=== PATIENT | male | born 1925 | race Caucasian/White ===

== ENCOUNTER 2016-07-15 13:25 | Emergency (ER) | payer MEDICARE, MEDICAID ==
[~2016-07-15 13:25] MED LIST: ASCO250C CHEW; ASPI1TAB69 PO; B-12100T PO; CIPR250T2 PO; D31000CA PO; FERR325T PO; GABA300C5 PO; GLIM4TAB PO; HYDR-3533 PO; LEVO-168 PO; LISI2.5T3 PO; OMEP20TA PO; PERM5CRE11 TOPICAL; SIMV10TA PO; TRAD5TAB PO; WHEEMIS3; ZOLP5TAB3 PO
[2016-07-15 13:34] VITALS: BP 104/63; PULSE 84; RESP 14; TEMP 98.2; O2SAT 100
[2016-07-15] MEDS ORDERED: [UNRECOGNIZED DRUG - CODE] TOPICAL (14:41)
[2016-07-15] MEDS ORDERED: RANITIDINE HCL 150 MG TAB PO ONE (14:45)
[2016-07-15] MEDS ORDERED: FAMOTIDINE 20 MG TAB PO ONE (14:45)
[2016-07-15] MEDS ORDERED: diphenhydrAMINE HCL 25 MG CAP PO ONE (14:45)
[2016-07-15] MEDS ORDERED: CLOT1CRE6 TOPICAL (14:47)
--- NOTE | 2016-07-15 14:57 | PD ---
HPI Chief Complaint: Skin Problem Time Seen by Provider: 14:30 Travel History International Travel<30 days: No Contact w/Intl Traveler<30days: No Traveled to known affect area: No History of Present Illness HPI 89-year-old male presents to the emergency room for evaluation of itchy rash to his bilateral upper extremities and back for the past 1.5 months. Patient complained of this about 2 months ago while in the emergency room and was given a prescription for permethrin cream. States that did not help. He has been applying creams without significant relief. States itching is severe and constant, affecting his activities of daily living. No worse at night. He has not been taking anything for his symptoms. PFSH Past Medical History Hx Anticoagulant Therapy: Yes (81 MG ASA) Blood Disorders: No Heart Rhythm Problems: No Cancer: Yes (CANCER R EAR) Cardiovascular Problems: Yes High Cholesterol: Yes Chemotherapy: No Chest Pain: No Congestive Heart Failure: No Cerebrovascular Accident: Yes (STROKE 2012) Diabetes: Yes Patient Takes Glucophage: No Diminished Hearing: Yes Endocrine: Yes Gastrointestinal Disorders: No GERD: Yes Genitourinary: Yes (Prostate) Headaches: No Hypertension: Yes Immune Disorder: No Inguinal Hernia: Yes (BILAT REPAIR) Implanted Vascular Access Dvce: Yes Kidney Stones: Yes Musculoskeletal: No Neurologic: Yes Psychiatric: No Reproductive: No Respiratory: No Immunizations Current: Yes (UNKNOWN) Migraines: Yes Radiation Therapy: No Seizures: No Thyroid Disease: Yes (Hypothyroid) Tetanus Vaccination: < 5 Years Influenza Vaccination: Yes Past Surgical History Abdominal Surgery: Yes (bilat. 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 Reported Meds & Prescriptions Reported Meds & Active Scripts Active Wheelchair Elevated Leg (Device) 1 Mis Mis 1 Ea .ROUTE DIRECTED Ciprofloxacin (Ciprofloxacin HCl) 250 Mg Tab 250 Mg PO BID Ferrous Sulfate 325 Mg Tab 325 Mg PO BID@,17 Ascorbic Acid 250 Mg Chew 250 Mg CHEW DAILY take with iron pills for better absorption of iron Reported Zolpidem (Zolpidem Tartrate) 5 Mg Tab 2.5 Mg PO HS PRN Tradjenta (Linagliptin) 5 Mg Tab 5 Mg PO DAILY Gabapentin 300 Mg Cap 300 Mg PO HS D3 (Cholecalciferol) 1,000 Unit Cap 1,000 Units PO DAILY Levothyroxine (Levothyroxine Sodium) 112 Mcg Tab 112 Mcg PO DAILY Omeprazole 20 Mg Tab 20 Mg PO DAILY Simvastatin 10 Mg Tab 10 Mg PO DAILY Glimepiride 4 Mg Tab 4 Mg PO BIDAC Aspirin 81 Mg Tabdr 81 Mg PO DAILY Lisinopril 2.5 Mg Tab 2.5 Mg PO DAILY Review of Systems Except as stated in HPI: all other systems reviewed are Neg Physical Exam Narrative GENERAL: Well-nourished, well-developed male in no acute distress. Afebrile. Ambulatory. SKIN: Warm and dry. Slightly raised erythematous maculopapular lesions in bilateral upper extremities and on upper back. Lesions are dry to the touch with central scaling. HEAD: Normocephalic. EYES: No scleral icterus. No injection or drainage. NECK: Supple, trachea midline. No JVD or lymphadenopathy. Data Data Last Documented VS Vital Signs Date Time Temp Pulse Resp B/P Pulse Ox O2 Delivery O2 Flow Rate FiO2 07/15/16 13:34 98.2 84 14 104/63 100 Orders Ranitidine (Zantac) (07/15/16 14:45) Diphenhydramine (Benadryl) (07/15/16 14:45) [facility] Medical Decision Making Medical Screen Exam Complete: Yes Emergency Medical Condition: Yes Medical Record Reviewed: Yes Differential Diagnosis Atopic dermatitis versus contact dermatitis versus tinea corporis Narrative Course 89-year-old male presents to the emergency room for evaluation of itchy rash has 1.5 months. Patient has been treated for scabies without improvement in symptoms. Physical exam reveals raised maculopapular rash in bilateral upper extremities and on back. Dermatitis is round with central clearing/scaling. Skin is rough and dry. Unclear if this is atopic dermatitis or tinea corporis. Patient will be treated for both. He was told to try clotrimazole for the first week and if there is no improvement symptoms to then start hydrocortisone cream. He was also told to take [id number] Benadryl and Zantac for symptoms. Told to follow up with a local delivery truck driver or return for worsening symptoms. He understands and agrees to plan. Diagnosis Primary Impression: Dermatitis Referrals: Certified Prosthetist Primary Care Physician Patient Instructions: Dermatitis (ED), General Instructions Additional Instructions: Rest and drink plenty of fluids. Take Benadryl and Zantac as directed, as needed for itchiness. Use clotrimazole cream for one week. If there is no improvement in symptoms, stop clotrimazole and start hydrocortisone. Keep the skin moist with unscented lotions or ointments. Follow-up with a primary care physician. Return to the emergency room for worsening symptoms. Med/Other Pt SpecificInfo: Prescription(s) given Scripts Hydrocortisone Acetate Topical (Micort-Hc Topical)2.5 % Cream1 Applic TOPICAL DAILY #1 TUBE Prov:Negar Pope MD 07/15/16 Disposition: 01 DISCHARGE HOME Condition: Stable Manda Perdomo Jul 15, 2016 14:57
== END 2016-07-15 15:18 | disposition home or self-care (01) ==
LOC: PHEFT 13:25
DX: L30.9 Dermatitis, unspecified (principal)
CPT/HCPCS: 99282

== ENCOUNTER 2016-11-03 11:20 | Emergency (ER) | payer MEDICARE, MEDICAID ==
[~2016-11-03] VITALS: Ht 182.9 cm; Wt 86.0 kg
[~2016-11-03 11:20] MED LIST changes: -ASCO250C CHEW; -B-12100T PO; -CIPR250T2 PO; +CLOT1CRE6 TOPICAL; -FERR325T PO; -HYDR-3533 PO; -PERM5CRE11 TOPICAL; -WHEEMIS3; +[UNRECOGNIZED DRUG - CODE] TOPICAL
[2016-11-03 11:29] VITALS: BP 96/53; PULSE 68; RESP 16; TEMP 98.4; O2SAT 99
--- NOTE | 2016-11-03 12:02 | PD ---
HPI Chief Complaint: Complaint Time Seen by Provider: 11:42 Travel History International Travel<30 days: No Contact w/Intl Traveler<30days: No Traveled to known affect area: No History of Present Illness HPI This patient has a chronic indwelling suprapubic catheter. He is residing at a senior living and gets it changed every month. Today he was trying to shave and accidentally yanked out his catheter. It's been out for 5 hours. He feels well. Symptom severity is mild PFSH Past Medical History Hx Anticoagulant Therapy: Yes (81 MG ASA) Blood Disorders: No Heart Rhythm Problems: No Cancer: Yes (CANCER R EAR) Cardiovascular Problems: Yes High Cholesterol: Yes Chemotherapy: No Chest Pain: No Congestive Heart Failure: No Cerebrovascular Accident: Yes (STROKE 2012) Diabetes: Yes Diminished Hearing: Yes Endocrine: Yes Gastrointestinal Disorders: No GERD: Yes Genitourinary: Yes (Prostate) Headaches: No Hypertension: Yes Immune Disorder: No Inguinal Hernia: Yes (BILAT REPAIR) Implanted Vascular Access Dvce: Yes Kidney Stones: Yes Musculoskeletal: No Neurologic: Yes Psychiatric: No Reproductive: No Respiratory: No Immunizations Current: Yes (UNKNOWN) Migraines: Yes Radiation Therapy: No Seizures: No Thyroid Disease: Yes (Hypothyroid) Past Surgical History Abdominal Surgery: Yes (bilat. 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 Reported Meds & Prescriptions Reported Meds & Active Scripts Active Clotrimazole Anti-Fungal Topical (Clotrimazole) 1% Cream 1 Applic TOPICAL BID Micort-Hc Topical (Hydrocortisone Acetate Topical) 2.5 % Cream 1 Applic TOPICAL DAILY Reported Zolpidem (Zolpidem Tartrate) 5 Mg Tab 2.5 Mg PO HS PRN Tradjenta (Linagliptin) 5 Mg Tab 5 Mg PO DAILY Gabapentin 300 Mg Cap 300 Mg PO HS D3 (Cholecalciferol) 1,000 Unit Cap 1,000 Units PO DAILY Levothyroxine (Levothyroxine Sodium) 112 Mcg Tab 112 Mcg PO DAILY Omeprazole 20 Mg Tab 20 Mg PO DAILY Simvastatin 10 Mg Tab 10 Mg PO DAILY Glimepiride 4 Mg Tab 4 Mg PO BIDAC Aspirin 81 Mg Tabdr 81 Mg PO DAILY Lisinopril 2.5 Mg Tab 2.5 Mg PO DAILY Review of Systems General / Constitutional: No: Fever HENT: No: Headaches Cardiovascular: No: Chest Pain or Discomfort Respiratory: No: Cough Physical Exam Narrative GASTROINTESTINAL: Abdomen soft, non-tender, nondistended. Positive bowel sounds. No hepato-splenomegaly, or palpable masses. No guarding. Has a fresh open hole where the suprapubic catheter was SKIN: Focused skin assessment reveals no rash or ulcers. Skin is warm and dry. Palpation shows no induration or nodules. Psych: Normal mood and affect. Normal insight and judgment given his age Data Data Last Documented VS Vital Signs Date Time Temp Pulse Resp B/P Pulse Ox O2 Delivery O2 Flow Rate FiO2 11/03/16 11:29 98.4 68 16 96/53 99 MDM Medical Decision Making Medical Screen Exam Complete: Yes Emergency Medical Condition: Yes Medical Record Reviewed: Yes Differential Diagnosis Catheter malfunction, needs a new catheter, obstruction catheter Narrative Course I have reviewed the patient's electronic medical record. This patient actually pulled his suprapubic catheter out and needs a replacement. The nurse replaced the suprapubic catheter under sterile conditions It is draining urine and functioning well. Diagnosis Primary Impression: Suprapubic catheter dysfunction Qualified Code: T83.010A - Suprapubic catheter dysfunction, initial encounter Additional Instructions: Follow-up with senior living [facility] Med/Other Pt SpecificInfo: Other Disposition: 03 DISCHARGE TO SNF Condition: Stable Mikey Roque MD November 03, 2016 12:02
== END 2016-11-03 12:25 ==
LOC: PHED 11:20
DX: T83.010A Breakdown (mechanical) of cystostomy catheter, initial encounter (principal); E78.00 Pure hypercholesterolemia, unspecified; E11.9 Type 2 diabetes mellitus without complications; K21.9 Gastro-esophageal reflux disease without esophagitis; I10 Essential (primary) hypertension; E03.9 Hypothyroidism, unspecified; Z79.899 Other long term (current) drug therapy; Z79.82 Long term (current) use of aspirin; Z86.73 Personal history of transient ischemic attack (TIA), and cerebral infarction without residual deficits
CPT/HCPCS: 51702

== ENCOUNTER 2017-01-23 08:31 | Emergency (ER) | payer MEDICARE, MEDICAID ==
[~2017-01-23 08:31] MED LIST changes: -CLOT1CRE6 TOPICAL; -[UNRECOGNIZED DRUG - CODE] TOPICAL
[2017-01-23 08:34] VITALS: BP 106/51; PULSE 77; RESP 18; TEMP 98.6; O2SAT 100
--- NOTE | 2017-01-23 08:57 | PD ---
HPI Chief Complaint: Skin Problem Time Seen by Provider: 08:40 Travel History International Travel<30 days: No Contact w/Intl Traveler<30days: No Traveled to known affect area: No History of Present Illness HPI This patient lives at an assisted living facility. He's had leg swelling and a rash for "months" according to him. Staff member noticed this today and sent him here for it. He denies fever. He's had a suprapubic catheter for years. He is wheelchair-bound. Rash itches. It is on both legs and both arms but worse in the left lower leg. He was moderately severe. No alleviating factors. He is not having shortness of breath or chest pain or abdominal pain PFSH Past Medical History Hx Anticoagulant Therapy: Yes (asa 81mg daily) Blood Disorders: No Heart Rhythm Problems: No Cancer: Yes (CANCER R EAR) Cardiovascular Problems: Yes High Cholesterol: Yes Chemotherapy: No Chest Pain: No Congestive Heart Failure: No Cerebrovascular Accident: Yes (STROKE 2012) Diabetes: Yes Diminished Hearing: Yes Endocrine: Yes Gastrointestinal Disorders: No GERD: Yes Genitourinary: Yes (Prostate) Headaches: No Hypertension: Yes Immune Disorder: No Inguinal Hernia: Yes (BILAT REPAIR) Implanted Vascular Access Dvce: Yes Kidney Stones: Yes Musculoskeletal: No Neurologic: Yes Psychiatric: No Reproductive: No Respiratory: No Immunizations Current: Yes (UNKNOWN) Migraines: Yes Radiation Therapy: No Seizures: No Thyroid Disease: Yes (Hypothyroid) Past Surgical History Abdominal Surgery: Yes (bilat. 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 Reported Meds & Prescriptions Reported Meds & Active Scripts Active Reported Aspirin Low Dose (Aspirin) 81 Mg Chew 81 Mg CHEW DAILY Zolpidem (Zolpidem Tartrate) 5 Mg Tab 2.5 Mg PO HS PRN Tradjenta (Linagliptin) 5 Mg Tab 5 Mg PO DAILY Gabapentin 300 Mg Cap 300 Mg PO HS D3 (Cholecalciferol) 1,000 Unit Cap 1,000 Units PO DAILY Levothyroxine (Levothyroxine Sodium) 112 Mcg Tab 112 Mcg PO DAILY Omeprazole 20 Mg Tab 20 Mg PO DAILY Simvastatin 10 Mg Tab 10 Mg PO DAILY Glimepiride 4 Mg Tab 4 Mg PO BIDAC Lisinopril 2.5 Mg Tab 2.5 Mg PO DAILY Review of Systems General / Constitutional: No: Fever Eyes: No: Visual changes HENT: No: Headaches Cardiovascular: Positive: Edema, No: Chest Pain or Discomfort Respiratory: No: Shortness of Breath Gastrointestinal: No: Abdominal Pain Genitourinary: No: Dysuria Musculoskeletal: Positive: Edema, No: Pain Skin: Positive Rash, Positive Itching Neurologic: No: Weakness Psychiatric: No: Depression Endocrine: No: Polydipsia Hematologic/Lymphatic: No: Easy Bruising Physical Exam Narrative GENERAL: Well-nourished, well-developed patient in no apparent distress. SKIN: Focused skin assessment reveals an erythematous excoriated rash on all 4 extremities but worse in the left lower leg. Skin is Warm and dry. HEAD: Atraumatic. Normocephalic. EYES: Pupils equal and round. No scleral icterus. No injection or drainage. ENT: No nasal bleeding or discharge. Mucous membranes pink and moist. NECK: Trachea midline. No JVD. CARDIOVASCULAR: Regular rate and rhythm. No murmur appreciated. RESPIRATORY: No accessory muscle use. Clear to auscultation. Breath sounds equal bilaterally. GASTROINTESTINAL: Abdomen soft, non-tender, nondistended. Hepatic and splenic margins not palpable. Has a suprapubic catheter in position with no sign of infection around the opening MUSCULOSKELETAL: No obvious deformities. No clubbing. No cyanosis. Symmetric edema of the feet and lower legs up to the knee NEUROLOGICAL: Awake and alert. No obvious cranial nerve deficits. Motor grossly within normal limits. Normal speech. PSYCHIATRIC: Appropriate mood and affect; insight and judgment reasonable for age. Data Data Last Documented VS Vital Signs Date Time Temp Pulse Resp B/P Pulse Ox O2 Delivery O2 Flow Rate FiO2 01/23/17 08:34 98.6 77 18 106/51 100 Orders Iv Access Insert/Monitor (01/23/17 08:50) Complete Blood Count With Diff (01/23/17 08:50) Comprehensive Metabolic Panel (01/23/17 08:50) Labs Laboratory Tests Test 01/23/17 09:10 White Blood Count 7.6 TH/MM3 Red Blood Count 3.91 MIL/MM3 Hemoglobin 11.2 GM/DL Hematocrit 33.4 % Mean Corpuscular Volume 85.5 FL Mean Corpuscular Hemoglobin 28.6 PG Mean Corpuscular Hemoglobin 33.4 % Concent Red Cell Distribution Width 13.6 % Platelet Count 169 TH/MM3 Mean Platelet Volume 7.8 FL Neutrophils (%) (Auto) 62.5 % Lymphocytes (%) (Auto) 19.3 % Monocytes (%) (Auto) 9.1 % Eosinophils (%) (Auto) 8.3 % Basophils (%) (Auto) 0.8 % Neutrophils # (Auto) 4.7 TH/MM3 Lymphocytes # (Auto) 1.5 TH/MM3 Monocytes # (Auto) 0.7 TH/MM3 Eosinophils # (Auto) 0.6 TH/MM3 Basophils # (Auto) 0.1 TH/MM3 CBC Comment DIFF FINAL Differential Comment Sodium Level 143 MEQ/L Potassium Level 4.3 MEQ/L Chloride Level 110 MEQ/L Carbon Dioxide Level 26.1 MEQ/L Anion Gap 7 MEQ/L Blood Urea Nitrogen 19 MG/DL Creatinine 1.10 MG/DL Estimat Glomerular Filtration 63 ML/MIN Rate Random Glucose 131 MG/DL Calcium Level 8.3 MG/DL Total Bilirubin 0.5 MG/DL Aspartate Amino Transf 12 U/L (AST/SGOT) Alanine Aminotransferase 13 U/L (ALT/SGPT) Alkaline Phosphatase 114 U/L Total Protein 6.1 GM/DL Albumin 3.1 GM/DL [facility] Medical Decision Making Medical Screen Exam Complete: Yes Emergency Medical Condition: Yes Medical Record Reviewed: Yes Differential Diagnosis Renal failure, liver failure, cellulitis, allergic reaction, dermatitis Narrative Course I have reviewed the patient's electronic medical record. IV placed CBC reasonably normal Metabolic profile is normal LFTs are normal Patient's vitals and lab studies are pretty normal. He said similar rash that' s been called scabies Going to treat him with Elimite I don't think this is cellulitis Regarding his leg swelling have advised him to elevate his legs and use low- sodium diet and wear knee-high compression stockings after his rash is improved Diagnosis Primary Impression: Rash and nonspecific skin eruption Additional Impression: Leg edema Additional Instructions: Use Elimite as prescribed Elevate legs Low-sodium diet The patient was advised to follow up with their physician and return if they worsen. when rash is improved consider knee-high compression stockings Med/Other Pt SpecificInfo: Prescription(s) given Scripts Permethrin Topical (Elimite Topical)5% Cream1 Applic TOPICAL ONCE #1 TUBE Ref 0 Prov:Mikey Roque MD 01/23/17 Disposition: DISCHARGE HOME Condition: Stable Mikey Roque MD Jan 23, 2017 08:57
[2017-01-23 09:18] LABS: AUTOMATED NEUTROPHIL # 4.7 TH/MM3 (1.8-7.7); BASOPHIL # 0.1 TH/MM3 (0-0.2); BASOPHIL % 0.8 % (0.0-2.0); EOSINOPHIL # 0.6 TH/MM3 (0-0.4); EOSINOPHIL % 8.3 % (0.0-4.0); HEMATOCRIT 33.4 % (39.0-51.0); HEMO FLAGS DIFF FINAL; LYMPH % 19.3 % (9.0-44.0); LYMPHOCYTE # 1.5 TH/MM3 (1.0-4.8); MEAN CELL VOLUME 85.5 FL (80.0-100.0); MEAN CORPUSCULAR HEMOGLOBIN 28.6 PG (27.0-34.0); MEAN CORPUSCULAR HGB CONC 33.4 % (32.0-36.0); MONO % 9.1 % (0.0-8.0); NEUT % 62.5 % (16.0-70.0); PLATELET COUNT 169 TH/MM3 (150-450); RED BLOOD COUNT 3.91 MIL/MM3 (4.50-5.90); RED CELL DISTRIBUTION WIDTH 13.6 % (11.6-17.2); WHITE BLOOD COUNT 7.6 TH/MM3 (4.0-11.0)
[2017-01-23] MEDS ORDERED: ASPI81CH37 CHEW (09:28)
[2017-01-23 10:01] LABS: CHLORIDE 110 MEQ/L (98-107); POTASSIUM 4.3 MEQ/L (3.5-5.1); SODIUM (NA) 143 MEQ/L (136-145)
[2017-01-23 10:03] LABS: ANION GAP 7 MEQ/L (5-15); BICARBONATE 26.1 MEQ/L (21.0-32.0); BLOOD UREA NITROGEN 19 MG/DL (7-18)
[2017-01-23 10:05] LABS: GLOMERULAR FILTRATION RATE 63 ML/MIN (>89)
[2017-01-23 10:08] LABS: ALT (GPT) 13 U/L (12-78); AST (GOT) 12 U/L (15-37)
[2017-01-23 10:10] LABS: TOTAL BILIRUBIN ADULT 0.5 MG/DL (0.2-1.0)
[2017-01-23 10:11] LABS: ALKALINE PHOSPHATASE 114 U/L (45-117)
[2017-01-23] MEDS ORDERED: PERM5CRE11 TOPICAL (10:32)
[2017-01-23 10:45] VITALS: BP 122/55
== END 2017-01-23 10:58 | disposition home or self-care (01) ==
LOC: PHED 08:31
DX: R21 Rash and other nonspecific skin eruption (principal); R60.0 Localized edema; E11.9 Type 2 diabetes mellitus without complications; I10 Essential (primary) hypertension; E03.9 Hypothyroidism, unspecified; E78.00 Pure hypercholesterolemia, unspecified; H91.90 Unspecified hearing loss, unspecified ear; Z79.82 Long term (current) use of aspirin; Z79.84 Long term (current) use of oral hypoglycemic drugs; Z86.79 Personal history of other diseases of the circulatory system; Z87.19 Personal history of other diseases of the digestive system; Z87.438 Personal history of other diseases of male genital organs; Z87.448 Personal history of other diseases of urinary system; Z86.69 Personal history of other diseases of the nervous system and sense organs
CPT/HCPCS: 80053; 85025; 99283

== ENCOUNTER 2017-02-03 15:58 | Inpatient (IN) | payer MEDICARE, MEDICAID ==
[~2017-02-03] VITALS: Ht 172.7 cm; Wt 96.5 kg
[~2017-02-03 15:58] MED LIST changes: -ASPI1TAB69 PO; +ASPI81CH37 CHEW; +PERM5CRE11 TOPICAL
[2017-02-03 16:36] VITALS: BP 142/63; PULSE 104; RESP 18; TEMP 99.5; O2SAT 97
--- NOTE | 2017-02-03 17:41 | PD ---
HPI Chief Complaint: General Weakness Time Seen by Provider: 17:40 Travel History International Travel<30 days: No Contact w/Intl Traveler<30days: No Traveled to known affect area: No History of Present Illness HPI 89-year-old male came to the emergency room with history of fever brought by EMS from the shelter. Patient is very hard of hearing. He has a suprapubic catheter and as per the shelter he has been having frequent falls for past 2 weeks. He has left leg swelling and redness and his temperature here was 100.1. Patient is tachycardic in ER. He is unable to give much descriptive history. FORMERLY [facility] Past Medical History Narrative Medical List of his past medical, surgical, social and family history was reviewed from the shelter. Hx Anticoagulant Therapy: Yes (asa 81mg daily) Blood Disorders: No Heart Rhythm Problems: No Cancer: Yes (CANCER R EAR) Cardiovascular Problems: Yes High Cholesterol: Yes Chemotherapy: No Chest Pain: No Congestive Heart Failure: No Cerebrovascular Accident: Yes (STROKE 2012) Diabetes: Yes Diminished Hearing: Yes Endocrine: Yes Gastrointestinal Disorders: No GERD: Yes Genitourinary: Yes (Prostate) Headaches: No Hypertension: Yes Immune Disorder: No Inguinal Hernia: Yes (BILAT REPAIR) Implanted Vascular Access Dvce: Yes Kidney Stones: Yes Musculoskeletal: No Neurologic: Yes Psychiatric: No Reproductive: No Respiratory: No Immunizations Current: Yes (UNKNOWN) Migraines: Yes Radiation Therapy: No Seizures: No Thyroid Disease: Yes (Hypothyroid) ?: Not Past Surgical History Abdominal Surgery: Yes (bilat. 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 Reported Meds & Prescriptions Reported Meds & Active Scripts Active Elimite Topical (Permethrin) 5% Cream 1 Applic TOPICAL ONCE Reported Aspirin Low Dose (Aspirin) 81 Mg Chew 81 Mg CHEW DAILY Zolpidem (Zolpidem Tartrate) 5 Mg Tab 2.5 Mg PO HS PRN Tradjenta (Linagliptin) 5 Mg Tab 5 Mg PO DAILY Gabapentin 300 Mg Cap 300 Mg PO HS D3 (Cholecalciferol) 1,000 Unit Cap 1,000 Units PO DAILY Levothyroxine (Levothyroxine Sodium) 112 Mcg Tab 112 Mcg PO DAILY Omeprazole 20 Mg Tab 20 Mg PO DAILY Simvastatin 10 Mg Tab 10 Mg PO DAILY Glimepiride 4 Mg Tab 4 Mg PO BIDAC Lisinopril 2.5 Mg Tab 2.5 Mg PO DAILY Narrative Medication List of his home medications reviewed from the nursing note. Review of Systems Except as stated in HPI: all other systems reviewed are Neg Physical Exam Narrative GENERAL: Awake, elderly, moderate distress, frail, hard of hearing SKIN: Focused skin assessment warm/dry. Erythematous left lower extremity, suprapubic catheter with surrounding erythema and purulent discharge from the stoma HEAD: Atraumatic. Normocephalic. EYES: Pupils equal and round. No scleral icterus. No injection or drainage. ENT: No nasal bleeding or discharge. Mucous membranes pink and moist. NECK: Trachea midline. No JVD. CARDIOVASCULAR: Regular rate and rhythm. No murmur appreciated. RESPIRATORY: No accessory muscle use. Clear to auscultation. Breath sounds equal bilaterally. GASTROINTESTINAL: Abdomen soft, non-tender, nondistended. Hepatic and splenic margins not palpable. MUSCULOSKELETAL: No obvious deformities. No clubbing. No cyanosis. No edema. NEUROLOGICAL: Awake and alert. No obvious cranial nerve deficits. Motor grossly within normal limits. Normal speech. PSYCHIATRIC: Appropriate mood and affect; insight and judgment normal. Data Data Last Documented VS Vital Signs Date Time Temp Pulse Resp B/P Pulse Ox O2 Delivery O2 Flow Rate FiO2 02/03/17 19:23 99.3 114 18 136/61 98 Room Air Orders Complete Blood Count With Diff (02/03/17 17:53) Comprehensive Metabolic Panel (02/03/17 17:53) Lactic Acid Sepsis Protocol (02/03/17 17:53) Urinalysis - C+S If Indicated (02/03/17 17:53) Blood Culture (02/03/17 17:53) Chest, Single Ap (02/03/17 17:53) Blood Glucose (02/03/17 17:53) Ecg Monitoring (02/03/17 17:53) Iv Access Insert/Monitor (02/03/17 17:53) Oximetry (02/03/17 17:53) Oxygen Administration (02/03/17 17:53) Vancomycin Inj (Vancomycin Inj) (02/03/17 17:53) Aztreonam Inj (Azactam Inj) (02/03/17 17:53) Sodium Chlor 0.9% 1000 Ml Inj (Ns 1000 M (02/03/17 17:53) Sodium Chlor 0.9% 1000 Ml Inj (Ns 1000 M (02/03/17 17:53) Sodium Chlor 0.9% 1000 Ml Inj (Ns 1000 M (02/03/17 17:53) Us Leg Venous Doppler (02/03/17 ) Urine Culture (02/03/17 18:30) Admit Order (Ed Use Only) (02/03/17 19:21) Labs Laboratory Tests Test 02/03/17 02/03/17 18:00 18:30 White Blood Count 17.2 TH/MM3 Red Blood Count 3.61 MIL/MM3 Hemoglobin 10.8 GM/DL Hematocrit 30.6 % Mean Corpuscular Volume 84.8 FL Mean Corpuscular Hemoglobin 29.8 PG Mean Corpuscular Hemoglobin 35.1 % Concent Red Cell Distribution Width 14.2 % Platelet Count 198 TH/MM3 Mean Platelet Volume 8.5 FL Neutrophils (%) (Auto) 86.7 % Lymphocytes (%) (Auto) 5.2 % Monocytes (%) (Auto) 5.1 % Eosinophils (%) (Auto) 2.7 % Basophils (%) (Auto) 0.3 % Neutrophils # (Auto) 14.9 TH/MM3 Lymphocytes # (Auto) 0.9 TH/MM3 Monocytes # (Auto) 0.9 TH/MM3 Eosinophils # (Auto) 0.5 TH/MM3 Basophils # (Auto) 0.0 TH/MM3 CBC Comment DIFF FINAL Differential Comment Sodium Level 133 MEQ/L Potassium Level 4.6 MEQ/L Chloride Level 100 MEQ/L Carbon Dioxide Level 23.3 MEQ/L Anion Gap 10 MEQ/L Blood Urea Nitrogen 47 MG/DL Creatinine 1.58 MG/DL Estimat Glomerular Filtration 42 ML/MIN Rate Random Glucose 227 MG/DL Lactic Acid Level 2.5 mmol/L Calcium Level 8.3 MG/DL Total Bilirubin 0.7 MG/DL Aspartate Amino Transf 38 U/L (AST/SGOT) Alanine Aminotransferase 29 U/L (ALT/SGPT) Alkaline Phosphatase 131 U/L Total Protein 6.7 GM/DL Albumin 2.9 GM/DL Urine Color YELLOW Urine Turbidity HAZY Urine pH 5.0 Urine Specific [place] 1.022 Urine Protein 30 mg/dL Urine Glucose (UA) NEG mg/dL Urine Ketones NEG mg/dL Urine Occult Blood SMALL Urine Nitrite NEG Urine Bilirubin NEG Urine Urobilinogen LESS THAN 2.0 MG/DL Urine Leukocyte Esterase LARGE Urine RBC 14 /hpf Urine WBC 39 /hpf Urine Squamous Epithelial <1 /hpf Cells Urine Amorphous Sediment RARE Urine Bacteria RARE /hpf Urine Mucus FEW /lpf Urine Yeast with Hyphae OCC Urine Yeast (Budding) RARE Microscopic Urinalysis Comment CATH-CULTURE IND MDM Medical Decision Making Medical Screen Exam Complete: Yes Emergency Medical Condition: Yes Medical Record Reviewed: Yes Differential Diagnosis Sepsis, UTI, pneumonia, electrolyte abnormality Narrative Course 6:55 PM blood test results are pending. CBC is back and patient has leukocytosis. In my opinion patient probably has urosepsis. However his left lower extremity is erythematous and swollen and could be cellulitis. Awaiting for the ultrasound to rule out DVT. Patient was given fluid and antibiotic as per sepsis protocol. 6:57 PM ultrasound results was reported. Negative for DVT 7:22 PM lactic acid is elevated. Patient has been admitted to the hospitalist. Critical Care Narrative Aggregate critical care time was 45 minutes. Time to perform other separately billable procedures was not included in the critical care time. My time did not include minutes spent treating any other patients simultaneously or on activities that did not directly contribute to the patient's treatment. The services I provided to this patient were to treat and/or prevent clinically significant deterioration that could result in: Sepsis, UTI, Sepsis protocol I provided critical care services requiring my management, as noted below: Chart data review, documentation time, medication orders and management, vital sign assessments/reviewing monitor data, ordering and reviewing lab tests, ordering and interpreting/reviewing x-rays and diagnostic studies, care of the patient and discussion of the patient with the admitting physicians. Procedures EKG Prior to Arrival: No Sepsis Criteria SIRS Criteria (2 or more): Heart rate over 90, WBC > 85891, < 4000 or > 10% bands Sepsis Criteria (SIRS+source): Infect source susp/known Severe Sepsis (+one): Lactate >2 Diagnosis Primary Impression: Sepsis Qualified Code: A41.9 - Sepsis, due to unspecified organism Additional Impressions: UTI (urinary tract infection) Qualified Code: N39.0 - Urinary tract infection without hematuria, site unspecified Cellulitis Qualified Code: L03.116 - Cellulitis of left lower extremity Weakness Frequent falls Admitting Information Admitting Physician Requests: Admit Rosalind Mascorro MD Feb 03, 2017 17:41 Rosalind Mascorro MD Feb 03, 2017 17:41
[2017-02-03] MEDS ORDERED: VANCOMYCIN INJ 1,000 MG in SODIUM CHLOR 0.9% 250 ML INJ 250 ML IV STA (17:53)
[2017-02-03] MEDS ORDERED: SODIUM CHLOR 0.9% 1000 ML INJ 1,000 ML IV ONE ×2 (17:53)
[2017-02-03] MEDS ORDERED: SODIUM CHLOR 0.9% 1000 ML INJ 400 ML IV ONE (17:53)
[2017-02-03] MEDS ORDERED: AZTREONAM INJ 2,000 MG in SODIUM CHLORIDE 0.9% INJ 100 ML IV STA (17:53)
--- NOTE | 2017-02-03 18:12 | RADRPT ---
EXAM DATE/TIME: 02/03/2017 18:08 [facility] COMPARISON: CHEST SINGLE AP, March 23, 2016, 20:51. INDICATIONS : Fever. MEDICAL HISTORY : Hypercholesterolemia. Hypertension. Hernia, inguinal.CVA. Diabetes. SURGICAL HISTORY : Inguinal hernia repair. ENCOUNTER: Initial ACUITY: 1 day PAIN SCORE: Non-responsive. LOCATION: Bilateral chest FINDINGS: There is mild bibasilar atelectasis. No pleural effusion. No pneumothorax. Heart size stable, upper limits of normal. CONCLUSION: Mild bibasilar atelectasis. Rahul Rocha MD on February 03, 2017 at 18:10 Board Certified Radiologist. This report was verified electronically.
[2017-02-03 18:47] LABS: AUTOMATED NEUTROPHIL # 14.9 TH/MM3 (1.8-7.7); BASOPHIL % 0.3 % (0.0-2.0); EOSINOPHIL # 0.5 TH/MM3 (0-0.4); EOSINOPHIL % 2.7 % (0.0-4.0); HEMATOCRIT 30.6 % (39.0-51.0); HEMO FLAGS DIFF FINAL; LYMPH % 5.2 % (9.0-44.0); LYMPHOCYTE # 0.9 TH/MM3 (1.0-4.8); MEAN CELL VOLUME 84.8 FL (80.0-100.0); MEAN CORPUSCULAR HEMOGLOBIN 29.8 PG (27.0-34.0); MEAN CORPUSCULAR HGB CONC 35.1 % (32.0-36.0); MONO % 5.1 % (0.0-8.0); NEUT % 86.7 % (16.0-70.0); PLATELET COUNT 198 TH/MM3 (150-450); RED BLOOD COUNT 3.61 MIL/MM3 (4.50-5.90); RED CELL DISTRIBUTION WIDTH 14.2 % (11.6-17.2); WHITE BLOOD COUNT 17.2 TH/MM3 (4.0-11.0)
--- NOTE | 2017-02-03 18:53 | RADRPT ---
EXAM DATE/TIME: 02/03/2017 18:24 [facility] COMPARISON: No previous studies available for comparison. INDICATIONS : Left leg swelling. MEDICAL HISTORY : Hypothyroidism. Hypercholesterolemia. Gastroesophageal reflux disease. Hearing loss. Cerebrovascul ar accident. Migraine. Anticoagulant therapy, Aspirin. Hypertension. Kidney stones. Diabetes. Right e ar cancer. Measles.SURGICAL HISTORY : Inguinal hernia repair. Tonsillectomy. Bilateral cataract removal. Lithotripsy. ENCOUNTER: Subsequent ACUITY: 1 day PAIN SCORE: 5/10 LOCATION: Left leg. TECHNIQUE: Venous ultrasound of the leg was performed from the inguinal ligament to the proximal calf. Real-marsha e, color Doppler and spectral tracing, compression and augmentation techniques were used. FINDINGS: There is normal compressibility of the deep venous system from the inguinal region to the proximal ca lf. No echogenic clot is seen in the lumen of the common femoral, femoral, popliteal, and posterior tibial veins. There is a normal response of the venous system to proximal and distal augmentation an d respiration. There is fairly generalized subcutaneous edema. No organize fluid seen. There are left inguinal lymph nodes measuring up to 13 mm in greatest short axis dimension. CONCLUSION: No DVT of the left lower extremity. Rahul Rocha MD on February 03, 2017 at 18:51 Board Certified Radiologist. This report was verified electronically.
[2017-02-03 18:54] LABS: BACTERIA, URINE RARE /hpf; BLOOD, URINE SMALL (NEG); GLUCOSE,URINE NEG (NEG); KETONE, URINE NEG (NEG); MUCUS URINE FEW /lpf (OCC); NITRITE,URINE NEG (NEG); SQUAMOUS EPITHELIAL CELL URINE <1 /hpf (0-5); URINE COLOR YELLOW (YELLW/STRAW)
[2017-02-03 18:55] LABS: COMMENT (UR) CATH-CULTURE IND; CULTURE IF INDICATED CATH CULTURE IND
[2017-02-03 19:07] LABS: ANION GAP 10 MEQ/L (5-15); AST (GOT) 38 U/L (15-37); BICARBONATE 23.3 MEQ/L (21.0-32.0); BLOOD UREA NITROGEN 47 MG/DL (7-18); CHLORIDE 100 MEQ/L (98-107); GLOMERULAR FILTRATION RATE 42 ML/MIN (>89); POTASSIUM 4.6 MEQ/L (3.5-5.1); SODIUM (NA) 133 MEQ/L (136-145)
[2017-02-03 19:08] LABS: ALT (GPT) 29 U/L (12-78)
[2017-02-03 19:10] LABS: ALKALINE PHOSPHATASE 131 U/L (45-117); TOTAL BILIRUBIN ADULT 0.7 MG/DL (0.2-1.0)
[2017-02-03 19:23] VITALS: BP 136/61; PULSE 110; PULSE 114; RESP 18; TEMP 99.3; O2SAT 98
[2017-02-03] MEDS ORDERED: SODIUM CHLORIDE 0.9% FLUSH 10 ML FLUSH IV FLUSH PRN (20:15)
[2017-02-03] MEDS ORDERED: Vancomycin Consult Pharmacy 1 EA OTHER SCH (20:15)
[2017-02-03] MEDS ORDERED: NALOXONE HCL 0.4 MG/ML AMP IV PRN (20:15)
[2017-02-03 20:37] LABS: LACTIC ACID GHOST NOT REPORTABLE
[2017-02-03] MEDS: SODIUM CHLORIDE 0.9% FLUSH 10 ML FLUSH IV FLUSH SCH (21:00)
[2017-02-03 21:59] VITALS: BP 126/68; PULSE 110; RESP 21; TEMP 99.8; O2SAT 98
--- NOTE | 2017-02-03 22:40 | HHI.HP ---
HPI Service [facility] Primary Care Physician Otis Centeno MD Admission Diagnosis sepsis Diagnoses: Chief Complaint: fever and multiple falls Travel History International Travel<30 Days: No Contact w/Intl Traveler <30 Da: No Traveled to Known Affected Are: No Sepsis Criteria SIRS Criteria (2 or more): Heart rate over 90, WBC > 77900, < 4000 or > 10% bands Sepsis Criteria (SIRS+source): Infect source susp/known Severe Sepsis (+one): Lactate >2 History of Present Illness Written by ORAL Costa acting as scribe for [Juan Daniel] on 02/03/17 at 22: 32. 89 y/o male who is [place] with a history of DM, CVA, suprapubic catheter, HLD, neuropathy, and HTN was brought in from the [facility] by [facility] for a fever and multiple falls. Patient is pleasantly confused so collecting information is difficult. Patient states he has not been able to walk lately, he can use a wheelchair. He denies having a fever. No complaints of chest pain, sob, nausea, or vomiting. Patient resides at [facility], will clarify code status from facility. Review of Systems Except as stated in HPI: all other systems reviewed are Neg Past Family Social History Past Medical History Per EMR: DM HTN Gerd HLD Neuropathy Past Surgical History Per EMR: Bilateral Inguinal Hernia Repair Suprapubic Catheter Tonsillectomy Lithotripsy Reported Medications Reported Meds & Active Scripts Active Elimite Topical (Permethrin) 5% Cream 1 Applic TOPICAL ONCE Reported Aspirin Low Dose (Aspirin) 81 Mg Chew 81 Mg CHEW DAILY Zolpidem (Zolpidem Tartrate) 5 Mg Tab 2.5 Mg PO HS PRN Tradjenta (Linagliptin) 5 Mg Tab 5 Mg PO DAILY Gabapentin 300 Mg Cap 300 Mg PO HS D3 (Cholecalciferol) 1,000 Unit Cap 1,000 Units PO DAILY Levothyroxine (Levothyroxine Sodium) 112 Mcg Tab 112 Mcg PO DAILY Omeprazole 20 Mg Tab 20 Mg PO DAILY Simvastatin 10 Mg Tab 10 Mg PO DAILY Glimepiride 4 Mg Tab 4 Mg PO BIDAC Lisinopril 2.5 Mg Tab 2.5 Mg PO DAILY Allergies: Coded Allergies: penicillin G (Unverified Allergy, Unknown, 02/03/17) *MDRO Multi-Drug Resistant Organism (Verified Adverse Reaction, Unknown, ) 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 Physical Exam Vital Signs Vital Signs Date Time Temp Pulse Resp B/P Pulse Ox O2 Delivery O2 Flow Rate FiO2 02/03/17 21:59 99.8 110 21 126/68 98 02/03/17 19:23 99.3 114 18 136/61 98 Room Air 02/03/17 17:34 97 Room Air 02/03/17 16:36 99.5 104 18 142/63 97 Room Air Physical Exam GENERAL: This is a well-nourished, well-developed patient, in no apparent distress. SKIN: No rashes, ecchymoses or lesions. Cool and dry. Bilateral upper extremities with cellulitis,and multiple scabs. Left lower extremity erythema L> R. Suprapubic site with erythema, no drainage. HEAD: Atraumatic. Normocephalic. EYES: Pupils equal round and reactive. ENT: Nose without bleeding, purulent drainage or septal hematoma. Airway patent. NECK: Trachea midline. No JVD or lymphadenopathy. Supple, nontender, no meningeal signs. CARDIOVASCULAR: Regular rate and rhythm without murmurs, gallops, or rubs. RESPIRATORY: Clear to auscultation. Breath sounds equal bilaterally. No wheezes , rales, or rhonchi. GASTROINTESTINAL: Abdomen soft, non-tender, nondistended. No hepato-splenomegaly , or palpable masses. No guarding. MUSCULOSKELETAL: No edema. No joint tenderness, effusion, or edema noted. No calf tenderness. NEUROLOGICAL: Awake and confused. [place]. Motor and sensory grossly within normal limits. Normal speech. Laboratory Laboratory Tests Test 02/03/17 02/03/17 18:00 18:30 White Blood Count 17.2 Red Blood Count 3.61 Hemoglobin 10.8 Hematocrit 30.6 Mean Corpuscular Volume 84.8 Mean Corpuscular Hemoglobin 29.8 Mean Corpuscular Hemoglobin 35.1 Concent Red Cell Distribution Width 14.2 Platelet Count 198 Mean Platelet Volume 8.5 Neutrophils (%) (Auto) 86.7 Lymphocytes (%) (Auto) 5.2 Monocytes (%) (Auto) 5.1 Eosinophils (%) (Auto) 2.7 Basophils (%) (Auto) 0.3 Neutrophils # (Auto) 14.9 Lymphocytes # (Auto) 0.9 Monocytes # (Auto) 0.9 Eosinophils # (Auto) 0.5 Basophils # (Auto) 0.0 CBC Comment DIFF FINAL Differential Comment Sodium Level 133 Potassium Level 4.6 Chloride Level 100 Carbon Dioxide Level 23.3 Anion Gap 10 Blood Urea Nitrogen 47 Creatinine 1.58 Estimat Glomerular Filtration 42 Rate Random Glucose 227 Lactic Acid Level 2.5 Calcium Level 8.3 Total Bilirubin 0.7 Aspartate Amino Transf 38 (AST/SGOT) Alanine Aminotransferase 29 (ALT/SGPT) Alkaline Phosphatase 131 Total Protein 6.7 Albumin 2.9 Urine Color YELLOW Urine Turbidity HAZY Urine pH 5.0 Urine Specific [place] 1.022 Urine Protein 30 Urine Glucose (UA) NEG Urine Ketones NEG Urine Occult Blood SMALL Urine Nitrite NEG Urine Bilirubin NEG Urine Urobilinogen LESS THAN 2.0 Urine Leukocyte Esterase LARGE Urine RBC 14 Urine WBC 39 Urine Squamous Epithelial <1 Cells Urine Amorphous Sediment RARE Urine Bacteria RARE Urine Mucus FEW Urine Yeast with Hyphae OCC Urine Yeast (Budding) RARE Microscopic Urinalysis Comment CATH-CULTURE IND Date/Time Procedure Status Source Growth 02/03/17 18:30 Urine Culture Received Urine Catheterized Urine Pending 02/03/17 18:05 Aerobic Blood Culture Received Blood Peripheral Pending 02/03/17 18:05 Anaerobic Blood Culture Received Blood Peripheral Pending Result Diagram: 02/03/17 1800 02/03/17 1800 Imaging Last Impressions Chest X-Ray 02/03/17 1753 Signed Impressions: Service Date/Time: Friday, February 03, 2017 18:08 - CONCLUSION: Mild bibasilar atelectasis. Rahul Rocha MD Lower Extremity Ultrasound 02/03/17 0000 Signed Impressions: Service Date/Time: Friday, February 03, 2017 18:24 - CONCLUSION: No DVT of the left lower extremity. Rahul Rocha MD Assessment and Plan Problem List: (1) Sepsis ICD Code: A41.9 Status: Acute (2) Cellulitis ICD Code: L03.90 Status: Acute (3) Physical deconditioning ICD Code: R53.81 Status: Acute (4) Frequent falls ICD Code: R29.6 Status: Acute (5) Acute kidney injury ICD Code: N17.9 Status: Acute (6) Diabetes ICD Code: E11.9 Status: Chronic Assessment and Plan 89 y/o male who is [place] with a history of DM, CVA, suprapubic catheter was brought in from the [facility] by [facility] for a fever and multiple falls. Sepsis, WBC 17.2, HR 104, Lactic 2.5, suspected due to cellulitis of upper and lower extremities with lower extremity edema L>R Lower extremity US reviewed and is negative for DVT -2L bolus given in ED, Cont IVF 100ml/hr -Repeat lactic acid -Consult ID for recommendations -IV antibiotics Vanco and Azactam Physical deconditioning with multiple falls -PT eval and treat Acute Kidney injury, creatine 1.5, baseline 1.1, due to dehydration and sepsis -IVF for hydration -Trend BMP in AM DM, chronic -Accu checks with SSI DVT prophylaxis: Heparin This note was transcribed by lachelle [Le Caballero]. I, Dr. Mars Frances personally performed the history, physical exam, and medical decision making; and confirmed the accuracy of the information in the transcribed note. Authenticated by Dr. Mars Frances on 02/03/17 at 22:32. Discussed Condition With Patient, RN and ED physician Physician Certification 2 Midnight Certification Type: Admission for Inpatient Services Order for Inpatient Services The services are ordered in accordance with Medicare regulations or non- Medicare payer requirements, as applicable. In the case of services not specified as inpatient-only, they are appropriately provided as inpatient services in accordance with the 2-midnight benchmark. Estimated LOS (days): 3 days is the estimated time the patient will need to remain in the hospital, assuming treatment plan goals are met and no additional complications. Post-Hospital Plan: SNF Problem Qualifiers (1) Sepsis: Qualified Code: A41.9 - Sepsis, due to unspecified organism (2) Cellulitis: Qualified Code: L03.116 - Cellulitis of left lower extremity (3) Diabetes: Le Caballero Feb 03, 2017 22:40 Mars Frances MD Feb 04, 2017 07:22
[2017-02-03] MEDS ORDERED: GLUCAGON 1 MG/ML VIAL OTHER PRN (23:00)
[2017-02-03] MEDS ORDERED: DEXTROSE 50% IN WATER 50 ML VIAL(D50) IV PRN (23:00)
[2017-02-03] MEDS ORDERED: ACETAMINOPHEN 325 MG TAB PO PRN (23:45)
[2017-02-03] MEDS: SODIUM CHLOR 0.9% 1000 ML INJ 1,000 ML IV SCH (23:52)
[2017-02-03 23:56] VITALS: BP 107/54; PULSE 108; RESP 17; TEMP 99.5; O2SAT 95
[2017-02-03] MEDS ORDERED: VANCOMYCIN 1,000 MG/NS 250 ML IV ONE ×2 (23:59)
[2017-02-04] MEDS: AZTREONAM INJ 2,000 MG in SODIUM CHLORIDE 0.9% INJ 100 ML IV SCH ×4 (02:03→20:37)
[2017-02-04 04:15] VITALS: BP 100/68; PULSE 115; RESP 18; TEMP 100.5; O2SAT 96
[2017-02-04] MEDS: INSULIN ASPART SUPPLEMENTAL SCALE SQ SCH ×4 (05:38→21:05)
[2017-02-04 06:01] VITALS: TEMP 100.3
[2017-02-04 07:10] LABS: BASOPHIL # 0.1 TH/MM3 (0-0.2); BASOPHIL % 0.4 % (0.0-2.0); EOSINOPHIL # 0.1 TH/MM3 (0-0.4); EOSINOPHIL % 0.6 % (0.0-4.0); HEMATOCRIT 26.9 % (39.0-51.0); HEMO FLAGS DIFF FINAL; LYMPH % 4.7 % (9.0-44.0); LYMPHOCYTE # 0.8 TH/MM3 (1.0-4.8); MEAN CELL VOLUME 85.5 FL (80.0-100.0); MEAN CORPUSCULAR HEMOGLOBIN 29.5 PG (27.0-34.0); MEAN CORPUSCULAR HGB CONC 34.5 % (32.0-36.0); MONO % 6.5 % (0.0-8.0); NEUT % 87.8 % (16.0-70.0); PLATELET COUNT 168 TH/MM3 (150-450); RED BLOOD COUNT 3.14 MIL/MM3 (4.50-5.90); RED CELL DISTRIBUTION WIDTH 14.6 % (11.6-17.2)
[2017-02-04 07:25] LABS: BICARBONATE 22.3 MEQ/L (21.0-32.0); POTASSIUM 3.9 MEQ/L (3.5-5.1)
[2017-02-04 08:00] VITALS: BP 104/52; PULSE 96; RESP 20; TEMP 100.1; O2SAT 97
--- NOTE | 2017-02-04 08:53 | HHI.PR ---
Subjective Remarks This is a pleasant 89 y/o Male has DM II, CVA, Suprapubic Catheter, Hyperlipidemia, Neuropathy, Hypertension, Peripheral Neuropathy, brought in from the [facility] by [facility] for a fever and multiple falls. he also has GERD, seen in his bedroom, stable will continue present care awaiting for Infectious Disease specialist evaluation asked by Admitting physician. continue suprapubic catheter as per patient he is not able to walk is improving condition. Objective Vital Signs Date Time Temp Pulse Resp B/P Pulse Ox O2 Delivery O2 Flow Rate FiO2 02/04/17 06:01 100.3 02/04/17 04:15 100.5 115 18 100/68 96 02/03/17 23:56 99.5 108 17 107/54 95 02/03/17 21:59 99.8 110 21 126/68 98 02/03/17 19:23 99.3 114 18 136/61 98 Room Air 02/03/17 17:34 97 Room Air 02/03/17 16:36 99.5 104 18 142/63 97 Room Air I/O 02/03/17 02/03/17 02/03/17 02/04/17 02/04/17 02/04/17 07:00 15:00 23:00 07:00 15:00 23:00 Intake Total 1367 ml Output Total 275 ml 800 ml Balance -275 ml 567 ml Intake IV Total 1367 ml Output Urine Total 275 ml 800 ml Result Diagram: 02/04/17 0623 02/04/17 0623 Imaging Last Impressions Chest X-Ray 02/03/17 1753 Signed Impressions: Service Date/Time: Friday, February 03, 2017 18:08 - CONCLUSION: Mild bibasilar atelectasis. Rahul Rocha MD Lower Extremity Ultrasound 02/03/17 0000 Signed Impressions: Service Date/Time: Friday, February 03, 2017 18:24 - CONCLUSION: No DVT of the left lower extremity. Rahul Rocha MD Procedures None Other Results Laboratory Tests Test 02/03/17 02/03/17 02/04/17 18:00 18:30 06:23 Total Bilirubin 0.7 MG/DL Aspartate Amino Transf 38 U/L (AST/SGOT) Alanine Aminotransferase 29 U/L (ALT/SGPT) Alkaline Phosphatase 131 U/L Total Protein 6.7 GM/DL Albumin 2.9 GM/DL Urine Color YELLOW Urine Turbidity HAZY Urine pH 5.0 Urine Specific [place] 1.022 Urine Protein 30 mg/dL Urine Glucose (UA) NEG mg/dL Urine Ketones NEG mg/dL Urine Occult Blood SMALL Urine Nitrite NEG Urine Bilirubin NEG Urine Urobilinogen LESS THAN 2.0 MG/DL Urine Leukocyte Esterase LARGE Urine RBC 14 /hpf Urine WBC 39 /hpf Urine Squamous Epithelial <1 /hpf Cells Urine Amorphous Sediment RARE Urine Bacteria RARE /hpf Urine Mucus FEW /lpf Urine Yeast with Hyphae OCC Urine Yeast (Budding) RARE Microscopic Urinalysis Comment CATH-CULTURE IND White Blood Count 16.0 TH/MM3 Red Blood Count 3.14 MIL/MM3 Hemoglobin 9.3 GM/DL Hematocrit 26.9 % Mean Corpuscular Volume 85.5 FL Mean Corpuscular Hemoglobin 29.5 PG Mean Corpuscular Hemoglobin 34.5 % Concent Red Cell Distribution Width 14.6 % Platelet Count 168 TH/MM3 Mean Platelet Volume 8.5 FL Neutrophils (%) (Auto) 87.8 % Lymphocytes (%) (Auto) 4.7 % Monocytes (%) (Auto) 6.5 % Eosinophils (%) (Auto) 0.6 % Basophils (%) (Auto) 0.4 % Neutrophils # (Auto) 14.0 TH/MM3 Lymphocytes # (Auto) 0.8 TH/MM3 Monocytes # (Auto) 1.0 TH/MM3 Eosinophils # (Auto) 0.1 TH/MM3 Basophils # (Auto) 0.1 TH/MM3 CBC Comment DIFF FINAL Differential Comment Sodium Level 139 MEQ/L Potassium Level 3.9 MEQ/L Chloride Level 109 MEQ/L Carbon Dioxide Level 22.3 MEQ/L Anion Gap 8 MEQ/L Blood Urea Nitrogen 33 MG/DL Creatinine 1.20 MG/DL Estimat Glomerular Filtration 57 ML/MIN Rate Random Glucose 164 MG/DL Lactic Acid Level 1.3 mmol/L Calcium Level 7.7 MG/DL Objective Remarks GENERAL: No distress. SKIN: No rashes, ecchymoses or lesions. Cool and dry. Bilateral upper extremities with cellulitis,and multiple scabs. Left lower extremity erythema L> R. Suprapubic site with erythema, no drainage. HEAD: Atraumatic. Normocephalic. EYES: Pupils equal round and reactive. ENT: Nose without bleeding, purulent drainage or septal hematoma. Airway patent. NECK: Trachea midline. No JVD or lymphadenopathy. Supple, nontender, no meningeal signs. CARDIOVASCULAR: Regular rate and rhythm without murmurs, gallops, or rubs. RESPIRATORY: Clear to auscultation. Breath sounds equal bilaterally. No wheezes , rales, or rhonchi. GASTROINTESTINAL: Abdomen soft, non-tender, nondistended. No hepato-splenomegaly , or palpable masses. No guarding. MUSCULOSKELETAL: No edema. No joint tenderness, effusion, or edema noted. No calf tenderness. NEUROLOGICAL: Awake, Alert and oriented. Medications and IVs Current Medications Medications (Trade) Dose Ordered Sig/Ajay Route Start Time Stop Time Status Last Admin (NS Flush) 2 ml UNSCH PRN IV FLUSH 02/03/17 20:15 (NS Flush) 2 ml BID IV FLUSH 02/03/17 21:00 02/03/17 21:00 Naloxone HCl 0.4 mg 0.4 mg UNSCH PRN IV 02/03/17 20:15 Pharmacy Profile Note 0 ml @ 0 mls/hr UNSCH OTHER 02/03/17 20:15 Aztreonam 2000 mg/ Sodium Chloride 100 ml @ 200 mls/hr Q6H IV 02/04/17 02:00 02/04/17 02:03 (NS 1000 ml Inj) 1,000 ml @ 100 mls/hr Q10H IV 02/03/17 23:00 02/03/17 23:52 (D50w (Vial) Inj) 50 ml UNSCH PRN IV 02/03/17 23:00 (Glucagon Inj) 1 mg UNSCH PRN OTHER 02/03/17 23:00 (Heparin Inj) 5,000 units Q12HR SQ 02/04/17 09:00 (Tylenol) 650 mg Q4H PRN PO 02/03/17 23:45 02/04/17 04:13 A/P Assessment and Plan 89 y/o male who is [place] with a history of DM, CVA, suprapubic catheter was brought in from the [facility] by [facility] for a fever and multiple falls. 1. Sepsis, WBC 17.2, HR 104, Lactic 2.5 on admission, suspected due to cellulitis of upper and lower extremities with lower extremity edema L>R Improving condition awaiting for ID specialist consult continue present antibiotics, today lactic Acid 1.3 and will continue present care. Admitting physician asked for ID specialist for evaluation. Blood culture negative. 2. Lower extremity US reviewed and is negative for DVT -2L bolus given in ED, continue IV fluids -Repeat lactic acid -Consult ID for recommendations -IV antibiotics Vanco and Azactam 3. Physical deconditioning with multiple falls -PT eval and treat 4. Acute Kidney injury, Improved will continue gentle hydration. 5. DM, chronic stable -Accu checks with SSI DVT prophylaxis: Heparin Discussed Condition With Patient in the room and all questions answered to the best of my abilities. Discharge Planning Once cleared by Specialist. Alexis Jacob MD Feb 04, 2017 08:53
[2017-02-04] MEDS: SODIUM CHLOR 0.9% 1000 ML INJ 1,000 ML IV SCH ×2 (09:00→20:49)
[2017-02-04] MEDS: SODIUM CHLORIDE 0.9% FLUSH 10 ML FLUSH IV FLUSH SCH ×2 (09:00→20:40)
[2017-02-04] MEDS: HEPARIN SODIUM - SQ 10,000 UNITS/ML VIAL SQ SCH ×2 (09:47→20:39)
[2017-02-04 12:00] VITALS: BP 106/56; PULSE 94; RESP 20; TEMP 99; O2SAT 96
--- NOTE | 2017-02-04 15:19 | MB ---
cc: YOVANI ADAME MD DATE OF CONSULTATION: 02/04/[address] Caballero. REASON FOR CONSULTATION Patient with sepsis, cellulitis of upper and lower extremities. HISTORY OF PRESENT ILLNESS This is a 89-year-old white male who resides at an assisted living facility. The patient was brought to the emergency department with generalized weakness. He was having frequent falls over the past 2 weeks. The patient was noted to have left leg swelling and redness and he also had temperature of 100.1 degrees. In the emergency department his heart rate was 104 and his white count was elevated at 17.2. An ultrasound was performed on the lower extremities and showed no DVT. Blood cultures were obtained. The patient also had urinalysis that revealed a large amount of leukocyte esterase and increased white cells. He has a suprapubic catheter. Urine culture was sent as well. Urine culture preliminary has immature growth. The patient is laying upright in bed currently. He is in no acute distress. When I entered the room he was coughing quite a bit and reports that he might have swallowed food wrong. He was just eating a few moments prior. He tells me that he aches all over. He had temperature of 100.5 degrees early this morning and his temperature has been low grade throughout the day so far. He denies fever, chills or nausea or vomiting. The chest x-ray from yesterday showed mild bibasilar atelectasis. Besides the diffuse achiness the patient just feels poorly in general. PAST MEDICAL HISTORY 1. Diabetes mellitus. 2. Hypertension. 3. Hyperlipidemia. 4. GERD. 5. Neuropathy. 6. Bilateral inguinal hernia repair. 7. Tonsillectomy. 8. Suprapubic catheter. 9. History of the CVA. ALLERGIES PENICILLIN. MEDICATIONS 1. Vancomycin. 2. Aztreonam. 3. Insulin. SOCIAL HISTORY No tobacco, no alcohol. No illicit drugs. The patient is retired from working with the [employer] service. FAMILY HISTORY Noncontributory. REVIEW OF SYSTEMS Significant for diffuse aches and pains. Otherwise negative on 10-point review. PHYSICAL EXAMINATION GENERAL: This is a well-developed male who is awake and alert. He is in no acute distress. VITAL SIGNS: Temperature 99.0, BP 106/56, respirations 20, heart rate 94. HEENT: The head is atraumatic. Extraocular movements grossly intact, pupils reactive to light. No icterus. Oropharynx moist mucosa without lesions. NECK: Supple. No adenopathy. No swelling. LUNGS: Decreased breath sounds bilateral without audible rhonchi. HEART: Regular, S1 and S2. No murmurs appreciated. No rubs or gallops. ABDOMEN: Bowel sounds present but diminished, soft, no tenderness. RECTAL: Not performed. EXTREMITIES: The left leg has edema throughout from the dorsum of the foot up to the knee. The edema is 2+ pitting. The left leg has less edema approximately 1+ pitting. The left leg has multiple excoriated areas and some tiny fissures in the skin and there is clear fluid oozing from the skin. Upper extremity has multiple raised scabbed lesions at the arms above and below the elbow. The right hand has erythema, swelling of the proximal to first digit and also the base of the second digit and this is also erythematous. SKIN: No diffuse rash. NEURO: The patient is alert and oriented. No gross focal findings. PSYCHE: The patient is calm and pleasant and cooperative. LABORATORY DATA WBC 16.0, 87% neutrophils, hemoglobin 9.3, creatinine 1.20, BUN 33, sodium 139. IMPRESSION 1. Sepsis in a patient who presented with fever, tachycardia, leukocytosis, abnormal urinalysis. 2. UTI is probably the cause of the sepsis. 3. Cellulitis of the left lower extremity. 4. The patient has erythema at the proximal second finger on the right hand and the base of the third finger on the right hand in the area where he notes that he fell and may have injured his hand in the process. 5. Chronic suprapubic catheter. RECOMMENDATIONS 1. Continue aztreonam. 2. Continue vancomycin. 3. Monitor urine culture. 4. Monitor blood culture. 5. Monitor temperature and white blood cell count. 6. Antibiotic adjustments depending on the culture results. The patient has cough after eating but the chest x-ray from yesterday shows mild bibasilar atelectasis. Monitor the cough. Thank you for this consultation. The patient's progress will be followed with you and further recommendations will be given upon followup. Yovani Adame MD FD/ADARSH /2:35 PM /2:53 PM MTDFabio
[2017-02-04 16:00] VITALS: BP 126/60; PULSE 94; RESP 20; TEMP 96.8; O2SAT 99
[2017-02-04 20:00] VITALS: BP 109/54; PULSE 91; PULSE 92; RESP 18; TEMP 99; O2SAT 98
[2017-02-04] MEDS: VANCOMYCIN INJ 1,500 MG in SODIUM CHLORID 0.9% 500 ML INJ 500 ML IV SCH (20:38)
[2017-02-05] VITALS (7 sets, daily range): BP systolic 107–138; BP diastolic 52–60; PULSE 84–100; RESP 18–20; TEMP 96–98.4; O2SAT 92–98
[2017-02-05] MEDS: AZTREONAM INJ 2,000 MG in SODIUM CHLORIDE 0.9% INJ 100 ML IV SCH ×4 (03:58→21:28)
[2017-02-05] MEDS: SODIUM CHLOR 0.9% 1000 ML INJ 1,000 ML IV SCH ×2 (05:00→15:52)
[2017-02-05] MEDS: INSULIN ASPART SUPPLEMENTAL SCALE SQ SCH ×4 (05:08→21:44)
[2017-02-05 06:19] LABS: AUTOMATED NEUTROPHIL # 11.7 TH/MM3 (1.8-7.7); BASOPHIL # 0.1 TH/MM3 (0-0.2); BASOPHIL % 0.6 % (0.0-2.0); EOSINOPHIL # 0.7 TH/MM3 (0-0.4); EOSINOPHIL % 4.6 % (0.0-4.0); HEMATOCRIT 26.8 % (39.0-51.0); HEMO FLAGS DIFF FINAL; LYMPH % 6.4 % (9.0-44.0); LYMPHOCYTE # 0.9 TH/MM3 (1.0-4.8); MEAN CELL VOLUME 87.5 FL (80.0-100.0); MEAN CORPUSCULAR HGB CONC 33.1 % (32.0-36.0); MONO % 6.1 % (0.0-8.0); NEUT % 82.3 % (16.0-70.0); PLATELET COUNT 192 TH/MM3 (150-450); RED BLOOD COUNT 3.06 MIL/MM3 (4.50-5.90); RED CELL DISTRIBUTION WIDTH 14.5 % (11.6-17.2); WHITE BLOOD COUNT 14.3 TH/MM3 (4.0-11.0)
[2017-02-05 06:55] LABS: BICARBONATE 21.9 MEQ/L (21.0-32.0); MAGNESIUM 1.8 MG/DL (1.5-2.5); POTASSIUM 3.6 MEQ/L (3.5-5.1)
[2017-02-05 07:18] LABS: CALCIUM-PROTEIN CORRECTED 8.6 MG/DL (8.5-10.1)
--- NOTE | 2017-02-05 08:09 | HHI.PR ---
Subjective Remarks This is a pleasant 89 y/o Male has DM II, CVA, Suprapubic Catheter, Hyperlipidemia, Neuropathy, Hypertension, Peripheral Neuropathy, brought in [place] the [place] [facility] by [facility] for a fever and multiple falls. he also has GERD. 02/05: Seen in his bedroom in the presence of nurse Miss Amezcua the patient has bilateral conjunctivitis purulent tissue, no nausea, vomit or diarrhea. Objective Vital Signs Date Time Temp Pulse Resp B/P Pulse Ox O2 Delivery O2 Flow Rate FiO2 02/05/17 04:00 98.1 100 18 109/55 93 02/05/17 00:00 98.4 94 20 108/54 98 02/04/17 20:00 91 02/04/17 20:00 99.0 92 18 109/54 98 02/04/17 16:00 96.8 94 20 126/60 99 02/04/17 12:00 99.0 94 20 106/56 96 I/O 02/04/17 02/04/17 02/04/17 02/05/17 02/05/17 02/05/17 07:00 15:00 23:00 07:00 15:00 23:00 Intake Total 1367 ml 659 ml 240 ml 1148 ml Output Total 800 ml 1150 ml 1000 ml Balance 567 ml 659 ml -910 ml 148 ml Intake Oral 240 ml 240 ml IV Total 1367 ml 659 ml 908 ml Output Urine Total 800 ml 1150 ml 1000 ml # Bowel Movements 1 Result Diagram: 02/05/17 0554 02/05/17 0554 Imaging Last Impressions Chest X-Ray 02/03/17 1753 Signed Impressions: Service Date/Time: Friday, February 03, 2017 18:08 - CONCLUSION: Mild bibasilar atelectasis. Rahul Rocha MD Lower Extremity Ultrasound 02/03/17 0000 Signed Impressions: Service Date/Time: Friday, February 03, 2017 18:24 - CONCLUSION: No DVT of the left lower extremity. Rahul Rocha MD Procedures None Other Results Laboratory Tests Test 02/03/17 02/03/17 02/04/17 02/05/17 18:00 18:30 06:23 05:54 Total Bilirubin 0.7 MG/DL Aspartate Amino Transf 38 U/L (AST/SGOT) Alanine Aminotransferase 29 U/L (ALT/SGPT) Alkaline Phosphatase 131 U/L Albumin 2.9 GM/DL Urine Color YELLOW Urine Turbidity HAZY Urine pH 5.0 Urine Specific [place] 1.022 Urine Protein 30 mg/dL Urine Glucose (UA) NEG mg/dL Urine Ketones NEG mg/dL Urine Occult Blood SMALL Urine Nitrite NEG Urine Bilirubin NEG Urine Urobilinogen LESS THAN 2.0 MG/DL Urine Leukocyte Esterase LARGE Urine RBC 14 /hpf Urine WBC 39 /hpf Urine Squamous Epithelial <1 /hpf Cells Urine Amorphous Sediment RARE Urine Bacteria RARE /hpf Urine Mucus FEW /lpf Urine Yeast with Hyphae OCC Urine Yeast (Budding) RARE Microscopic Urinalysis Comment CATH-CULTURE IND Lactic Acid Level 1.3 mmol/L White Blood Count 14.3 TH/MM3 Red Blood Count 3.06 MIL/MM3 Hemoglobin 8.9 GM/DL Hematocrit 26.8 % Mean Corpuscular Volume 87.5 FL Mean Corpuscular Hemoglobin 29.0 PG Mean Corpuscular Hemoglobin 33.1 % Concent Red Cell Distribution Width 14.5 % Platelet Count 192 TH/MM3 Mean Platelet Volume 7.8 FL Neutrophils (%) (Auto) 82.3 % Lymphocytes (%) (Auto) 6.4 % Monocytes (%) (Auto) 6.1 % Eosinophils (%) (Auto) 4.6 % Basophils (%) (Auto) 0.6 % Neutrophils # (Auto) 11.7 TH/MM3 Lymphocytes # (Auto) 0.9 TH/MM3 Monocytes # (Auto) 0.9 TH/MM3 Eosinophils # (Auto) 0.7 TH/MM3 Basophils # (Auto) 0.1 TH/MM3 CBC Comment DIFF FINAL Differential Comment Sodium Level 140 MEQ/L Potassium Level 3.6 MEQ/L Chloride Level 111 MEQ/L Carbon Dioxide Level 21.9 MEQ/L Anion Gap 7 MEQ/L Blood Urea Nitrogen 26 MG/DL Creatinine 0.93 MG/DL Estimat Glomerular Filtration 77 ML/MIN Rate Random Glucose 120 MG/DL Calcium Level 7.4 MG/DL Protein Corrected Calcium 8.6 MG/DL Magnesium Level 1.8 MG/DL Total Protein 4.9 GM/DL Objective Remarks GENERAL: No distress. SKIN: Bilateral upper extremities with cellulitis,and multiple scabs. Left lower extremity erythema L>R. Suprapubic site with erythema, no drainage. HEAD: Atraumatic. Normocephalic. EYES: Purulent secretion on bilateral eyes. ENT: Nose without bleeding, purulent drainage or septal hematoma. Airway patent. NECK: Trachea midline. No JVD or lymphadenopathy. Supple, nontender, no meningeal signs. CARDIOVASCULAR: Regular rate and rhythm without murmurs, gallops, or rubs. RESPIRATORY: Clear to auscultation. Breath sounds equal bilaterally. No wheezes , rales, or rhonchi. GASTROINTESTINAL: Abdomen soft, non-tender, nondistended. No hepato-splenomegaly , or palpable masses. No guarding. MUSCULOSKELETAL: Edema on bilateral legs with multiple skin lesions. NEUROLOGICAL: Awake, Alert and oriented. Medications and IVs Current Medications Medications (Trade) Dose Ordered Sig/Ajay Route Start Time Stop Time Status Last Admin (NS Flush) 2 ml UNSCH PRN IV FLUSH 02/03/17 20:15 (NS Flush) 2 ml BID IV FLUSH 02/03/17 21:00 02/04/17 20:40 Naloxone HCl 0.4 mg 0.4 mg UNSCH PRN IV 02/03/17 20:15 Pharmacy Profile Note 0 ml @ 0 mls/hr UNSCH OTHER 02/03/17 20:15 Aztreonam 2000 mg/ Sodium Chloride 100 ml @ 200 mls/hr Q6H IV 02/04/17 02:00 02/05/17 03:58 (NS 1000 ml Inj) 1,000 ml @ 70 mls/hr [id number] IV 02/03/17 23:00 02/04/17 09:00 (D50w (Vial) Inj) 50 ml UNSCH PRN IV 02/03/17 23:00 (Glucagon Inj) 1 mg UNSCH PRN OTHER 02/03/17 23:00 (Heparin Inj) 5,000 units Q12HR SQ 02/04/17 09:00 02/04/17 20:39 Acetaminophen 650 mg 650 mg Q4H PRN PO 02/03/17 23:45 02/04/17 04:13 (Vancomycin Inj/ NS 500 ml Inj) 515 ml @ 250 mls/hr Q24H IV 02/04/17 21:00 02/04/17 20:38 Miscellaneous Information SPECIFIC LAB TO BE DRAWN:VANCOMYCIN TROUGH DATE TO... ONCE ONCE .XX 02/06/17 20:45 02/06/17 20:46 A/P Assessment and Plan 89 y/o male who is TRIBAL with a history of DM, CVA, suprapubic catheter was brought in [place] the [place] [facility] by [facility] for a fever and multiple falls. 1. Sepsis, WBC 17.2, HR 104, Lactic 2.5 on admission, suspected due to cellulitis of upper and lower extremities with lower extremity edema L>R Improving condition Seen by ID specialist Doctor Rafi Appreciated Specialist assistance, states Sepsis probably secondary to UTI, Cellulitis of the lower extremities, recommended to continue Aztreonam, Continue Vancomycin, and continue to monitor cultures 2. Lower extremity US reviewed and is negative for DVT -IV antibiotics Vancomycin and Azactam 3. Physical deconditioning with multiple falls -PT eval and treat 4. Acute Kidney injury, Improved 5. DM, chronic stable -Accu checks with SSI 6. Conjunctivitis started on Natural tears and Cipro ophthalmic. DVT prophylaxis: Heparin Discussed Condition With Patient in the room and all questions answered to the best of my abilities. Nurse Goldie appreciated input Discharge Planning Once cleared by Specialist. Alexis Jacob MD Feb 05, 2017 08:09
[2017-02-05] MEDS ORDERED: POTASSIUM CHLORIDE 20 MEQ CONTROLLED RELEASE TAB PO ONE (08:15)
[2017-02-05] MEDS: HEPARIN SODIUM - SQ 10,000 UNITS/ML VIAL SQ SCH ×2 (08:22→21:28)
[2017-02-05] MEDS: SODIUM CHLORIDE 0.9% FLUSH 10 ML FLUSH IV FLUSH SCH ×2 (08:23→21:29)
[2017-02-05] MEDS: MAGNESIUM SULFATE 1 GM PREMIX 100 ML IV SCH ×2 (08:23→10:00)
[2017-02-05] MEDS: CIPROFLOXACIN 0.3% OPTH SOLN 2.5 ML BTL EACH EYE SCH ×4 (10:00→21:33)
[2017-02-05] MEDS: ARTIFICIAL TEARS OPTH SOLN 15 ML BTL EACH EYE SCH ×4 (10:00→21:33)
--- NOTE | 2017-02-05 15:44 | HHI.IDPN ---
Note Infectious Disease Note Patient says he feels "awful" Walked to bathroom. No specific complaints except saying that his leg hurts. No SOB. No cough Afebrile. The patient was brought to the emergency department with generalized weakness. He was having frequent falls over the prior 2 weeks. PAST MEDICAL HISTORY 1. Diabetes mellitus. 2. Hypertension. 3. Hyperlipidemia. 4. GERD. 5. Neuropathy. 6. Bilateral inguinal hernia repair. 7. Tonsillectomy. 8. Suprapubic catheter. 9. History of the CVA. ALLERGIES PENICILLIN. ANTIBIOTICS 1. Vancomycin. 2. Aztreonam. OBJECTIVE: Vital Signs Date Time Temp Pulse Resp B/P Pulse Ox O2 Delivery O2 Flow Rate FiO2 02/05/17 12:00 98.0 90 18 107/52 96 02/05/17 08:00 96.8 94 18 108/53 92 02/05/17 04:00 98.1 100 18 109/55 93 02/05/17 00:00 98.4 94 20 108/54 98 02/04/17 20:00 91 02/04/17 20:00 99.0 92 18 109/54 98 02/04/17 16:00 96.8 94 20 126/60 99 Laboratory Tests Test 02/03/17 02/04/17 02/05/17 18:00 06:23 05:54 White Blood Count 17.2 TH/MM3 16.0 TH/MM3 14.3 TH/MM3 Red Blood Count 3.61 MIL/MM3 3.14 MIL/MM3 3.06 MIL/MM3 Hemoglobin 10.8 GM/DL 9.3 GM/DL 8.9 GM/DL Hematocrit 30.6 % 26.9 % 26.8 % Mean Corpuscular Volume 84.8 FL 85.5 FL 87.5 FL Mean Corpuscular Hemoglobin 29.8 PG 29.5 PG 29.0 PG Mean Corpuscular Hemoglobin 35.1 % 34.5 % 33.1 % Concent Red Cell Distribution Width 14.2 % 14.6 % 14.5 % Platelet Count 198 TH/MM3 168 TH/MM3 192 TH/MM3 Mean Platelet Volume 8.5 FL 8.5 FL 7.8 FL Neutrophils (%) (Auto) 86.7 % 87.8 % 82.3 % Lymphocytes (%) (Auto) 5.2 % 4.7 % 6.4 % Monocytes (%) (Auto) 5.1 % 6.5 % 6.1 % Eosinophils (%) (Auto) 2.7 % 0.6 % 4.6 % Basophils (%) (Auto) 0.3 % 0.4 % 0.6 % Neutrophils # (Auto) 14.9 TH/MM3 14.0 TH/MM3 11.7 TH/MM3 Lymphocytes # (Auto) 0.9 TH/MM3 0.8 TH/MM3 0.9 TH/MM3 Monocytes # (Auto) 0.9 TH/MM3 1.0 TH/MM3 0.9 TH/MM3 Eosinophils # (Auto) 0.5 TH/MM3 0.1 TH/MM3 0.7 TH/MM3 Basophils # (Auto) 0.0 TH/MM3 0.1 TH/MM3 0.1 TH/MM3 CBC Comment DIFF FINAL DIFF FINAL DIFF FINAL Differential Comment Laboratory Tests Test 02/03/17 02/04/17 02/04/17 02/05/17 18:00 00:55 06:23 05:54 Sodium Level 133 MEQ/L 139 MEQ/L 140 MEQ/L Potassium Level 4.6 MEQ/L 3.9 MEQ/L 3.6 MEQ/L Chloride Level 100 MEQ/L 109 MEQ/L 111 MEQ/L Carbon Dioxide Level 23.3 MEQ/L 22.3 MEQ/L 21.9 MEQ/L Anion Gap 10 MEQ/L 8 MEQ/L 7 MEQ/L Blood Urea Nitrogen 47 MG/DL 33 MG/DL 26 MG/DL Creatinine 1.58 MG/DL 1.20 MG/DL 0.93 MG/DL Estimat Glomerular Filtration 42 ML/MIN 57 ML/MIN 77 ML/MIN Rate Random Glucose 227 MG/DL 164 MG/DL 120 MG/DL Lactic Acid Level 2.5 mmol/L 1.7 mmol/L 1.3 mmol/L Calcium Level 8.3 MG/DL 7.7 MG/DL 7.4 MG/DL Total Bilirubin 0.7 MG/DL Aspartate Amino Transf 38 U/L (AST/SGOT) Alanine Aminotransferase 29 U/L (ALT/SGPT) Alkaline Phosphatase 131 U/L Total Protein 6.7 GM/DL 4.9 GM/DL Albumin 2.9 GM/DL Protein Corrected Calcium 8.6 MG/DL Magnesium Level 1.8 MG/DL Microbiology Date/Time Procedure Status Source Growth 02/03/17 18:00 Aerobic Blood Culture - Preliminary Resulted Blood Peripheral NO GROWTH IN 2 DAYS 02/03/17 18:00 Anaerobic Blood Culture - Preliminary Resulted Blood Peripheral NO GROWTH IN 2 DAYS 02/03/17 18:05 Aerobic Blood Culture - Preliminary Resulted Blood Peripheral NO GROWTH IN 2 DAYS 02/03/17 18:05 Anaerobic Blood Culture - Preliminary Resulted Blood Peripheral NO GROWTH IN 2 DAYS 02/03/17 18:30 Urine Culture - Final Complete Urine Catheterized Urine 50-100,000 CFU/ML MIXED GRAM POSITIVE... PHYSICAL EXAMINATION GENERAL: Appears more awake and alert. He is in no acute distress. HEENT: The head is atraumatic. Extraocular movements grossly intact, pupils reactive to light. No icterus. Oropharynx moist mucosa without lesions. NECK: Supple. No adenopathy. No swelling. LUNGS: Decreased breath sounds. HEART: Regular, S1 and S2. No murmurs appreciated. No rubs or gallops. ABDOMEN: Bowel sounds present but diminished, soft, no tenderness. EXTREMITIES: The left leg has edema throughout from the dorsum of the foot up to the knee. The edema is 2+ pitting. The left leg edema has decreased. The left leg has multiple excoriated areas and some tiny fissures in the skin and there is clear fluid oozing from the skin. Upper extremity has multiple raised scabbed lesions at the arms above and below the elbow. The right hand erythema and swelling is unchanged. SKIN: No diffuse rash. NEURO: No gross focal findings. PSYCHE: The patient is calm and pleasant and cooperative. IMPRESSION 1. Sepsis in a patient who presented with fever, tachycardia, leukocytosis, abnormal urinalysis. Temp and WBC is improved. 2. UTI is probably the cause of the sepsis. Urine culture has mixed bacteria. 3. Cellulitis of the left lower extremity. 4. The patient has erythema at the proximal second finger on the right hand and the base of the third finger on the right hand in the area where he notes that he fell and may have injured his hand in the process. 5. Chronic suprapubic catheter. 6. Acute kidney disease. improved. Appears better. RECOMMENDATIONS 1. Continue aztreonam. 2. Continue vancomycin. 3. Repeat urine culture. 4. Monitor blood culture. 5. Monitor temperature and white blood cell count. 6. Plain Xray of the R. hand to check for fracture. Rubin Mckee MD Feb 05, 2017 15:44
--- NOTE | 2017-02-05 17:54 | RADRPT ---
EXAM DATE/TIME: 02/05/2017 16:39 [place] COMPARISON: CHEST SINGLE AP, February 03, 2017, 18:08. INDICATIONS : Right hand pain. Fracture. MEDICAL HISTORY : None. SURGICAL HISTORY : None. ENCOUNTER: Subsequent ACUITY: 1 day PAIN SCORE: 6/10 LOCATION: Right Hand second digit MCPJ swelling FINDINGS: The exam demonstrates osteopenia. There degenerative changes in the carpal/metacarpal joint at the ba se of the thumb. No acute fracture or destructive lesion is identified. No retained foreign body is e vident. CONCLUSION: 1. Degenerative changes. No acute fracture identified. Enrike Little MD on February 05, 2017 at 17:52 Board Certified Radiologist. This report was verified electronically.
[2017-02-05] MEDS: VANCOMYCIN INJ 1,500 MG in SODIUM CHLORID 0.9% 500 ML INJ 500 ML IV SCH (21:28)
[2017-02-06] VITALS (7 sets, daily range): BP systolic 108–135; BP diastolic 51–62; PULSE 76–89; RESP 17–20; TEMP 95.7–98.1; O2SAT 94–99
[2017-02-06] MEDS: AZTREONAM INJ 2,000 MG in SODIUM CHLORIDE 0.9% INJ 100 ML IV SCH ×4 (03:33→21:50)
[2017-02-06] MEDS: ARTIFICIAL TEARS OPTH SOLN 15 ML BTL EACH EYE SCH ×6 (03:34→21:53)
[2017-02-06] MEDS: CIPROFLOXACIN 0.3% OPTH SOLN 2.5 ML BTL EACH EYE SCH ×6 (03:35→21:53)
[2017-02-06] MEDS: INSULIN ASPART SUPPLEMENTAL SCALE SQ SCH ×4 (05:53→21:00)
--- NOTE | 2017-02-06 08:18 | HHI.PR ---
Subjective Remarks This is a pleasant 89 y/o Male has DM II, CVA, Suprapubic Catheter, Hyperlipidemia, Neuropathy, Hypertension, Peripheral Neuropathy, brought in from the retirement [facility] by [facility] for a fever and multiple falls. he also has GERD. 02/05: Seen in his bedroom in the presence of nurse Miss Amezcua the patient has bilateral conjunctivitis purulent tissue. 02/06: Seen in his bedroom, improving condition, has bilateral arms and legs with severe dyshidrosis added Ammonium lactate. blood cultures and urine cultures reviewed and negative. NO Nausea, vomit or diarrhea. Objective Vital Signs Date Time Temp Pulse Resp B/P Pulse Ox O2 Delivery O2 Flow Rate FiO2 02/06/17 04:00 97.0 78 20 108/51 95 02/06/17 00:00 98.1 89 20 119/58 94 02/05/17 20:21 96 02/05/17 20:00 98.0 89 20 138/60 95 02/05/17 16:00 96.0 84 19 113/55 98 02/05/17 12:00 98.0 90 18 107/52 96 I/O 02/05/17 02/05/17 02/05/17 02/06/17 02/06/17 02/06/17 07:00 15:00 23:00 07:00 15:00 23:00 Intake Total 1148 ml 120 ml 293 ml 820 ml Output Total 1000 ml 500 ml 450 ml 350 ml Balance 148 ml -380 ml -157 ml 470 ml Intake Oral 240 ml 120 ml 120 ml 120 ml IV Total 908 ml 173 ml 700 ml Output Urine Total 1000 ml 500 ml 450 ml 350 ml # Bowel Movements 1 1 1 Result Diagram: 02/05/17 0554 02/05/17 0554 Imaging Last Impressions Hand X-Ray 02/05/17 0000 Signed Impressions: Service Date/Time: January 16:39 - CONCLUSION: 1. Degenerative changes. No acute fracture identified. Enrike Little MD Chest X-Ray 02/03/17 4413 Signed Impressions: Service Date/Time: Friday, February 03, 2017 18:08 - CONCLUSION: Mild bibasilar atelectasis. Rahul Rocha MD Lower Extremity Ultrasound 02/03/17 0000 Signed Impressions: Service Date/Time: Friday, February 03, 2017 18:24 - CONCLUSION: No DVT of the left lower extremity. Rahul Rocha MD Procedures None Other Results Laboratory Tests Test 02/03/17 02/03/17 02/04/17 02/05/17 18:00 18:30 06:23 05:54 Total Bilirubin 0.7 MG/DL Aspartate Amino Transf 38 U/L (AST/SGOT) Alanine Aminotransferase 29 U/L (ALT/SGPT) Alkaline Phosphatase 131 U/L Albumin 2.9 GM/DL Urine Color YELLOW Urine Turbidity HAZY Urine pH 5.0 Urine Specific [place] 1.022 Urine Protein 30 mg/dL Urine Glucose (UA) NEG mg/dL Urine Ketones NEG mg/dL Urine Occult Blood SMALL Urine Nitrite NEG Urine Bilirubin NEG Urine Urobilinogen LESS THAN 2.0 MG/DL Urine Leukocyte Esterase LARGE Urine RBC 14 /hpf Urine WBC 39 /hpf Urine Squamous Epithelial <1 /hpf Cells Urine Amorphous Sediment RARE Urine Bacteria RARE /hpf Urine Mucus FEW /lpf Urine Yeast with Hyphae OCC Urine Yeast (Budding) RARE Microscopic Urinalysis Comment CATH-CULTURE IND Lactic Acid Level 1.3 mmol/L White Blood Count 14.3 TH/MM3 Red Blood Count 3.06 MIL/MM3 Hemoglobin 8.9 GM/DL Hematocrit 26.8 % Mean Corpuscular Volume 87.5 FL Mean Corpuscular Hemoglobin 29.0 PG Mean Corpuscular Hemoglobin 33.1 % Concent Red Cell Distribution Width 14.5 % Platelet Count 192 TH/MM3 Mean Platelet Volume 7.8 FL Neutrophils (%) (Auto) 82.3 % Lymphocytes (%) (Auto) 6.4 % Monocytes (%) (Auto) 6.1 % Eosinophils (%) (Auto) 4.6 % Basophils (%) (Auto) 0.6 % Neutrophils # (Auto) 11.7 TH/MM3 Lymphocytes # (Auto) 0.9 TH/MM3 Monocytes # (Auto) 0.9 TH/MM3 Eosinophils # (Auto) 0.7 TH/MM3 Basophils # (Auto) 0.1 TH/MM3 CBC Comment DIFF FINAL Differential Comment Sodium Level 140 MEQ/L Potassium Level 3.6 MEQ/L Chloride Level 111 MEQ/L Carbon Dioxide Level 21.9 MEQ/L Anion Gap 7 MEQ/L Blood Urea Nitrogen 26 MG/DL Creatinine 0.93 MG/DL Estimat Glomerular Filtration 77 ML/MIN Rate Random Glucose 120 MG/DL Calcium Level 7.4 MG/DL Protein Corrected Calcium 8.6 MG/DL Magnesium Level 1.8 MG/DL Total Protein 4.9 GM/DL Objective Remarks GENERAL: No distress. SKIN: Bilateral upper extremities with cellulitis,and multiple scabs. Left lower extremity erythema L>R. Suprapubic site with erythema, no drainage. HEAD: Atraumatic. Normocephalic. EYES: Purulent secretion on bilateral eyes. ENT: Nose without bleeding, purulent drainage or septal hematoma. Airway patent. NECK: Trachea midline. No JVD or lymphadenopathy. Supple, nontender, no meningeal signs. CARDIOVASCULAR: Regular rate and rhythm without murmurs, gallops, or rubs. RESPIRATORY: Clear to auscultation. Breath sounds equal bilaterally. No wheezes , rales, or rhonchi. GASTROINTESTINAL: Abdomen soft, non-tender, nondistended. No hepato-splenomegaly , or palpable masses. No guarding. MUSCULOSKELETAL: Edema on bilateral legs with multiple skin lesions. NEUROLOGICAL: Awake, Alert and oriented. Medications and IVs Current Medications Medications (Trade) Dose Ordered Sig/Ajay Route Start Time Stop Time Status Last Admin (NS Flush) 2 ml UNSCH PRN IV FLUSH 02/03/17 20:15 (NS Flush) 2 ml BID IV FLUSH 02/03/17 21:00 02/05/17 21:29 Naloxone HCl 0.4 mg 0.4 mg UNSCH PRN IV 02/03/17 20:15 Pharmacy Profile Note 0 ml @ 0 mls/hr UNSCH OTHER 02/03/17 20:15 Aztreonam 2000 mg/ Sodium Chloride 100 ml @ 200 mls/hr Q6H IV 02/04/17 02:00 02/06/17 03:33 (NS 1000 ml Inj) 1,000 ml @ 42 mls/hr [id number] IV 02/03/17 23:00 02/05/17 15:52 (D50w (Vial) Inj) 50 ml UNSCH PRN IV 02/03/17 23:00 (Glucagon Inj) 1 mg UNSCH PRN OTHER 02/03/17 23:00 (Heparin Inj) 5,000 units Q12HR SQ 02/04/17 09:00 02/05/17 21:28 Acetaminophen 650 mg 650 mg Q4H PRN PO 02/03/17 23:45 02/04/17 04:13 (Vancomycin Inj/ NS 500 ml Inj) 515 ml @ 250 mls/hr Q24H IV 02/04/17 21:00 02/05/17 21:28 Miscellaneous Information SPECIFIC LAB TO BE DRAWN:VANCOMYCIN TROUGH DATE TO... ONCE ONCE .XX 02/06/17 20:45 02/06/17 20:46 (Tears Naturale Opth Soln) 1 drop Q4H EACH EYE 02/05/17 10:00 02/06/17 05:51 (Ciloxan 0.3% Opth Soln) 1 drop Q4H EACH EYE 02/05/17 10:00 02/06/17 05:51 A/P Assessment and Plan 89 y/o male who is [place] with a history of DM, CVA, suprapubic catheter was brought in from the retirement [facility] by [facility] for a fever and multiple falls. 1. Sepsis, WBC 17.2, HR 104, Lactic 2.5 on admission, suspected due to cellulitis of upper and lower extremities with lower extremity edema L>R Improving condition Seen by ID specialist Doctor Rafi Appreciated Specialist assistance, states Sepsis probably secondary to UTI, Cellulitis of the lower extremities, recommended to continue Aztreonam, Continue Vancomycin, and continue to monitor cultures 2. Lower extremity US reviewed and is negative for DVT -IV antibiotics Vancomycin and Azactam 3. Physical deconditioning with multiple falls -PT eval and treat 4. Acute Kidney injury, Improved 5. DM, chronic stable -Accu checks with SSI 6. Conjunctivitis started on Natural tears and Cipro ophthalmic. Improving 7. Severe Dyshidrosis started on Ammonium Lactate DVT prophylaxis: Heparin Discussed Condition With Patient in the room and all questions answered to the best of my abilities. Nurse Katy appreciated input Discharge Planning Once cleared by Specialist. Alexis Jacob MD Feb 06, 2017 08:18
[2017-02-06] MEDS: SODIUM CHLORIDE 0.9% FLUSH 10 ML FLUSH IV FLUSH SCH ×2 (10:52→21:52)
[2017-02-06] MEDS: HEPARIN SODIUM - SQ 10,000 UNITS/ML VIAL SQ SCH ×2 (10:52→21:52)
[2017-02-06] MEDS: SODIUM CHLOR 0.9% 1000 ML INJ 1,000 ML IV SCH (18:19)
[2017-02-06] MEDS: LACTIC ACID (AMMONIUM LACTATE) 12% LOTION 225 GM BTL TOPICAL SCH ×2 (18:20→21:53)
--- NOTE | 2017-02-06 18:39 | HHI.IDPN ---
Note Infectious Disease Note Patient says he feels okay. Appears a little confused. Sleepy. No SOB. No cough. Denies chills. Afebrile. The patient was brought to the emergency department with generalized weakness. He was having frequent falls over the prior 2 weeks. PAST MEDICAL HISTORY 1. Diabetes mellitus. 2. Hypertension. 3. Hyperlipidemia. 4. GERD. 5. Neuropathy. 6. Bilateral inguinal hernia repair. 7. Tonsillectomy. 8. Suprapubic catheter. 9. History of the CVA. ALLERGIES PENICILLIN. ANTIBIOTICS 1. Vancomycin. 2. Aztreonam. OBJECTIVE: Vital Signs Date Time Temp Pulse Resp B/P Pulse Ox O2 Delivery O2 Flow Rate FiO2 02/06/17 16:00 97.1 76 17 116/54 99 02/06/17 12:00 96.9 83 19 135/62 95 02/06/17 08:00 95.7 77 18 114/56 96 02/06/17 04:00 97.0 78 20 108/51 95 02/06/17 00:00 98.1 89 20 119/58 94 02/05/17 20:21 96 02/05/17 20:00 98.0 89 20 138/60 95 Laboratory Tests Test 02/05/17 05:54 White Blood Count 14.3 TH/MM3 Red Blood Count 3.06 MIL/MM3 Hemoglobin 8.9 GM/DL Hematocrit 26.8 % Mean Corpuscular Volume 87.5 FL Mean Corpuscular Hemoglobin 29.0 PG Mean Corpuscular Hemoglobin 33.1 % Concent Red Cell Distribution Width 14.5 % Platelet Count 192 TH/MM3 Mean Platelet Volume 7.8 FL Neutrophils (%) (Auto) 82.3 % Lymphocytes (%) (Auto) 6.4 % Monocytes (%) (Auto) 6.1 % Eosinophils (%) (Auto) 4.6 % Basophils (%) (Auto) 0.6 % Neutrophils # (Auto) 11.7 TH/MM3 Lymphocytes # (Auto) 0.9 TH/MM3 Monocytes # (Auto) 0.9 TH/MM3 Eosinophils # (Auto) 0.7 TH/MM3 Basophils # (Auto) 0.1 TH/MM3 CBC Comment DIFF FINAL Differential Comment Laboratory Tests Test 02/05/17 05:54 Sodium Level 140 MEQ/L Potassium Level 3.6 MEQ/L Chloride Level 111 MEQ/L Carbon Dioxide Level 21.9 MEQ/L Anion Gap 7 MEQ/L Blood Urea Nitrogen 26 MG/DL Creatinine 0.93 MG/DL Estimat Glomerular Filtration 77 ML/MIN Rate Random Glucose 120 MG/DL Calcium Level 7.4 MG/DL Protein Corrected Calcium 8.6 MG/DL Magnesium Level 1.8 MG/DL Total Protein 4.9 GM/DL Microbiology Date/Time Procedure Status Source Growth 02/05/17 17:15 Urine Culture - Preliminary Resulted Urine Catheterized Urine NO GROWTH IN 24 HOURS. IMAGING: Hand X-Ray 02/05/17 0000 Signed Impressions: Service Date/Time: January 16:39 - CONCLUSION: 1. Degenerative changes. No acute fracture identified. Enrike Little MD PHYSICAL EXAMINATION GENERAL: No acute distress. HEENT: The head is atraumatic. No icterus. Oropharynx moist mucosa without lesions. NECK: Supple. No adenopathy. No swelling. LUNGS: Decreased breath sounds. HEART: Regular, S1 and S2. No murmurs appreciated. No rubs or gallops. ABDOMEN: Bowel sounds present, soft, no tenderness. EXTREMITIES: The left leg has edema remains throughout from the dorsum of the foot up to the knee. Weeping excoriated areas. Upper extremity has multiple raised scabbed lesions at the arms above and below the elbow. The right hand erythema same, swelling is decreased. SKIN: No diffuse rash. NEURO: No gross focal findings. PSYCHE: The patient is calm and pleasant and cooperative. IMPRESSION 1. Sepsis in a patient who presented with fever, tachycardia, leukocytosis, abnormal urinalysis. Temp and WBC is improved. 2. UTI is probably the cause of the sepsis. Urine culture has mixed bacteria. 3. Cellulitis of the left lower extremity. 4. The patient has erythema at the proximal second finger on the right hand and the base of the third finger on the right hand in the area where he notes that he fell and may have injured his hand in the process. 5. Chronic suprapubic catheter. 6. Acute kidney disease. improved. 7. Leukocytosis improving. RECOMMENDATIONS 1. Continue Aztreonam. 2. Continue vancomycin. 3. Repeat urine culture. 4. Monitor temperature and white blood cell count. 5. Wrap left leg with brigido wrap. Rubin Mckee MD Feb 06, 2017 18:39
[2017-02-06] MEDS ORDERED: PHARMACY ORDERED LAB ONE (20:45)
[2017-02-06] MEDS: VANCOMYCIN INJ 1,500 MG in SODIUM CHLORID 0.9% 500 ML INJ 500 ML IV SCH (22:05)
[2017-02-07] VITALS (8 sets, daily range): BP systolic 118–148; BP diastolic 56–65; PULSE 74–92; RESP 17–20; TEMP 96.3–98.1; O2SAT 94–99
[2017-02-07] MEDS: AZTREONAM INJ 2,000 MG in SODIUM CHLORIDE 0.9% INJ 100 ML IV SCH ×4 (02:47→20:55)
[2017-02-07] MEDS: ARTIFICIAL TEARS OPTH SOLN 15 ML BTL EACH EYE SCH ×6 (02:48→20:56)
[2017-02-07] MEDS: CIPROFLOXACIN 0.3% OPTH SOLN 2.5 ML BTL EACH EYE SCH ×6 (02:49→20:56)
[2017-02-07] MEDS: INSULIN ASPART SUPPLEMENTAL SCALE SQ SCH ×4 (04:35→20:54)
[2017-02-07] MEDS: SODIUM CHLORIDE 0.9% FLUSH 10 ML FLUSH IV FLUSH SCH ×2 (09:00→20:54)
[2017-02-07] MEDS: HEPARIN SODIUM - SQ 10,000 UNITS/ML VIAL SQ SCH ×2 (10:19→20:54)
[2017-02-07] MEDS: LACTIC ACID (AMMONIUM LACTATE) 12% LOTION 225 GM BTL TOPICAL SCH ×2 (10:20→20:58)
--- NOTE | 2017-02-07 10:21 | HHI.PR ---
Subjective Remarks This is a pleasant 89 y/o Male has DM II, CVA, Suprapubic Catheter, Hyperlipidemia, Neuropathy, Hypertension, Peripheral Neuropathy, brought in from the skilled nursing [facility] by [facility] for a fever and multiple falls. he also has GERD. 02/05: Seen in his bedroom in the presence of nurse Miss Amezcua the patient has bilateral conjunctivitis purulent tissue. 02/06: Seen in his bedroom, improving condition, has bilateral arms and legs with severe dyshidrosis added Ammonium lactate. blood cultures and urine cultures reviewed and negative. 02/07: Stable in his bedroom no nausea, vomit or diarrhea, afebrile, not yet cleared for discharge by ID specialist. Objective Vital Signs Date Time Temp Pulse Resp B/P Pulse Ox O2 Delivery O2 Flow Rate FiO2 02/07/17 08:00 96.6 83 18 132/61 96 02/07/17 04:00 98.1 92 20 148/65 94 02/07/17 00:49 78 02/07/17 00:00 97.6 85 20 121/60 96 02/06/17 20:00 97.9 82 20 112/56 96 02/06/17 19:37 78 02/06/17 16:00 97.1 76 17 116/54 99 02/06/17 12:00 96.9 83 19 135/62 95 I/O 02/06/17 02/06/17 02/06/17 02/07/17 02/07/17 02/07/17 07:00 15:00 23:00 07:00 15:00 23:00 Intake Total 820 ml 400 ml 1951 ml 841 ml Output Total 350 ml 450 ml 725 ml 150 ml Balance 470 ml -50 ml 1226 ml 691 ml Intake Oral 120 ml 400 ml 360 ml 75 ml IV Total 700 ml 1591 ml 766 ml Output Urine Total 350 ml 450 ml 725 ml 150 ml # Bowel Movements 1 1 1 Result Diagram: 02/05/17 0554 02/05/17 0554 Imaging Last Impressions Hand X-Ray 02/05/17 0000 Signed Impressions: Service Date/Time: January 16:39 - CONCLUSION: 1. Degenerative changes. No acute fracture identified. Enrike Little MD Chest X-Ray 02/03/17 6686 Signed Impressions: Service Date/Time: Friday, February 03, 2017 18:08 - CONCLUSION: Mild bibasilar atelectasis. Rahul Rocha MD Lower Extremity Ultrasound 02/03/17 0000 Signed Impressions: Service Date/Time: Friday, February 03, 2017 18:24 - CONCLUSION: No DVT of the left lower extremity. Rahul Rocha MD Procedures None Other Results Laboratory Tests Test 02/03/17 02/03/17 02/04/17 02/05/17 18:00 18:30 06:23 05:54 Total Bilirubin 0.7 MG/DL Aspartate Amino Transf 38 U/L (AST/SGOT) Alanine Aminotransferase 29 U/L (ALT/SGPT) Alkaline Phosphatase 131 U/L Albumin 2.9 GM/DL Urine Color YELLOW Urine Turbidity HAZY Urine pH 5.0 Urine Specific [place] 1.022 Urine Protein 30 mg/dL Urine Glucose (UA) NEG mg/dL Urine Ketones NEG mg/dL Urine Occult Blood SMALL Urine Nitrite NEG Urine Bilirubin NEG Urine Urobilinogen LESS THAN 2.0 MG/DL Urine Leukocyte Esterase LARGE Urine RBC 14 /hpf Urine WBC 39 /hpf Urine Squamous Epithelial <1 /hpf Cells Urine Amorphous Sediment RARE Urine Bacteria RARE /hpf Urine Mucus FEW /lpf Urine Yeast with Hyphae OCC Urine Yeast (Budding) RARE Microscopic Urinalysis Comment CATH-CULTURE IND Lactic Acid Level 1.3 mmol/L White Blood Count 14.3 TH/MM3 Red Blood Count 3.06 MIL/MM3 Hemoglobin 8.9 GM/DL Hematocrit 26.8 % Mean Corpuscular Volume 87.5 FL Mean Corpuscular Hemoglobin 29.0 PG Mean Corpuscular Hemoglobin 33.1 % Concent Red Cell Distribution Width 14.5 % Platelet Count 192 TH/MM3 Mean Platelet Volume 7.8 FL Neutrophils (%) (Auto) 82.3 % Lymphocytes (%) (Auto) 6.4 % Monocytes (%) (Auto) 6.1 % Eosinophils (%) (Auto) 4.6 % Basophils (%) (Auto) 0.6 % Neutrophils # (Auto) 11.7 TH/MM3 Lymphocytes # (Auto) 0.9 TH/MM3 Monocytes # (Auto) 0.9 TH/MM3 Eosinophils # (Auto) 0.7 TH/MM3 Basophils # (Auto) 0.1 TH/MM3 CBC Comment DIFF FINAL Differential Comment Sodium Level 140 MEQ/L Potassium Level 3.6 MEQ/L Chloride Level 111 MEQ/L Carbon Dioxide Level 21.9 MEQ/L Anion Gap 7 MEQ/L Blood Urea Nitrogen 26 MG/DL Creatinine 0.93 MG/DL Estimat Glomerular Filtration 77 ML/MIN Rate Random Glucose 120 MG/DL Calcium Level 7.4 MG/DL Protein Corrected Calcium 8.6 MG/DL Magnesium Level 1.8 MG/DL Total Protein 4.9 GM/DL Test 02/06/17 21:55 Vancomycin Level Trough 13.0 MCG/ML Objective Remarks GENERAL: No distress. SKIN: Bilateral upper extremities with multiple scabs improving Dyshidrosis. HEAD: Atraumatic. Normocephalic. EYES: Improving purulent secretion now only on left eye. ENT: Nose without bleeding, purulent drainage or septal hematoma. Airway patent. NECK: Trachea midline. No JVD or lymphadenopathy. Supple, nontender, no meningeal signs. CARDIOVASCULAR: Regular rate and rhythm without murmurs, gallops, or rubs. RESPIRATORY: Clear to auscultation. Breath sounds equal bilaterally. No wheezes , rales, or rhonchi. GASTROINTESTINAL: Abdomen soft, non-tender, nondistended. No hepato-splenomegaly , or palpable masses. No guarding. MUSCULOSKELETAL: Edema on bilateral legs with multiple skin lesions. NEUROLOGICAL: Awake, Alert and oriented. Medications and IVs Current Medications Medications (Trade) Dose Ordered Sig/Ajay Route Start Time Stop Time Status Last Admin (NS Flush) 2 ml UNSCH PRN IV FLUSH 02/03/17 20:15 (NS Flush) 2 ml BID IV FLUSH 02/03/17 21:00 02/06/17 21:52 Naloxone HCl 0.4 mg 0.4 mg UNSCH PRN IV 02/03/17 20:15 Pharmacy Profile Note 0 ml @ 0 mls/hr UNSCH OTHER 02/03/17 20:15 Aztreonam 2000 mg/ Sodium Chloride 100 ml @ 200 mls/hr Q6H IV 02/04/17 02:00 02/07/17 02:47 (NS 1000 ml Inj) 1,000 ml @ 42 mls/hr [id number] IV 02/03/17 23:00 02/06/17 18:19 (D50w (Vial) Inj) 50 ml UNSCH PRN IV 02/03/17 23:00 (Glucagon Inj) 1 mg UNSCH PRN OTHER 02/03/17 23:00 (Heparin Inj) 5,000 units Q12HR SQ 02/04/17 09:00 02/06/17 21:52 (Tylenol) 650 mg Q4H PRN PO 02/03/17 23:45 02/04/17 04:13 (Tears Naturale Opth Soln) 1 drop Q4H EACH EYE 02/05/17 10:00 02/07/17 02:48 (Ciloxan 0.3% Opth Soln) 1 drop Q4H EACH EYE 02/05/17 10:00 02/07/17 02:49 Lactic Acid 1 applic 1 applic BID TOPICAL 02/06/17 10:00 02/06/17 21:53 (Vancomycin Inj/ NS 500 ml Inj) 517.5 ml @ 258.75 mls/ hr Q24H IV 02/07/17 16:00 Miscellaneous Information SPECIFIC LAB TO BE SUSANNE... ONCE ONCE .XX 02/10/17 15:45 02/10/17 15:46 A/P Assessment and Plan 89 y/o male who is [place] with a history of DM, CVA, suprapubic catheter was brought in from the skilled nursing [facility] by [facility] for a fever and multiple falls. 1. Sepsis, WBC 17.2, HR 104, Lactic 2.5 on admission, suspected due to cellulitis of upper and lower extremities with lower extremity edema L>R Improving condition Seen by ID specialist Doctor Rafi Appreciated Specialist assistance, states Sepsis probably secondary to UTI, Cellulitis of the lower extremities, recommended to continue Aztreonam, Continue Vancomycin, and continue to monitor cultures 2. Lower extremity US reviewed and is negative for DVT -IV antibiotics Vancomycin and Azactam 3. Physical deconditioning with multiple falls -PT eval and treat 4. Acute Kidney injury, Improved 5. DM, chronic stable -Accu checks with SSI 6. Conjunctivitis started on Natural tears and Cipro ophthalmic. Improving 7. Severe Dyshidrosis started on Ammonium Lactate Improving. DVT prophylaxis: Heparin Discussed Condition With Patient in the room and all questions answered to the best of my abilities. Nurse Miss Burns appreciated input No changes on anterior assessment. Follow laboratory in am tomorrow. Discharge Planning Once cleared by Specialist. Alexis Jacob MD Feb 07, 2017 10:21
[2017-02-07] MEDS: VANCOMYCIN INJ 1,750 MG in SODIUM CHLORID 0.9% 500 ML INJ 500 ML IV SCH (17:02)
[2017-02-07] MEDS: SODIUM CHLOR 0.9% 1000 ML INJ 1,000 ML IV SCH (17:02)
[2017-02-08] VITALS (7 sets, daily range): BP systolic 106–136; BP diastolic 52–63; PULSE 62–89; RESP 16–18; TEMP 96.4–97.9; O2SAT 92–99
[2017-02-08] MEDS: CIPROFLOXACIN 0.3% OPTH SOLN 2.5 ML BTL EACH EYE SCH ×5 (02:27→21:34)
[2017-02-08] MEDS: ARTIFICIAL TEARS OPTH SOLN 15 ML BTL EACH EYE SCH ×5 (02:27→21:34)
[2017-02-08] MEDS: AZTREONAM INJ 2,000 MG in SODIUM CHLORIDE 0.9% INJ 100 ML IV SCH ×6 (02:31→21:35)
[2017-02-08 04:23] LABS: AUTOMATED NEUTROPHIL # 6.1 TH/MM3 (1.8-7.7); BASOPHIL # 0.1 TH/MM3 (0-0.2); BASOPHIL % 0.8 % (0.0-2.0); EOSINOPHIL # 1.2 TH/MM3 (0-0.4); HEMATOCRIT 28.1 % (39.0-51.0); LYMPH % 14.5 % (9.0-44.0); LYMPHOCYTE # 1.4 TH/MM3 (1.0-4.8); MEAN CELL VOLUME 88.1 FL (80.0-100.0); MEAN CORPUSCULAR HEMOGLOBIN 29.2 PG (27.0-34.0); MEAN CORPUSCULAR HGB CONC 33.2 % (32.0-36.0); MONO % 6.4 % (0.0-8.0); NEUT % 65.3 % (16.0-70.0); PLATELET COUNT 328 TH/MM3 (150-450); RED BLOOD COUNT 3.19 MIL/MM3 (4.50-5.90); RED CELL DISTRIBUTION WIDTH 14.9 % (11.6-17.2); WHITE BLOOD COUNT 9.4 TH/MM3 (4.0-11.0)
[2017-02-08 04:38] LABS: HEMO FLAGS AUTO DIFF
[2017-02-08 04:51] LABS: BICARBONATE 20.6 MEQ/L (21.0-32.0)
[2017-02-08] MEDS: INSULIN ASPART SUPPLEMENTAL SCALE SQ SCH ×4 (04:55→21:41)
[2017-02-08 05:48] LABS: BANDS 6 % (0-6); BASOPHILS 1 % (0-2); EOSINOPHILS 9 % (0-4); METAMYELOCYTES 2 % (0-1); MYELOCYTES 2 % (0-0); NEUTROPHIL # MANUAL DIFF 6.7 TH/MM3 (1.8-7.7); PLATELET ESTIMATE SMEAR NORMAL (NORMAL); PLATELET MORPHOLOGY NORMAL (NORMAL); POLYS (SEG NEUTROPHILS) 61 % (16-70); SCAN/DIFF FINAL DIFF MANUAL; WBC DIFF SAMPLE 100
--- NOTE | 2017-02-08 06:25 | HHI.PR ---
Subjective Remarks This is a pleasant 89 y/o Male has DM II, CVA, Suprapubic Catheter, Hyperlipidemia, Neuropathy, Hypertension, Peripheral Neuropathy, brought in from the residential [facility] by [facility] for a fever and multiple falls. he also has GERD. 02/05: Seen in his bedroom in the presence of nurse Miss Amezcua the patient has bilateral conjunctivitis purulent tissue. 02/06: Seen in his bedroom, improving condition, has bilateral arms and legs with severe dyshidrosis added Ammonium lactate. blood cultures and urine cultures reviewed and negative. 02/07: Stable in his bedroom no nausea, vomit or diarrhea, afebrile, not yet cleared for discharge by ID specialist. : Seen in his bedroom in the presence of SECURITY ORDERLY she showed me his Right second toe with some ecchymosis probable traumatic event versus thrombosis. improving general condition, continue with painful sensation on right bilateral legs in general. Objective Vital Signs Date Time Temp Pulse Resp B/P Pulse Ox O2 Delivery O2 Flow Rate FiO2 02/08/17 04:00 97.9 80 18 129/60 96 02/08/17 02:20 62 02/07/17 23:40 96.9 74 17 136/64 96 02/07/17 20:00 97.9 82 18 136/61 95 02/07/17 16:00 96.3 85 17 118/56 99 02/07/17 12:00 97.9 82 17 124/60 97 02/07/17 08:00 96.6 83 18 132/61 96 I/O 02/07/17 02/07/17 02/07/17 02/08/17 02/08/17 02/08/17 06:59 14:59 22:59 06:59 14:59 22:59 Intake Total 841 ml 360 ml 953 ml 380 ml Output Total 150 ml 1000 ml 1000 ml 1000 ml Balance 691 ml -640 ml -47 ml -620 ml Intake Oral 75 ml 360 ml 380 ml 380 ml IV Total 766 ml 573 ml Output Urine Total 150 ml 1000 ml 1000 ml 1000 ml # Bowel Movements 1 0 1 Result Diagram: 02/08/17 0312 02/08/17 0312 Imaging Last Impressions Hand X-Ray 02/05/17 0000 Signed Impressions: Service Date/Time: January 16:39 - CONCLUSION: 1. Degenerative changes. No acute fracture identified. Enrike Little MD Chest X-Ray 02/03/17 1753 Signed Impressions: Service Date/Time: Friday, February 03, 2017 18:08 - CONCLUSION: Mild bibasilar atelectasis. Rahul Rocha MD Lower Extremity Ultrasound 02/03/17 0000 Signed Impressions: Service Date/Time: Friday, February 03, 2017 18:24 - CONCLUSION: No DVT of the left lower extremity. Rahul Rocha MD Procedures None Other Results Laboratory Tests Test 02/04/17 02/05/17 02/06/17 02/08/17 06:23 05:54 21:55 03:12 Lactic Acid Level 1.3 mmol/L Protein Corrected Calcium 8.6 MG/DL Total Protein 4.9 GM/DL Vancomycin Level Trough 13.0 MCG/ML White Blood Count 9.4 TH/MM3 Red Blood Count 3.19 MIL/MM3 Hemoglobin 9.3 GM/DL Hematocrit 28.1 % Mean Corpuscular Volume 88.1 FL Mean Corpuscular Hemoglobin 29.2 PG Mean Corpuscular Hemoglobin 33.2 % Concent Red Cell Distribution Width 14.9 % Platelet Count 328 TH/MM3 Mean Platelet Volume 7.4 FL Neutrophils (%) (Auto) 65.3 % Lymphocytes (%) (Auto) 14.5 % Monocytes (%) (Auto) 6.4 % Eosinophils (%) (Auto) 13.0 % Basophils (%) (Auto) 0.8 % Neutrophils # (Auto) 6.1 TH/MM3 Lymphocytes # (Auto) 1.4 TH/MM3 Monocytes # (Auto) 0.6 TH/MM3 Eosinophils # (Auto) 1.2 TH/MM3 Basophils # (Auto) 0.1 TH/MM3 CBC Comment AUTO DIFF Differential Total Cells 100 Counted Neutrophils % (Manual) 61 % Band Neutrophils % 6 % Lymphocytes % 15 % Monocytes % 4 % Eosinophils % 9 % Basophils % 1 % Neutrophils # (Manual) 6.7 TH/MM3 Metamyelocytes 2 % Myelocytes 2 % Differential Comment FINAL DIFF MANUAL Platelet Estimate NORMAL Platelet Morphology Comment NORMAL Red Cell Morphology Comment NORMAL Sodium Level 143 MEQ/L Potassium Level 4.0 MEQ/L Chloride Level 113 MEQ/L Carbon Dioxide Level 20.6 MEQ/L Anion Gap 9 MEQ/L Blood Urea Nitrogen 16 MG/DL Creatinine 0.81 MG/DL Estimat Glomerular Filtration 90 ML/MIN Rate Random Glucose 130 MG/DL Calcium Level 7.9 MG/DL Magnesium Level 2.0 MG/DL Objective Remarks GENERAL: No distress. SKIN: Bilateral upper extremities with multiple scabs improving Dyshidrosis. HEAD: Atraumatic. Normocephalic. EYES: Improving purulent secretion now only on left eye. ENT: Nose without bleeding, purulent drainage or septal hematoma. Airway patent. NECK: Trachea midline. No JVD or lymphadenopathy. Supple, nontender, no meningeal signs. CARDIOVASCULAR: Regular rate and rhythm without murmurs, gallops, or rubs. RESPIRATORY: Clear to auscultation. Breath sounds equal bilaterally. No wheezes , rales, or rhonchi. GASTROINTESTINAL: Abdomen soft, non-tender, nondistended. No hepato-splenomegaly , or palpable masses. No guarding. MUSCULOSKELETAL: Edema on bilateral legs with multiple skin lesions. Right second toe with ecchymosis. NEUROLOGICAL: Awake, Alert and oriented. Medications and IVs Current Medications Medications (Trade) Dose Ordered Sig/Ajay Route Start Time Stop Time Status Last Admin (NS Flush) 2 ml UNSCH PRN IV FLUSH 02/03/17 20:15 (NS Flush) 2 ml BID IV FLUSH 02/03/17 21:00 02/07/17 20:54 Naloxone HCl 0.4 mg 0.4 mg UNSCH PRN IV 02/03/17 20:15 Pharmacy Profile Note 0 ml @ 0 mls/hr UNSCH OTHER 02/03/17 20:15 Aztreonam 2000 mg/ Sodium Chloride 100 ml @ 200 mls/hr Q6H IV 02/04/17 02:00 02/08/17 02:31 (NS 1000 ml Inj) 1,000 ml @ 42 mls/hr [id number] IV 02/03/17 23:00 02/07/17 17:02 (D50w (Vial) Inj) 50 ml UNSCH PRN IV 02/03/17 23:00 (Glucagon Inj) 1 mg UNSCH PRN OTHER 02/03/17 23:00 (Heparin Inj) 5,000 units Q12HR SQ 02/04/17 09:00 02/07/17 20:54 (Tylenol) 650 mg Q4H PRN PO 02/03/17 23:45 02/04/17 04:13 (Tears Naturale Opth Soln) 1 drop Q4H EACH EYE 02/05/17 10:00 02/08/17 04:56 (Ciloxan 0.3% Opth Soln) 1 drop Q4H EACH EYE 02/05/17 10:00 02/08/17 04:56 Lactic Acid 1 applic 1 applic BID TOPICAL 02/06/17 10:00 02/07/17 20:58 (Vancomycin Inj/ NS 500 ml Inj) 517.5 ml @ 258.75 mls/ hr Q24H IV 02/07/17 16:00 02/07/17 17:02 Miscellaneous Information SPECIFIC LAB TO BE ... ONCE ONCE .XX 02/10/17 15:45 02/10/17 15:46 A/P Assessment and Plan 89 y/o male who is [facility] with a history of DM, CVA, suprapubic catheter was brought in from the residential [facility] by [facility] for a fever and multiple falls. 1. Sepsis, WBC 17.2, HR 104, Lactic 2.5 on admission, suspected due to cellulitis of upper and lower extremities with lower extremity edema L>R Improving condition Seen by ID specialist Doctor Rafi Appreciated Specialist assistance, states Sepsis probably secondary to UTI, Cellulitis of the lower extremities, recommended to continue Aztreonam, Continue Vancomycin, blood cultures negative in five days, will continue present care until tomorrow and discharge home on by mouth medicines. Leukocytosis Improved. 2. Lower extremity US reviewed and is negative for DVT -IV antibiotics Vancomycin and Azactam, has ecchymosis on right second toe, rule out DVT and fracture painful on palpation on this area. 3. Physical deconditioning with multiple falls -PT eval and treat 4. Acute Kidney injury, Improved 5. DM, chronic stable controlled continue present care, home medicines at discharge. -Accu checks with SSI 6. Conjunctivitis started on Natural tears and Cipro ophthalmic. Improving 7. Severe Dyshidrosis started on Ammonium Lactate Improving. DVT prophylaxis: Heparin Discussed Condition With Patient in the room and all questions answered to the best of my abilities. venous Doppler of the Right leg X ray of the Right foot rule out fracture Discharge Planning Once cleared by Specialist. Alexis Jacob MD Feb 08, 2017 06:25
[2017-02-08] MEDS: HEPARIN SODIUM - SQ 10,000 UNITS/ML VIAL SQ SCH ×2 (09:00→21:33)
[2017-02-08] MEDS: SODIUM CHLORIDE 0.9% FLUSH 10 ML FLUSH IV FLUSH SCH ×2 (09:00→21:33)
[2017-02-08] MEDS: LACTIC ACID (AMMONIUM LACTATE) 12% LOTION 225 GM BTL TOPICAL SCH ×2 (14:12→21:35)
--- NOTE | 2017-02-08 14:15 | RADRPT ---
EXAM DATE/TIME: 02/08/2017 13:34 [facility] COMPARISON: No previous studies available for comparison. INDICATIONS : Right leg pain. MEDICAL HISTORY : Hypothyroidism. Gastroesophageal reflux disease. Hypercholesterolemia. Hearing loss. Cerebrovascul ar accident. Migraine. Anticoagulant therapy, Aspirin. Hypertension. Kidney stones. Diabetes. Right ear cancer. Measles. SURGICAL HISTORY : Inguinal hernia repair. Tonsillectomy. Bilateral cataract removal. Lithotripsy. ENCOUNTER: Initial ACUITY: 1 week PAIN SCORE: 7/10 LOCATION: Right leg. TECHNIQUE: Venous ultrasound of the leg was performed from the inguinal ligament to the proximal calf. Real-marsha e, color Doppler and spectral tracing, compression and augmentation techniques were used. FINDINGS: There is normal compressibility of the deep venous system from the inguinal region to the proximal ca lf. No echogenic clot is seen in the lumen of the common femoral, femoral, popliteal, and posterior tibial veins. There is a normal response of the venous system to proximal and distal augmentation an d respiration. CONCLUSION: 1. No deep venous thrombosis seen. 2. An enlarged lymph node right groin measuring 5.9 x 2.9 x 1.4 cm. Дмитрий Jolly MD on February 08, 2017 at 14:13 Board Certified Radiologist. This report was verified electronically.
--- NOTE | 2017-02-08 14:21 | RADRPT ---
EXAM DATE/TIME: 02/08/2017 13:40 [facility] COMPARISON: No previous studies available for comparison. INDICATIONS : Pain and swelling right foot, fell MEDICAL HISTORY : Hypothyroidism. Hypercholesterolemia. Gastroesophageal reflux disease.Kidney stones. Diabetes. Right ear cancer. Measles. SURGICAL HISTORY : Inguinal hernia repair. Tonsillectomy. Bilateral cataract removal.Lithotripsy. ENCOUNTER: Initial ACUITY: 4 - 6 days PAIN SCORE: 8/10 LOCATION: Right Foot FINDINGS: Two view examination of the right foot demonstrates soft tissue swelling without dislocation, or frac ture. The calcaneus is intact. Large plantar calcaneal spur. Vascular calcifications are seen. Oste openia CONCLUSION: Soft tissue swelling without fracture. Дмитрий Jolly MD on February 08, 2017 at 14:19 Board Certified Radiologist. This report was verified electronically.
[2017-02-08] MEDS: SODIUM CHLOR 0.9% 1000 ML INJ 1,000 ML IV SCH (17:57)
[2017-02-08] MEDS: VANCOMYCIN INJ 1,750 MG in SODIUM CHLORID 0.9% 500 ML INJ 500 ML IV SCH (17:58)
[2017-02-09] VITALS: BP 124/59; PULSE 88; RESP 18; TEMP 96.9; O2SAT 97
[2017-02-09] MEDS: AZTREONAM INJ 2,000 MG in SODIUM CHLORIDE 0.9% INJ 100 ML IV SCH ×3 (01:17→13:10)
[2017-02-09] MEDS: ARTIFICIAL TEARS OPTH SOLN 15 ML BTL EACH EYE SCH ×4 (01:21→13:10)
[2017-02-09] MEDS: CIPROFLOXACIN 0.3% OPTH SOLN 2.5 ML BTL EACH EYE SCH ×4 (01:21→13:10)
[2017-02-09 03:37] VITALS: PULSE 81
[2017-02-09 04:00] VITALS: BP 131/62; PULSE 72; RESP 20; TEMP 96.1; O2SAT 95
[2017-02-09] MEDS: INSULIN ASPART SUPPLEMENTAL SCALE SQ SCH ×2 (06:09→11:00)
[2017-02-09 08:00] VITALS: BP 123/60; PULSE 78; RESP 20; TEMP 96.7; O2SAT 96
--- NOTE | 2017-02-09 08:23 | HHI.PR ---
Subjective Remarks This is a pleasant 89 y/o Male has DM II, CVA, Suprapubic Catheter, Hyperlipidemia, Neuropathy, Hypertension, Peripheral Neuropathy, brought in from the senior care [facility] by [facility]AC for a fever and multiple falls. he also has GERD. 02/05: Seen in his bedroom in the presence of nurse Miss Amezcua the patient has bilateral conjunctivitis purulent tissue. 02/06: Seen in his bedroom, improving condition, has bilateral arms and legs with severe dyshidrosis added Ammonium lactate. blood cultures and urine cultures reviewed and negative. 02/07: Stable in his bedroom no nausea, vomit or diarrhea, afebrile, not yet cleared for discharge by ID specialist. : Seen in his bedroom in the presence of SETTER HELPER she showed me his Right second toe with some ecchymosis probable traumatic event versus thrombosis. improving general condition, continue with painful sensation on right bilateral legs in general. 02/09: Patient improving condition, No nausea, vomit or diarrhea, he has positive Urinary culture for Yue I decided not to treat this one await for ID specialist to evaluate and discharge to [facility] today. Objective Vital Signs Date Time Temp Pulse Resp B/P (MAP) Pulse Ox O2 Delivery O2 Flow Rate FiO2 02/09/17 03:37 81 02/09/17 00:00 96.9 88 18 124/59 (80) 97 02/08/17 20:00 96.4 82 18 115/56 (75) 98 02/08/17 16:00 96.5 74 16 136/63 (87) 99 02/08/17 12:00 97.3 89 18 133/61 (85) 93 I/O 02/08/17 02/08/17 02/08/17 02/09/17 02/09/17 02/09/17 07:00 15:00 23:00 07:00 15:00 23:00 Intake Total 380 ml 1410 ml 380 ml Output Total 1000 ml 1190 ml 400 ml Balance -620 ml 220 ml -20 ml Intake Oral 380 ml 1410 ml 380 ml Output Urine Total 1000 ml 1190 ml 400 ml # Bowel Movements 1 Result Diagram: 02/08/17 0312 02/08/17 0312 Imaging Last Impressions Hand X-Ray 02/05/17 0000 Signed Impressions: Service Date/Time: January 16:39 - CONCLUSION: 1. Degenerative changes. No acute fracture identified. Enrike Little MD Chest X-Ray 02/03/17 1753 Signed Impressions: Service Date/Time: Friday, February 03, 2017 18:08 - CONCLUSION: Mild bibasilar atelectasis. Rahul Rocha MD Lower Extremity Ultrasound 02/03/17 0000 Signed Impressions: Service Date/Time: Friday, February 03, 2017 18:24 - CONCLUSION: No DVT of the left lower extremity. Rahul Rocha MD Procedures None Other Results Laboratory Tests Test 02/03/17 18:00 02/03/17 18:30 02/04/17 06:23 02/05/17 05:54 Blood Urea Nitrogen 47 MG/DL 26 MG/DL Creatinine 1.58 MG/DL 0.93 MG/DL Random Glucose 227 MG/DL 120 MG/DL Total Protein 6.7 GM/DL 4.9 GM/DL Albumin 2.9 GM/DL Calcium Level 8.3 MG/DL 7.4 MG/DL Alkaline Phosphatase 131 U/L Aspartate Amino Transf (AST/SGOT) 38 U/L Alanine Aminotransferase (ALT/SGPT) 29 U/L Total Bilirubin 0.7 MG/DL Sodium Level 133 MEQ/L 140 MEQ/L Potassium Level 4.6 MEQ/L 3.6 MEQ/L Chloride Level 100 MEQ/L 111 MEQ/L Carbon Dioxide Level 23.3 MEQ/L 21.9 MEQ/L Urine Color YELLOW Urine Turbidity HAZY Urine pH 5.0 Urine Specific [place] 1.022 Urine Protein 30 mg/dL Urine Glucose (UA) NEG mg/dL Urine Ketones NEG mg/dL Urine Occult Blood SMALL Urine Nitrite NEG Urine Bilirubin NEG Urine Urobilinogen LESS THAN 2.0 MG/DL Urine Leukocyte Esterase LARGE Urine RBC 14 /hpf Urine WBC 39 /hpf Urine Squamous Epithelial Cells <1 /hpf Urine Amorphous Sediment RARE Urine Bacteria RARE /hpf Urine Mucus FEW /lpf Urine Yeast with Hyphae OCC Urine Yeast (Budding) RARE Microscopic Urinalysis Comment CATH-CULTURE IND Lactic Acid Level 1.3 mmol/L Protein Corrected Calcium 8.6 MG/DL Magnesium Level 1.8 MG/DL Test 02/06/17 21:55 02/08/17 03:12 Vancomycin Level Trough 13.0 MCG/ML White Blood Count 9.4 TH/MM3 Red Blood Count 3.19 MIL/MM3 Hemoglobin 9.3 GM/DL Hematocrit 28.1 % Mean Corpuscular Volume 88.1 FL Mean Corpuscular Hemoglobin 29.2 PG Mean Corpuscular Hemoglobin Concent 33.2 % Red Cell Distribution Width 14.9 % Platelet Count 328 TH/MM3 Mean Platelet Volume 7.4 FL Neutrophils (%) (Auto) 65.3 % Lymphocytes (%) (Auto) 14.5 % Monocytes (%) (Auto) 6.4 % Eosinophils (%) (Auto) 13.0 % Basophils (%) (Auto) 0.8 % Neutrophils # (Auto) 6.1 TH/MM3 Lymphocytes # (Auto) 1.4 TH/MM3 Monocytes # (Auto) 0.6 TH/MM3 Eosinophils # (Auto) 1.2 TH/MM3 Basophils # (Auto) 0.1 TH/MM3 CBC Comment AUTO DIFF Differential Total Cells Counted 100 Neutrophils % (Manual) 61 % Band Neutrophils % 6 % Lymphocytes % 15 % Monocytes % 4 % Eosinophils % 9 % Basophils % 1 % Neutrophils # (Manual) 6.7 TH/MM3 Metamyelocytes 2 % Myelocytes 2 % Differential Comment FINAL DIFF MANUAL Platelet Estimate NORMAL Platelet Morphology Comment NORMAL Red Cell Morphology Comment NORMAL Blood Urea Nitrogen 16 MG/DL Creatinine 0.81 MG/DL Random Glucose 130 MG/DL Calcium Level 7.9 MG/DL Magnesium Level 2.0 MG/DL Sodium Level 143 MEQ/L Potassium Level 4.0 MEQ/L Chloride Level 113 MEQ/L Carbon Dioxide Level 20.6 MEQ/L Anion Gap 9 MEQ/L Estimat Glomerular Filtration Rate 90 ML/MIN Objective Remarks GENERAL: No distress. SKIN: Bilateral upper extremities with multiple scabs improving Dyshidrosis. Improving. HEAD: Atraumatic. Normocephalic. EYES: Improving conjunctivitis. ENT: Nose without bleeding, purulent drainage or septal hematoma. Airway patent. NECK: Trachea midline. No JVD or lymphadenopathy. Supple, nontender, no meningeal signs. CARDIOVASCULAR: Regular rate and rhythm without murmurs, gallops, or rubs. RESPIRATORY: Clear to auscultation. Breath sounds equal bilaterally. No wheezes , rales, or rhonchi. GASTROINTESTINAL: Abdomen soft, non-tender, nondistended. No hepato-splenomegaly , or palpable masses. No guarding. MUSCULOSKELETAL: Edema on bilateral legs with multiple skin lesions. Right second toe with ecchymosis. NEUROLOGICAL: Awake, Alert and oriented. Medications and IVs Current Medications Medications (Trade) Dose Ordered Sig/Ajay Route Start Time Stop Time Status Last Admin (NS Flush) 2 ml UNSCH PRN IV FLUSH 02/03/17 20:15 (NS Flush) 2 ml BID IV FLUSH 02/03/17 21:00 02/08/17 21:33 (Narcan Inj) 0.4 mg UNSCH PRN IV 02/03/17 20:15 Pharmacy Profile Note 0 ml @ 0 mls/hr UNSCH OTHER 02/03/17 20:15 Aztreonam 2000 mg/ Sodium Chloride 100 ml @ 200 mls/hr Q6H IV 02/04/17 02:00 02/09/17 01:17 Sodium Chloride 1,000 ml @ 42 mls/hr [id number] IV 02/03/17 23:00 02/08/17 17:57 (D50w (Vial) Inj) 50 ml UNSCH PRN IV 02/03/17 23:00 (Glucagon Inj) 1 mg UNSCH PRN OTHER 02/03/17 23:00 (NovoLOG SUPPLEMENTAL SCALE) 1 ACHS SLIDING SCALE SQ 02/04/17 07:00 02/08/17 21:41 (Heparin Inj) 5,000 units Q12HR SQ 02/04/17 09:00 02/08/17 21:33 (Tylenol) 650 mg Q4H PRN PO 02/03/17 23:45 02/04/17 04:13 (Tears Naturale Opth Soln) 1 drop Q4H EACH EYE 02/05/17 10:00 02/09/17 06:01 (Ciloxan 0.3% Opth Soln) 1 drop Q4H EACH EYE 02/05/17 10:00 02/09/17 06:02 (Lac-Hydrin 12% Lotion) 1 applic BID TOPICAL 02/06/17 10:00 02/08/17 21:35 Vancomycin HCl 1750 mg/Sodium Chloride 517.5 ml @ 258.75 mls/ hr Q24H IV 02/07/17 16:00 02/08/17 17:58 Miscellaneous Information SPECIFIC LAB TO BE SUSANNE... ONCE ONCE .XX 02/10/17 15:45 8/22/17 15:46 A/P Assessment and Plan 89 y/o male who is [place] with a history of DM, CVA, suprapubic catheter was brought in from the senior care [facility] by EVAC for a fever and multiple falls. 1. Sepsis, WBC 17.2, HR 104, Lactic 2.5 on admission, suspected due to cellulitis of upper and lower extremities with lower extremity edema L>R Improving condition Seen by ID specialist Doctor Rafi Appreciated Specialist assistance, states Sepsis probably secondary to UTI, Cellulitis of the lower extremities, recommended to continue Aztreonam, Continue Vancomycin, blood cultures negative in five days, will continue present care until tomorrow and discharge home on by mouth medicines. Leukocytosis Improved. awaiting final by ID specialist for discharge Removed Vancomycin. 2. Lower extremity US reviewed and is negative for DVT -IV antibiotics Vancomycin and Azactam, has ecchymosis on right second toe, ruled out DVT and fracture. 3. Physical deconditioning with multiple falls -PT eval and treat 4. Acute Kidney injury, Improved 5. DM, chronic stable controlled continue present care, home medicines at discharge. -Accu checks with SSI 6. Conjunctivitis started on Natural tears and Cipro ophthalmic. Improving 7. Severe Dyshidrosis started on Ammonium Lactate Improving. DVT prophylaxis: Heparin Discussed Condition With Patient in the room and all questions answered to the best of my abilities. Discussed with nurse Miss Heather meza to discharge today if okay with ID specialist Discharge Planning Once cleared by ID specialist. Alexis Jacob MD Feb 09, 2017 08:22
[2017-02-09] MEDS: HEPARIN SODIUM - SQ 10,000 UNITS/ML VIAL SQ SCH (08:34)
[2017-02-09] MEDS: SODIUM CHLORIDE 0.9% FLUSH 10 ML FLUSH IV FLUSH SCH (08:34)
[2017-02-09] MEDS: LACTIC ACID (AMMONIUM LACTATE) 12% LOTION 225 GM BTL TOPICAL SCH (08:35)
[2017-02-09 12:00] VITALS: BP 122/59; PULSE 81; RESP 20; TEMP 97.1; O2SAT 98
--- NOTE | 2017-02-09 15:40 | HHI.IDPN ---
Note Infectious Disease Note Patient says he feels okay. More alert and awake. Says he has difficulty sleeping. Denies chills. Afebrile. The patient was brought to the emergency department with generalized weakness. He was having frequent falls over the prior 2 weeks. PAST MEDICAL HISTORY 1. Diabetes mellitus. 2. Hypertension. 3. Hyperlipidemia. 4. GERD. 5. Neuropathy. 6. Bilateral inguinal hernia repair. 7. Tonsillectomy. 8. Suprapubic catheter. 9. History of the CVA. ALLERGIES PENICILLIN. ANTIBIOTICS 1. Vancomycin. 2. Aztreonam. OBJECTIVE: Vital Signs Date Time Temp Pulse Resp B/P (MAP) Pulse Ox O2 Delivery O2 Flow Rate FiO2 02/09/17 12:00 97.1 81 20 122/59 (80) 98 02/09/17 08:00 96.7 78 20 123/60 (81) 96 02/09/17 03:37 81 02/09/17 00:00 96.9 88 18 124/59 (80) 97 02/08/17 20:00 96.4 82 18 115/56 (75) 98 02/08/17 16:00 96.5 74 16 136/63 (87) 99 Laboratory Tests Test 02/08/17 03:12 White Blood Count 9.4 TH/MM3 Red Blood Count 3.19 MIL/MM3 Hemoglobin 9.3 GM/DL Hematocrit 28.1 % Mean Corpuscular Volume 88.1 FL Mean Corpuscular Hemoglobin 29.2 PG Mean Corpuscular Hemoglobin Concent 33.2 % Red Cell Distribution Width 14.9 % Platelet Count 328 TH/MM3 Mean Platelet Volume 7.4 FL Neutrophils (%) (Auto) 65.3 % Lymphocytes (%) (Auto) 14.5 % Monocytes (%) (Auto) 6.4 % Eosinophils (%) (Auto) 13.0 % Basophils (%) (Auto) 0.8 % Neutrophils # (Auto) 6.1 TH/MM3 Lymphocytes # (Auto) 1.4 TH/MM3 Monocytes # (Auto) 0.6 TH/MM3 Eosinophils # (Auto) 1.2 TH/MM3 Basophils # (Auto) 0.1 TH/MM3 CBC Comment AUTO DIFF Differential Total Cells Counted 100 Neutrophils % (Manual) 61 % Band Neutrophils % 6 % Lymphocytes % 15 % Monocytes % 4 % Eosinophils % 9 % Basophils % 1 % Neutrophils # (Manual) 6.7 TH/MM3 Metamyelocytes 2 % Myelocytes 2 % Differential Comment FINAL DIFF MANUAL Platelet Estimate NORMAL Platelet Morphology Comment NORMAL Red Cell Morphology Comment NORMAL Laboratory Tests Test 02/08/17 03:12 Blood Urea Nitrogen 16 MG/DL Creatinine 0.81 MG/DL Random Glucose 130 MG/DL Calcium Level 7.9 MG/DL Magnesium Level 2.0 MG/DL Sodium Level 143 MEQ/L Potassium Level 4.0 MEQ/L Chloride Level 113 MEQ/L Carbon Dioxide Level 20.6 MEQ/L Anion Gap 9 MEQ/L Estimat Glomerular Filtration Rate 90 ML/MIN IMAGING: Hand X-Ray 02/05/17 0000 Signed Impressions: Service Date/Time: January 16:39 - CONCLUSION: 1. Degenerative changes. No acute fracture identified. Enrike Little MD PHYSICAL EXAMINATION GENERAL: No acute distress. HEENT: No icterus. Oropharynx moist mucosa without lesions. NECK: Supple. No adenopathy. No swelling. LUNGS: Decreased breath sounds. HEART: Regular, S1 and S2. No murmurs appreciated. No rubs or gallops. ABDOMEN: Bowel sounds present, soft, no tenderness. EXTREMITIES: The left leg edema and erythema has improved markedly. Edema remains at the dorsum of the foot. Weeping excoriated areas are no longer weeping. Upper extremity has multiple raised scabbed lesions at the arms above and below the elbow. The right hand erythema is still present but swelling is less. SKIN: No diffuse rash. NEURO: No gross focal findings. PSYCHE: The patient is calm and pleasant and cooperative. IMPRESSION 1. Sepsis in a patient who presented with fever, tachycardia, leukocytosis, abnormal urinalysis. Temp and WBC is improved. 2. UTI is probably the cause of the sepsis. Urine culture has mixed bacteria. 3. Cellulitis of the left lower extremity. Improved. 4. The patient has erythema at the proximal second finger on the right hand and the base of the third finger on the right hand in the area where he notes that he fell and may have injured his hand in the process. 5. Chronic suprapubic catheter. 6. Acute kidney disease. improved. 7. Leukocytosis improving. RECOMMENDATIONS 1. Stop Aztreonam. 2. Stop vancomycin. 3. Okay to discharge on Doxycycline PO 100mg BID x 7 days. 4. Continue Fabio wrap of the left leg and foot. D/C with Dr. Fitzgerald. Rubin Mckee MD Feb 09, 2017 15:39
[2017-02-09] MEDS ORDERED: DOXYCYCLINE HYCLATE 100 MG CAP PO SCH (15:45)
[2017-02-09] MEDS ORDERED: POLY99.0 EACH EYE (15:54)
[2017-02-09] MEDS ORDERED: CIPR0.3S2 EACH EYE (15:54)
[2017-02-09] MEDS ORDERED: DOXY100C PO (15:54)
[2017-02-09] MEDS ORDERED: LACT12LO4 TOPICAL (15:54)
--- NOTE | 2017-02-09 15:57 | HHI.DS ---
Discharge Summary Admission Date Feb 03, 2017 at 19:23 Discharge Date: Feb 09, 2017 Admitting Diagnosis sepsis (1) Sepsis ICD Code: A41.9 - Sepsis, unspecified organism Diagnosis: Principal Status: Acute (2) Cellulitis ICD Code: L03.90 - Cellulitis, unspecified Diagnosis: Principal Status: Acute (3) Physical deconditioning ICD Code: R53.81 - Other malaise Diagnosis: Principal Status: Acute (4) Frequent falls ICD Code: R29.6 - Repeated falls Diagnosis: Principal Status: Acute (5) Acute kidney injury ICD Code: N17.9 - Acute kidney failure, unspecified Diagnosis: Principal Status: Acute (6) Diabetes ICD Code: E11.9 - Type 2 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 89 y/o male who is DEERING with a history of DM, CVA, suprapubic catheter, HLD, neuropathy, and HTN was brought in from the [facility] by [facility] for a fever and multiple falls. Patient is pleasantly confused so collecting information is difficult. Patient states he has not been able to walk lately, he can use a wheelchair. He denies having a fever. No complaints of chest pain, sob, nausea, or vomiting. Patient resides at [facility], will clarify code status from facility. CBC/BMP: 02/08/17 0312 02/08/17 0312 Significant Findings Laboratory Tests Test 02/06/17 21:55 02/08/17 03:12 Vancomycin Level Trough 13.0 MCG/ML (5.0-10.0) Red Blood Count 3.19 MIL/MM3 (4.50-5.90) Hemoglobin 9.3 GM/DL (13.0-17.0) Hematocrit 28.1 % (39.0-51.0) Eosinophils (%) (Auto) 13.0 % (0.0-4.0) Eosinophils # (Auto) 1.2 TH/MM3 (0-0.4) Eosinophils % 9 % (0-4) Metamyelocytes 2 % (0-1) Myelocytes 2 % (0-0) Random Glucose 130 MG/DL (74-106) Calcium Level 7.9 MG/DL (8.5-10.1) Chloride Level 113 MEQ/L (98-107) Carbon Dioxide Level 20.6 MEQ/L (21.0-32.0) Imaging Last Impressions Hand X-Ray 02/05/17 0000 Signed Impressions: Service Date/Time: January 16:39 - CONCLUSION: 1. Degenerative changes. No acute fracture identified. Enrike Little MD Chest X-Ray 02/03/17 1753 Signed Impressions: Service Date/Time: Friday, February 03, 2017 18:08 - CONCLUSION: Mild bibasilar atelectasis. Rahul Rocha MD Lower Extremity Ultrasound 02/03/17 0000 Signed Impressions: Service Date/Time: Friday, February 03, 2017 18:24 - CONCLUSION: No DVT of the left lower extremity. Rahul Rocha MD PE at Discharge GENERAL: No distress. SKIN: Bilateral upper extremities with multiple scabs improving Dyshidrosis. Improving. HEAD: Atraumatic. Normocephalic. EYES: Improving conjunctivitis. ENT: Nose without bleeding, purulent drainage or septal hematoma. Airway patent. NECK: Trachea midline. No JVD or lymphadenopathy. Supple, nontender, no meningeal signs. CARDIOVASCULAR: Regular rate and rhythm without murmurs, gallops, or rubs. RESPIRATORY: Clear to auscultation. Breath sounds equal bilaterally. No wheezes , rales, or rhonchi. GASTROINTESTINAL: Abdomen soft, non-tender, nondistended. No hepato-splenomegaly , or palpable masses. No guarding. MUSCULOSKELETAL: Edema on bilateral legs with multiple skin lesions. Right second toe with ecchymosis. NEUROLOGICAL: Awake, Alert and oriented. Hospital Course This is a pleasant 89 y/o Male has DM II, CVA, Suprapubic Catheter, Hyperlipidemia, Neuropathy, Hypertension, Peripheral Neuropathy, brought in from the [facility] by [facility] for a fever and multiple falls. he also has GERD. 02/05: Seen in his bedroom in the presence of nurse Miss Amezcua the patient has bilateral conjunctivitis purulent tissue. 02/06: Seen in his bedroom, improving condition, has bilateral arms and legs with severe dyshidrosis added Ammonium lactate. blood cultures and urine cultures reviewed and negative. 02/07: Stable in his bedroom no nausea, vomit or diarrhea, afebrile, not yet cleared for discharge by ID specialist. : Seen in his bedroom in the presence of PHYSICIAN [facility] she showed me his Right second toe with some ecchymosis probable traumatic event versus thrombosis. improving general condition, continue with painful sensation on right bilateral legs in general. 02/09: Patient improving condition, No nausea, vomit or diarrhea, he has positive Urinary culture for Yue I decided not to treat this one await for ID specialist to evaluate and discharge to [facility] today. Assessment and Plan 89 y/o male who is DEERING with a history of DM, CVA, suprapubic catheter was brought in from the [facility] by [facility] for a fever and multiple falls. 1. Sepsis, WBC 17.2, HR 104, Lactic 2.5 on admission, suspected due to cellulitis of upper and lower extremities with lower extremity edema L>R Improving condition Seen by ID specialist Doctor Rafi Appreciated Specialist assistance, states Sepsis probably secondary to UTI, Cellulitis of the lower extremities, recommended to continue Aztreonam, Continue Vancomycin, blood cultures negative in five days, will continue present care until tomorrow and discharge home on by mouth medicines. Leukocytosis Improved. awaiting final by ID specialist for discharge Removed Vancomycin. patient discussed with doctor Rafi meza to remove Vancomycin and Aztreonam okay to discharge on Doxycycline PO 100 mg BID for seven days, continue RAULITO wrap of the left leg and foot. 2. Lower extremity US reviewed and is negative for DVT -IV antibiotics Vancomycin and Azactam, has ecchymosis on right second toe, ruled out DVT and fracture. 3. Physical deconditioning with multiple falls -PT eval and treat 4. Acute Kidney injury, Improved 5. DM, chronic stable controlled continue present care, home medicines at discharge. -Accu checks with SSI 6. Conjunctivitis started on Natural tears and Cipro ophthalmic. Improving 7. Severe Dyshidrosis started on Ammonium Lactate Improving. DVT prophylaxis: Heparin Discussed Condition With Patient in the room and all questions answered to the best of my abilities. Discussed with nurse Miss Heather meza to discharge today if okay with ID specialist Discharge Planning Discharge to SNF today. Pt Condition on Discharge: Good Discharge Disposition: Discharge to SNF Discharge Time: > 30 minutes Discharge Instructions DIET: Follow Instructions for: Heart Healthy Diet Activities you can perform: See Additionl Instruction Other Activity Instructions: Follow Physical Therapy recommendations in SNF Alexis Jacob MD Feb 09, 2017 15:57
[2017-02-09 16:00] VITALS: BP 131/62; PULSE 72; RESP 20; TEMP 96.1; O2SAT 95
[2017-02-10] MEDS ORDERED: PHARMACY ORDERED LAB ONE (15:45)
== END 2017-02-09 17:43 | DRG 872 ==
LOC: NEPE 15:58 → NEDA 19:23 → N07A 21:30
PROVIDERS: ADMIT Internal Medicine; ATTEND Internal Medicine
DX: A41.9 Sepsis, unspecified organism (principal); N17.9 Acute kidney failure, unspecified; E11.42 Type 2 diabetes mellitus with diabetic polyneuropathy; N39.0 Urinary tract infection, site not specified; E86.0 Dehydration; L03.115 Cellulitis of right lower limb; L03.116 Cellulitis of left lower limb; H91.90 Unspecified hearing loss, unspecified ear; I10 Essential (primary) hypertension; E78.5 Hyperlipidemia, unspecified; R29.6 Repeated falls; H10.9 Unspecified conjunctivitis; K21.9 Gastro-esophageal reflux disease without esophagitis; Z79.82 Long term (current) use of aspirin; Z79.84 Long term (current) use of oral hypoglycemic drugs; L30.1 Dyshidrosis [pompholyx]
CPT/HCPCS: 71010; 73120; 73620; 76937; 80048; 80053; 80202; 81001; 82948; 83605; 83735; 84155; 85007; 85025; 85027; 87040; 87086; 87106; 93971; 96365; J1644; J1815; J3370; J3475; J7030; J7040; J7050

== ENCOUNTER 2017-03-22 19:05 | Emergency (ER) | payer MEDICARE, MEDICAID ==
[~2017-03-22] VITALS: Ht 182.9 cm; Wt 100.0 kg
[~2017-03-22 19:05] MED LIST changes: +CIPR0.3S2 EACH EYE; +DOXY100C PO; +LACT12LO4 TOPICAL; -PERM5CRE11 TOPICAL; +POLY99.0 EACH EYE
[2017-03-22 19:15] VITALS: BP 143/66; PULSE 83; RESP 20; TEMP 97.8; O2SAT 100
[2017-03-22] MEDS ORDERED: SODIUM CHLORIDE 0.9% FLUSH 10 ML FLUSH IV FLUSH PRN (19:30)
--- NOTE | 2017-03-22 19:32 | PD ---
HPI Chief Complaint: low urinary output Time Seen by Provider: 19:24 Travel History International Travel<30 days: No Contact w/Intl Traveler<30days: No History of Present Illness HPI Patient comes in from assisted living facility for evaluation of reported minimal output from his suprapubic catheter that was reported by the previous shift per documentation sent with the patient. Stat ultrasound was attempted to be obtained however was not able to obtain this instead patient was straight cathed to check for urinary retention with 0 cc output by the assisted-living facility prior to sending him to the emergency department. Patient denies any complaints or concerns. Denies any chest pain, shortness breath, fevers, abdominal pain, or back pain. Patient is currently on by mouth vancomycin for C. difficile infection. Patient reportedly has a history of renal insufficiency in the past and that was part of the concern for sending him to the emergency department. PFSH Past Medical History Hx Anticoagulant Therapy: Yes (asa 81mg daily) Blood Disorders: No Heart Rhythm Problems: No Cancer: Yes (CANCER R EAR) Cardiovascular Problems: Yes High Cholesterol: Yes Chemotherapy: No Chest Pain: No Congestive Heart Failure: No Cerebrovascular Accident: Yes (STROKE 2012) Diabetes: Yes Diminished Hearing: Yes Endocrine: Yes Gastrointestinal Disorders: No GERD: Yes Genitourinary: Yes (Prostate) Headaches: No Hypertension: Yes Immune Disorder: No Inguinal Hernia: Yes (BILAT REPAIR) Implanted Vascular Access Dvce: Yes Kidney Stones: Yes Musculoskeletal: No Neurologic: Yes Psychiatric: No Reproductive: No Respiratory: No Immunizations Current: Yes (UNKNOWN) Migraines: Yes Radiation Therapy: No Seizures: No Thyroid Disease: Yes (Hypothyroid) Past Surgical History Abdominal Surgery: Yes (bilat. 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 Doxycycline Hyclate 100 Mg Cap 100 Mg PO BID 7 Days Reported Aspirin Low Dose (Aspirin) 81 Mg Chew 81 Mg CHEW DAILY Zolpidem (Zolpidem Tartrate) 5 Mg Tab 2.5 Mg PO HS PRN Tradjenta (Linagliptin) 5 Mg Tab 5 Mg PO DAILY Gabapentin 300 Mg Cap 300 Mg PO HS D3 (Cholecalciferol) 1,000 Unit Cap 1,000 Units PO DAILY Levothyroxine (Levothyroxine Sodium) 112 Mcg Tab 112 Mcg PO DAILY Omeprazole 20 Mg Tab 20 Mg PO DAILY Simvastatin 10 Mg Tab 10 Mg PO DAILY Glimepiride 4 Mg Tab 4 Mg PO BIDAC Lisinopril 2.5 Mg Tab 2.5 Mg PO DAILY Review of Systems Except as stated in HPI: all other systems reviewed are Neg Physical Exam Narrative GENERAL: Well-developed, overly nourished, in no acute distress, and non-ill appearing. SKIN: Focused skin assessment warm and dry. HEAD: Atraumatic. Normocephalic. EYES: Pupils equal and round. EOMI. No scleral icterus. No injection or drainage. ENT: No nasal bleeding or discharge. Mucous membranes pink and moist. NECK: Trachea midline. Supple. No nuclear rigidity. CARDIOVASCULAR: Regular rate and rhythm. No murmur appreciated. RESPIRATORY: No accessory muscle use. No respiratory distress. Clear to auscultation. Breath sounds equal bilaterally. GASTROINTESTINAL: Abdomen soft, non-tender, nondistended, and no guarding. Hepatic and splenic margins not palpable. Normal bowel sounds 4. No pulsatile mass. MUSCULOSKELETAL: No obvious deformities. No clubbing. No cyanosis. NEUROLOGICAL: Awake and alert. No obvious cranial nerve deficits. Motor grossly within normal limits. Normal speech. PSYCHIATRIC: Appropriate mood and affect; insight and judgment normal. Data Data Last Documented VS Vital Signs Date Time Temp Pulse Resp B/P (MAP) Pulse Ox O2 Delivery O2 Flow Rate FiO2 03/23/17 10:02 75 135/70 (91) 96 03/23/17 10:02 15 Room Air 03/22/17 19:15 97.8 Orders Orders Complete Blood Count With Diff (03/22/17 19:24) Comprehensive Metabolic Panel (03/22/17 19:24) Prothrombin Time / Inr (Pt) (03/22/17 19:24) Act Partial Throm Time (Ptt) (03/22/17 19:24) Urinalysis - C+S If Indicated (03/22/17 19:24) Iv Access Insert/Monitor (03/22/17 19:24) Ecg Monitoring (03/22/17:24) Oximetry (03/22/17 19:24) Sodium Chloride 0.9% Flush (Ns Flush) (03/22/17 19:30) Bladder Scan PRN (03/22/17 19:24) Acetaminophen (Tylenol) (03/22/17 20:30) Continue Crooks/Suprapubic Cath (03/22/17 20:38) Urine Culture (03/22/17 20:25) Nitrofurantoin Monohyd Macrocr (Macrobid (03/22/17 22:15) Labs Laboratory Tests Test 03/22/17 20:25 03/22/17 21:30 Urine Color YELLOW Urine Turbidity HAZY Urine pH 5.0 Urine Specific Hagerman 1.011 Urine Protein TRACE mg/dL Urine Glucose (UA) NEG mg/dL Urine Ketones NEG mg/dL Urine Occult Blood MOD Urine Nitrite NEG Urine Bilirubin NEG Urine Urobilinogen LESS THAN 2.0 MG/DL Urine Leukocyte Esterase LARGE Urine RBC 23 /hpf Urine WBC 54 /hpf Urine WBC Clumps RARE Urine Squamous Epithelial Cells <1 /hpf Urine Amorphous Sediment RARE Urine Bacteria OCC /hpf Urine Mucus FEW /lpf Urine Yeast (Budding) MANY Microscopic Urinalysis Comment CULTURE INDICATED White Blood Count 10.4 TH/MM3 Red Blood Count 3.99 MIL/MM3 Hemoglobin 11.4 GM/DL Hematocrit 34.5 % Mean Corpuscular Volume 86.6 FL Mean Corpuscular Hemoglobin 28.7 PG Mean Corpuscular Hemoglobin Concent 33.1 % Red Cell Distribution Width 15.8 % Platelet Count 276 TH/MM3 Mean Platelet Volume 7.3 FL Neutrophils (%) (Auto) 65.3 % Lymphocytes (%) (Auto) 23.2 % Monocytes (%) (Auto) 6.2 % Eosinophils (%) (Auto) 3.8 % Basophils (%) (Auto) 1.5 % Neutrophils # (Auto) 6.8 TH/MM3 Lymphocytes # (Auto) 2.4 TH/MM3 Monocytes # (Auto) 0.6 TH/MM3 Eosinophils # (Auto) 0.4 TH/MM3 Basophils # (Auto) 0.2 TH/MM3 CBC Comment DIFF FINAL Differential Comment Prothrombin Time 11.0 SEC Prothromb Time International Ratio 1.0 RATIO Activated Partial Thromboplast Time 28.0 SEC Blood Urea Nitrogen 15 MG/DL Creatinine 1.09 MG/DL Random Glucose 136 MG/DL Total Protein 6.2 GM/DL Albumin 2.8 GM/DL Calcium Level 8.3 MG/DL Alkaline Phosphatase 137 U/L Aspartate Amino Transf (AST/SGOT) 21 U/L Alanine Aminotransferase (ALT/SGPT) 23 U/L Total Bilirubin 0.3 MG/DL Sodium Level 142 MEQ/L Potassium Level 4.5 MEQ/L Chloride Level 110 MEQ/L Carbon Dioxide Level 24.2 MEQ/L Anion Gap 8 MEQ/L Estimat Glomerular Filtration Rate 64 ML/MIN MDM Medical Decision Making Medical Screen Exam Complete: Yes Emergency Medical Condition: Yes Differential Diagnosis Renal insufficiency, dehydration, electrolyte abnormality, UTI, anemia, other Narrative Course Bladder scan found 626 cc of urine. Regular urinary catheter was placed with almost 700 cc drained. Patient in no obvious distress upon re-evaluation. All pertinent laboratory result(s) discussed with patient. Discussed patient with Dr. Najera prior to discharge, who is in agreement with plan of care and disposition. Patient was asked if they wanted to speak to my attending, which the patient did not wish to do at this time. Any questions/concerns in reference to patient diagnosis/ condition discussed and clarified prior to patient's discharge. Reinforced sheer importance of close follow up with patient's primary physician or primary care clinic. Instructed patient to return to ED immediately, if symptoms return/ worsen. Patient showed understanding of above instructions. Further instructions and recommendations were detailed in discharge paperwork. Patient left without difficulty out of ED at discharge. Diagnosis Primary Impression: Urinary retention Additional Impression: UTI (urinary tract infection) Qualified Codes: N30.01 - Acute cystitis with hematuria Patient Instructions: Crooks Catheter Placement and Care (ED), General Instructions, Urinary Retention in Men (DC), Urinary Tract Infection in Men (ED) Additional Instructions: Follow-up with your primary care physician and urologist this week. Take all medication as prescribed. Return to the emergency department if symptoms get worse. Med/Other Pt SpecificInfo: Prescription(s) given Scripts Nitrofurantoin Monohydrate Macrocrystals (Macrobid) 100 Mg Cap 100 MG PO BID for Infection for 10 Days, #20 CAP 0 Refills Prov: Gosia Najera MD 03/22/17 Disposition: 01 DISCHARGE HOME Condition: Stable Gennaro Davis Mar 22, 2017 19:32
[2017-03-22] MEDS ORDERED: ACETAMINOPHEN 500 MG CPLT PO ONE (20:30)
[2017-03-22 21:08] LABS: BACTERIA, URINE OCC /hpf; BLOOD, URINE MOD (NEG); COMMENT (UR) CULTURE INDICATED; CULTURE IF INDICATED CULTURE INDICATED; GLUCOSE,URINE NEG (NEG); KETONE, URINE NEG (NEG); MUCUS URINE FEW /lpf (OCC); NITRITE,URINE NEG (NEG); SQUAMOUS EPITHELIAL CELL URINE <1 /hpf (0-5); URINE COLOR YELLOW (YELLW/STRAW)
[2017-03-22 21:47] LABS: AUTOMATED NEUTROPHIL # 6.8 TH/MM3 (1.8-7.7); BASOPHIL # 0.2 TH/MM3 (0-0.2); BASOPHIL % 1.5 % (0.0-2.0); EOSINOPHIL # 0.4 TH/MM3 (0-0.4); EOSINOPHIL % 3.8 % (0.0-4.0); HEMATOCRIT 34.5 % (39.0-51.0); HEMO FLAGS DIFF FINAL; LYMPH % 23.2 % (9.0-44.0); LYMPHOCYTE # 2.4 TH/MM3 (1.0-4.8); MEAN CELL VOLUME 86.6 FL (80.0-100.0); MEAN CORPUSCULAR HEMOGLOBIN 28.7 PG (27.0-34.0); MEAN CORPUSCULAR HGB CONC 33.1 % (32.0-36.0); MONO % 6.2 % (0.0-8.0); NEUT % 65.3 % (16.0-70.0); PLATELET COUNT 276 TH/MM3 (150-450); RED BLOOD COUNT 3.99 MIL/MM3 (4.50-5.90); RED CELL DISTRIBUTION WIDTH 15.8 % (11.6-17.2); WHITE BLOOD COUNT 10.4 TH/MM3 (4.0-11.0)
[2017-03-22 22:04] LABS: ALT (GPT) 23 U/L (12-78); ANION GAP 8 MEQ/L (5-15); AST (GOT) 21 U/L (15-37); BICARBONATE 24.2 MEQ/L (21.0-32.0); BLOOD UREA NITROGEN 15 MG/DL (7-18); CHLORIDE 110 MEQ/L (98-107); GLOMERULAR FILTRATION RATE 64 ML/MIN (>89); POTASSIUM 4.5 MEQ/L (3.5-5.1); SODIUM (NA) 142 MEQ/L (136-145)
[2017-03-22 22:06] LABS: ALKALINE PHOSPHATASE 137 U/L (45-117); TOTAL BILIRUBIN ADULT 0.3 MG/DL (0.2-1.0)
[2017-03-22] MEDS ORDERED: MACR100C2 PO (22:09)
[2017-03-22] MEDS ORDERED: NITROFURANTOIN MONOHYD MACROCR 100 MG CAP PO ONE (22:15)
[2017-03-23 01:00] VITALS: BP 131/65; PULSE 72; RESP 18; O2SAT 95
[2017-03-23 10:02] VITALS: BP 135/70; PULSE 75; RESP 15; O2SAT 96
== END 2017-03-23 10:10 | disposition home or self-care (01) ==
LOC: NEPE 19:05 → NEPD 03-23 10:10
DX: N30.01 Acute cystitis with hematuria (principal); B96.5 Pseudomonas (aeruginosa) (mallei) (pseudomallei) as the cause of diseases classified elsewhere; E03.9 Hypothyroidism, unspecified; E11.9 Type 2 diabetes mellitus without complications; I10 Essential (primary) hypertension; Z79.82 Long term (current) use of aspirin; Z79.84 Long term (current) use of oral hypoglycemic drugs; Z79.899 Other long term (current) drug therapy
CPT/HCPCS: 51798; 80053; 81001; 85025; 85610; 85730; 87086

== ENCOUNTER 2017-03-26 17:38 | Inpatient (IN) | payer MEDICARE, MEDICAID ==
[~2017-03-26] VITALS: Ht 177.8 cm; Wt 88.4 kg
[2017-03-26] VITALS (7 sets, daily range): BP systolic 141–172; BP diastolic 66–106; PULSE 100–116; RESP 18–24; TEMP 100.9–101.3; O2SAT 94–100
[~2017-03-26 17:38] MED LIST changes: +MACR100C2 PO
[2017-03-26] MEDS ORDERED: VANCOMYCIN INJ 1,000 MG in SODIUM CHLOR 0.9% 250 ML INJ 250 ML IV STA (18:13)
[2017-03-26] MEDS ORDERED: AZTREONAM INJ 2,000 MG in SODIUM CHLORIDE 0.9% INJ 100 ML IV STA (18:13)
[2017-03-26] MEDS ORDERED: metroNIDAZOLE 500 MG INJ 100 ML IV STA (18:13)
[2017-03-26] MEDS ORDERED: SODIUM CHLORID 0.9% 500 ML INJ 500 ML IV ONE ×2 (18:15→20:00)
--- NOTE | 2017-03-26 18:23 | PD ---
HPI Chief Complaint: Altered Mental Status Time Seen by Provider: 18:12 Travel History International Travel<30 days: No Contact w/Intl Traveler<30days: No Traveled to known affect area: No History of Present Illness HPI Patient comes back to the emergency department from assisted living facility after being found altered today. Patient was seen here 4 days ago and was found to have urinary retention. Regular Crooks catheter was placed instructions were given to follow-up with urologist out patient and was started on Macrobid for UTI. Patient is being treated for C. difficile with by mouth vancomycin. Patient is coughing on exam. Patient will react to his name but is not answering questions. Thus limiting history of present illness. PFSH Past Medical History Hx Anticoagulant Therapy: Yes (asa 81mg daily) Blood Disorders: No Heart Rhythm Problems: No Cancer: Yes (CANCER R EAR) Cardiovascular Problems: Yes High Cholesterol: Yes Chemotherapy: No Chest Pain: No Congestive Heart Failure: No Cerebrovascular Accident: Yes (STROKE 2012) Diabetes: Yes Diminished Hearing: Yes Endocrine: Yes Gastrointestinal Disorders: No GERD: Yes Genitourinary: Yes (Prostate) Headaches: No Hypertension: Yes Immune Disorder: No Inguinal Hernia: Yes (BILAT REPAIR) Implanted Vascular Access Dvce: Yes Kidney Stones: Yes Musculoskeletal: No Neurologic: Yes Psychiatric: No Reproductive: No Respiratory: No Integumentary: Yes (chronic dry skin ) Immunizations Current: Yes (UNKNOWN) Migraines: Yes Radiation Therapy: No Seizures: No Thyroid Disease: Yes (Hypothyroid) Past Surgical History Abdominal Surgery: Yes (bilat. 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 Doxycycline Hyclate 100 Mg Cap 100 Mg PO BID 7 Days Reported Aspirin Low Dose (Aspirin) 81 Mg Chew 81 Mg CHEW DAILY Zolpidem (Zolpidem Tartrate) 5 Mg Tab 2.5 Mg PO HS PRN Tradjenta (Linagliptin) 5 Mg Tab 5 Mg PO DAILY Gabapentin 300 Mg Cap 300 Mg PO HS D3 (Cholecalciferol) 1,000 Unit Cap 1,000 Units PO DAILY Levothyroxine (Levothyroxine Sodium) 112 Mcg Tab 112 Mcg PO DAILY Omeprazole 20 Mg Tab 20 Mg PO DAILY Simvastatin 10 Mg Tab 10 Mg PO DAILY Glimepiride 4 Mg Tab 4 Mg PO BIDAC Lisinopril 2.5 Mg Tab 2.5 Mg PO DAILY Review of Systems ROS Limitations: Altered Mental Status Except as stated in HPI: all other systems reviewed are Neg Physical Exam Exam Limitations: Altered Mental Status Narrative GENERAL: Well-developed, well nourished, in no acute distress, and non-ill appearing. SKIN: Focused skin assessment warm and dry. HEAD: Atraumatic. Normocephalic. EYES: Pupils equal and round. EOMI. No scleral icterus. No injection or drainage. ENT: No nasal bleeding or discharge. Mucous membranes pink and moist. NECK: Trachea midline. Supple. No nuclear rigidity. CARDIOVASCULAR: Tachycardia rate and rhythm. Murmur appreciated. RESPIRATORY: No accessory muscle use. No respiratory distress. Decreased breath sounds throughout. Hacking cough noted on exam. GASTROINTESTINAL: Abdomen soft, non-tender, nondistended, and no guarding. Hepatic and splenic margins not palpable. Normal bowel sounds 4. No pulsatile mass. MUSCULOSKELETAL: No obvious deformities. No clubbing. No cyanosis. No edema. NEUROLOGICAL: Awake and alert. No obvious cranial nerve deficits. Data Data Last Documented VS Vital Signs Date Time Temp Pulse Resp B/P (MAP) Pulse Ox O2 Delivery O2 Flow Rate FiO2 03/26/17 18:37 100.9 116 19 172/83 (112) 94 Room Air Orders Orders Vascular Access Team Consult/P PRN (03/26/17 18:13) Vascular Poc Ultrasound (03/26/17 ) Electrocardiogram (03/26/17 18:13) Complete Blood Count With Diff (03/26/17 18:13) Comprehensive Metabolic Panel (03/26/17 18:13) Prothrombin Time / Inr (Pt) (03/26/17 18:13) Act Partial Throm Time (Ptt) (03/26/17 18:13) Lactic Acid Sepsis Protocol (03/26/17 18:13) Magnesium (Mg) (03/26/17 18:13) Ckmb (Isoenzyme) Profile (03/26/17 18:13) Troponin I (03/26/17 18:13) Urinalysis - C+S If Indicated (03/26/17 18:13) Blood Culture (03/26/17 18:13) Chest, Single Ap (03/26/17 18:13) Blood Glucose (03/26/17 18:13) Ecg Monitoring (03/26/17 18:13) Iv Access Insert/Monitor (03/26/17 18:13) Oximetry (03/26/17 18:13) Oxygen Administration (03/26/17 18:13) Vancomycin Inj (Vancomycin Inj) (03/26/17 18:13) Aztreonam Inj (Azactam Inj) (03/26/17 18:13) Metronidazole 500 Mg Inj (Flagyl 500 Mg (03/26/17 18:13) Sodium Chlorid 0.9% 500 Ml Inj (Ns 500 M (03/26/17 18:15) Acetaminophen Supp (Tylenol Supp) (03/26/17 18:30) Morphine Inj (Morphine Inj) (03/26/17 18:45) Urine Culture (03/26/17 18:35) Sodium Chlorid 0.9% 500 Ml Inj (Ns 500 M (03/26/17 20:00) Type And Screen (03/26/17 19:56) Sodium Chloride 0.9% Flush (Ns Flush) (03/26/17 20:00) Sodium Chloride 0.9... W/Pantoprazole In (03/26/17 19:56) Sodium Chloride 0.9... W/Pantoprazole In (03/26/17 19:56) Admit Order (Ed Use Only) (03/26/17 20:14) Labs Laboratory Tests Test 03/26/17 18:35 03/26/17 18:50 03/26/17 18:55 Urine Color YELLOW Urine Turbidity CLOUDY Urine pH 5.5 Urine Specific [place] 1.020 Urine Protein 30 mg/dL Urine Glucose (UA) NEG mg/dL Urine Ketones TRACE mg/dL Urine Occult Blood MOD Urine Nitrite POS Urine Bilirubin NEG Urine Urobilinogen LESS THAN 2.0 MG/DL Urine Leukocyte Esterase LARGE Urine RBC 128 /hpf Urine WBC /hpf Urine Transitional Epithelial Cells 2 /hpf Urine Amorphous Sediment RARE Urine Bacteria MANY /hpf Urine Mucus FEW /lpf Microscopic Urinalysis Comment CATH-CULTURE IND Lactic Acid Level 3.0 mmol/L White Blood Count 10.5 TH/MM3 Red Blood Count 2.77 MIL/MM3 Hemoglobin 8.1 GM/DL Hematocrit 24.4 % Mean Corpuscular Volume 88.2 FL Mean Corpuscular Hemoglobin 29.1 PG Mean Corpuscular Hemoglobin Concent 33.0 % Red Cell Distribution Width 15.9 % Platelet Count 168 TH/MM3 Mean Platelet Volume 7.7 FL Neutrophils (%) (Auto) 84.6 % Lymphocytes (%) (Auto) 9.6 % Monocytes (%) (Auto) 4.9 % Eosinophils (%) (Auto) 0.4 % Basophils (%) (Auto) 0.5 % Neutrophils # (Auto) 8.9 TH/MM3 Lymphocytes # (Auto) 1.0 TH/MM3 Monocytes # (Auto) 0.5 TH/MM3 Eosinophils # (Auto) 0.0 TH/MM3 Basophils # (Auto) 0.0 TH/MM3 CBC Comment DIFF FINAL Differential Comment Prothrombin Time 12.7 SEC Prothromb Time International Ratio 1.1 RATIO Activated Partial Thromboplast Time 29.2 SEC Blood Urea Nitrogen 14 MG/DL Creatinine 0.93 MG/DL Random Glucose 194 MG/DL Total Protein 5.7 GM/DL Albumin 2.6 GM/DL Calcium Level 7.5 MG/DL Magnesium Level 1.4 MG/DL Alkaline Phosphatase 129 U/L Aspartate Amino Transf (AST/SGOT) 13 U/L Alanine Aminotransferase (ALT/SGPT) 11 U/L Total Bilirubin 0.6 MG/DL Sodium Level 141 MEQ/L Potassium Level 3.9 MEQ/L Chloride Level 110 MEQ/L Carbon Dioxide Level 18.9 MEQ/L Anion Gap 12 MEQ/L Estimat Glomerular Filtration Rate 77 ML/MIN Total Creatine Kinase 35 U/L Troponin I LESS THAN 0.02 NG/ML MDM Medical Decision Making Medical Screen Exam Complete: Yes Emergency Medical Condition: Yes Interpretation(s) EKG reviewed by Dr. Bhakta shows sinus tachycardia with ventricular rate of 111. No STEMI. Differential Diagnosis Sepsis, UTI, electrolyte abnormality, pneumonia, C. difficile, GI bleed, other Narrative Course Patient was seen and examined. Initial laboratory radiological studies were ordered. Patient was started on IV antibiotics and IV fluids. Hemoccult was found to be positive patient is more anemic today than 4 days ago. Patient was typed and screened. Discussed patient with Dr. Bhakta, who is in agreement with plan of care and disposition. Discussed patient with hospitalist who is agreeable to admit the patient. Patient maintained stable throughout ED course. HemaPrompt Point of Care Internal Pos. & Neg. Controls: Passed Fecal Specimen Occult Blood: Positive Comment Verbal consent was obtained. Patient had a stool sample obtained from fecal incontinence noted be melena. Stool specimen applied and test interpreted between 1 and 3 minutes of application and the result was positive. Internal Controls: Both positive and negative controls were validated. estimation manager Miguel Angel was present during this exam. Sepsis Criteria SIRS Criteria (2 or more): Temp > 100.9 or < 96.8, Heart rate over 90 Sepsis Criteria (SIRS+source): Infect source susp/known Severe Sepsis (+one): Lactate >2 Criteria Outcome: Meets severe sepsis criteria Physician Communication Physician Communication [address] Frances, who is agreeable to admit the patient. 2030 after patient was seen by Dr. Frances. She feels the patient needed intensive his care and not the hospitalist care. I spoke with Dr. Aragon, who is agreeable to admit the patient. Diagnosis Primary Impression: Sepsis Qualified Codes: A41.9 - Sepsis, unspecified organism Additional Impressions: UTI (urinary tract infection) Qualified Codes: N39.0 - Urinary tract infection, site not specified; R31.9 - Hematuria, unspecified Anemia Qualified Codes: D64.9 - Anemia, unspecified GI bleed Qualified Codes: K92.2 - Gastrointestinal hemorrhage, unspecified Admitting Information Admitting Physician Requests: Admit Condition: Stable Gennaro Davis Mar 26, 2017 18:23
[2017-03-26] MEDS ORDERED: ACETAMINOPHEN 650 MG SUPP RECTAL ONE (18:30)
[2017-03-26] MEDS ORDERED: MORPHINE SULFATE 2 MG/ML INJ IV PUSH ONE (18:45)
[2017-03-26 19:12] LABS: AUTOMATED NEUTROPHIL # 8.9 TH/MM3 (1.8-7.7); BASOPHIL % 0.5 % (0.0-2.0); EOSINOPHIL % 0.4 % (0.0-4.0); HEMATOCRIT 24.4 % (39.0-51.0); HEMO FLAGS DIFF FINAL; LYMPH % 9.6 % (9.0-44.0); MEAN CELL VOLUME 88.2 FL (80.0-100.0); MEAN CORPUSCULAR HEMOGLOBIN 29.1 PG (27.0-34.0); MONO % 4.9 % (0.0-8.0); NEUT % 84.6 % (16.0-70.0); PLATELET COUNT 168 TH/MM3 (150-450); RED BLOOD COUNT 2.77 MIL/MM3 (4.50-5.90); RED CELL DISTRIBUTION WIDTH 15.9 % (11.6-17.2); WHITE BLOOD COUNT 10.5 TH/MM3 (4.0-11.0)
[2017-03-26 19:15] LABS: BACTERIA, URINE MANY /hpf; BLOOD, URINE MOD (NEG); GLUCOSE,URINE NEG (NEG); KETONE, URINE TRACE mg/dL (NEG); MUCUS URINE FEW /lpf (OCC); NITRITE,URINE POS (NEG); PH, URINE 5.5 (5.0-8.5); TRANSITIONAL EPI CELLS, URINE 2 /hpf; URINE COLOR YELLOW (YELLW/STRAW)
[2017-03-26 19:16] LABS: COMMENT (UR) CATH-CULTURE IND; CULTURE IF INDICATED CATH CULTURE IND
[2017-03-26 19:28] LABS: APTT (PATIENT) 29.2 SEC (24.3-30.1); INTERNATIONAL NORMALIZED RATIO 1.1 RATIO; PROTHROMBIN TIME - PATIENT 12.7 SEC (9.8-11.6)
[2017-03-26 19:29] LABS: ANION GAP 12 MEQ/L (5-15); AST (GOT) 13 U/L (15-37); BICARBONATE 18.9 MEQ/L (21.0-32.0); BLOOD UREA NITROGEN 14 MG/DL (7-18); CHLORIDE 110 MEQ/L (98-107); GLOMERULAR FILTRATION RATE 77 ML/MIN (>89); MAGNESIUM 1.4 MG/DL (1.5-2.5); POTASSIUM 3.9 MEQ/L (3.5-5.1); SODIUM (NA) 141 MEQ/L (136-145)
[2017-03-26 19:30] LABS: ALT (GPT) 11 U/L (12-78)
[2017-03-26 19:32] LABS: ALKALINE PHOSPHATASE 129 U/L (45-117); TOTAL BILIRUBIN ADULT 0.6 MG/DL (0.2-1.0)
[2017-03-26 19:33] LABS: CREATINE KINASE 35 U/L (39-308)
--- NOTE | 2017-03-26 19:48 | RADRPT ---
EXAM DATE/TIME: 03/26/2017 18:53 [facility] COMPARISON: CHEST SINGLE AP, February 03, 2017, 18:08. INDICATIONS : Cough- Altered mental status. MEDICAL HISTORY : Hypercholesterolemia. Hypertension SURGICAL HISTORY : None. ENCOUNTER: Initial ACUITY: 1 day PAIN SCORE: Non-responsive. LOCATION: Bilateral chest FINDINGS: A single view of the chest demonstrates the lungs to be symmetrically aerated without evidence of mas s, infiltrate or effusion. The cardiomediastinal contours are unremarkable. Osseous structures are intact. CONCLUSION: No acute disease. Rahul Rivera MD on March 26, 2017 at 19:46 Board Certified Radiologist. This report was verified electronically.
[2017-03-26] MEDS ORDERED: PANTOPRAZOLE INJ 80 MG in SODIUM CHLORIDE 0.9% INJ 35 ML IV ONE (19:56)
[2017-03-26] MEDS ORDERED: SODIUM CHLORIDE 0.9% FLUSH 10 ML FLUSH IVF PRN (20:00)
[2017-03-26] MEDS ORDERED: SODIUM CHLORIDE 0.9% FLUSH 10 ML FLUSH IV FLUSH PRN ×2 (20:15→23:00)
[2017-03-26] MEDS ORDERED: NALOXONE HCL 0.4 MG/ML AMP IV PUSH PRN (20:15)
[2017-03-26] MEDS ORDERED: MAGNESIUM SULFATE 1 GM PREMIX 100 ML IV SCH (20:30)
[2017-03-26] MEDS: PANTOPRAZOLE INJ 80 MG in SODIUM CHLORIDE 0.9% INJ 100 ML IV SCH (20:36)
--- NOTE | 2017-03-26 20:37 | HHI.HP ---
HPI Service Critical Care Medicine Primary Care Physician Otis Centeno MD Admission Diagnosis sepsis, UTI, recent C. difficile infection, anemia Diagnosis: Travel History International Travel<30 Days: No Contact w/Intl Traveler <30 Da: No Traveled to Known Affected Are: No History of Present Illness Patient comes back to the emergency department from assisted living facility after being found altered today. Patient was seen here 4 days ago and was found to have urinary retention. Regular Crooks catheter was placed instructions were given to follow-up with urologist as an out patient and was started on Macrobid for UTI. Patient is being treated for C. difficile with by mouth vancomycin. Patient is lethargic and not ready cough productive and history is limited. 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/18/11 Past Medical History DM HTN Gerd HLD Neuropathy Past Surgical History Bilateral Inguinal Hernia Repair Suprapubic Catheter Tonsillectomy Lithotripsy Reported Medications Reported Meds & Active Scripts Active Macrobid (Nitrofurantoin Monoh/Nitrofur Macro) 100 Mg Cap 100 Mg PO BID 10 Days Amlactin (Lactic Acid (Ammonium Lactate)) 12 % Lot 1 Applic TOPICAL BID 60 Days APPLY ON BOTH ARMS AND LEGS TWICE A DAY MINIMUM OF SIXTY DAYS TO IMPROVE LESIONS AND SKIN Artificial Tears Opth Drops (Polyvinyl Alcohol) 1.4% Soln 1 Drop EACH EYE Q4H 7 Days Ciprofloxacin Opth Drops (Ciprofloxacin HCl) 0.3% Soln 1 Drop EACH EYE Q4H while awake x 5 days. Doxycycline Hyclate 100 Mg Cap 100 Mg PO BID 7 Days Reported Aspirin Low Dose (Aspirin) 81 Mg Chew 81 Mg CHEW DAILY Zolpidem (Zolpidem Tartrate) 5 Mg Tab 2.5 Mg PO HS PRN Tradjenta (Linagliptin) 5 Mg Tab 5 Mg PO DAILY Gabapentin 300 Mg Cap 300 Mg PO HS D3 (Cholecalciferol) 1,000 Unit Cap 1,000 Units PO DAILY Levothyroxine (Levothyroxine Sodium) 112 Mcg Tab 112 Mcg PO DAILY Omeprazole 20 Mg Tab 20 Mg PO DAILY Simvastatin 10 Mg Tab 10 Mg PO DAILY Glimepiride 4 Mg Tab 4 Mg PO BIDAC Lisinopril 2.5 Mg Tab 2.5 Mg PO DAILY Active Ordered Medications Current Medications Medications (Trade) Dose Ordered Sig/Ajay Route PRN Reason Start Time Stop Time Status Last Admin Dose Admin Pantoprazole Sodium 80 mg/ Sodium Chloride 100 ml @ 10 mls/hr Q10H IV 03/26/17 19:56 03/26/17 20:36 Sodium Chloride (NS Flush) 2 ml UNSCH PRN IV FLUSH FLUSH AFTER USING IV ACCESS 03/26/17 20:15 Sodium Chloride (NS Flush) 2 ml BID IV FLUSH 03/26/17 21:00 03/26/17 21:26 Naloxone HCl (Narcan Inj) 0.4 mg UNSCH PRN IV PUSH SEE LABEL COMMENTS 03/26/17 20:15 Aspirin (Aspirin Chew) 81 mg DAILY CHEW 03/27/17 09:00 Ciprofloxacin HCl (Ciloxan 0.3% Opth Soln) 1 drop Q4HR EACH EYE 03/26/17 20:45 03/26/17 21:53 Gabapentin (Neurontin) 300 mg HS PO 03/26/17 21:00 Lactic Acid (Lac-Hydrin 12% Lotion) 1 applic BID TOPICAL 03/26/17 21:00 03/26/17 21:51 Levothyroxine Sodium (Synthroid) 112 mcg DAILY@0600 PO 03/27/17 06:00 Artificial Tears (Tears Naturale Opth Soln) 1 drop Q4HR EACH EYE 03/26/17 20:45 03/26/17 21:51 Zolpidem Tartrate (Ambien) 2.5 mg HS PRN PO INSOMNIA 03/26/17 21:00 Cholecalciferol (Vitamin D3) 1,000 units DAILY PO 03/27/17 09:00 Pantoprazole Sodium (Protonix) 20 mg DAILY PO 03/27/17 09:00 Pravastatin Sodium (Pravachol) 20 mg DAILY PO 03/27/17 09:00 Miscellaneous (Pill Splitter) 1 ea UNSCH PRN OTHER SEE LABEL COMMENTS 03/26/17 21:00 Sodium Chloride 1,000 ml @ 125 mls/hr Q8H IV 03/26/17 23:00 Sodium Chloride (NS Flush) 2 ml UNSCH PRN IV FLUSH FLUSH AFTER USING IV ACCESS 03/26/17 23:00 Sodium Chloride (NS Flush) 2 ml BID IV FLUSH 03/27/17 09:00 Famotidine (Pepcid Inj) 10 mg Q12HR IV PUSH 03/27/17 09:00 Albuterol/ Ipratropium (Duoneb Neb) 1 ampule Q2HR NEB PRN NEB WHEEZING 03/26/17 23:15 Heparin Sodium (Porcine) (Heparin Inj) 5,000 units Q12H SQ 03/26/17 23:00 Miscellaneous Information 1 Q361D XX 03/26/17 23:00 Chlorhexidine Gluconate (Chlorhexidine 2% Cloth) 3 pack Taper DAILY@04 TOP 03/27/17 04:00 03/23/18 03:59 Chlorhexidine Gluconate (Chlorhexidine 2% Cloth) 3 pack UNSCH PRN TOP HYGIENIC CARE 03/26/17 23:00 Family History No family history significant for early coronary artery disease or malignancy Social History No tobacco or alcohol abuse Physical Exam Vital Signs Vital Signs Date Time Temp Pulse Resp B/P (MAP) Pulse Ox O2 Delivery O2 Flow Rate FiO2 03/26/17 18:37 100.9 116 19 172/83 (112) 94 Room Air 03/26/17 17:58 104 20 152/106 (121) 100 03/26/17 17:48 100 Room Air 03/26/17 17:48 100 Room Air Physical Exam GENERAL: Elderly-appearing man confused. SKIN: Warm and dry. HEAD: Normocephalic. EYES: No scleral icterus. No injection or drainage. NECK: Supple, trachea midline. No JVD or lymphadenopathy. CARDIOVASCULAR: Regular rate and rhythm without murmurs, gallops, or rubs. RESPIRATORY: Breath sounds equal bilaterally. No accessory muscle use. GASTROINTESTINAL: Abdomen soft, non-tender, nondistended. MUSCULOSKELETAL: No cyanosis, or edema. BACK: Nontender without obvious deformity. NEURO EXAM: Mental Status: The patient is arousable but confused Cranial Nerves: Pupils are round, reactive to light. Reflexes: Biceps, patellar, and Achilles are 2/4 bilaterally. No clonus. Laboratory Laboratory Tests Test 03/26/17 18:35 03/26/17 18:50 03/26/17 18:55 Urine Color YELLOW Urine Turbidity CLOUDY Urine pH 5.5 Urine Specific [place] 1.020 Urine Protein 30 Urine Glucose (UA) NEG Urine Ketones TRACE Urine Occult Blood MOD Urine Nitrite POS Urine Bilirubin NEG Urine Urobilinogen LESS THAN 2.0 Urine Leukocyte Esterase LARGE Urine RBC 128 Urine WBC Urine Transitional Epithelial Cells 2 Urine Amorphous Sediment RARE Urine Bacteria MANY Urine Mucus FEW Microscopic Urinalysis Comment CATH-CULTURE IND Lactic Acid Level 3.0 White Blood Count 10.5 Red Blood Count 2.77 Hemoglobin 8.1 Hematocrit 24.4 Mean Corpuscular Volume 88.2 Mean Corpuscular Hemoglobin 29.1 Mean Corpuscular Hemoglobin Concent 33.0 Red Cell Distribution Width 15.9 Platelet Count 168 Mean Platelet Volume 7.7 Neutrophils (%) (Auto) 84.6 Lymphocytes (%) (Auto) 9.6 Monocytes (%) (Auto) 4.9 Eosinophils (%) (Auto) 0.4 Basophils (%) (Auto) 0.5 Neutrophils # (Auto) 8.9 Lymphocytes # (Auto) 1.0 Monocytes # (Auto) 0.5 Eosinophils # (Auto) 0.0 Basophils # (Auto) 0.0 CBC Comment DIFF FINAL Differential Comment Prothrombin Time 12.7 Prothromb Time International Ratio 1.1 Activated Partial Thromboplast Time 29.2 Blood Urea Nitrogen 14 Creatinine 0.93 Random Glucose 194 Total Protein 5.7 Albumin 2.6 Calcium Level 7.5 Magnesium Level 1.4 Alkaline Phosphatase 129 Aspartate Amino Transf (AST/SGOT) 13 Alanine Aminotransferase (ALT/SGPT) 11 Total Bilirubin 0.6 Sodium Level 141 Potassium Level 3.9 Chloride Level 110 Carbon Dioxide Level 18.9 Anion Gap 12 Estimat Glomerular Filtration Rate 77 Total Creatine Kinase 35 Troponin I LESS THAN 0.02 Date/Time Source Procedure Growth Status 03/26/17 18:55 Blood Peripheral Aerobic Blood Culture Pending Received 03/26/17 18:55 Blood Peripheral Anaerobic Blood Culture Pending Received 03/26/17 18:35 Urine Catheterized Urine Urine Culture Pending Worksheet Result Diagram: 03/26/[id number] Imaging Last 24 hours Impressions Chest X-Ray 03/26/171812 Signed Impressions: Service Date/Time: March 18:53 - CONCLUSION: No acute disease. MD Pawan Caicedoi VTE Risk Assessment Caprini VTE Risk Assessment: Mod/High Risk (score >= 2) Caprini Risk Assessment Model Point Value = 1 Point Value = 2 Point Value = 3 Point Value = 5 Age 41-60 Minor surgery BMI > 25 kg/m2 Swollen legs Varicose veins or History of unexplained or recurrent spontaneous Oral contraceptives or hormone replacement Sepsis (< 1 month) Serious lung disease, including pneumonia (< 1 month) Abnormal pulmonary function Acute myocardial infarction Congestive heart failure (< 1 month) History of inflammatory bowel disease Medical patient at bed rest Age 61-74 Arthroscopic surgery Major open surgery (> 45 min) Laparoscopic surgery (> 45 min) Malignancy Confined to bed (> 72 hours) Immobilizing plaster cast Central venous access Age >= 75 History of VTE Family history of VTE Factor V Leiden Prothrombin [id number] Lupus anticoagulant Anticardiolipin antibodies Elevated serum homocysteine Heparin-induced thrombocytopenia Other congenital or acquired thrombophilia Stroke (< 1 month) Elective arthroplasty Hip, pelvis, or leg fracture Acute spinal cord injury (< 1 month) Prophylaxis Regimen Total Risk Factor Score Risk Level Prophylaxis Regimen 0-1 Low Early ambulation 2 Moderate Order ONE of the following: *Sequential Compression Device (SCD) *Heparin 5000 units SQ BID 3-4 Higher Order ONE of the following medications: *Heparin 5000 units SQ TID *Enoxaparin/Lovenox 40 mg SQ daily (WT < 150 kg, CrCl > 30 mL/min) *Enoxaparin/Lovenox 30 mg SQ daily (WT < 150 kg, CrCl > 10-29 mL/min) *Enoxaparin/Lovenox 30 mg SQ BID (WT < 150 kg, CrCl > 30 mL/min) AND/OR *Sequential Compression Device (SCD) 5 or more Highest Order ONE of the following medications: *Heparin 5000 units SQ TID (Preferred with Epidurals) *Enoxaparin/Lovenox 40 mg SQ daily (WT < 150 kg, CrCl > 30 mL/min) *Enoxaparin/Lovenox 30 mg SQ daily (WT < 150 kg, CrCl > 10-29 mL/min) *Enoxaparin/Lovenox 30 mg SQ BID (WT < 150 kg, CrCl > 30 mL/min) AND *Sequential Compression Device (SCD) Assessment and Plan Assessment and Plan Altered mental status - Metabolic toxic - SIRS - Broad-spectrum antibiotics started in the ED - Follow-up cultures and strep negative History of C. difficile - Repeat PCR - By mouth vancomycin - DC if PCR negative Diabetes mellitus - Insulin sliding scale Hypertension - Hold antihypertensive meds due to SIRS and possible GI bleeding GERD - Protonix IV twice a day Hyperlipidemia -Pravachol Neuropathy - Gabapentin Anemia - Positive Hemoccult - Nothing by mouth - Protonix IV twice a day - GI consult evaluation DVT GI prophylaxis - Teds SCDs - Hold pharmacological DVT prophylaxis due to positive Hemoccult - Protonix IV twice a day Critical Care: The total critical care time was 35 minutes. Time to perform other separately billable procedures was not included in the critical care time. Chuy Aragon MD Mar 26, 2017 20:37
[2017-03-26] MEDS: CIPROFLOXACIN 0.3% OPTH SOLN 2.5 ML BTL EACH EYE SCH ×2 (20:45→21:53)
[2017-03-26] MEDS ORDERED: PILL SPLITTER OTHER PRN (21:00)
[2017-03-26] MEDS ORDERED: ZOLPIDEM TARTRATE 5 MG TAB PO PRN (21:00)
[2017-03-26] MEDS: GABAPENTIN 300 MG CAP PO SCH (21:00)
[2017-03-26] MEDS ORDERED: SODIUM CHLORIDE 0.9% FLUSH 10 ML FLUSH IV FLUSH SCH (21:00)
[2017-03-26 21:01] LABS: LACTIC ACID GHOST NOT REPORTABLE
[2017-03-26] MEDS: ARTIFICIAL TEARS OPTH SOLN 15 ML BTL EACH EYE SCH (21:51)
[2017-03-26] MEDS: LACTIC ACID (AMMONIUM LACTATE) 12% LOTION 225 GM BTL TOPICAL SCH (21:51)
[2017-03-26] MEDS ORDERED: SODIUM CHLOR 0.9% 1000 ML INJ 1,000 ML IV ONE ×2 (22:59→23:00)
[2017-03-26] MEDS: SODIUM CHLOR 0.9% 1000 ML INJ 1,000 ML IV SCH (23:00)
[2017-03-26] MEDS ORDERED: HEPARIN SODIUM - SQ 10,000 UNITS/ML VIAL SQ SCH (23:00)
[2017-03-26] MEDS ORDERED: MISCELLANEOUS NURSING INFORMATION XX SCH (23:00)
[2017-03-26] MEDS ORDERED: CHLORHEXIDINE GLUCONATE 2 % 1 PACK (2 CLOTHS) TOP PRN (23:00)
[2017-03-26] MEDS ORDERED: SODIUM CHLOR 0.9% 1000 ML INJ 100 ML IV ONE (23:00)
[2017-03-26] MEDS ORDERED: RESP: ALBUTEROL 2.5 MG/IPRATROPIUM 0.5 MG NEB (PRN) NEB (23:15)
[2017-03-27] VITALS (20 sets, daily range): BP systolic 100–173; BP diastolic 56–84; PULSE 87–113; RESP 19–33; TEMP 97.7–101.3; O2SAT 94–100
[2017-03-27] MEDS: CHLORHEXIDINE GLUCONATE 2 % 1 PACK (2 CLOTHS) TOP SCH (00:26)
[2017-03-27] MEDS ORDERED: VANCOMYCIN INJ 1,000 MG in SODIUM CHLOR 0.9% 250 ML INJ 250 ML IV SCH (00:30)
[2017-03-27] MEDS ORDERED: Vancomycin Consult Pharmacy 1 EA OTHER SCH (00:30)
[2017-03-27] MEDS ORDERED: VANCOMYCIN 1,000 MG/NS 250 ML IV STA ×2 (00:30)
[2017-03-27] MEDS: metroNIDAZOLE 500 MG INJ 100 ML IV SCH ×3 (00:39→17:51)
[2017-03-27] MEDS: CIPROFLOXACIN 0.3% OPTH SOLN 2.5 ML BTL EACH EYE SCH ×6 (01:50→23:51)
[2017-03-27] MEDS: ARTIFICIAL TEARS OPTH SOLN 15 ML BTL EACH EYE SCH ×6 (01:50→23:51)
[2017-03-27] MEDS: SODIUM CHLOR 0.9% 1000 ML INJ 1,000 ML IV SCH ×3 (02:00→23:00)
[2017-03-27] MEDS: PANTOPRAZOLE INJ 80 MG in SODIUM CHLORIDE 0.9% INJ 100 ML IV SCH (02:50)
[2017-03-27] MEDS: AZTREONAM INJ 2,000 MG in SODIUM CHLORIDE 0.9% INJ 100 ML IV SCH ×2 (02:51→13:45)
[2017-03-27] MEDS: LEVOTHYROXINE SODIUM 112 MCG TAB PO SCH (03:07)
[2017-03-27] MEDS: PANTOPRAZOLE SODIUM 40 MG VIAL IV PUSH SCH ×2 (03:58→17:50)
[2017-03-27 04:33] LABS: AUTOMATED NEUTROPHIL # 17.3 TH/MM3 (1.8-7.7); BASOPHIL # 0.1 TH/MM3 (0-0.2); BASOPHIL % 0.6 % (0.0-2.0); HEMO FLAGS DIFF FINAL; LYMPHOCYTE # 1.2 TH/MM3 (1.0-4.8); MEAN CORPUSCULAR HGB CONC 32.9 % (32.0-36.0); NEUT % 88.4 % (16.0-70.0); PLATELET COUNT 235 TH/MM3 (150-450); RED BLOOD COUNT 3.98 MIL/MM3 (4.50-5.90); RED CELL DISTRIBUTION WIDTH 15.7 % (11.6-17.2); WHITE BLOOD COUNT 19.5 TH/MM3 (4.0-11.0)
[2017-03-27 04:57] LABS: POTASSIUM 4.4 MEQ/L (3.5-5.1)
--- NOTE | 2017-03-27 07:39 | PD.CONS ---
HPI History of Present Illness This is a 89 year old male with a history of C Difficile colitis, duodenal bulb ulcer, and dilated common bile duct/pancreatic duct, who was sent from his assisted living facility for evaluation of altered mental status. He is currently extremely somnolent and unable to provide any history and therefore the history has been obtained from the EMR and nursing staff. According to the ER note, he is being treated for C Difficile colitis with oral vancomycin and an UTI with macrobid. He was recently seen in the ER for urinary retention despite a suprapubic catheter and a regular montoya catheter was placed and he was referred to urology as outpatient. His H/H was noted to be 11.4/24.4 on 03/22/17. Yesterday this was 8.1/24.4. He was given 2 units of PRBC and today this is 11.5/35.0. GI has been consulted for anemia and hemoccult positive stool. His abdomen is nondistended, but he does have moderate lower abdominal tenderness on exam. The nurse reports that he has not had a bowel movement on her shift, but was told that he had a small amount of stool overnight. He was admitted to the intensive care unit for altered mental status, SIRS, DM, HTN, GERD, hyperlipidemia, anemia. He was evaluated by our service back in 2010 for abdominal pain with nausea and vomiting and underwent EGD (08/26/10)---> Large duodenal bulb ulcer, duodenitis, very edematous mucosa, bx, gastritis in the antrum, bx, esophagitis, schatzki's ring. Pathology with small bowel mucosa with no significant histopathologic abnormalities, antral mucosa with very focal mild active chronic gastritis, esophageal bx with squamous mucosa with mild reflux esophagitis. He was also evaluated with MRCP at that time which revealed dilatation of the common bile duct and pancreatic duct with area of beak-like narrowing at the pancreatic head. Of note, he has had gallstones and underwent ERCP with sphincterotomy. (Aline Whiteside) PFSH Past Medical History BPH Cholelithiasis Cataract Chronic anemia CKD DM GERD Hyperlipidemia Hypothyroidism Hx pulmonary nodule Hepatomegaly Malignant neoplasm of ear Meningioma Vitamin D insufficiency Duodenal ulcer Esophagitis Cholelithiasis CDifficile Urinary retention Recurrent UTI Past Surgical History EGD ERCP with sphincterotomy Bilateral inguinal hernia repair Tonsillectomy Suprapubic catheter placements (Aline Whiteside) Coded Allergies: penicillin G (Unverified Allergy, Unknown, 03/26/17) *MDRO Multi-Drug Resistant Organism (Verified Adverse Reaction, Unknown, 03/26/17) MRSA (abdomen wound) - 03/18/11 Medications Allergies Coded Allergies Type Severity Reaction Last Updated Verified penicillin G Allergy Unknown 03/26/17 No *MDRO Multi-Drug Resistant Organism Adverse Reaction Unknown 03/26/17 Yes Active Scripts Medications Dose Route/Sig Max Daily Dose Days Date Category Dose Instructions Macrobid (Nitrofurantoin Monoh/Nitrofur Macro) 100 Mg Cap 100 Mg PO BID 10 03/22/17 Rx Amlactin (Lactic Acid (Ammonium Lactate)) 12 % Lot 1 Applic TOPICAL BID 60 02/09/17 Rx APPLY ON BOTH ARMS AND LEGS TWICE A DAY MINIMUM OF SIXTY DAYS TO IMPROVE LESIONS AND SKIN Artificial Tears Opth Drops (Polyvinyl Alcohol) 1.4% Soln 1 Drop EACH EYE Q4H 7 02/09/17 Rx Ciprofloxacin Opth Drops (Ciprofloxacin HCl) 0.3% Soln 1 Drop EACH EYE Q4H 02/09/17 Rx while awake x 5 days. Doxycycline Hyclate 100 Mg Cap 100 Mg PO BID 7 02/09/17 Rx Aspirin Low Dose (Aspirin) 81 Mg Chew 81 Mg CHEW DAILY 01/23/17 Reported Zolpidem (Zolpidem Tartrate) 5 Mg Tab 2.5 Mg PO HS PRN 05/20/16 Reported Tradjenta (Linagliptin) 5 Mg Tab 5 Mg PO DAILY 05/20/16 Reported Gabapentin 300 Mg Cap 300 Mg PO HS 05/20/16 Reported D3 (Cholecalciferol) 1,000 Unit Cap 1,000 Units PO DAILY 05/20/16 Reported Levothyroxine (Levothyroxine Sodium) 112 Mcg Tab 112 Mcg PO DAILY 05/20/16 Reported Omeprazole 20 Mg Tab 20 Mg PO DAILY 05/20/16 Reported Simvastatin 10 Mg Tab 10 Mg PO DAILY 05/20/16 Reported Glimepiride 4 Mg Tab 4 Mg PO BIDAC 05/20/16 Reported Lisinopril 2.5 Mg Tab 2.5 Mg PO DAILY 05/20/16 Reported Family History Unable to obtain Social History Unable to obtain (Aline Whiteside) Review of Systems ROS Unable to obtain (Aline Whiteside) GI Exam Vitals I&O Vital Signs Date Time Temp Pulse Resp B/P (MAP) Pulse Ox O2 Delivery O2 Flow Rate FiO2 03/27/17 06:00 113 03/27/17 04:00 113 03/27/17 04:00 99.9 109 24 141/78 (99) 95 03/27/17 02:00 113 03/27/17 00:00 111 03/27/17 00:00 101.3 100 24 145/68 (93) 95 03/26/17 23:55 101.3 107 22 149/66 97 03/26/17 23:39 101.3 100 24 149/66 (93) 95 03/26/17 22:57 101 18 141/66 (91) 96 03/26/17 21:00 101.3 100 18 152/66 (94) 96 03/26/17 18:37 100.9 116 19 172/83 (112) 94 Room Air 03/26/17 17:58 104 20 152/106 (121) 100 03/26/17 17:48 100 Room Air 03/26/17 17:48 100 Room Air I/O 03/26/17 03/26/17 03/26/17 03/27/17 03/27/17 03/27/17 07:00 15:00 23:00 07:00 15:00 23:00 Intake Total 635 ml 875 ml Output Total 175 ml 275 ml Balance 460 ml 600 ml Intake IV Total 635 ml 875 ml Output Urine Total 175 ml 275 ml # Bowel Movements 1 1 Imaging Last Impressions Chest X-Ray 03/26/171812 Signed Impressions: Service Date/Time: March 18:53 - CONCLUSION: No acute disease. Rahul Rivera MD Laboratory Test 03/26/17 18:35 03/26/17 18:50 03/26/17 18:55 03/26/17 21:47 Urine Color YELLOW Urine Turbidity CLOUDY Urine pH 5.5 Urine Specific [place] 1.020 Urine Protein 30 mg/dL Urine Glucose (UA) NEG mg/dL Urine Ketones TRACE mg/dL Urine Occult Blood MOD Urine Nitrite POS Urine Bilirubin NEG Urine Urobilinogen LESS THAN 2.0 MG/DL Urine Leukocyte Esterase LARGE Urine RBC 128 /hpf Urine WBC /hpf Urine Transitional Epithelial Cells 2 /hpf Urine Amorphous Sediment RARE Urine Bacteria MANY /hpf Urine Mucus FEW /lpf Microscopic Urinalysis Comment CATH-CULTURE IND Lactic Acid Level 3.0 mmol/L 1.9 mmol/L White Blood Count 10.5 TH/MM3 Red Blood Count 2.77 MIL/MM3 Hemoglobin 8.1 GM/DL Hematocrit 24.4 % Mean Corpuscular Volume 88.2 FL Mean Corpuscular Hemoglobin 29.1 PG Mean Corpuscular Hemoglobin Concent 33.0 % Red Cell Distribution Width 15.9 % Platelet Count 168 TH/MM3 Mean Platelet Volume 7.7 FL Neutrophils (%) (Auto) 84.6 % Lymphocytes (%) (Auto) 9.6 % Monocytes (%) (Auto) 4.9 % Eosinophils (%) (Auto) 0.4 % Basophils (%) (Auto) 0.5 % Neutrophils # (Auto) 8.9 TH/MM3 Lymphocytes # (Auto) 1.0 TH/MM3 Monocytes # (Auto) 0.5 TH/MM3 Eosinophils # (Auto) 0.0 TH/MM3 Basophils # (Auto) 0.0 TH/MM3 CBC Comment DIFF FINAL Differential Comment Prothrombin Time 12.7 SEC Prothromb Time International Ratio 1.1 RATIO Activated Partial Thromboplast Time 29.2 SEC Blood Urea Nitrogen 14 MG/DL Creatinine 0.93 MG/DL Random Glucose 194 MG/DL Total Protein 5.7 GM/DL Albumin 2.6 GM/DL Calcium Level 7.5 MG/DL Magnesium Level 1.4 MG/DL Alkaline Phosphatase 129 U/L Aspartate Amino Transf (AST/SGOT) 13 U/L Alanine Aminotransferase (ALT/SGPT) 11 U/L Total Bilirubin 0.6 MG/DL Sodium Level 141 MEQ/L Potassium Level 3.9 MEQ/L Chloride Level 110 MEQ/L Carbon Dioxide Level 18.9 MEQ/L Anion Gap 12 MEQ/L Estimat Glomerular Filtration Rate 77 ML/MIN Total Creatine Kinase 35 U/L Troponin I LESS THAN 0.02 NG/ML Test 03/26/17 23:30 03/27/17 03:36 Nasal Screen MRSA (PCR) MRSA NOT DETECTED White Blood Count 19.5 TH/MM3 Red Blood Count 3.98 MIL/MM3 Hemoglobin 11.5 GM/DL Hematocrit 35.0 % Mean Corpuscular Volume 88.0 FL Mean Corpuscular Hemoglobin 29.0 PG Mean Corpuscular Hemoglobin Concent 32.9 % Red Cell Distribution Width 15.7 % Platelet Count 235 TH/MM3 Mean Platelet Volume 8.2 FL Neutrophils (%) (Auto) 88.4 % Lymphocytes (%) (Auto) 6.0 % Monocytes (%) (Auto) 5.0 % Eosinophils (%) (Auto) 0.0 % Basophils (%) (Auto) 0.6 % Neutrophils # (Auto) 17.3 TH/MM3 Lymphocytes # (Auto) 1.2 TH/MM3 Monocytes # (Auto) 1.0 TH/MM3 Eosinophils # (Auto) 0.0 TH/MM3 Basophils # (Auto) 0.1 TH/MM3 CBC Comment DIFF FINAL Differential Comment Blood Urea Nitrogen 16 MG/DL Creatinine 1.00 MG/DL Random Glucose 197 MG/DL Calcium Level 8.3 MG/DL Sodium Level 140 MEQ/L Potassium Level 4.4 MEQ/L Chloride Level 107 MEQ/L Carbon Dioxide Level 21.0 MEQ/L Anion Gap 12 MEQ/L Estimat Glomerular Filtration Rate 70 ML/MIN Date/Time Source Procedure Growth Status 03/26/17 18:55 Blood Peripheral Aerobic Blood Culture Pending Received 03/26/17 18:55 Blood Peripheral Anaerobic Blood Culture Pending Received 03/26/17 18:35 Urine Catheterized Urine Urine Culture Pending Worksheet Physical Examination HEENT: Normocephalic; atraumatic; no jaundice. CHEST: Resp even/unlabored, course breath sounds throughout CARDIAC: RRR ABDOMEN: Soft, nondistended, lower abdominal tenderness; no hepatosplenomegaly ; bowel sounds are present in all four quadrants. Suprapubic catheter, Montoya catheter in place EXTREMITIES: No clubbing, cyanosis, or edema. SKIN: Generalized edema EMERGENCY RESPONSE OFFICER: Somnolent (Aline Whiteside) Assessment and Plan Plan ASSESSMENT: - Anemia, Hemoccult (+) Stool. His H/H was noted to be 11.4/24.4 on 03/22/17. On admission, this was 8.1/24.4. Hemoccult (+). S/P 2 units of PRBC and today this is 11.5/35.0. EGD (08/26/10)---> Large duodenal bulb ulcer, duodenitis, very edematous mucosa, bx, gastritis in the antrum, bx, esophagitis, schatzki's ring. Pathology with small bowel mucosa with no significant histopathologic abnormalities, antral mucosa with very focal mild active chronic gastritis, esophageal bx with squamous mucosa with mild reflux esophagitis. - Abdominal pain. Tender on exam. No imaging of abdomen - C Difficile Diarrhea. Pt is being treated for C Difficile as outpatient with Oral vancomycin. He is tender on exam. Will get CT Scan to evaluate. Check stool for c diff. - Leukocytosis. WBC 19.5. Pt being treated for C Difficile and UTI as outpatient- oral vanco, macrobid. Brought with AMS. Will get CT scan. UTI with GNR, recently with PSAE. Need to send for CDiff. Will get CT scan. - AMS, likely secondary to infection. Per CCM - DM, HTN, Hyperlipidemia per [facility] - Hx dilated common bile, pancreatic duct on MRCP in 2010. Has hx of cholelithiasis and has required ERCP with sphincterotomy in past. LFTs okay. PLAN: - NPO - PPI - IVF - Oral Vanco - Abx per CCM - Send stool for CDiff - CT scan abdomen and pelvis - CBC, BMP in am - Supportive care - Consider egd +/- colonoscopy/sigmoidoscopy based on results of above - Pt seen and examined by Dr. Harper and myself and this note is written on her behalf (Aline Whiteside) Physician Comments seen, examined agree with above possible urine retention await ct abdomen/pelvis if not possible us abdomen (Mirlande Harper MD) Aline Whiteside Mar 27, 2017 07:39 Mirlande Harper MD Mar 27, 2017 19:47
[2017-03-27] MEDS: VANCOMYCIN 500 MG VIAL (FOR ORAL USE ONLY) PO SCH ×4 (09:00→23:54)
[2017-03-27] MEDS ORDERED: ASPIRIN 81 MG CHEW TAB CHEW SCH (09:00)
[2017-03-27] MEDS: CHOLECALCIFEROL (VIT D3) 1000 UNIT TAB PO SCH (09:00)
[2017-03-27] MEDS ORDERED: FAMOTIDINE 20 MG/2 ML VIAL IV PUSH SCH (09:00)
[2017-03-27] MEDS: PRAVASTATIN SOD 20 MG TAB PO SCH (09:00)
[2017-03-27] MEDS: SODIUM CHLORIDE 0.9% FLUSH 10 ML FLUSH IV FLUSH SCH ×2 (09:00→23:39)
[2017-03-27] MEDS ORDERED: PANTOPRAZOLE SOD 20 MG DELAYED RELEASE TAB PO SCH (09:00)
[2017-03-27] MEDS: LACTIC ACID (AMMONIUM LACTATE) 12% LOTION 225 GM BTL TOPICAL SCH ×2 (09:36→23:51)
--- NOTE | 2017-03-27 13:11 | EKG ---
Date Performed: 03/26/2017 Time Performed: 18:30:16 PTAGE: 89 years EKG: SINUS TACHYCARDIA WITH SHORT [place] INTERVAL NONSPECIFIC ST & T-WAVE ABNORMALITY ABNORMAL RHYTH M ECG PREVIOUS TRACING : 05/20/2016 17.00 Compared to prior tracing no significant change DOCTOR: Clemente Johnson Interpretating Date/Time 03/27/2017 13:09:41
[2017-03-27] MEDS ORDERED: DIATRIZOATE MEGLUM/DIATRIZOATE SOD 9 ML CUP PO ONE (16:15)
--- NOTE | 2017-03-27 19:30 | HHI.CCPN ---
Subjective Remarks/Hospital Course 03/26: This is a 89 year old male with a history of C Difficile colitis, duodenal bulb ulcer, and dilated common bile duct/pancreatic duct, who was sent from his assisted living facility for evaluation of altered mental status. He is currently extremely somnolent and unable to provide any history and therefore the history has been obtained from the EMR and nursing staff. According to the ER note, he is being treated for C Difficile colitis with oral vancomycin and an UTI with macrobid. He was recently seen in the ER for urinary retention despite a suprapubic catheter and a regular montoya catheter was placed and he was referred to urology as outpatient. His H/H was noted to be 11.4/24.4 on 03/22/17. Yesterday this was 8.1/24.4. He was given 2 units of PRBC and today this is 11.5/35.0. GI has been consulted for anemia and hemoccult positive stool. His abdomen is nondistended, but he does have moderate lower abdominal tenderness on exam. The nurse reports that he has not had a bowel movement on her shift, but was told that he had a small amount of stool overnight. He was admitted to the intensive care unit for altered mental status, SIRS, DM, HTN, GERD, hyperlipidemia, anemia. He was evaluated by our service back in 2010 for abdominal pain with nausea and vomiting and underwent EGD (08/26/10)---> Large duodenal bulb ulcer, duodenitis, very edematous mucosa, bx, gastritis in the antrum, bx, esophagitis, schatzki's ring. Pathology with small bowel mucosa with no significant histopathologic abnormalities, antral mucosa with very focal mild active chronic gastritis, esophageal bx with squamous mucosa with mild reflux esophagitis. He was also evaluated with MRCP at that time which revealed dilatation of the common bile duct and pancreatic duct with area of beak-like narrowing at the pancreatic head. Of note, he has had gallstones and underwent ERCP with sphincterotomy. 03/27: Remains encephalopathic, laying in bed in no acute distress. Objective Vital Signs Date Time Temp Pulse Resp B/P (MAP) Pulse Ox O2 Delivery O2 Flow Rate FiO2 03/27/17 19:00 89 29 122/59 (80) 96 03/27/17 16:00 99.2 03/26/17 18:37 Room Air Intake and Output 03/27/17 03/27/17 03/28/17 08:00 16:00 00:00 Intake Total 875 ml 1102 ml 1372 ml Output Total 275 ml 80 ml Balance 600 ml 1102 ml 1292 ml Result Diagram: 03/27/17 0336 03/27/17 0336 Imaging Last 24 hours Impressions Chest X-Ray 03/26/17 1813 Signed Impressions: Service Date/Time: March 18:53 - CONCLUSION: No acute disease. Rahul Rivera MD Objective Remarks GENERAL: Elderly-appearing man confused. SKIN: Warm and dry. HEAD: Normocephalic. EYES: No scleral icterus. No injection or drainage. NECK: Supple, trachea midline. No JVD or lymphadenopathy. CARDIOVASCULAR: Regular rate and rhythm without murmurs, gallops, or rubs. RESPIRATORY: Breath sounds equal bilaterally. No accessory muscle use. GASTROINTESTINAL: Abdomen soft, non-tender, nondistended. MUSCULOSKELETAL: No cyanosis, or edema. BACK: Nontender without obvious deformity. NEURO EXAM: Mental Status: The patient is arousable but confused Cranial Nerves: Pupils are round, reactive to light. Reflexes: Biceps, patellar, and Achilles are 2/4 bilaterally. No clonus. A/P Assessment and Plan Altered mental status - Metabolic toxic - SIRS - Broad-spectrum antibiotics started in the ED - Follow-up cultures and strep negative History of C. difficile History of duodenal ulcer - Repeat PCR - By mouth vancomycin - DC if PCR negative -GI consult noted Diabetes mellitus - Insulin sliding scale Hypertension - Hold antihypertensive meds due to SIRS and possible GI bleeding GERD - Protonix IV twice a day Hyperlipidemia -Pravachol Neuropathy - Gabapentin Anemia - Positive Hemoccult - Nothing by mouth daily till improvement of neurologic status - Protonix IV twice a day - GI consult noted DVT GI prophylaxis - Teds SCDs - Hold pharmacological DVT prophylaxis due to positive Hemoccult - Protonix IV twice a day Gibson Hall MD Mar 27, 2017 19:30
[2017-03-27] MEDS ORDERED: IOHEXOL 350 MG/ML 10 ML VIAL (for RAD DIAG) IVCONTRAST ONE (22:41)
--- NOTE | 2017-03-27 23:06 | RADRPT ---
EXAM DATE/TIME: 03/27/2017 22:38 [place] COMPARISON: CT ABDOMEN & PELVIS W CONTRAST, June 01, 2015, 17:59. INDICATIONS : Abdominal pain with leukocytosis. IV CONTRAST: 100 cc Omnipaque 350 (iohexol) IV ORAL CONTRAST: Prescribed oral contrast ingested. RADIATION DOSE: 20.15 CTDIvol (mGy) MEDICAL HISTORY : Hypertension. Renal calculi. Diabetes mellitus type 2. SURGICAL HISTORY : Inguinal hernia repair. ENCOUNTER: Initial ACUITY: 1 day PAIN SCALE: Non-responsive LOCATION: abdomen TECHNIQUE: Volumetric scanning of the abdomen and pelvis was performed. Using automated exposure control and ad justment of the mA and/or kV according to patient size, radiation dose was kept as low as reasonably achievable to obtain optimal diagnostic quality images. DICOM format image data is available electro nically for review and comparison. FINDINGS: Study is breathing motion degraded. LOWER LUNGS: Chronic interstitial changes within the bases as well as areas of atelectasis. LIVER: Homogeneous density without lesion. Small volume pneumobilia. There is no dilation of the biliary tr ee. The gallbladder is either decompressed or surgically absent. SPLEEN: Normal size without lesion. PANCREAS: Within normal limits. KIDNEYS: Normal in size and shape. Bilateral hydronephrosis and hydroureter. The ureters are dilated all the w ay down to the urinary bladder. No stones or obstructing lesions. There is no mass or stone. ADRENAL GLANDS: Within normal limits. VASCULAR: There is no aortic aneurysm. BOWEL/MESENTERY: The stomach, small bowel, and colon demonstrate no acute abnormality. There is no free intraperitone al air or fluid. Multiple colonic diverticuli without acute inflammation. ABDOMINAL WALL: Within normal limits. RETROPERITONEUM: There is no lymphadenopathy. BLADDER: There is a suprapubic catheter as well as a Crooks catheter. The urinary bladder is distended with a s mall volume of intraluminal air. No discrete mass or stone. REPRODUCTIVE: Multiple calcifications are seen within the peripheral aspects of the prostate gland. INGUINAL: Bilateral inguinal hernias containing fat. MUSCULOSKELETAL: Degenerative changes of the lumbar spine, hips, and SI joints. CONCLUSION: 1. There is a distended urinary bladder despite a Crooks catheter and suprapubic catheter. There is re sulting hydronephrosis and hydroureter. 2. Colonic diverticulosis. 3. Pneumobilia without biliary dilatation. This would suggest sphincterotomy. Melquiades Najera Jr., MD on March 27, 2017 at 22:59 Board Certified Radiologist. This report was verified electronically.
[2017-03-27] MEDS: VANCOMYCIN INJ 1,250 MG in SODIUM CHLOR 0.9% 250 ML INJ 250 ML IV SCH (23:39)
[2017-03-27] MEDS: GABAPENTIN 300 MG CAP PO SCH (23:54)
[2017-03-28] VITALS (46 sets, daily range): BP systolic 93–125; BP diastolic 50–61; PULSE 50–97; RESP 14–29; TEMP 95.9–98.2; O2SAT 74–100
[2017-03-28] MEDS: AZTREONAM INJ 2,000 MG in SODIUM CHLORIDE 0.9% INJ 100 ML IV SCH ×4 (01:13→21:35)
[2017-03-28] MEDS: ARTIFICIAL TEARS OPTH SOLN 15 ML BTL EACH EYE SCH ×7 (01:14→23:23)
[2017-03-28] MEDS: CIPROFLOXACIN 0.3% OPTH SOLN 2.5 ML BTL EACH EYE SCH ×7 (01:14→23:23)
[2017-03-28] MEDS: metroNIDAZOLE 500 MG INJ 100 ML IV SCH ×3 (02:05→18:39)
[2017-03-28] MEDS: CHLORHEXIDINE GLUCONATE 2 % 1 PACK (2 CLOTHS) TOP SCH (04:00)
[2017-03-28] MEDS: LEVOTHYROXINE SODIUM 112 MCG TAB PO SCH (05:10)
[2017-03-28] MEDS: PANTOPRAZOLE SODIUM 40 MG VIAL IV PUSH SCH ×2 (05:10→18:39)
[2017-03-28] MEDS: SODIUM CHLOR 0.9% 1000 ML INJ 1,000 ML IV SCH ×3 (05:12→23:23)
[2017-03-28 05:14] LABS: AUTOMATED NEUTROPHIL # 10.5 TH/MM3 (1.8-7.7); BASOPHIL # 0.1 TH/MM3 (0-0.2); BASOPHIL % 0.6 % (0.0-2.0); EOSINOPHIL # 0.1 TH/MM3 (0-0.4); EOSINOPHIL % 0.4 % (0.0-4.0); HEMATOCRIT 31.7 % (39.0-51.0); HEMO FLAGS DIFF FINAL; LYMPHOCYTE # 1.6 TH/MM3 (1.0-4.8); MEAN CELL VOLUME 88.1 FL (80.0-100.0); MEAN CORPUSCULAR HEMOGLOBIN 29.4 PG (27.0-34.0); MEAN CORPUSCULAR HGB CONC 33.4 % (32.0-36.0); MONO % 7.5 % (0.0-8.0); NEUT % 79.5 % (16.0-70.0); PLATELET COUNT 169 TH/MM3 (150-450); RED BLOOD COUNT 3.59 MIL/MM3 (4.50-5.90); RED CELL DISTRIBUTION WIDTH 16.2 % (11.6-17.2); WHITE BLOOD COUNT 13.2 TH/MM3 (4.0-11.0)
[2017-03-28 05:31] LABS: ANION GAP 9 MEQ/L (5-15); AST (GOT) 27 U/L (15-37); BICARBONATE 20.5 MEQ/L (21.0-32.0); BLOOD UREA NITROGEN 22 MG/DL (7-18); CHLORIDE 113 MEQ/L (98-107); GLOMERULAR FILTRATION RATE 53 ML/MIN (>89); POTASSIUM 3.5 MEQ/L (3.5-5.1); SODIUM (NA) 142 MEQ/L (136-145)
[2017-03-28 05:36] LABS: ALKALINE PHOSPHATASE 112 U/L (45-117); ALT (GPT) 12 U/L (12-78); TOTAL BILIRUBIN ADULT 0.8 MG/DL (0.2-1.0)
[2017-03-28] MEDS: SODIUM CHLORIDE 0.9% FLUSH 10 ML FLUSH IV FLUSH SCH ×2 (09:00→21:36)
[2017-03-28] MEDS: PRAVASTATIN SOD 20 MG TAB PO SCH (09:00)
[2017-03-28] MEDS: CHOLECALCIFEROL (VIT D3) 1000 UNIT TAB PO SCH (09:43)
[2017-03-28] MEDS: VANCOMYCIN 500 MG VIAL (FOR ORAL USE ONLY) PO SCH ×4 (09:44→21:34)
[2017-03-28] MEDS: LACTIC ACID (AMMONIUM LACTATE) 12% LOTION 225 GM BTL TOPICAL SCH ×2 (09:44→23:23)
--- NOTE | 2017-03-28 10:04 | HHI.CCPN ---
Subjective Remarks/Hospital Course 03/26: This is a 89 year old male with a history of C Difficile colitis, duodenal bulb ulcer, and dilated common bile duct/pancreatic duct, who was sent from his assisted living facility for evaluation of altered mental status. He is currently extremely somnolent and unable to provide any history and therefore the history has been obtained from the EMR and nursing staff. According to the ER note, he is being treated for C Difficile colitis with oral vancomycin and an UTI with macrobid. He was recently seen in the ER for urinary retention despite a suprapubic catheter and a regular montoya catheter was placed and he was referred to urology as outpatient. His H/H was noted to be 11.4/24.4 on 03/22/17. Yesterday this was 8.1/24.4. He was given 2 units of PRBC and today this is 11.5/35.0. GI has been consulted for anemia and hemoccult positive stool. His abdomen is nondistended, but he does have moderate lower abdominal tenderness on exam. The nurse reports that he has not had a bowel movement on her shift, but was told that he had a small amount of stool overnight. He was admitted to the intensive care unit for altered mental status, SIRS, DM, HTN, GERD, hyperlipidemia, anemia. He was evaluated by our service back in 2010 for abdominal pain with nausea and vomiting and underwent EGD (08/26/10)---> Large duodenal bulb ulcer, duodenitis, very edematous mucosa, bx, gastritis in the antrum, bx, esophagitis, schatzki's ring. Pathology with small bowel mucosa with no significant histopathologic abnormalities, antral mucosa with very focal mild active chronic gastritis, esophageal bx with squamous mucosa with mild reflux esophagitis. He was also evaluated with MRCP at that time which revealed dilatation of the common bile duct and pancreatic duct with area of beak-like narrowing at the pancreatic head. Of note, he has had gallstones and underwent ERCP with sphincterotomy. 03/27: Remains encephalopathic, laying in bed in no acute distress. 03/28: worsening encephalopathy. unable to protect airway. CT abd/pelvis with evidence of distended bladder with hydronephrosis despite both suprapubic and montoya through penis. attempted to reach family: patient has [id number] sister- in-law, brother , reportedly have not spoken in years. patient has a friend who takes him to breakfast occasionally. She said she would be willing to make healthcare decisions for him, but has never signed paperwork saying that she was the decision maker. when asked about his end-of-life wishes, she does not think he would want to be on a ventilator long-term, but she does not know specifically what his wishes were. He was reportedly a FULL CODE based on SNF documentation. Objective Vital Signs Date Time Temp Pulse Resp B/P (MAP) Pulse Ox O2 Delivery O2 Flow Rate FiO2 03/28/17 06:00 80 03/28/17 04:00 97.8 21 124/58 (80) 97 03/26/17 18:37 Room Air Intake and Output 03/28/17 03/28/17 03/29/17 08:00 16:00 00:00 Intake Total 750 ml Output Total 1201 ml Balance -451 ml Result Diagram: 03/28/17 0435 03/28/17 0435 Imaging Last 24 hours Impressions Chest X-Ray 03/26/17 181 Signed Impressions: Service Date/Time: March 18:53 - CONCLUSION: No acute disease. Rahul Rivera MD Objective Remarks GENERAL: Elderly-appearing man confused, in distress, obtunded. SKIN: Warm and dry. HEAD: Normocephalic. EYES: No scleral icterus. No injection or drainage. NECK: trachea midline. No JVD CARDIOVASCULAR: Regular rate and rhythm. sinus by tele. RESPIRATORY: Breath sounds equal bilaterally. No accessory muscle use. GASTROINTESTINAL: Abdomen soft, mildly tender over suprapubic region. suprapubic catheter exists with some dark urine with purulence. montoya catehter in penis without drainage. MUSCULOSKELETAL: No cyanosis, or edema. NEURO: RASS -3. weak gag, poor cough. does not follow commands. withdraws x 4. A/P Assessment and Plan Assessment: 89yM with Severe sepsis from urinary tract infection and C. Diff colitis, worsening now with worsening metabolic encephalopathy, bladder outlet obstruction with hydronephrosis. Clinically decompensating. will need to proceed with intubation. will get palliative care involved to help find decision makers and clarify goals of care, but given his multiple medical problems and recent hospitalizations, unlikely to have a recoverable outcome long-term. Remains very critically ill today. I have spoken with urology, and at their request, we will swap out the suprapubic catheter and irrigate it. Metabolic Encephalopathy- worsening. - Metabolic toxic - SIRS - Broad-spectrum antibiotics started in the ED - Follow-up cultures and strep negative - will need to proceed with intubation C. difficile Colitis History of duodenal ulcer - By mouth vancomycin - DC if PCR negative -GI consult noted Bladder Outlet obstruction with hydronephrosis BPH Chronic indwelling montoya - consult urology - irrigate suprapubic and exchange Urinary tract infection - repeat culture growing GNRs - continue broad spectrum abx - will need to remedy outlet obstruction - h/o prior PSAE Diabetes mellitus - Insulin sliding scale Hypertension - Hold antihypertensive meds due to SIRS and possible GI bleeding GERD - Protonix IV twice a day Hyperlipidemia -Pravachol Neuropathy - Gabapentin Anemia - Positive Hemoccult - Nothing by mouth daily till improvement of neurologic status - Protonix IV twice a day - GI consult noted DVT GI prophylaxis - Teds SCDs - Hold pharmacological DVT prophylaxis due to positive Hemoccult - Protonix IV twice a day Dispo: remain in ICU. will consult palliative care. very poor prognosis. Critical Care time: 79 minutes, exclusive of separately billable procedures. Esau Velez MD Mar 28, 2017 10:04
[2017-03-28] MEDS ORDERED: ROCURONIUM INJ 50 MG/5 ML VIAL ONE (13:17)
[2017-03-28] MEDS ORDERED: MIDAZOLAM HCL 5 MG/ML VIAL (1 ML) ONE ×2 (13:18)
[2017-03-28] MEDS ORDERED: PROPOFOL 1000 MG/100 ML INJ 0 ML ONE (13:41)
[2017-03-28] MEDS: VANCOMYCIN INJ 1,250 MG in SODIUM CHLOR 0.9% 250 ML INJ 250 ML IV SCH (14:00)
--- NOTE | 2017-03-28 14:21 | PD.PROCEDR ---
Procedure Note Procedure Endotracheal Intubation Diagnosis: Severe sepsis Indications: Persistent encephalopathy with new aspiration and acute hypoxemia Consent: Emergent Anesthesia: Versed 10 mg IV, Rocuronium 100 mg IV Description of the Procedure: The patient was positioned in the sniffing position. Pre-oxygenation was performed using a [id number]. Anesthesia was induced via rapid sequence. A Hagen #2 was used for laryngoscopy and a Grade II a view was obtained. A 8.0 cuffed endotracheal tube was inserted atraumatically through the vocal cords. Confirmation of correct endotracheal tube placement was made by equal and bilateral breath sounds and colorimetric CO2 detection. The endotracheal tube was secured at 23 cm at the teeth. The patient was noted to have very poor dentition before laryngoscopy. After laryngoscopy, the patient did not have any additional damage to his teeth that was not already present prior to intubation. There were no immediate complications noted. The patient remained hemodynamically stable throughout the procedure. A chest x-ray has been ordered. I personally performed the procedure. Esau Velez MD Mar 28, 2017 14:21
[2017-03-28] MEDS ORDERED: TERBUTALINE INJ 1 MG/ML AMP SQ PRN (14:30)
[2017-03-28] MEDS ORDERED: ALBUMIN HUMAN 5% 25 GM/500 ML BOTTLE IV ONE (14:30)
[2017-03-28] MEDS ORDERED: PHENYLEPHRINE INJ 40 MG in DEXTROSE 5% IN WATE 500 ML INJ 496 ML IV PRN ×2 (14:30)
--- NOTE | 2017-03-28 15:00 | RADRPT ---
EXAM DATE/TIME: 03/28/2017 14:41 [facility] COMPARISON: CHEST SINGLE AP, March 26, 2017, 18:53. INDICATIONS : Evaluate for atelectasis. MEDICAL HISTORY : Hypercholesterolemia. Hypertension SURGICAL HISTORY : None. ENCOUNTER: Subsequent ACUITY: 2 days PAIN SCORE: Non-responsive. LOCATION: chest FINDINGS: Endotracheal tube tip is a couple centimeters above the diane. Nasogastric tube descends to the dist al esophagus. There is hazy bibasilar pleural-parenchymal opacity which has increased since prior exa m. Central vascular congestion and interstitial prominence is noted. CONCLUSION: ET tube in satisfactory position. NG tube coils in the pharynx and does not quite reach the stomach. Worsening aeration. Rahul Beaver MD on March 28, 2017 at 14:57 Board Certified Radiologist. This report was verified electronically.
[2017-03-28 15:24] LABS: BLOOD GAS CARBOXYHEMOGLOBIN 1.5 % (0-4); BLOOD GAS HCO3 18 mmol/L (22-26); BLOOD GAS O2 HGB SATURATION 96 % (90-100); BLOOD GAS OXYGEN CONTENT 15.4 Vol % (12.0-20.0); BLOOD GAS PCO2 27 mmHg (38-42); BLOOD GAS PO2 101 mmHg (61-120); BLOOD GAS TOTAL HGB 11.3 G/DL (12.0-16.0); CRITICAL VALUE NO; OXYGEN DEVICE VENTILATOR; TEMP CORR TO 98.6
[2017-03-28 15:25] LABS: DRAW SITE RT RADIAL; FIO2 40 %; NUMBER OF ARTERIAL PUNCTURES 1; STAT NO; ULNAR PULSE PRESENT; VENT SETTINGS PRVC/AC
[2017-03-28] MEDS ORDERED: PROPOFOL 1000 MG/100 ML INJ 100 ML ONE (18:42)
--- NOTE | 2017-03-28 19:56 | PD.CONS ---
HPI Service Urology Consult Requested By Reason for Consult Retention, nondraining catheter Primary Care Physician Otis Centeno MD Diagnosis: History of Present Illness 89yo male with history of urinary retention admitted for altered mental status now seen in consultation for nondraining catheter. Patient has a SPT as well as a Crooks catheter. However both catheters did not appear to be draining well with evidence of distended bladder and bilateral hydronephrosis on CT scan. Also noted was a large prostate. Since admit the patient went in to respiratory failure, requiring intubation. The SPT was exchanged to a 20Fr catheter with adequate urinary drainage, however continued no drainage from urethral catheter. On exam patient is intubated and sedated during exam with history obtained from nurse. Personal review of Ct scan shows the old SPT to be calcified at the tip, causing obstruction of the catheter. The urethral catheter appears to be inflated within the prostate. Review of Systems ROS Limitations: Clinical Condition, Intubated Constitutional: DENIES: Fever Cardiovascular: DENIES: Chest pain Genitourinary: DENIES: Hematuria Except as stated in HPI: all other systems reviewed are Neg Past Family Social History Past Medical History BPH Cholelithiasis Cataract Chronic anemia CKD DM GERD Hyperlipidemia Hypothyroidism Hx pulmonary nodule Hepatomegaly Malignant neoplasm of ear Meningioma Vitamin D insufficiency Duodenal ulcer Esophagitis Cholelithiasis CDifficile Urinary retention Recurrent UTI Past Surgical History EGD ERCP with sphincterotomy Bilateral inguinal hernia repair Tonsillectomy Suprapubic catheter placements Reported Medications Reported Meds & Active Scripts Active Macrobid (Nitrofurantoin Monoh/Nitrofur Macro) 100 Mg Cap 100 Mg PO BID 10 Days Amlactin (Lactic Acid (Ammonium Lactate)) 12 % Lot 1 Applic TOPICAL BID 60 Days APPLY ON BOTH ARMS AND LEGS TWICE A DAY MINIMUM OF SIXTY DAYS TO IMPROVE LESIONS AND SKIN Artificial Tears Opth Drops (Polyvinyl Alcohol) 1.4% Soln 1 Drop EACH EYE Q4H 7 Days Ciprofloxacin Opth Drops (Ciprofloxacin HCl) 0.3% Soln 1 Drop EACH EYE Q4H while awake x 5 days. Doxycycline Hyclate 100 Mg Cap 100 Mg PO BID 7 Days Reported Aspirin Low Dose (Aspirin) 81 Mg Chew 81 Mg CHEW DAILY Zolpidem (Zolpidem Tartrate) 5 Mg Tab 2.5 Mg PO HS PRN Tradjenta (Linagliptin) 5 Mg Tab 5 Mg PO DAILY Gabapentin 300 Mg Cap 300 Mg PO HS D3 (Cholecalciferol) 1,000 Unit Cap 1,000 Units PO DAILY Levothyroxine (Levothyroxine Sodium) 112 Mcg Tab 112 Mcg PO DAILY Omeprazole 20 Mg Tab 20 Mg PO DAILY Simvastatin 10 Mg Tab 10 Mg PO DAILY Glimepiride 4 Mg Tab 4 Mg PO BIDAC Lisinopril 2.5 Mg Tab 2.5 Mg PO DAILY Allergies: Coded Allergies: penicillin G (Unverified Allergy, Unknown, 03/26/17) *MDRO Multi-Drug Resistant Organism (Verified Adverse Reaction, Unknown, 03/26/17) 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 Ordered Medications Current Medications Medications (Trade) Dose Ordered Sig/Ajay Route Start Time Stop Time Status Last Admin (Narcan Inj) 0.4 mg UNSCH PRN IV PUSH 03/26/17 20:15 (Ciloxan 0.3% Opth Soln) 1 drop Q4HR EACH EYE 03/26/17 20:45 03/28/17 18:39 (Neurontin) 300 mg HS PO 03/26/17 21:00 03/27/17 23:54 (Lac-Hydrin 12% Lotion) 1 applic BID TOPICAL 03/26/17 21:00 03/28/17 09:44 (Synthroid) 112 mcg DAILY@0600 PO 03/27/17 06:00 03/28/17 05:10 (Tears Naturale Opth Soln) 1 drop Q4HR EACH EYE 03/26/17 20:45 03/28/17 18:39 (Vitamin D3) 1,000 units DAILY PO 03/27/17 09:00 03/28/17 09:43 (Pravachol) 20 mg DAILY PO 03/27/17 09:00 03/28/17 09:00 (Pill Splitter) 1 ea UNSCH PRN OTHER 03/26/17 21:00 Sodium Chloride 1,000 ml @ 125 mls/hr Q8H IV 03/26/17 23:00 03/28/17 15:00 (NS Flush) 2 ml UNSCH PRN IV FLUSH 03/26/17 23:00 (NS Flush) 2 ml BID IV FLUSH 03/27/17 09:00 03/28/17 09:00 (Duoneb Neb) 1 ampule Q2HR NEB PRN NEB 03/26/17 23:15 Miscellaneous Information 1 Q361D XX 03/26/17 23:00 (Chlorhexidine 2% Cloth) 3 pack Taper DAILY@04 TOP 03/27/17 04:00 03/23/18 03:59 03/28/17 04:00 (Chlorhexidine 2% Cloth) 3 pack UNSCH PRN TOP 03/26/17 23:00 Pharmacy Profile Note 0 ml @ 0 mls/hr UNSCH OTHER 03/27/17 00:30 Aztreonam 2000 mg/ Sodium Chloride 100 ml @ 200 mls/hr Q8H IV 03/27/17 06:00 03/28/17 18:40 Metronidazole 100 ml @ 100 mls/hr Q8H IV 03/27/17 02:00 03/28/17 18:39 (VANCOMYCIN for oral use only) 250 mg QID PO 03/27/17 09:00 03/28/17 18:29 (Protonix Inj) 40 mg Q12H IV PUSH 03/27/17 04:00 03/28/17 18:39 Vancomycin HCl 1250 mg/Sodium Chloride 262.5 ml @ 250 mls/hr Q18H IV 03/27/17 20:00 03/28/17 14:00 Miscellaneous Information SPECIFIC LAB TO BE SUSANNE... ONCE ONCE .XX 03/29/17 07:45 03/29/17 07:46 Phenylephrine HCl 40 mg/Dextrose 500 ml @ 30 mls/hr TITRATE PRN IV 03/28/17 14:30 03/28/17 15:26 (Brethine Inj) 1 mg UNSCH PRN SQ 03/28/17 14:30 Propofol 100 ml @ 2.505 mls/ hr TITRATE PRN IV 03/28/17 18:45 Family History Family history reviewed from chart and nursing, noncontributory to present illness. No immediate family available per nursing staff Social History Patient intubated, no history of tobacco or ETOh in chart Physical Exam Vital Signs Date Time Temp Pulse Resp B/P (MAP) Pulse Ox O2 Delivery O2 Flow Rate FiO2 03/28/17 19:30 69 18 105/54 (71) 100 03/28/17 19:15 61 14 105/51 (69) 100 03/28/17 19:00 62 14 118/56 (76) 99 03/28/17 18:45 74 17 123/61 (81) 84 10/7/17 18:30 82 29 120/56 (77) 74 03/28/17 18:15 53 14 115/57 (76) 99 03/28/17 18:01 100 40 03/28/17 18:00 53 15 117/56 (76) 100 03/28/17 17:45 50 03/28/17 17:45 50 14 101/59 (73) 100 03/28/17 17:30 54 03/28/17 17:30 54 14 100/50 (67) 100 03/28/17 17:29 54 03/28/17 17:29 54 15 112/53 (72) 100 03/28/17 17:00 53 03/28/17 17:00 53 14 100 03/28/17 16:30 62 14 105/57 (73) 100 03/28/17 16:30 62 03/28/17 16:00 53 14 102/50 (67) 100 03/28/17 16:00 98.1 03/28/17 16:00 53 03/28/17 15:40 51 03/28/17 15:30 58 03/28/17 15:26 58 81/47 03/28/17 15:00 65 03/28/17 14:50 66 03/28/17 14:17 78 03/28/17 14:16 80 03/28/17 14:13 82 03/28/17 14:11 81 03/28/17 14:10 80 03/28/17 14:07 87 03/28/17 14:06 90 03/28/17 14:03 97 03/28/17 14:01 96 03/28/17 14:00 97 03/28/17 14:00 100 40 03/28/17 12:00 59 03/28/17 12:00 97.9 59 25 117/59 (78) 100 03/28/17 11:30 57 03/28/17 11:30 57 20 101/50 (67) 100 03/28/17 11:00 56 03/28/17 11:00 56 21 93/52 (66) 95 03/28/17 10:31 59 25 95/53 (67) 99 03/28/17 10:31 59 03/28/17 10:00 71 03/28/17 10:00 71 15 117/58 (77) 100 03/28/17 09:30 80 17 112/53 (72) 99 03/28/17 09:00 79 20 124/58 (80) 100 03/28/17 08:30 77 16 125/56 (79) 100 03/28/17 08:00 76 16 109/53 (71) 100 03/28/17 08:00 97.9 03/28/17 08:00 81 03/28/17 07:05 94 21 03/28/17 06:00 80 03/28/17 04:00 73 03/28/17 04:00 97.8 73 21 124/58 (80) 97 03/28/17 02:00 79 03/28/17 00:00 90 03/28/17 00:00 98.2 90 20 104/56 (72) 98 03/27/17 22:00 87 03/27/17 20:00 97.7 96 28 127/61 (83) 96 03/27/17 20:00 96 Physical Exam GENERAL: This is a well-nourished, well-developed patient SKIN: No rashes, HEAD: Atraumatic. EYES: No scleral icterus. No injection or drainage. ENT: Nose without bleeding, purulent drainage. Airway patent. NECK: Intubated, trachea midline CARDIOVASCULAR: normal pulses RESPIRATORY: Intubated and sedated GASTROINTESTINAL: Abdomen soft, non-tender, nondistended. GENITOURINARY: New 20Fr SPT in place, draining clear urine. Crooks catheter in place, not draining MUSCULOSKELETAL: Extremities without clubbing, cyanosis, or edema. NEUROLOGICAL: Intubated and sedated Lab results reviewed: Yes Laboratory Tests Test 03/28/17 04:35 03/28/17 15:05 White Blood Count 13.2 Red Blood Count 3.59 Hemoglobin 10.6 Hematocrit 31.7 Mean Corpuscular Volume 88.1 Mean Corpuscular Hemoglobin 29.4 Mean Corpuscular Hemoglobin Concent 33.4 Red Cell Distribution Width 16.2 Platelet Count 169 Mean Platelet Volume 8.0 Neutrophils (%) (Auto) 79.5 Lymphocytes (%) (Auto) 12.0 Monocytes (%) (Auto) 7.5 Eosinophils (%) (Auto) 0.4 Basophils (%) (Auto) 0.6 Neutrophils # (Auto) 10.5 Lymphocytes # (Auto) 1.6 Monocytes # (Auto) 1.0 Eosinophils # (Auto) 0.1 Basophils # (Auto) 0.1 CBC Comment DIFF FINAL Differential Comment Blood Urea Nitrogen 22 Creatinine 1.27 Random Glucose 134 Total Protein 5.4 Albumin 2.3 Calcium Level 7.9 Alkaline Phosphatase 112 Aspartate Amino Transf (AST/SGOT) 27 Alanine Aminotransferase (ALT/SGPT) 12 Total Bilirubin 0.8 Sodium Level 142 Potassium Level 3.5 Chloride Level 113 Carbon Dioxide Level 20.5 Anion Gap 9 Estimat Glomerular Filtration Rate 53 Blood Gas Puncture Site RT RADIAL Blood Gas Patient Temperature 98.6 Blood Gas HCO3 18 Blood Gas Base Excess -6.0 Blood Gas Oxygen Saturation 96 Arterial Blood pH 7.43 Arterial Blood Partial Pressure CO2 27 Arterial Blood Partial Pressure O2 101 Arterial Blood Oxygen Content 15.4 Arterial Blood Carboxyhemoglobin 1.5 Arterial Blood Methemoglobin 1.0 Blood Gas Hemoglobin 11.3 Oxygen Delivery Device VENTILATOR Blood Gas Ventilator Setting PRVC/AC Blood Gas Inspired Oxygen 40 Date/Time Source Procedure Growth Status 03/26/17 18:55 Blood Peripheral Aerobic Blood Culture - Preliminary NO GROWTH IN 2 DAYS Resulted 03/26/17 18:55 Blood Peripheral Anaerobic Blood Culture - Preliminary NO GROWTH IN 2 DAYS Resulted 03/26/17 18:35 Urine Catheterized Urine Urine Culture - Final Escherichia Coli Klebsiella Pneumoniae Complete Result Diagram: 03/28/175 03/28/17 0435 Personally reviewed images: Yes Imaging Last Impressions Chest X-Ray 03/28/17 0000 Signed Impressions: Service Date/Time: Tuesday, March 28, 2017 14:41 - CONCLUSION: ET tube in satisfactory position. NG tube coils in the pharynx and does not quite reach the stomach. Worsening aeration. Rahul Beaver MD Abdomen/Pelvis CT 03/27/17 0000 Signed Impressions: Service Date/Time: Monday, March 27, 2017 22:38 - CONCLUSION: 1. There is a distended urinary bladder despite a Crooks catheter and suprapubic catheter. There is resulting hydronephrosis and hydroureter. 2. Colonic diverticulosis. 3. Pneumobilia without biliary dilatation. This would suggest sphincterotomy. Melquiades Najera Jr., MD Assessment and Plan Problem List: (1) Suprapubic catheter dysfunction ICD Code: T83.010A - Breakdown (mechanical) of cystostomy catheter, initial encounter Status: Acute Assessment and Plan -CT images reviewed. SPT in place appears calcified and not draining properly. This catheter has been exchanged -Crooks urethral catheter appears to be inflated in prostate and not draining -Remove urethral catheter -New SPT 20Fr in place, draining clear urine -Expect good UOP with new SPT. May obtain renal ultrasound to evaluate hydronephrosis and bladder distention if any further concerns -No further urological intervention indicated -Maintain SPT in place until discharge with Urology follow-up Pavel Sterling MD Mar 28, 2017 19:56
[2017-03-28] MEDS: GABAPENTIN 300 MG CAP PO SCH (21:34)
[2017-03-28] MEDS: PROPOFOL 1000 MG/100 ML INJ 100 ML IV PRN (23:41)
[2017-03-29] VITALS (20 sets, daily range): BP systolic 86–117; BP diastolic 48–56; PULSE 54–75; RESP 14–16; TEMP 96.3–98.6; O2SAT 98–100
[2017-03-29] MEDS: CIPROFLOXACIN 0.3% OPTH SOLN 2.5 ML BTL EACH EYE SCH ×5 (03:40→20:57)
[2017-03-29] MEDS: ARTIFICIAL TEARS OPTH SOLN 15 ML BTL EACH EYE SCH ×5 (03:40→20:57)
[2017-03-29] MEDS: CHLORHEXIDINE GLUCONATE 2 % 1 PACK (2 CLOTHS) TOP SCH (03:40)
[2017-03-29] MEDS: metroNIDAZOLE 500 MG INJ 100 ML IV SCH ×3 (03:40→17:01)
[2017-03-29] MEDS: PANTOPRAZOLE SODIUM 40 MG VIAL IV PUSH SCH ×2 (04:28→17:01)
[2017-03-29] MEDS: PROPOFOL 1000 MG/100 ML INJ 100 ML IV PRN (04:28)
[2017-03-29] MEDS ORDERED: SODIUM CHLOR 0.9% 1000 ML INJ 1,000 ML IV ONE (06:00)
[2017-03-29] MEDS: SODIUM CHLOR 0.9% 1000 ML INJ 1,000 ML IV SCH ×3 (06:11→21:19)
[2017-03-29] MEDS: AZTREONAM INJ 2,000 MG in SODIUM CHLORIDE 0.9% INJ 100 ML IV SCH (06:12)
[2017-03-29] MEDS: LEVOTHYROXINE SODIUM 112 MCG TAB PO SCH (06:12)
[2017-03-29] MEDS ORDERED: PHARMACY ORDERED LAB ONE (07:45)
[2017-03-29] MEDS: cefTRIAXone INJ 1,000 MG in SODIUM CHLORIDE 0.9% INJ 100 ML IV SCH (08:00)
--- NOTE | 2017-03-29 08:17 | HHI.CCPN ---
Subjective Remarks/Hospital Course 03/26: This is a 89 year old male with a history of C Difficile colitis, duodenal bulb ulcer, and dilated common bile duct/pancreatic duct, who was sent from his assisted living facility for evaluation of altered mental status. He is currently extremely somnolent and unable to provide any history and therefore the history has been obtained from the EMR and nursing staff. According to the ER note, he is being treated for C Difficile colitis with oral vancomycin and an UTI with macrobid. He was recently seen in the ER for urinary retention despite a suprapubic catheter and a regular montoya catheter was placed and he was referred to urology as outpatient. His H/H was noted to be 11.4/24.4 on 03/22/17. Yesterday this was 8.1/24.4. He was given 2 units of PRBC and today this is 11.5/35.0. GI has been consulted for anemia and hemoccult positive stool. His abdomen is nondistended, but he does have moderate lower abdominal tenderness on exam. The nurse reports that he has not had a bowel movement on her shift, but was told that he had a small amount of stool overnight. He was admitted to the intensive care unit for altered mental status, SIRS, DM, HTN, GERD, hyperlipidemia, anemia. He was evaluated by our service back in 2010 for abdominal pain with nausea and vomiting and underwent EGD (08/26/10)---> Large duodenal bulb ulcer, duodenitis, very edematous mucosa, bx, gastritis in the antrum, bx, esophagitis, schatzki's ring. Pathology with small bowel mucosa with no significant histopathologic abnormalities, antral mucosa with very focal mild active chronic gastritis, esophageal bx with squamous mucosa with mild reflux esophagitis. He was also evaluated with MRCP at that time which revealed dilatation of the common bile duct and pancreatic duct with area of beak-like narrowing at the pancreatic head. Of note, he has had gallstones and underwent ERCP with sphincterotomy. 03/27: Remains encephalopathic, laying in bed in no acute distress. 03/28: worsening encephalopathy. unable to protect airway. CT abd/pelvis with evidence of distended bladder with hydronephrosis despite both suprapubic and montoya through penis. attempted to reach family: patient has [id number] sister- in-law, brother , reportedly have not spoken in years. patient has a friend who takes him to breakfast occasionally. She said she would be willing to make healthcare decisions for him, but has never signed paperwork saying that she was the decision maker. when asked about his end-of-life wishes, she does not think he would want to be on a ventilator long-term, but she does not know specifically what his wishes were. He was reportedly a FULL CODE based on SNF documentation. 03/29: intubated yesterday. urine growing e. coli and klebsiella. c. diff PCR still not resulted. borderline hypotensive on propofol. Objective Vital Signs Date Time Temp Pulse Resp B/P (MAP) Pulse Ox O2 Delivery O2 Flow Rate FiO2 03/29/17 04:22 98 40 03/28/17 19:45 56 03/28/17 19:30 18 105/54 (71) 03/28/17 16:00 98.1 03/26/17 18:37 Room Air Intake and Output 03/29/17 03/29/17 03/30/17 08:00 16:00 00:00 Intake Total 100 ml Balance 100 ml Result Diagram: 03/28/17 0435 03/28/17 0435 Other Results Microbiology Date/Time Source Procedure Growth Status 03/26/17 18:35 Urine Catheterized Urine Urine Culture - Final Escherichia Coli Klebsiella Pneumoniae Complete Laboratory Tests Test 03/28/17 15:05 Blood Gas Puncture Site RT RADIAL Blood Gas Patient Temperature 98.6 Blood Gas HCO3 18 mmol/L (22-26) Blood Gas Base Excess -6.0 mmol/L (-2-2) Blood Gas Oxygen Saturation 96 % (90-100) Arterial Blood pH 7.43 (7.380-7.420) Arterial Blood Partial Pressure CO2 27 mmHg (38-42) Arterial Blood Partial Pressure O2 101 mmHg (61-120) Arterial Blood Oxygen Content 15.4 Vol % (12.0-20.0) Arterial Blood Carboxyhemoglobin 1.5 % (0-4) Arterial Blood Methemoglobin 1.0 % (0-2) Blood Gas Hemoglobin 11.3 G/DL (12.0-16.0) Oxygen Delivery Device VENTILATOR Blood Gas Ventilator Setting PRVC/AC Blood Gas Inspired Oxygen 40 % Imaging Last 24 hours Impressions Chest X-Ray 03/26/17 843 Signed Impressions: Service Date/Time: March 18:53 - CONCLUSION: No acute disease. Rahul Rivera MD Objective Remarks GENERAL: frail elderly male, lying in bed, intubated, sedated, critically ill. SKIN: Warm and dry. HEAD: Normocephalic. EYES: No scleral icterus. No injection or drainage. NECK: trachea midline. No JVD CARDIOVASCULAR: Regular rate and rhythm. sinus by tele. RESPIRATORY: Breath sounds equal bilaterally. No accessory muscle use. PRVC 40% fio2. GASTROINTESTINAL: Abdomen soft, mildly tender over suprapubic region. suprapubic catheter exists with some dark urine with purulence. MUSCULOSKELETAL: No cyanosis, or edema. NEURO: RASS -3. weak gag, poor cough. does not follow commands. withdraws x 4. A/P Assessment and Plan Assessment: 89yM with Severe sepsis from urinary tract infection and possible C. Diff colitis, and acute hypoxic and hypercarbic respiratory failure s/p intubation 03/28. Remains critically ill and off pathway. will f/u c. diff PCR, as he has a history of c. diff in the past, but no positive test here. will narrow spectrum of abx to Rocephin for a total 7 day course for his UTI. Will attempt SAT/SBT today, but given patient's persistent encephalopathy, likely will fail for poor metnal status. off pathway. Palliative care consulted to help find decision makers and clarify goals of care, but given his multiple medical problems and recent hospitalizations, unlikely to have a recoverable outcome long-term. Metabolic Encephalopathy- worsening. - Metabolic toxic - SIRS - Broad-spectrum antibiotics started in the ED - Follow-up cultures and strep negative - daily sedation vacations - will transition from propofol to fentanyl for goal RASS -2 while intubated. - avoid long-acting sedating meds. C. difficile Colitis History of duodenal ulcer - By mouth vancomycin - DC if PCR negative, will f/u PCR today. -GI consult noted Bladder Outlet obstruction with hydronephrosis BPH Chronic indwelling montoya - consult urology - irrigate suprapubic and exchange Urinary tract infection - repeat culture growing Klebsiella and E. Coli - d/c Aztreonam - start Rocephin 1gm iv q24h x 6 days (full 7 day course of abx). - h/o prior PSAE Diabetes mellitus - Insulin sliding scale Hypertension - Hold antihypertensive meds due to SIRS and possible GI bleeding GERD - Protonix IV twice a day Hyperlipidemia -Pravachol Neuropathy - Gabapentin Anemia - Positive Hemoccult - Protonix IV twice a day - GI consult noted Acute protein calorie malnutrition- severe - start jevity 1.5 TF per OG tube - nutrition consult for recs DVT GI prophylaxis - Teds SCDs - Hold pharmacological DVT prophylaxis due to positive Hemoccult - Protonix IV twice a day Dispo: remain in ICU. will consult palliative care. very poor prognosis. Critical Care time: 33 minutes, exclusive of separately billable procedures. Esau Velez MD Mar 29, 2017 07:57
[2017-03-29] MEDS: VANCOMYCIN 500 MG VIAL (FOR ORAL USE ONLY) PO SCH ×4 (10:37→20:56)
[2017-03-29] MEDS: CHOLECALCIFEROL (VIT D3) 1000 UNIT TAB PO SCH (10:37)
[2017-03-29] MEDS: PRAVASTATIN SOD 20 MG TAB PO SCH (10:37)
[2017-03-29] MEDS: LACTIC ACID (AMMONIUM LACTATE) 12% LOTION 225 GM BTL TOPICAL SCH ×2 (10:37→20:57)
[2017-03-29] MEDS: fentaNYL DRIP 250 ML IV PRN (10:38)
[2017-03-29] MEDS: SODIUM CHLORIDE 0.9% FLUSH 10 ML FLUSH IV FLUSH SCH ×2 (10:41→20:57)
[2017-03-29] MEDS: INSULIN NovoLIN REGULAR SUPPLEMENTAL SCALE SQ SCH ×2 (10:54→18:00)
[2017-03-29] MEDS: DEXTROSE 50% IN WATER 50 ML VIAL(D50) IV PUSH PRN (11:01)
[2017-03-29 11:13] LABS: HEMATOCRIT 30.7 % (39.0-51.0); MEAN CELL VOLUME 89.7 FL (80.0-100.0); MEAN CORPUSCULAR HEMOGLOBIN 28.5 PG (27.0-34.0); MEAN CORPUSCULAR HGB CONC 31.8 % (32.0-36.0); PLATELET COUNT 165 TH/MM3 (150-450); RED BLOOD COUNT 3.42 MIL/MM3 (4.50-5.90); RED CELL DISTRIBUTION WIDTH 16.6 % (11.6-17.2); REVIEW FLAG FINAL; WHITE BLOOD COUNT 8.6 TH/MM3 (4.0-11.0)
[2017-03-29 11:34] LABS: BICARBONATE 17.5 MEQ/L (21.0-32.0); POTASSIUM 3.3 MEQ/L (3.5-5.1)
--- NOTE | 2017-03-29 16:02 | HHI.GIFU ---
Subjective Remarks Patient is sedated on a vent, tolerating TF okay. (Andi Cowart) Objective Vitals I&O Vital Signs Date Time Temp Pulse Resp B/P (MAP) Pulse Ox O2 Delivery O2 Flow Rate FiO2 03/29/17 14:00 54 03/29/17 12:44 100 40 03/29/17 12:00 97.9 54 14 94/53 (67) 100 03/29/17 12:00 54 03/29/17 10:00 61 03/29/17 09:55 100 40 03/29/17 08:22 100 40 03/29/17 08:00 97.6 75 16 109/56 (73) 100 03/29/17 08:00 75 03/29/17 06:00 67 03/29/17 04:22 98 40 03/29/17 04:00 68 03/29/17 04:00 98.6 68 14 86/48 (61) 98 03/29/17 02:00 56 03/29/17 01:15 100 40 03/29/17 00:00 96.3 58 16 117/56 (76) 100 03/29/17 00:00 58 03/28/17 22:07 100 40 03/28/17 22:00 60 03/28/17 20:00 62 03/28/17 20:00 95.9 62 18 115/57 (76) 100 03/28/17 19:45 56 03/28/17 19:30 69 03/28/17 19:30 69 18 105/54 (71) 100 03/28/17 19:15 61 14 105/51 (69) 100 03/28/17 19:15 61 03/28/17 19:00 62 14 118/56 (76) 99 03/28/17 19:00 62 03/28/17 18:45 74 17 123/61 (81) 84 03/28/17 18:45 74 03/28/17 18:30 82 29 120/56 (77) 74 03/28/17 18:30 82 03/28/17 18:15 53 03/28/17 18:15 53 14 115/57 (76) 99 03/28/17 18:01 100 40 03/28/17 18:00 53 15 117/56 (76) 100 03/28/17 18:00 53 03/28/17 17:45 50 03/28/17 17:45 50 14 101/59 (73) 100 03/28/17 17:30 54 03/28/17 17:30 54 14 100/50 (67) 100 03/28/17 17:29 54 03/28/17 17:29 54 15 112/53 (72) 100 03/28/17 17:00 53 03/28/17 17:00 53 14 100 03/28/17 16:30 62 14 105/57 (73) 100 03/28/17 16:30 62 03/28/17 16:00 53 14 102/50 (67) 100 03/28/17 16:00 98.1 03/28/17 16:00 53 I/O 03/28/17 03/28/17 03/28/17 03/29/17 03/29/17 03/29/17 07:00 15:00 23:00 07:00 15:00 23:00 Intake Total 750 ml 930 ml 1260 ml 1000 ml Output Total 1201 ml 700 ml 315 ml Balance -451 ml 230 ml 945 ml 1000 ml Intake IV Total 750 ml 1260 ml 1000 ml Other 750 ml 180 ml Output Urine Total 1200 ml 700 ml 315 ml Stool Total 1 ml # Bowel Movements 1 1 Laboratory Laboratory Tests Test 03/29/17 10:57 White Blood Count 8.6 Red Blood Count 3.42 Hemoglobin 9.8 Hematocrit 30.7 Mean Corpuscular Volume 89.7 Mean Corpuscular Hemoglobin 28.5 Mean Corpuscular Hemoglobin Concent 31.8 Red Cell Distribution Width 16.6 Platelet Count 165 Mean Platelet Volume 8.0 Blood Urea Nitrogen 19 Creatinine 0.84 Random Glucose 65 Calcium Level 7.6 Sodium Level 148 Potassium Level 3.3 Chloride Level 120 Carbon Dioxide Level 17.5 Anion Gap 11 Estimat Glomerular Filtration Rate 86 Vancomycin Level Trough 18.9 Date/Time Source Procedure Growth Status 03/26/17 18:55 Blood Peripheral Aerobic Blood Culture - Preliminary NO GROWTH IN 3 DAYS Resulted 03/26/17 18:55 Blood Peripheral Anaerobic Blood Culture - Preliminary NO GROWTH IN 3 DAYS Resulted 03/26/17 18:35 Urine Catheterized Urine Urine Culture - Final Escherichia Coli Klebsiella Pneumoniae Complete Imaging Last Impressions Chest X-Ray 03/28/17 0000 Signed Impressions: Service Date/Time: Tuesday, March 28, 2017 14:41 - CONCLUSION: ET tube in satisfactory position. NG tube coils in the pharynx and does not quite reach the stomach. Worsening aeration. Rahul Beaver MD Abdomen/Pelvis CT 03/27/17 0000 Signed Impressions: Service Date/Time: Monday, March 27, 2017 22:38 - CONCLUSION: 1. There is a distended urinary bladder despite a Crooks catheter and suprapubic catheter. There is resulting hydronephrosis and hydroureter. 2. Colonic diverticulosis. 3. Pneumobilia without biliary dilatation. This would suggest sphincterotomy. Melquiades Najera Jr., MD Physical Exam HEENT: Pupils round and reactive to light; normocephalic; atraumatic; no jaundice. Throat is clear. NECK: Neck is supple, no JVD, no lymphadenopathy. CHEST: Chest is clear to auscultation and percussion. CARDIAC: Regular rate and rhythm with no murmur gallop or rubs. ABDOMEN: Soft, nondistended, nontender; no hepatosplenomegaly; bowel sounds are present in all four quadrants. EXTREMITIES: No clubbing, cyanosis, or edema. SKIN: Normal; no rash; no jaundice. CUSTOMER SERVICE REP: No focal deficits; alert and oriented times three. (Andi Cowart [employer]) Assessment and Plan Plan ASSESSMENT: - Anemia, Hemoccult (+) Stool. His H/H was noted to be 11.4/24.4 on 03/22/17. On admission, this was 8.1/24.4. Hemoccult (+). S/P 2 units of PRBC and today this is 11.5/35.0. Today 9.8, no bleeding reported. EGD (08/26/10)---> Large duodenal bulb ulcer, duodenitis, very edematous mucosa, bx, gastritis in the antrum, bx, esophagitis, schatzki's ring. Pathology with small bowel mucosa with no significant histopathologic abnormalities, antral mucosa with very focal mild active chronic gastritis, esophageal bx with squamous mucosa with mild reflux esophagitis. - Abdominal pain. CT of abd/pelvis on (03/27/17) showed distended urinary bladder despite a Crooks catheter and suprapubic catheter, there hydronephrosis and hydroureter, colonic diverticulosis, pneumobilia with out biliary dilatation, would suggest sphincterotomy - C Difficile Diarrhea.On Flagyl and vanco. CT as above Check stool for c diff. - Leukocytosis. Improving UTI with GNR, recently with PSAE. Need to send for CDiff. - AMS, likely secondary to infection. Per CCM - DM, HTN, Hyperlipidemia per [facility] - Hx dilated common bile, pancreatic duct on MRCP in 2010. Has hx of cholelithiasis and has required ERCP with sphincterotomy in past. LFTs okay. PLAN: - TF as tolerated - PPI - IVF - Oral Vanco - Cont Flagyl - Abx per CCM - Send stool for CDiff - Monitor hh - Transfuse as needed - CBC, in am - Supportive care - Consider egd +/- colonoscopy/sigmoidoscopy based on results of above - Pt seen and examined by Dr. Harper and myself and this note is written on her behalf (Andi Cowart) Andi Cowart Mar 29, 2017 16:02 Mirlande Harper MD Mar 29, 2017 19:20
[2017-03-30] VITALS (18 sets, daily range): BP systolic 101–125; BP diastolic 51–60; PULSE 60–104; RESP 10–26; TEMP 97.2–98.4; O2SAT 97–100
[2017-03-30] MEDS ORDERED: DEXTROSE 50% IN WATER 50 ML SYRINGE ONE (01:08)
[2017-03-30] MEDS: DEXTROSE 50% IN WATER 50 ML VIAL(D50) IV PUSH PRN (01:11)
[2017-03-30] MEDS: CIPROFLOXACIN 0.3% OPTH SOLN 2.5 ML BTL EACH EYE SCH ×7 (01:19→23:38)
[2017-03-30] MEDS: ARTIFICIAL TEARS OPTH SOLN 15 ML BTL EACH EYE SCH ×7 (01:19→23:38)
[2017-03-30] MEDS: metroNIDAZOLE 500 MG INJ 100 ML IV SCH ×3 (01:21→16:53)
[2017-03-30] MEDS: fentaNYL DRIP 250 ML IV PRN ×3 (01:37→23:37)
[2017-03-30] MEDS: CHLORHEXIDINE GLUCONATE 2 % 1 PACK (2 CLOTHS) TOP SCH (04:00)
[2017-03-30] MEDS: PANTOPRAZOLE SODIUM 40 MG VIAL IV PUSH SCH ×2 (04:49→16:53)
[2017-03-30] MEDS ORDERED: SODIUM BICARBONATE 7.5% INJ 44.6 MEQ/50 ML SYR IV PUSH ONE (05:00)
[2017-03-30] MEDS: INSULIN NovoLIN REGULAR SUPPLEMENTAL SCALE SQ SCH ×5 (05:29→23:39)
[2017-03-30] MEDS: LEVOTHYROXINE SODIUM 112 MCG TAB PO SCH (05:29)
[2017-03-30 06:57] LABS: AUTOMATED NEUTROPHIL # 5.7 TH/MM3 (1.8-7.7); BASOPHIL # 0.1 TH/MM3 (0-0.2); BASOPHIL % 0.9 % (0.0-2.0); EOSINOPHIL # 0.3 TH/MM3 (0-0.4); EOSINOPHIL % 3.6 % (0.0-4.0); HEMO FLAGS DIFF FINAL; LYMPH % 19.5 % (9.0-44.0); LYMPHOCYTE # 1.6 TH/MM3 (1.0-4.8); MEAN CELL VOLUME 90.5 FL (80.0-100.0); MEAN CORPUSCULAR HEMOGLOBIN 28.9 PG (27.0-34.0); MEAN CORPUSCULAR HGB CONC 31.9 % (32.0-36.0); MONO % 6.8 % (0.0-8.0); NEUT % 69.2 % (16.0-70.0); PLATELET COUNT 185 TH/MM3 (150-450); RED BLOOD COUNT 3.64 MIL/MM3 (4.50-5.90); RED CELL DISTRIBUTION WIDTH 17.4 % (11.6-17.2); WHITE BLOOD COUNT 8.3 TH/MM3 (4.0-11.0)
[2017-03-30 07:16] LABS: BICARBONATE 15.9 MEQ/L (21.0-32.0); POTASSIUM 3.3 MEQ/L (3.5-5.1)
[2017-03-30] MEDS: SODIUM CHLOR 0.9% 1000 ML INJ 1,000 ML IV SCH ×2 (07:20→21:27)
[2017-03-30] MEDS ORDERED: POTASSIUM CHLOR 20 MEQ PREMIX 100 ML ONE (09:56)
[2017-03-30] MEDS: cefTRIAXone INJ 1,000 MG in SODIUM CHLORIDE 0.9% INJ 100 ML IV SCH (10:02)
[2017-03-30] MEDS: CHOLECALCIFEROL (VIT D3) 1000 UNIT TAB PO SCH (10:03)
[2017-03-30] MEDS: PRAVASTATIN SOD 20 MG TAB PO SCH (10:03)
[2017-03-30] MEDS: VANCOMYCIN 500 MG VIAL (FOR ORAL USE ONLY) PO SCH ×4 (10:03→21:26)
[2017-03-30] MEDS: LACTIC ACID (AMMONIUM LACTATE) 12% LOTION 225 GM BTL TOPICAL SCH ×2 (10:03→21:28)
[2017-03-30] MEDS: SODIUM CHLORIDE 0.9% FLUSH 10 ML FLUSH IV FLUSH SCH ×2 (10:04→21:27)
[2017-03-30] MEDS ORDERED: POTASSIUM CHLOR 20 MEQ PREMIX 100 ML IV SCH (10:30)
--- NOTE | 2017-03-30 11:16 | PD.CONS ---
Consult Service Palliative Care Consult Requested By Dr. Velez Primary Care Physician Otis Centeno MD Reason for Consultation a. To assist with evaluation and management of symptoms including: Dyspnea b. To assist medical decision maker(s) with: better understanding of current medical conditions; weighing benefits/burdens of medical treatment options; making medical treatment decisions. HPI History of Present Illness This 89-year-old patient presented to the ED on 03/26/17 from [facility] after being found with altered mental status. At presentation patient noted to react his name but not answering questions. Unable to provide additional history to ER provider. Patient apparently seen in the ED 4 days prior with findings of urinary retention a Montoya catheter was placed and was referred for outpatient urology follow-up as well as started on Macrobid for UTI. Patient also with ongoing treatment for C. difficile by oral Vanco. * ED findings: EKG= sinus tach. Hemoccult-positive anemic hemoglobin 8.1/ hematocrit 24.4, noted to be lower than prior levels a few days prior.[11.4/24.4 ] Typed and screen for possible transfusion. Initiated on IV fluids, antibiotics Azactam, Flagyl, Vanco. Lactic acid level elevated 3.0. WBC 10.5. CXR with no acute process identified. Patient was admitted to ICU for further evaluation and management. * GI was consulted: Patient was transfused 1 unit RBC 03/26. Stool for C. difficile pending, abdominal CT pending consider EGD/colonoscopy/sigmoidoscopy pending CT findings. CT abd/pelvis with evidence of distended bladder with hydronephrosis despite both suprapubic and montoya through penis * 03/28 patient with worsening encephalopathy and unable to protect airway. Belt Cutter documents attempts to reach family patient reported to have sister- in-law [id number], brother . A friend who takes amounts of breakfast who indicated would be willing to make healthcare decisions but has never formally completed paperwork as such. She did not think he would want to be on a ventilator long-term but she does not know specifically what his wishes were, apparently a full code based on SNF documentation. Patient was intubated. Palliative care was consulted to assist with clarification of goals of treatment. Intensivists notes that given patient multiple medical issues and recent hospitalizations unlikely to make a favorable long-term recovery. * 03/28 Urology was consulted: Patient w/ supra pubic catheter as well as Montoya catheter however they did not appear to be draining. Patient also noted with large prostate. Suprapubic catheter was exchanged with At[place]and drainage however continued to not have drainage from urethral catheter. Reads CT with calcification of tip of suprapubic catheter this catheter was exchanged. Montoya catheter appears to be inflated in the prostate. Montoya catheter was removed. Renal ultrasound ordered. Orders to maintain suprapubic catheter in place with urology follow-up. * Urine positive for Escherichia coli, Klebsiella. Aztreonam discontinued, On Rocephin per critical care. Oral vancomycin continued. On propofol, fentanyl added by critical care. Started on tube feedings. Dietitian services consulted. Patient seen in room no visitors present. He is on fentanyl for sedation, on mechanical vent, however at time of my exam it is held and he is awake looking around room. He does not follow commands for me. Grasps spontaneously hands however does not release. Does not move feet or lower extremities to command. Does move 4 extremities spontaneously. Not consistently track examiner. Function/Cognitive Trajectory Patient went to [facility] following most recent admission 02/05/17. Prior to that he lived in an [facility] facility in [facility]. Limited mobility- wheelchair bound, [place] noted he utilized a walker with wheelchair for longer distances semi-independent prior to that admission. Prev. in [place] able to use public transportation for social outings. Review of Systems ROS Limitations: Clinical Condition, Intubated (intubated, sedated and unable to provide current ROS) Psychiatric: COMPLAINS OF: Confusion (AMS per ED admission report) Past Family Social History Coded Allergies: penicillin G (Unverified Allergy, Unknown, 03/26/17) Past Medical History BPH Cholelithiasis Cataract Chronic anemia CKD DM GERD Hyperlipidemia Hypothyroidism pulmonary nodule Hepatomegaly Malignant neoplasm of ear Meningioma Vitamin D insufficiency Duodenal ulcer Esophagitis Cholelithiasis C. difficile Urinary retention Recurrent UTI Past Surgical History EGD ERCP with sphincterotomy Bilateral inguinal hernia repair Tonsillectomy Suprapubic catheter placements . Reported Medications Macrobid (Nitrofurantoin Monoh/Nitrofur Macro) 100 Mg Cap 100 Mg PO BID 10 Days Amlactin (Lactic Acid (Ammonium Lactate)) 12 % Lot 1 Applic TOPICAL BID 60 Days APPLY ON BOTH ARMS AND LEGS TWICE A DAY MINIMUM OF SIXTY DAYS TO IMPROVE LESIONS AND SKIN Artificial Tears Opth Drops (Polyvinyl Alcohol) 1.4% Soln 1 Drop EACH EYE Q4H 7 Days Ciprofloxacin Opth Drops (Ciprofloxacin HCl) 0.3% Soln 1 Drop EACH EYE Q4H while awake x 5 days. Doxycycline Hyclate 100 Mg Cap 100 Mg PO BID 7 Days Aspirin Low Dose (Aspirin) 81 Mg Chew 81 Mg CHEW DAILY Zolpidem (Zolpidem Tartrate) 5 Mg Tab 2.5 Mg PO HS PRN Tradjenta (Linagliptin) 5 Mg Tab 5 Mg PO DAILY Gabapentin 300 Mg Cap 300 Mg PO HS D3 (Cholecalciferol) 1,000 Unit Cap 1,000 Units PO DAILY Levothyroxine (Levothyroxine Sodium) 112 Mcg Tab 112 Mcg PO DAILY Omeprazole 20 Mg Tab 20 Mg PO DAILY Simvastatin 10 Mg Tab 10 Mg PO DAILY Glimepiride 4 Mg Tab 4 Mg PO BIDAC Lisinopril 2.5 Mg Tab 2.5 Mg PO DAILY . Current Medications Medications (Trade) Dose Ordered Sig/Ajay Route Start Time Stop Time Status Last Admin (Narcan Inj) 0.4 mg UNSCH PRN IV PUSH 03/26/17 20:15 (Ciloxan 0.3% Opth Soln) 1 drop Q4HR EACH EYE 03/26/17 20:45 03/30/17 10:04 (Lac-Hydrin 12% Lotion) 1 applic BID TOPICAL 03/26/17 21:00 03/30/17 10:03 (Synthroid) 112 mcg DAILY@0600 PO 03/27/17 06:00 03/30/17 05:29 (Tears Naturale Opth Soln) 1 drop Q4HR EACH EYE 03/26/17 20:45 03/30/17 10:04 (Vitamin D3) 1,000 units DAILY PO 03/27/17 09:00 03/30/17 10:03 (Pravachol) 20 mg DAILY PO 03/27/17 09:00 03/30/17 10:03 (Pill Splitter) 1 ea UNSCH PRN OTHER 03/26/17 21:00 Sodium Chloride 1,000 ml @ 75 mls/hr [id number] IV 03/26/17 23:00 03/30/17 07:20 (NS Flush) 2 ml UNSCH PRN IV FLUSH 03/26/17 23:00 (NS Flush) 2 ml BID IV FLUSH 03/27/17 09:00 03/30/17 10:04 (Duoneb Neb) 1 ampule Q2HR NEB PRN NEB 03/26/17 23:15 Miscellaneous Information 1 Q361D XX 03/26/17 23:00 (Chlorhexidine 2% Cloth) 3 pack Taper DAILY@04 TOP 03/27/17 04:00 03/23/18 03:59 03/30/17 04:00 (Chlorhexidine 2% Cloth) 3 pack UNSCH PRN TOP 03/26/17 23:00 Metronidazole 100 ml @ 100 mls/hr Q8H IV 03/27/17 02:00 03/30/17 10:02 (VANCOMYCIN for oral use only) 250 mg QID PO 03/27/17 09:00 03/30/17 10:03 (Protonix Inj) 40 mg Q12H IV PUSH 03/27/17 04:00 03/30/17 04:49 Phenylephrine HCl 40 mg/Dextrose 500 ml @ 30 mls/hr TITRATE PRN IV 03/28/17 14:30 03/28/17 15:26 (Brethine Inj) 1 mg UNSCH PRN SQ 03/28/17 14:30 Propofol 100 ml @ 2.505 mls/ hr TITRATE PRN IV 03/28/17 18:45 03/29/17 04:28 Ceftriaxone Sodium 1000 mg/ Sodium Chloride 100 ml @ 200 mls/hr Q24H IV 03/29/17 08:00 04/04/17 07:59 03/30/17 10:02 Fentanyl Citrate 250 ml @ 5 mls/hr TITRATE PRN IV 03/29/17 08:00 03/30/17 01:37 (D50w (Vial) Inj) 25 ml UNSCH PRN IV PUSH 03/29/17 08:00 03/30/17 01:11 (NovoLIN R SUPPLEMENTAL SCALE) 1 Q6HR SQ 03/29/17 12:00 Potassium Chloride 100 ml @ 50 mls/hr Q2H IV 03/30/17 10:30 03/30/17 14:29 Family History Per EMR no family history of early CAD or malignancy. Brother . Substance Use Tobacco: Alcohol: Prescription med abuse: Illicits: Psychosocial History most recently lives at [facility] for rehab following acute hospitalization. Prior to that lived in an [facility] setting for about 7 years. Has known local friend and contact Inessa for about 10 years, they met when they were neighbors before he lived in [place]. Patient originally from [place] has lived in [place] for many years. many years ago. 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 Has a brother who is , and [id number] whom he has not been in close communication with recently. He does have 2 adult daughters whom he has been estranged from since they were young children; friend Inessa is trying to find out their names and possible location from sister in law. Spiritual/Cultural Factors [place] per EMR Living Will: Never completed Health Care Surrogate: Never completed Ethical and Legal Issues Patient is currently unable to participate in decision-making due to medical condition. Does not appear to have advanced directive or HCS designation. Apparently his brother is , sister in law lives out of state. . Has 2 adult daughters whose name are not known at this time however they would be appropriate proxy decision maker per [place] statutes if they can be located. Local friend Inessa is working to find out their names and possible location. If these 2 daughters cannot be located or do not wish to serve as decision makers then decision-making proxy would move onto other close friends and/or relatives. * Inessa call me back with names of the adult daughters Neema (Everton?) would be around 60, Maricruz (Everton?) would be around 65, they may possibly be in [place]. Not known if they are or if their last names changed . Physical Exam Vital Signs Date Time Temp Pulse Resp B/P (MAP) Pulse Ox O2 Delivery O2 Flow Rate FiO2 03/30/17 08:23 100 35 03/30/17 06:00 63 03/30/17 04:41 99 35 03/30/17 04:00 98.0 63 14 104/51 (68) 100 03/30/17 04:00 63 03/30/17 02:00 60 03/30/17 01:15 100 40 03/30/17 00:00 62 03/30/17 00:00 97.9 62 12 101/57 (72) 100 03/29/17 22:09 100 40 03/29/17 22:00 60 03/29/17 21:12 100 40 03/29/17 20:00 97.6 55 14 100/53 (69) 100 03/29/17 20:00 55 03/29/17 18:00 59 03/29/17 17:29 100 40 03/29/17 16:00 57 03/29/17 16:00 97.6 57 14 101/53 (69) 100 03/29/17 14:00 54 03/29/17 12:44 100 40 03/29/17 12:00 97.9 54 14 94/53 (67) 100 03/29/17 12:00 54 03/30/17 03/31/17 19:00 07:00 Intake Total 1000 ml Balance 1000 ml Intake IV Total 1000 ml Exam CONSTITUTIONAL/GENERAL: This is a chronically ill-appearing patient, mildly restless on mechanical vent TUBES/LINES/DRAINS: Peripheral IV upper extremities, suprapubic catheter, rectal bag, ET tube, OG tube SKIN: No jaundice, rashes, or lesions. Several areas of ecchymosis upper extremities, hands. Skin warm. HEAD: Atraumatic. Normocephalic. EYES: Pupils equal and round and reactive. Extraocular motions intact. No scleral icterus, sclera with some erythema. No injection or drainage. Fundi not examined. ENT: Hearing grossly normal. Nose without bleeding or purulent drainage. Throat without visible erythema, exudates, masses, or lesions. NECK: Trachea midline. Supple, nontender. No palpable thyroid enlargement or nodularity. CARDIOVASCULAR: Regular rate and rhythm without murmurs. No JVD. Peripheral pulses symmetric. 1+ edema bilateral hands, no pedal edema. RESPIRATORY/CHEST: Symmetric, unlabored respirations on mechanical vent. Clear to auscultation. Breath sounds equal bilaterally. GASTROINTESTINAL: Abdomen soft, no apparent tenderness to difficult to assess, nondistended. No palpable masses. Bowel sounds present. G-tube clamped. GENITOURINARY: Without palpable bladder distension. Suprapubic catheter in place some erythema/irritation around insertion site. Draining dark yellow urine MUSCULOSKELETAL: Extremities without clubbing, cyanosis, or edema. No joint effusion noted. . No mottling or clubbing. NEUROLOGICAL: Awake -eyes open spontaneously. Gazes around room, does not track examiner. Grasps spontaneously with hands though does not follow commands. PSYCHIATRIC: Appears mildly restless on mechanical vent, limited assessment due to clinical condition. . Diagnostic Tests Laboratory Laboratory Tests Test 03/28/17 04:35 03/28/17 15:05 03/29/17 10:57 03/30/17 05:48 White Blood Count 13.2 TH/MM3 (4.0-11.0) 8.6 TH/MM3 (4.0-11.0) 8.3 TH/MM3 (4.0-11.0) Red Blood Count 3.59 MIL/MM3 (4.50-5.90) 3.42 MIL/MM3 (4.50-5.90) 3.64 MIL/MM3 (4.50-5.90) Hemoglobin 10.6 GM/DL (13.0-17.0) 9.8 GM/DL (13.0-17.0) 10.5 GM/DL (13.0-17.0) Hematocrit 31.7 % (39.0-51.0) 30.7 % (39.0-51.0) 33.0 % (39.0-51.0) Mean Corpuscular Volume 88.1 FL (80.0-100.0) 89.7 FL (80.0-100.0) 90.5 FL (80.0-100.0) Mean Corpuscular Hemoglobin 29.4 PG (27.0-34.0) 28.5 PG (27.0-34.0) 28.9 PG (27.0-34.0) Mean Corpuscular Hemoglobin Concent 33.4 % (32.0-36.0) 31.8 % (32.0-36.0) 31.9 % (32.0-36.0) Red Cell Distribution Width 16.2 % (11.6-17.2) 16.6 % (11.6-17.2) 17.4 % (11.6-17.2) Platelet Count 169 TH/MM3 (150-450) 165 TH/MM3 (150-450) 185 TH/MM3 (150-450) Mean Platelet Volume 8.0 FL (7.0-11.0) 8.0 FL (7.0-11.0) 8.2 FL (7.0-11.0) Neutrophils (%) (Auto) 79.5 % (16.0-70.0) 69.2 % (16.0-70.0) Lymphocytes (%) (Auto) 12.0 % (9.0-44.0) 19.5 % (9.0-44.0) Monocytes (%) (Auto) 7.5 % (0.0-8.0) 6.8 % (0.0-8.0) Eosinophils (%) (Auto) 0.4 % (0.0-4.0) 3.6 % (0.0-4.0) Basophils (%) (Auto) 0.6 % (0.0-2.0) 0.9 % (0.0-2.0) Neutrophils # (Auto) 10.5 TH/MM3 (1.8-7.7) 5.7 TH/MM3 (1.8-7.7) Lymphocytes # (Auto) 1.6 TH/MM3 (1.0-4.8) 1.6 TH/MM3 (1.0-4.8) Monocytes # (Auto) 1.0 TH/MM3 (0-0.9) 0.6 TH/MM3 (0-0.9) Eosinophils # (Auto) 0.1 TH/MM3 (0-0.4) 0.3 TH/MM3 (0-0.4) Basophils # (Auto) 0.1 TH/MM3 (0-0.2) 0.1 TH/MM3 (0-0.2) CBC Comment DIFF FINAL DIFF FINAL Differential Comment Blood Urea Nitrogen 22 MG/DL (7-18) 19 MG/DL (7-18) 15 MG/DL (7-18) Creatinine 1.27 MG/DL (0.60-1.30) 0.84 MG/DL (0.60-1.30) 0.75 MG/DL (0.60-1.30) Random Glucose 134 MG/DL (74-106) 65 MG/DL (74-106) 103 MG/DL (74-106) Total Protein 5.4 GM/DL (6.4-8.2) Albumin 2.3 GM/DL (3.4-5.0) Calcium Level 7.9 MG/DL (8.5-10.1) 7.6 MG/DL (8.5-10.1) 7.7 MG/DL (8.5-10.1) Alkaline Phosphatase 112 U/L (45-117) Aspartate Amino Transf (AST/SGOT) 27 U/L (15-37) Alanine Aminotransferase (ALT/SGPT) 12 U/L (12-78) Total Bilirubin 0.8 MG/DL (0.2-1.0) Sodium Level 142 MEQ/L (136-145) 148 MEQ/L (136-145) 149 MEQ/L (136-145) Potassium Level 3.5 MEQ/L (3.5-5.1) 3.3 MEQ/L (3.5-5.1) 3.3 MEQ/L (3.5-5.1) Chloride Level 113 MEQ/L (98-107) 120 MEQ/L (98-107) 121 MEQ/L (98-107) Carbon Dioxide Level 20.5 MEQ/L (21.0-32.0) 17.5 MEQ/L (21.0-32.0) 15.9 MEQ/L (21.0-32.0) Anion Gap 9 MEQ/L (5-15) 11 MEQ/L (5-15) 12 MEQ/L (5-15) Estimat Glomerular Filtration Rate 53 ML/MIN (>89) 86 ML/MIN (>89) 98 ML/MIN (>89) Blood Gas Puncture Site RT RADIAL Blood Gas Patient Temperature 98.6 Blood Gas HCO3 18 mmol/L (22-26) Blood Gas Base Excess -6.0 mmol/L (-2-2) Blood Gas Oxygen Saturation 96 % (90-100) Arterial Blood pH 7.43 (7.380-7.420) Arterial Blood Partial Pressure CO2 27 mmHg (38-42) Arterial Blood Partial Pressure O2 101 mmHg (61-120) Arterial Blood Oxygen Content 15.4 Vol % (12.0-20.0) Arterial Blood Carboxyhemoglobin 1.5 % (0-4) Arterial Blood Methemoglobin 1.0 % (0-2) Blood Gas Hemoglobin 11.3 G/DL (12.0-16.0) Oxygen Delivery Device VENTILATOR Blood Gas Ventilator Setting PRVC/AC Blood Gas Inspired Oxygen 40 % Vancomycin Level Trough 18.9 MCG/ML (5.0-10.0) Result Diagram: 03/30/17 0548 03/30/17 0548 Microbiology Microbiology Date/Time Source Procedure Growth Status 03/26/17 18:55 Blood Peripheral Aerobic Blood Culture - Preliminary NO GROWTH IN 4 DAYS Resulted 03/26/17 18:55 Blood Peripheral Anaerobic Blood Culture - Preliminary NO GROWTH IN 4 DAYS Resulted 03/26/17 18:35 Urine Catheterized Urine Urine Culture - Final Escherichia Coli Klebsiella Pneumoniae Complete Imaging Last Impressions Chest X-Ray 03/28/17 0000 Signed Impressions: Service Date/Time: Tuesday, March 28, 2017 14:41 - CONCLUSION: ET tube in satisfactory position. NG tube coils in the pharynx and does not quite reach the stomach. Worsening aeration. Rahul Beaver MD Abdomen/Pelvis CT 03/27/17 0000 Signed Impressions: Service Date/Time: Monday, March 27, 2017 22:38 - CONCLUSION: 1. There is a distended urinary bladder despite a Montoya catheter and suprapubic catheter. There is resulting hydronephrosis and hydroureter. 2. Colonic diverticulosis. 3. Pneumobilia without biliary dilatation. This would suggest sphincterotomy. Melquiades Najera Jr., MD Procedures 03/28 intubated . Patient/Family Conference Family Conference Location: Telephone Issues Discussed: Spoke with friend Inessa on the phone * review of general current medical condition possible decisions going forward. * Review of [place] statutes and legal decision makers would need to attempt to locate his 2 adult children;she is going to try to obtain their names and locations if possible from his [id number] * Palliative care role, purpose, approach * Review of medical, psychosocial history-Inessa feels he has been depressed for the past few weeks or months at general decline and loss of independence as he previously was very socially active and enjoyed attending to his own needs, taking the bus around town to socialize etc.--In the past weeks to months has had health decline such that he was no longer able to do this * Patients general health, functional status, and cognitive changes in the months leading up to the current hospitalization * Palliative care contact information provided Assessment and Plan Disease Oriented Problem List: (1) GERD (gastroesophageal reflux disease) (2) Hyperlipidemia (3) Hypertension (4) C. difficile colitis (5) Bladder outlet obstruction (6) BPH (benign prostatic hyperplasia) (7) Chronic indwelling Montoya catheter (8) Metabolic encephalopathy (9) Anemia (10) UTI (urinary tract infection) (11) Diabetes (12) Suprapubic catheter dysfunction Symptom Scale: (1) Depression (2) Dyspnea (3) Malnutrition Pertinent Non-Medical Issues Psychosocial: Spiritual: [place] Legal:Patient is currently unable to participate in decision-making due to medical condition. Does not appear to have advanced directive or HCS designation. Apparently his brother is , sister in law lives out of state. . Has 2 adult daughters whose name are not known at this time however they would be appropriate proxy decision maker per [place] statutes if they can be located. Local friend Inessa is working to find out their names and possible location. If these 2 daughters cannot be located or do not wish to serve as decision makers then decision-making proxy would move onto other close friends and/or relatives. Ethical issues impacting care: Important Contacts Friend Inessa Santy [phone] Friend Haley [phone] Found in old admission record 2010 brother Brenton Toscano [phone] ; cesilia lives in [place] Prognosis This patient has had a few recent hospital visits, with UTI 03/22, and admission for sepsis 02/03 through 02/09. He has multiple medical comorbidities. He is quite deconditioned. He is now critically ill in the ICU on a mechanical vent. Possible he can survive current acute hospitalization however he remains at risk for ongoing complications and setbacks and recurrent hospitalizations. . Code Status: Full Code Plan * Legal decision maker:Patient is currently unable to participate in decision- making due to medical condition. Does not appear to have advanced directive or HCS designation. Apparently his brother is , sister in law lives out of state. . Has 2 adult daughters whose name are not known at this time however they would be appropriate proxy decision maker per [place] statutes if they can be located. Local friend Inessa is working to find out their names and possible location. If these 2 daughters cannot be located or do not wish to serve as decision makers then decision-making proxy would move onto other close friends and/or relatives. Inessa call me back with names of the adult daughters Neema (Everton?) would be around 60, Maricruz (Everton?) would be around 65, they may possibly be in [place]. Not known if they are or if their last names changed. 10/9/17 order for case management assistance w [employer] to try to locate adult daughters * Goals:-Pending identification and discussion with appropriate legal proxy * CODE STATUS: Full code by default * SYMPTOMS: --Dyspnea-urgently intubated for airway protection. Currently breathing comfortable on mechanical vent on some fentanyl for sedation. --Anxiety/depression-friend indicates he has been somewhat depressed recently secondary to his loss of independence in general health decline. Potentially could benefit long-term from SSRI, postextubation/when medical condition stabilized --Malnutrition-early intubated and unable to take oral nutrition; albumin 2.3. Has OG tube will need tube feeding supplementation until able to extubate or potentially would require PEG tube for longer term artificial nutrition provision * Palliative care will continue to follow during hospital course as condition evolves, to assist patient/decision-maker with understanding of medical conditions, weighing benefits/burdens of treatment options, for clarification of goals of treatment. Additionally will assist with any symptoms of palliative concern . Time Spent Total Floor Time (mins): 60 >50% Counseling/Coord of Care: Yes (discussed with primary nurse, critical care ) Thank you for the opportunity to participate in the care of Mr. Toscano. Attestation To help prompt me to consider important information that might be impacting today's encounter and assessment, information from prior notes written by myself or my colleagues may have been "brought forward" into today's note. My signature on this note, however, is an attestation that I personally performed the exam, history, and/or decision-making noted today, and, unless otherwise indicated, the interactions with patient, family, and staff as well as the review of records all occurred today. I also attest that the listed assessment and stated plan reflect my best clinical judgment today based on the combination of historical information, prior notes, and today's exam/ interactions. When time spent is documented, it refers only to time spent today by the signer, or if indicated, combined time spent today by collaborating physician/nurse practitioner. Lidia Morocho Mar 30, 2017 11:16
--- NOTE | 2017-03-30 15:45 | HHI.GIFU ---
Subjective Remarks Sedated on vent, but has diffuse tenderness on exam. More distended. Nurse reports that he is not tolerating TF (high residuals) and has not had a bowel movement today. (Aline Whiteside) Objective Vitals I&O Vital Signs Date Time Temp Pulse Resp B/P (MAP) Pulse Ox O2 Delivery O2 Flow Rate FiO2 03/30/17 14:00 79 03/30/17 12:00 97.8 80 14 113/56 (75) 100 03/30/17 12:00 80 03/30/17 10:00 91 03/30/17 08:23 100 35 03/30/17 08:00 98.4 78 15 117/57 (77) 100 03/30/17 08:00 78 03/30/17 06:00 63 03/30/17 04:41 99 35 03/30/17 04:00 98.0 63 14 104/51 (68) 100 03/30/17 04:00 63 03/30/17 02:00 60 03/30/17 01:15 100 40 03/30/17 00:00 62 03/30/17 00:00 97.9 62 12 101/57 (72) 100 03/29/17 22:09 100 40 03/29/17 22:00 60 03/29/17 21:12 100 40 03/29/17 20:00 97.6 55 14 100/53 (69) 100 03/29/17 20:00 55 03/29/17 18:00 59 03/29/17 17:29 100 40 03/29/17 16:00 57 03/29/17 16:00 97.6 57 14 101/53 (69) 100 I/O 03/29/17 03/29/17 03/29/17 03/30/17 03/30/17 03/30/17 07:00 15:00 23:00 07:00 15:00 23:00 Intake Total 1260 ml 1250 ml 1216 ml 619 ml 1000 ml Output Total 315 ml 380.0 ml 300 ml 300.0 ml Balance 945 ml 1250 ml 836.0 ml 319 ml 700.0 ml Intake IV Total 1260 ml 1250 ml 1100 ml 350 ml 1000 ml Tube Feeding 116 ml 209 ml Tube Irrigant 60 ml Output Urine Total 315 ml 325 ml 300 ml Tube Feeding Residual Discard 55.0 ml 300.0 ml # Bowel Movements 1 0 0 Laboratory Laboratory Tests Test 03/30/17 05:48 White Blood Count 8.3 Red Blood Count 3.64 Hemoglobin 10.5 Hematocrit 33.0 Mean Corpuscular Volume 90.5 Mean Corpuscular Hemoglobin 28.9 Mean Corpuscular Hemoglobin Concent 31.9 Red Cell Distribution Width 17.4 Platelet Count 185 Mean Platelet Volume 8.2 Neutrophils (%) (Auto) 69.2 Lymphocytes (%) (Auto) 19.5 Monocytes (%) (Auto) 6.8 Eosinophils (%) (Auto) 3.6 Basophils (%) (Auto) 0.9 Neutrophils # (Auto) 5.7 Lymphocytes # (Auto) 1.6 Monocytes # (Auto) 0.6 Eosinophils # (Auto) 0.3 Basophils # (Auto) 0.1 CBC Comment DIFF FINAL Differential Comment Blood Urea Nitrogen 15 Creatinine 0.75 Random Glucose 103 Calcium Level 7.7 Sodium Level 149 Potassium Level 3.3 Chloride Level 121 Carbon Dioxide Level 15.9 Anion Gap 12 Estimat Glomerular Filtration Rate 98 Date/Time Source Procedure Growth Status 03/26/17 18:55 Blood Peripheral Aerobic Blood Culture - Preliminary NO GROWTH IN 4 DAYS Resulted 03/26/17 18:55 Blood Peripheral Anaerobic Blood Culture - Preliminary NO GROWTH IN 4 DAYS Resulted 03/26/17 18:35 Urine Catheterized Urine Urine Culture - Final Escherichia Coli Klebsiella Pneumoniae Complete Imaging Last Impressions Chest X-Ray 03/28/17 0000 Signed Impressions: Service Date/Time: Tuesday, March 28, 2017 14:41 - CONCLUSION: ET tube in satisfactory position. NG tube coils in the pharynx and does not quite reach the stomach. Worsening aeration. Rahul Beaver MD Abdomen/Pelvis CT 03/27/17 0000 Signed Impressions: Service Date/Time: Monday, March 27, 2017 22:38 - CONCLUSION: 1. There is a distended urinary bladder despite a Crooks catheter and suprapubic catheter. There is resulting hydronephrosis and hydroureter. 2. Colonic diverticulosis. 3. Pneumobilia without biliary dilatation. This would suggest sphincterotomy. Melquiades Najera Jr., MD Physical Exam HEENT: Normocephalic; atraumatic CHEST: OETT to vent. Course breath sounds throughout CARDIAC: RRR ABDOMEN: Semifirm, mild to moderate distention, clamped OGT, no hepatosplenomegaly; hypoactive bowel sounds. Rectal bag- no stool EXTREMITIES: Generalized edema. 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 (Aline Whiteside) Assessment and Plan Plan ASSESSMENT: - Anemia, Hemoccult (+) Stool. His H/H was noted to be 11.4/24.4 on 03/22/17. On admission, this was 8.1/24.4. Hemoccult (+). EGD (08/26/10)---> Large duodenal bulb ulcer, duodenitis, very edematous mucosa , bx, gastritis in the antrum, bx, esophagitis, schatzki's ring. Pathology with small bowel mucosa with no significant histopathologic abnormalities, antral mucosa with very focal mild active chronic gastritis, esophageal bx with squamous mucosa with mild reflux esophagitis. S/P 1 units of PRBC HH 10.5/33.0. - Abdominal distention, high residual. Nurse reports tf off for high residuals. Pt more distended and has diffuse tenderness on exam. Will get KUB and start reglan. On tx for CDiff, although stool has not been sent during this admission. - Abdominal pain. CT of abd/pelvis on (03/27/17) showed distended urinary bladder despite a Crooks catheter and suprapubic catheter, there hydronephrosis and hydroureter, colonic diverticulosis, pneumobilia with out biliary dilatation, would suggest sphincterotomy - C Difficile Diarrhea. He was on tx at assisted. CT as above Check stool for c diff. Oral vanco/flagyl. - Leukocytosis. WBC 8.3. Blood cultures no growth in 4 days. UTI with GNR, recently with PSAE. Need to send for CDiff. - AMS, likely secondary to infection. Per CCM - DM, HTN, Hyperlipidemia per CCM - Hx dilated common bile, pancreatic duct on MRCP in 2010. Has hx of cholelithiasis and has required ERCP with sphincterotomy in past. LFTs okay. PLAN: - NPO for now - KUB to check for ileus - Trial of Reglan - Cont. PPI - Oral Vanco/Flagyl - Abx per CCM - Send stool for CDiff, d/w nurse - Monitor HH - Transfuse as needed - CBC, in am - Supportive care - Further recommendations to follow based on results of above - Pt seen and examined by Dr. Gómez and myself and this note is written on his behalf (Aline Whiteside) Physician Comments Seen and examined with ORAL, abdomen reported as being more distended today. Hold TF, check kub. Previous ct -ve for obstruction. Stool for c. diff. (Latonya Gómez MD) Aline Whiteside Mar 30, 2017 15:45 Laotnya Gómez MD Mar 30, 2017 16:05
--- NOTE | 2017-03-30 17:47 | HHI.CCPN ---
Subjective Remarks/Hospital Course 03/26: This is a 89 year old male with a history of C Difficile colitis, duodenal bulb ulcer, and dilated common bile duct/pancreatic duct, who was sent from his assisted living facility for evaluation of altered mental status. He is currently extremely somnolent and unable to provide any history and therefore the history has been obtained from the EMR and nursing staff. According to the ER note, he is being treated for C Difficile colitis with oral vancomycin and an UTI with macrobid. He was recently seen in the ER for urinary retention despite a suprapubic catheter and a regular montoya catheter was placed and he was referred to urology as outpatient. His H/H was noted to be 11.4/24.4 on 03/22/17. Yesterday this was 8.1/24.4. He was given 2 units of PRBC and today this is 11.5/35.0. GI has been consulted for anemia and hemoccult positive stool. His abdomen is nondistended, but he does have moderate lower abdominal tenderness on exam. The nurse reports that he has not had a bowel movement on her shift, but was told that he had a small amount of stool overnight. He was admitted to the intensive care unit for altered mental status, SIRS, DM, HTN, GERD, hyperlipidemia, anemia. He was evaluated by our service back in 2010 for abdominal pain with nausea and vomiting and underwent EGD (08/26/10)---> Large duodenal bulb ulcer, duodenitis, very edematous mucosa, bx, gastritis in the antrum, bx, esophagitis, schatzki's ring. Pathology with small bowel mucosa with no significant histopathologic abnormalities, antral mucosa with very focal mild active chronic gastritis, esophageal bx with squamous mucosa with mild reflux esophagitis. He was also evaluated with MRCP at that time which revealed dilatation of the common bile duct and pancreatic duct with area of beak-like narrowing at the pancreatic head. Of note, he has had gallstones and underwent ERCP with sphincterotomy. 03/27: Remains encephalopathic, laying in bed in no acute distress. 03/28: worsening encephalopathy. unable to protect airway. CT abd/pelvis with evidence of distended bladder with hydronephrosis despite both suprapubic and montoya through penis. attempted to reach family: patient has [id number] sister- in-law, brother , reportedly have not spoken in years. patient has a friend who takes him to breakfast occasionally. She said she would be willing to make healthcare decisions for him, but has never signed paperwork saying that she was the decision maker. when asked about his end-of-life wishes, she does not think he would want to be on a ventilator long-term, but she does not know specifically what his wishes were. He was reportedly a FULL CODE based on SNF documentation. 03/29: intubated yesterday. urine growing e. coli and klebsiella. c. diff PCR still not resulted. borderline hypotensive on propofol. 03/30: Remains encephalopathic orally intubated on mechanical ventilation. Objective Vital Signs Date Time Temp Pulse Resp B/P (MAP) Pulse Ox O2 Delivery O2 Flow Rate FiO2 03/30/17 16:08 100 35 03/30/17 16:00 97.2 81 10 111/56 (74) 03/26/17 18:37 Room Air Intake and Output 03/30/17 03/30/17 03/31/17 08:00 16:00 00:00 Intake Total 1619 ml Output Total 600.0 ml Balance 1019.0 ml Result Diagram: 03/30/17 0548 03/30/17 0548 Imaging Last 24 hours Impressions Chest X-Ray 03/26/17 181 Signed Impressions: Service Date/Time: March 18:53 - CONCLUSION: No acute disease. Rahul Rivera MD Objective Remarks GENERAL: frail elderly male, lying in bed, intubated, sedated, critically ill. SKIN: Warm and dry. HEAD: Normocephalic. EYES: No scleral icterus. No injection or drainage. NECK: trachea midline. No JVD CARDIOVASCULAR: Regular rate and rhythm. sinus by tele. RESPIRATORY: Orally intubated on mechanical ventilation Breath sounds equal bilaterally. . PRVC 40% fio2. GASTROINTESTINAL: Abdomen soft, mildly tender over suprapubic region. suprapubic catheter exists with some dark urine with purulence. MUSCULOSKELETAL: No cyanosis, or edema. NEURO: RASS -3. weak gag, poor cough. does not follow commands. withdraws x 4. A/P Assessment and Plan Assessment: 89yM with Severe sepsis from urinary tract infection and possible C. Diff colitis, and acute hypoxic and hypercarbic respiratory failure s/p intubation 03/28. Remains critically ill and off pathway. will f/u c. diff PCR, as he has a history of c. diff in the past, but no positive test here. will narrow spectrum of abx to Rocephin for a total 7 day course for his UTI. Will attempt SAT/SBT today, but given patient's persistent encephalopathy, likely will fail for poor metnal status. off pathway. Palliative care consulted to help find decision makers and clarify goals of care, but given his multiple medical problems and recent hospitalizations, unlikely to have a recoverable outcome long-term. Metabolic Encephalopathy- worsening. - Metabolic toxic - SIRS - Broad-spectrum antibiotics started in the ED - Follow-up cultures and strep negative - daily sedation vacations - will transition from propofol to fentanyl for goal RASS -2 while intubated. - avoid long-acting sedating meds. C. difficile Colitis History of duodenal ulcer - By mouth vancomycin - DC if PCR negative, will f/u PCR today. -GI consult noted Bladder Outlet obstruction with hydronephrosis BPH Chronic indwelling montoya - consult urology - irrigate suprapubic and exchange Urinary tract infection - repeat culture growing Klebsiella and E. Coli - d/c Aztreonam - start Rocephin 1gm iv q24h x 6 days (full 7 day course of abx). - h/o prior PSAE Diabetes mellitus - Insulin sliding scale Hypertension - Hold antihypertensive meds due to SIRS and possible GI bleeding GERD - Protonix IV twice a day Hyperlipidemia -Pravachol Neuropathy - Gabapentin Anemia - Positive Hemoccult - Protonix IV twice a day - GI consult noted Acute protein calorie malnutrition- severe - jevity 1.5 TF per OG tube when OK with GI - nutrition consult for recs DVT GI prophylaxis - Teds SCDs - Hold pharmacological DVT prophylaxis due to positive Hemoccult - Protonix IV twice a day Dispo: remain in ICU. will consult palliative care. very poor prognosis. Critical Care time: 30 minutes, exclusive of separately billable procedures. Gibson Hall MD Mar 30, 2017 17:47
--- NOTE | 2017-03-30 19:47 | RADRPT ---
EXAM DATE/TIME: 03/30/2017 19:05 [facility] COMPARISON: No previous studies available for comparison. INDICATIONS : Ileus MEDICAL HISTORY : Hypertension. Renal calculi. Diabetes mellitus type 2. SURGICAL HISTORY : Inguinal hernia repair. ENCOUNTER: Initial ACUITY: 4 - 6 days PAIN SCORE: Non-responsive. LOCATION: Abdomen FINDINGS: Supine view of the abdomen was performed. The abdominal bowel gas pattern is normal. No abnormal ma sses, calcifications, or organomegaly is seen. The osseous structures are unremarkable. Contrast is present from recent CT scan CONCLUSION: 1. No evidence of obstruction. Reymundo Kinney MD on March 30, 2017 at 19:45 Board Certified Radiologist. This report was verified electronically.
[2017-03-30] MEDS ORDERED: POTASSIUM PHOSPHATE INJ 30 MMOL in SODIUM CHLOR 0.9% 250 ML INJ 250 ML IV PRN (20:15)
[2017-03-30] MEDS ORDERED: POTASSIUM PHOSPHATE MONOBASIC 500 MG TAB PO/TUBE PRN (20:15)
[2017-03-30] MEDS ORDERED: MAGNESIUM SULFATE INJ 4 GM in SODIUM CHLORIDE 0.9% INJ 92 ML IV PRN (20:15)
[2017-03-30] MEDS ORDERED: POTASSIUM CHLOR 40 MEQ PREMIX 100 ML IV PRN ×2 (20:15)
[2017-03-30] MEDS ORDERED: SODIUM PHOSPHATE INJ 30 MMOL in SODIUM CHLOR 0.9% 250 ML INJ 240 ML IV PRN (20:15)
[2017-03-30] MEDS ORDERED: MAGNESIUM SULFATE INJ 2 GM in SODIUM CHLORIDE 0.9% INJ 96 ML IV PRN (20:15)
[2017-03-30] MEDS ORDERED: MAGNESIUM OXIDE 400 MG TAB PO PRN (20:15)
[2017-03-30] MEDS ORDERED: POTASSIUM PHOSPHATE MONOBASIC 500 MG TAB PO PRN (20:15)
[2017-03-30] MEDS: METOCLOPRAMIDE HCL 10 MG/2 ML VIAL IV PUSH SCH (21:28)
[2017-03-30] MEDS: DEXMEDETOMIDINE INJ 200 MCG in SODIUM CHLORIDE 0.9% INJ 50 ML IV PRN (23:37)
[2017-03-31] VITALS (17 sets, daily range): BP systolic 91–137; BP diastolic 50–74; PULSE 64–110; RESP 7–16; TEMP 97.4–98; O2SAT 96–100
[2017-03-31] MEDS: metroNIDAZOLE 500 MG INJ 100 ML IV SCH ×3 (01:16→17:04)
[2017-03-31] MEDS: CHLORHEXIDINE GLUCONATE 2 % 1 PACK (2 CLOTHS) TOP SCH (04:00)
[2017-03-31 04:06] LABS: HEMATOCRIT 31.4 % (39.0-51.0); MEAN CELL VOLUME 90.1 FL (80.0-100.0); MEAN CORPUSCULAR HEMOGLOBIN 29.2 PG (27.0-34.0); MEAN CORPUSCULAR HGB CONC 32.4 % (32.0-36.0); PLATELET COUNT 211 TH/MM3 (150-450); RED BLOOD COUNT 3.48 MIL/MM3 (4.50-5.90); RED CELL DISTRIBUTION WIDTH 17.4 % (11.6-17.2); REVIEW FLAG FINAL; WHITE BLOOD COUNT 10.3 TH/MM3 (4.0-11.0)
[2017-03-31] MEDS: CIPROFLOXACIN 0.3% OPTH SOLN 2.5 ML BTL EACH EYE SCH ×5 (04:15→21:06)
[2017-03-31] MEDS: ARTIFICIAL TEARS OPTH SOLN 15 ML BTL EACH EYE SCH ×5 (04:15→20:00)
[2017-03-31] MEDS: LEVOTHYROXINE SODIUM 112 MCG TAB PO SCH (04:37)
[2017-03-31] MEDS: METOCLOPRAMIDE HCL 10 MG/2 ML VIAL IV PUSH SCH ×3 (04:37→21:03)
[2017-03-31] MEDS: PANTOPRAZOLE SODIUM 40 MG VIAL IV PUSH SCH ×2 (04:37→17:03)
[2017-03-31 04:45] LABS: BICARBONATE 18.5 MEQ/L (21.0-32.0); POTASSIUM 3.6 MEQ/L (3.5-5.1)
[2017-03-31] MEDS: INSULIN NovoLIN REGULAR SUPPLEMENTAL SCALE SQ SCH ×3 (05:52→18:00)
[2017-03-31] MEDS: DEXTROSE 50% IN WATER 50 ML VIAL(D50) IV PUSH PRN ×2 (05:53→06:01)
[2017-03-31] MEDS: VANCOMYCIN 500 MG VIAL (FOR ORAL USE ONLY) PO SCH ×4 (07:49→21:01)
[2017-03-31] MEDS: cefTRIAXone INJ 1,000 MG in SODIUM CHLORIDE 0.9% INJ 100 ML IV SCH (07:49)
[2017-03-31] MEDS: DEXMEDETOMIDINE INJ 200 MCG in SODIUM CHLORIDE 0.9% INJ 50 ML IV PRN ×2 (07:50→18:13)
[2017-03-31] MEDS: CHOLECALCIFEROL (VIT D3) 1000 UNIT TAB PO SCH (07:50)
[2017-03-31] MEDS: SODIUM CHLORIDE 0.9% FLUSH 10 ML FLUSH IV FLUSH SCH ×2 (07:50→21:03)
[2017-03-31] MEDS: PRAVASTATIN SOD 20 MG TAB PO SCH (07:50)
[2017-03-31] MEDS: LACTIC ACID (AMMONIUM LACTATE) 12% LOTION 225 GM BTL TOPICAL SCH ×2 (07:51→21:05)
--- NOTE | 2017-03-31 11:07 | HHI.HCPN ---
Reason for visit a. To assist with evaluation and management of symptoms including: Dyspnea b. To assist medical decision maker(s) with: better understanding of current medical conditions; weighing benefits/burdens of medical treatment options; making medical treatment decisions. Subjective/Interval History Pt seen to follow up on comfort, goals w possible decision maker. Not tolerating TF yesterday afternoon/high residual, TF held, KUB obtained per GI. KUB neg for obstruction. Started on reglan. Stool for c.diff pending. CBC unremarkable, H&H stable. VSS - afebrile. +on CPAP this am, some episodes of biting ETT/ then some episodes apnea. Nsg reports with episodes biting tube/ restless, requiring Precedex drip 0.02-0.03 mcgs, fentanyl at 250mcgs hr. Accurints pending per /financial services to locate daughters and possible legal decision maker for pt. Will update local friend/possible proxy once I have any additional information from accurint search. If pt able to medically extubate in the coming days will attempt to obtain [facility] designation if he is able to participate. Pt seen in room, RN present. Awake, follows simple commands, does not follow more complex commands. Does not nod to questions. No apparent pain/distress during exam. TF remains on hold for high residual overnight. 1630 Pt seen again-- at this time he is now extubated- has been extubated for a few hrs. Nilsa NC 4-5L. Confused-- not following simple commands consistently. Minimally verbal. Answers my question RE time/place/name etc with "give me a cigarette". Is not able to make decisions or designate a HCS at this time. . Family/friend interactions 1630 UPDATE - accurint returned no results on 2 possible daughters. would proceed w proxy as close friend or other more distant relative per [place] statutes Pt seen again-- at this time he is now extubated- has been extubated for a few hrs. Nilsa NC 4-5L. Confused-- not following simple commands consistently. Minimally verbal. Answers my question RE time/place/name etc with "give me a cigarette". Is not able to make decisions or designate a HCS at this time. Call to friend Chantel -- updated on current assessment, overall condition, likely trajectory. HC proxy status. She feels she knows the pt well; and feels comfortable making decisions as HC proxy, will serve in that role. Review of poss decisions going forward including reintubation/CPR, she does NOT believe pt would want ventilation again, and feels overall he has significant decline in the past mos and has been very frustrated by his loss of independence. She would like to see him and meet w palliative provider before making decision RE code status, she plans to come visit some time tomorrow after 2, will call palliative when she arrives. . Advance Directives Living Will: Never completed Health Care Surrogate: Never completed Objective Vital Signs Date Time Temp Pulse Resp B/P (MAP) Pulse Ox O2 Delivery O2 Flow Rate FiO2 03/31/17 08:01 40 03/31/17 08:01 100 35 03/31/17 06:00 97 03/31/17 04:24 99 35 03/31/17 04:00 97.6 72 14 92/52 (65) 99 03/31/17 04:00 35 03/31/17 04:00 72 03/31/17 02:00 72 03/31/17 00:00 35 03/31/17 00:00 103 03/31/17 00:00 97.6 103 15 129/59 (82) 100 03/30/17 22:43 100 35 03/30/17 22:00 104 03/30/17 20:00 35 03/30/17 20:00 97.9 99 26 125/60 (81) 97 03/30/17 20:00 99 03/30/17 19:54 100 35 03/30/17 18:00 81 03/30/17 16:08 100 35 03/30/17 16:00 97.2 81 10 111/56 (74) 100 03/30/17 16:00 81 03/30/17 14:00 79 03/30/17 12:00 97.8 80 14 113/56 (75) 100 03/30/17 12:00 80 Intake & Output 03/31/17 03/31/17 07:00 19:00 Intake Total 2078 ml Output Total 1325.0 ml Balance 753.0 ml Intake IV Total 2078 ml Output Urine Total 325 ml Gastric Drainage Total 575 ml Tube Feeding Residual Discard 425.0 ml Physical Exam CONSTITUTIONAL/GENERAL: This is a chronically ill-appearing patient,appears comfortable on mechanical vent TUBES/LINES/DRAINS: Peripheral IV upper extremities, suprapubic catheter, rectal bag, ET tube, OG tube SKIN: No jaundice, rashes, or lesions. Several areas of ecchymosis upper extremities, hands. Skin warm. CARDIOVASCULAR: Regular rate and rhythm without murmurs. No JVD. Peripheral pulses symmetric. 1+ edema bilateral hands, no pedal edema. RESPIRATORY/CHEST: Symmetric, unlabored respirations on mechanical vent, CPAP. Clear to auscultation. Breath sounds equal bilaterally. GASTROINTESTINAL: Abdomen soft, no apparent tenderness, nondistended. No palpable masses. Bowel sounds present. OG-tube clamped. GENITOURINARY: Without palpable bladder distension. Suprapubic catheter in place some erythema/irritation around insertion site. Draining dark yellow urine MUSCULOSKELETAL: Extremities without clubbing, cyanosis, or edema. No joint effusion noted. . No mottling or clubbing. NEUROLOGICAL: Awake -eyes open spontaneously. Gazes around room, does not track examiner. follows simple commands to move hands, feet, does not follow more complex commands to show specific finger or stick out tongue PSYCHIATRIC: appears comfortable, limited assessment . Diagnostic Tests Laboratory Laboratory Tests Test 03/28/17 15:05 03/29/17 10:57 03/30/17 05:48 03/31/17 03:26 Blood Gas Puncture Site RT RADIAL Blood Gas Patient Temperature 98.6 Blood Gas HCO3 18 mmol/L (22-26) Blood Gas Base Excess -6.0 mmol/L (-2-2) Blood Gas Oxygen Saturation 96 % (90-100) Arterial Blood pH 7.43 (7.380-7.420) Arterial Blood Partial Pressure CO2 27 mmHg (38-42) Arterial Blood Partial Pressure O2 101 mmHg (61-120) Arterial Blood Oxygen Content 15.4 Vol % (12.0-20.0) Arterial Blood Carboxyhemoglobin 1.5 % (0-4) Arterial Blood Methemoglobin 1.0 % (0-2) Blood Gas Hemoglobin 11.3 G/DL (12.0-16.0) Oxygen Delivery Device VENTILATOR Blood Gas Ventilator Setting PRVC/AC Blood Gas Inspired Oxygen 40 % White Blood Count 8.6 TH/MM3 (4.0-11.0) 8.3 TH/MM3 (4.0-11.0) 10.3 TH/MM3 (4.0-11.0) Red Blood Count 3.42 MIL/MM3 (4.50-5.90) 3.64 MIL/MM3 (4.50-5.90) 3.48 MIL/MM3 (4.50-5.90) Hemoglobin 9.8 GM/DL (13.0-17.0) 10.5 GM/DL (13.0-17.0) 10.2 GM/DL (13.0-17.0) Hematocrit 30.7 % (39.0-51.0) 33.0 % (39.0-51.0) 31.4 % (39.0-51.0) Mean Corpuscular Volume 89.7 FL (80.0-100.0) 90.5 FL (80.0-100.0) 90.1 FL (80.0-100.0) Mean Corpuscular Hemoglobin 28.5 PG (27.0-34.0) 28.9 PG (27.0-34.0) 29.2 PG (27.0-34.0) Mean Corpuscular Hemoglobin Concent 31.8 % (32.0-36.0) 31.9 % (32.0-36.0) 32.4 % (32.0-36.0) Red Cell Distribution Width 16.6 % (11.6-17.2) 17.4 % (11.6-17.2) 17.4 % (11.6-17.2) Platelet Count 165 TH/MM3 (150-450) 185 TH/MM3 (150-450) 211 TH/MM3 (150-450) Mean Platelet Volume 8.0 FL (7.0-11.0) 8.2 FL (7.0-11.0) 7.8 FL (7.0-11.0) Blood Urea Nitrogen 19 MG/DL (7-18) 15 MG/DL (7-18) 12 MG/DL (7-18) Creatinine 0.84 MG/DL (0.60-1.30) 0.75 MG/DL (0.60-1.30) 0.84 MG/DL (0.60-1.30) Random Glucose 65 MG/DL (74-106) 103 MG/DL (74-106) 71 MG/DL (74-106) Calcium Level 7.6 MG/DL (8.5-10.1) 7.7 MG/DL (8.5-10.1) 8.0 MG/DL (8.5-10.1) Sodium Level 148 MEQ/L (136-145) 149 MEQ/L (136-145) 153 MEQ/L (136-145) Potassium Level 3.3 MEQ/L (3.5-5.1) 3.3 MEQ/L (3.5-5.1) 3.6 MEQ/L (3.5-5.1) Chloride Level 120 MEQ/L (98-107) 121 MEQ/L (98-107) 122 MEQ/L (98-107) Carbon Dioxide Level 17.5 MEQ/L (21.0-32.0) 15.9 MEQ/L (21.0-32.0) 18.5 MEQ/L (21.0-32.0) Anion Gap 11 MEQ/L (5-15) 12 MEQ/L (5-15) 13 MEQ/L (5-15) Estimat Glomerular Filtration Rate 86 ML/MIN (>89) 98 ML/MIN (>89) 86 ML/MIN (>89) Vancomycin Level Trough 18.9 MCG/ML (5.0-10.0) Neutrophils (%) (Auto) 69.2 % (16.0-70.0) Lymphocytes (%) (Auto) 19.5 % (9.0-44.0) Monocytes (%) (Auto) 6.8 % (0.0-8.0) Eosinophils (%) (Auto) 3.6 % (0.0-4.0) Basophils (%) (Auto) 0.9 % (0.0-2.0) Neutrophils # (Auto) 5.7 TH/MM3 (1.8-7.7) Lymphocytes # (Auto) 1.6 TH/MM3 (1.0-4.8) Monocytes # (Auto) 0.6 TH/MM3 (0-0.9) Eosinophils # (Auto) 0.3 TH/MM3 (0-0.4) Basophils # (Auto) 0.1 TH/MM3 (0-0.2) CBC Comment DIFF FINAL Differential Comment Result Diagram: 03/31/17 0326 03/31/17 0326 Microbiology Last Impressions Abdomen X-Ray 03/30/17 0000 Signed Impressions: Service Date/Time: Thursday, March 30, 2017 19:05 - CONCLUSION: 1. No evidence of obstruction. Reymundo Kinney MD Chest X-Ray 03/28/17 Signed Impressions: Service Date/Time: Tuesday, March 28, 2017 14:41 - CONCLUSION: ET tube in satisfactory position. NG tube coils in the pharynx and does not quite reach the stomach. Worsening aeration. Rahul Beaver MD Abdomen/Pelvis CT 03/27/17 Signed Impressions: Service Date/Time: Monday, March 27, 2017 22:38 - CONCLUSION: 1. There is a distended urinary bladder despite a Crooks catheter and suprapubic catheter. There is resulting hydronephrosis and hydroureter. 2. Colonic diverticulosis. 3. Pneumobilia without biliary dilatation. This would suggest sphincterotomy. Melquiades Najera Jr., MD Imaging Last Impressions Abdomen X-Ray 03/30/17 Signed Impressions: Service Date/Time: Thursday, March 30, 2017 19:05 - CONCLUSION: 1. No evidence of obstruction. Reymundo Kinney MD Chest X-Ray 03/28/17 Signed Impressions: Service Date/Time: Tuesday, March 28, 2017 14:41 - CONCLUSION: ET tube in satisfactory position. NG tube coils in the pharynx and does not quite reach the stomach. Worsening aeration. Rahul Beaver MD Abdomen/Pelvis CT 03/27/17 Signed Impressions: Service Date/Time: Monday, March 27, 2017 22:38 - CONCLUSION: 1. There is a distended urinary bladder despite a Crooks catheter and suprapubic catheter. There is resulting hydronephrosis and hydroureter. 2. Colonic diverticulosis. 3. Pneumobilia without biliary dilatation. This would suggest sphincterotomy. Melquiades Najera Jr., MD Procedures 03/28 intubated . Assessment and Plan Disease Oriented Problem List: (1) GERD (gastroesophageal reflux disease) (2) Hyperlipidemia (3) Hypertension (4) C. 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 Prior to that lived in an [facility] setting for about 7 years. Has known local friend and contact Inessa for about 10 years, they met when they were neighbors before he lived in [facility]. Patient originally from [place] has lived in [place] for many years. many years ago. 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 Has a brother who is , and [id number] whom he has not been in close communication with recently. He does have 2 adult daughters whom he has been estranged from since they were young children; friend Inessa is trying to find out their names and possible location from sister in law.[unable to locate per accurint 03/31/17] Spiritual: Baptism Legal:Patient is currently unable to participate in decision-making due to medical condition. Does not appear to have advanced directive or HCS designation. Apparently his brother is , sister in law lives out of state. . Has 2 adult daughters whose name are not known at this time however they would be appropriate proxy decision maker per [place] statutes if they can be located. Local friend Inessa is working to find out their names and possible location. If these 2 daughters cannot be located or do not wish to serve as decision makers then decision-making proxy would move onto other close friends and/or relatives. Ethical issues impacting care: Important Contacts Friend Inessa Cobalt [phone] Friend Haley [phone] Found in old admission record 2010 brother Brenotn Toscano [phone] ; cesilia lives in [place] Prognosis This patient has had a few recent hospital visits, with UTI 03/22, and admission for sepsis 02/03 through 02/09. He has multiple medical comorbidities. He is quite deconditioned. He is now critically ill in the ICU on a mechanical vent. Possible he can survive current acute hospitalization however he remains at risk for ongoing complications and setbacks and recurrent hospitalizations. . Code Status: Full Code Plan * Legal decision maker:Patient is currently unable to participate in decision- making due to medical condition. Does not appear to have advanced directive or HCS designation. Apparently his brother is , sister in law lives out of state. . Has 2 adult daughters whose name are not known at this time however they would be appropriate proxy decision maker per [place] statutes if they can be located. Local friend Inessa is working to find out their names and possible location. If these 2 daughters cannot be located or do not wish to serve as decision makers then decision-making proxy would move onto other close friends and/or relatives. Inessa call me back with names of the adult daughters Neema (Everton?) would be around 60, Maricruz (Everton?) would be around 65, they may possibly be in [place]. Not known if they are or if their last names changed. 03/30/17 order for case management assistance w [employer] to try to locate adult daughters * Goals:-Pending identification and discussion with appropriate legal proxy; accurints for daughters pending 03/31/17 1630 UPDATE - accurint returned no results on 2 possible daughters. would proceed w proxy as close friend or other more distant relative per [place] statutes Pt seen again-- at this time he is now extubated- has been extubated for a few hrs. Nilsa NC 4-5L. Confused-- not following simple commands consistently. Minimally verbal. Answers my question RE time/place/name etc with "give me a cigarette". Is not able to make decisions or designate a HCS at this time. Call to friend Chantel -- updated on current assessment, overall condition, likely trajectory. HC proxy status. She feels she knows the pt well; and feels comfortable making decisions as HC proxy, will serve in that role. Review of poss decisions going forward including reintubation/CPR, she does NOT believe pt would want ventilation again, and feels overall he has significant decline in the past mos and has been very frustrated by his loss of independence. She would like to see him and meet w palliative provider before making decision RE code status, she plans to come visit some time tomorrow after 2, will call palliative when she arrives, will meet at that time. * CODE STATUS: Full code by default * SYMPTOMS: --Dyspnea-urgently intubated for airway protection. Currently breathing comfortable on mechanical vent on some fentanyl for sedation. --Anxiety/depression-friend indicates he has been somewhat depressed recently secondary to his loss of independence in general health decline. Potentially could benefit long-term from SSRI, postextubation/when medical condition stabilized --Malnutrition-early intubated and unable to take oral nutrition; albumin 2.3. Has OG tube will need tube feeding supplementation until able to extubate or potentially would require PEG tube for longer term artificial nutrition provision. TF held yesterday pm due to high residuals, distention. KUB neg for obstruction; may resume today pending resp /poss extubation status * Palliative care will continue to follow during hospital course as condition evolves, to assist patient/decision-maker with understanding of medical conditions, weighing benefits/burdens of treatment options, for clarification of goals of treatment. Additionally will assist with any symptoms of palliative concern . Time Spent Total Floor Time (mins): 40 Attestation To help prompt me to consider important information that might be impacting today's encounter and assessment, information from prior notes written by myself or my colleagues may have been "brought forward" into today's note. My signature on this note, however, is an attestation that I personally performed the exam, history, and/or decision-making noted today, and, unless otherwise indicated, the interactions with patient, family, and staff as well as the review of records all occurred today. I also attest that the listed assessment and stated plan reflect my best clinical judgment today based on the combination of historical information, prior notes, and today's exam/ interactions. When time spent is documented, it refers only to time spent today by the signer, or if indicated, combined time spent today by collaborating physician/nurse practitioner. Lidia Morocho Mar 31, 2017 11:07
--- NOTE | 2017-03-31 12:35 | HHI.CCPN ---
Subjective Remarks/Hospital Course 03/26: This is a 89 year old male with a history of C Difficile colitis, duodenal bulb ulcer, and dilated common bile duct/pancreatic duct, who was sent from his assisted living facility for evaluation of altered mental status. He is currently extremely somnolent and unable to provide any history and therefore the history has been obtained from the EMR and nursing staff. According to the ER note, he is being treated for C Difficile colitis with oral vancomycin and an UTI with macrobid. He was recently seen in the ER for urinary retention despite a suprapubic catheter and a regular montoya catheter was placed and he was referred to urology as outpatient. His H/H was noted to be 11.4/24.4 on 03/22/17. Yesterday this was 8.1/24.4. He was given 2 units of PRBC and today this is 11.5/35.0. GI has been consulted for anemia and hemoccult positive stool. His abdomen is nondistended, but he does have moderate lower abdominal tenderness on exam. The nurse reports that he has not had a bowel movement on her shift, but was told that he had a small amount of stool overnight. He was admitted to the intensive care unit for altered mental status, SIRS, DM, HTN, GERD, hyperlipidemia, anemia. He was evaluated by our service back in 2010 for abdominal pain with nausea and vomiting and underwent EGD (08/26/10)---> Large duodenal bulb ulcer, duodenitis, very edematous mucosa, bx, gastritis in the antrum, bx, esophagitis, schatzki's ring. Pathology with small bowel mucosa with no significant histopathologic abnormalities, antral mucosa with very focal mild active chronic gastritis, esophageal bx with squamous mucosa with mild reflux esophagitis. He was also evaluated with MRCP at that time which revealed dilatation of the common bile duct and pancreatic duct with area of beak-like narrowing at the pancreatic head. Of note, he has had gallstones and underwent ERCP with sphincterotomy. 03/27: Remains encephalopathic, laying in bed in no acute distress. 03/28: worsening encephalopathy. unable to protect airway. CT abd/pelvis with evidence of distended bladder with hydronephrosis despite both suprapubic and montoya through penis. attempted to reach family: patient has [id number] sister- in-law, brother , reportedly have not spoken in years. patient has a friend who takes him to breakfast occasionally. She said she would be willing to make healthcare decisions for him, but has never signed paperwork saying that she was the decision maker. when asked about his end-of-life wishes, she does not think he would want to be on a ventilator long-term, but she does not know specifically what his wishes were. He was reportedly a FULL CODE based on SNF documentation. 03/29: intubated yesterday. urine growing e. coli and klebsiella. c. diff PCR still not resulted. borderline hypotensive on propofol. 03/30: Remains encephalopathic orally intubated on mechanical ventilation. 03/31: Awake, encephalopathic, not following commands. Orally intubated on mechanical ventilation. Objective Vital Signs Date Time Temp Pulse Resp B/P (MAP) Pulse Ox O2 Delivery O2 Flow Rate FiO2 03/31/17 11:49 99 35 03/31/17 06:00 97 03/31/17 04:00 97.6 14 92/52 (65) Intake and Output 03/31/17 03/31/17 04/01/17 08:00 16:00 00:00 Intake Total 162 ml Output Total 900 ml Balance -738 ml Result Diagram: 03/31/17 0326 03/31/17 0326 Other Results Microbiology Date/Time Source Procedure Growth Status 03/26/17 18:55 Blood Peripheral Aerobic Blood Culture - Final NO GROWTH IN 5 DAYS Complete 03/26/17 18:55 Blood Peripheral Anaerobic Blood Culture - Final NO GROWTH IN 5 DAYS Complete 03/26/17 18:35 Urine Catheterized Urine Urine Culture - Final Escherichia Coli Klebsiella Pneumoniae Complete Imaging Last 24 hours Impressions Chest X-Ray 03/26/17 1813 Signed Impressions: Service Date/Time: March 18:53 - CONCLUSION: No acute disease. Rahul Rivera MD Objective Remarks GENERAL: frail elderly male, lying in bed, intubated, sedated, critically ill. SKIN: Warm and dry. HEAD: Normocephalic. EYES: No scleral icterus. No injection or drainage. NECK: trachea midline. No JVD CARDIOVASCULAR: Regular rate and rhythm. sinus by tele. RESPIRATORY: Orally intubated on mechanical ventilation Breath sounds equal bilaterally. . PRVC 40% fio2. GASTROINTESTINAL: Abdomen soft, mildly tender over suprapubic region. suprapubic catheter exists with some dark urine with purulence. MUSCULOSKELETAL: No cyanosis, or edema. NEURO: Drowsy, arousable, not following commands. weak gag, poor cough. withdraws x 4. A/P Assessment and Plan Assessment: 89yM with Severe sepsis from urinary tract infection and possible C. Diff colitis, and acute hypoxic and hypercarbic respiratory failure s/p intubation 03/28. Remains critically ill and off pathway. will f/u c. diff PCR, as he has a history of c. diff in the past, but no positive test here. will narrow spectrum of abx to Rocephin for a total 7 day course for his UTI. Will attempt SAT/SBT today, but given patient's persistent encephalopathy, likely will fail for poor mental status. off pathway. Palliative care consulted to help find decision makers and clarify goals of care, but given his multiple medical problems and recent hospitalizations, unlikely to have a recoverable outcome long-term. Metabolic Encephalopathy - Metabolic toxic - Sepsis - Broad-spectrum antibiotics started in the ED - Follow-up cultures. Urine growing Klebsiella, Escherichia coli - daily sedation vacation -Transitioned from propofol to fentanyl for goal RASS -2 while intubated. - avoid long-acting sedating meds. C. difficile Colitis History of duodenal ulcer - By mouth vancomycin - DC if PCR negative, will f/u PCR. -GI consult noted Bladder Outlet obstruction with hydronephrosis BPH Chronic suprapubic catheter -Urology evaluation noted -Suprapubic catheter replaced by urology. Montoya catheter discontinued Urinary tract infection - repeat culture growing Klebsiella and E. Coli - off Aztreonam - start Rocephin 1gm iv q24h x 6 days (full 7 day course of abx). - h/o prior PSAE Diabetes mellitus - Insulin sliding scale Hypertension - Hold antihypertensive meds due to SIRS and possible GI bleeding GERD - Protonix IV twice a day Hyperlipidemia -Pravachol Neuropathy - Gabapentin Anemia - Positive Hemoccult - Protonix IV twice a day - GI consult noted Acute protein calorie malnutrition- severe - jevity 1.5 TF per OG tube when OK with GI - nutrition consult for recs DVT GI prophylaxis - Teds SCDs - Hold pharmacological DVT prophylaxis due to positive Hemoccult - Protonix IV twice a day Dispo: remain in ICU. will consult palliative care. very poor prognosis. Critical Care time: 30 minutes, exclusive of separately billable procedures. Gibson Hall MD Mar 31, 2017 12:35
[2017-03-31] MEDS: SODIUM CHLOR 0.9% 1000 ML INJ 1,000 ML IV SCH ×2 (13:48→20:48)
--- NOTE | 2017-03-31 14:17 | HHI.GIFU ---
Subjective Remarks Resting in bed. On CPAP. Follows commands. No BM x 2 days. Mildly distended , still with mild diffuse tenderness. Nurse reports high residuals (Aline Whiteside) Objective Vitals I&O Vital Signs Date Time Temp Pulse Resp B/P (MAP) Pulse Ox O2 Delivery O2 Flow Rate FiO2 03/31/17 12:00 35 03/31/17 11:49 99 35 03/31/17 08:01 40 03/31/17 08:01 100 35 03/31/17 08:00 35 03/31/17 06:00 97 03/31/17 04:24 99 35 03/31/17 04:00 97.6 72 14 92/52 (65) 99 03/31/17 04:00 35 03/31/17 04:00 72 03/31/17 02:00 72 03/31/17 00:00 35 03/31/17 00:00 103 03/31/17 00:00 97.6 103 15 129/59 (82) 100 03/30/17 22:43 100 35 03/30/17 22:00 104 03/30/17 20:00 35 03/30/17 20:00 97.9 99 26 125/60 (81) 97 03/30/17 20:00 99 03/30/17 19:54 100 35 03/30/17 18:00 81 03/30/17 16:08 100 35 03/30/17 16:00 97.2 81 10 111/56 (74) 100 03/30/17 16:00 81 I/O 03/30/17 03/30/17 03/30/17 03/31/17 03/31/17 03/31/17 06:59 14:59 22:59 06:59 14:59 22:59 Intake Total 619 ml 1300 ml 1100 ml 1078 ml Output Total 300 ml 300.0 ml 675.0 ml 900 ml Balance 319 ml 1000.0 ml 425.0 ml 178 ml Intake IV Total 350 ml 1300 ml 1100 ml 1078 ml Tube Feeding 209 ml Tube Irrigant 60 ml Output Urine Total 300 ml 250 ml 325 ml Gastric Drainage Total 575 ml Tube Feeding Residual Discard 300.0 ml 425.0 ml # Bowel Movements 0 0 Laboratory Laboratory Tests Test 03/31/17 03:26 White Blood Count 10.3 Red Blood Count 3.48 Hemoglobin 10.2 Hematocrit 31.4 Mean Corpuscular Volume 90.1 Mean Corpuscular Hemoglobin 29.2 Mean Corpuscular Hemoglobin Concent 32.4 Red Cell Distribution Width 17.4 Platelet Count 211 Mean Platelet Volume 7.8 Blood Urea Nitrogen 12 Creatinine 0.84 Random Glucose 71 Calcium Level 8.0 Sodium Level 153 Potassium Level 3.6 Chloride Level 122 Carbon Dioxide Level 18.5 Anion Gap 13 Estimat Glomerular Filtration Rate 86 Date/Time Source Procedure Growth Status 03/26/17 18:55 Blood Peripheral Aerobic Blood Culture - Final NO GROWTH IN 5 DAYS Complete 03/26/17 18:55 Blood Peripheral Anaerobic Blood Culture - Final NO GROWTH IN 5 DAYS Complete 03/26/17 18:35 Urine Catheterized Urine Urine Culture - Final Escherichia Coli Klebsiella Pneumoniae Complete Imaging Last Impressions Abdomen X-Ray 03/30/17 0000 Signed Impressions: Service Date/Time: Thursday, March 30, 2017 19:05 - CONCLUSION: 1. No evidence of obstruction. Reymundo Kinney MD Chest X-Ray 03/28/17 0000 Signed Impressions: Service Date/Time: Tuesday, March 28, 2017 14:41 - CONCLUSION: ET tube in satisfactory position. NG tube coils in the pharynx and does not quite reach the stomach. Worsening aeration. Rahul Beaver MD Abdomen/Pelvis CT 03/27/17 0000 Signed Impressions: Service Date/Time: Monday, March 27, 2017 22:38 - CONCLUSION: 1. There is a distended urinary bladder despite a Crooks catheter and suprapubic catheter. There is resulting hydronephrosis and hydroureter. 2. Colonic diverticulosis. 3. Pneumobilia without biliary dilatation. This would suggest sphincterotomy. Melquiades Najera Jr., MD Physical Exam HEENT: Normocephalic; atraumatic CHEST: OETT to vent. Course breath sounds throughout CARDIAC: RRR ABDOMEN: Soft, milddistention, no hepatosplenomegaly; hypoactive bowel sounds. Rectal bag- no stool EXTREMITIES: Generalized edema. SKIN: Generalized pallor RIVETER PNEUMATIC: Lethargic, follows commands. (Aline Whiteside) Assessment and Plan Plan ASSESSMENT: - Anemia, Hemoccult (+) Stool. His H/H was noted to be 11.4/24.4 on 03/22/17. On admission, this was 8.1/24.4. Hemoccult (+). EGD (08/26/10)---> Large duodenal bulb ulcer, duodenitis, very edematous mucosa , bx, gastritis in the antrum, bx, esophagitis, schatzki's ring. Pathology with small bowel mucosa with no significant histopathologic abnormalities, antral mucosa with very focal mild active chronic gastritis, esophageal bx with squamous mucosa with mild reflux esophagitis. S/P 1 units of PRBC HH 10.2/31.4 yesterday. No signs of active bleeding. - Abdominal distention, high residual. Nurse reports tf off for high residuals. On tx for CDiff, although stool has not been sent during this admission. KUB (03/30/17)---> No evidence of obstruction, contrast present from CT scan. No BM x 2 days Will give SSE x 2. Add Miralax, but will hold if diarrhea. - Abdominal pain. CT of abd/pelvis on (03/27/17) showed distended urinary bladder despite a Crooks catheter and suprapubic catheter, there hydronephrosis and hydroureter, colonic diverticulosis, pneumobilia with out biliary dilatation, would suggest sphincterotomy - C Difficile Diarrhea. He was on tx at [facility]. [facility] as above Check stool for c diff. This was not sent down on admission and has not had BM x 2 days. Oral vanco/flagyl. - Leukocytosis. WBC 10.3. Blood cultures no growth in 5 days. UTI with E. Coli , Klebsiella pneumoniae, recently with PSAE. Need to send for CDiff if stool.. - AMS, likely secondary to infection. Per CCM - DM, HTN, Hyperlipidemia per CCM - Hx dilated common bile, pancreatic duct on MRCP in 2010. Has hx of cholelithiasis and has required ERCP with sphincterotomy in past. LFTs okay. PLAN: - Start TF with trickle feeds (Jevity 1.5) - SSE x 2 - Miralax 17 gram per tube daily- hold for diarrhea - Cont. Reglan - Cont. PPI - Cont. Oral Vanco/Flagyl - Abx per CCM - Send stool for CDiff, d/w nurse - Monitor HH - Transfuse as needed - Monitor labs - Supportive care - Further recommendations to follow based on results of above - Pt seen and examined by Dr. Gómez and myself and this note is written on his behalf (Aline Whiteside) Physician Comments Seen and examined withARNP, try trickle feedings. Monitor residuals. On treatment for c.diff. (Latonya Gómez MD) Aline Whiteside Mar 31, 2017 14:17 Latonya Gómez MD Mar 31, 2017 16:49
[2017-03-31] MEDS: POLYETHYLENE GLYCOL 17 GM PKG NG SCH (17:50)
[2017-04-01] VITALS (15 sets, daily range): BP systolic 104–150; BP diastolic 56–85; PULSE 53–121; RESP 13–28; TEMP 94–97.4; O2SAT 97–100
[2017-04-01] MEDS: ARTIFICIAL TEARS OPTH SOLN 15 ML BTL EACH EYE SCH ×6 (00:42→21:28)
[2017-04-01] MEDS: CIPROFLOXACIN 0.3% OPTH SOLN 2.5 ML BTL EACH EYE SCH ×6 (00:42→21:28)
[2017-04-01] MEDS: metroNIDAZOLE 500 MG INJ 100 ML IV SCH ×3 (00:47→18:16)
--- NOTE | 2017-04-01 02:20 | PQ ---
Physician Query Response Document PATIENT: TUNG KEVIN : 1925 ADMIT DATE: 03/26/2017 8:16 PM DISCH DATE: RESPONDING PROVIDER #: agreene QUERY TEXT: Cause and Effect Relationship Please clarify in documentation the relationship, if any, between : INDWELLING URINARY CATHETER and UTI Such as: -- Conditions are due to or associated -- Unrelated to each other -- Other, please specify The patient's Clinical Indicators include: PATIENT WAS ADMITTED WITH UTI SURAPUBIC CATHETER AND ROJAS CATHETER POA PER PROGRESS NOTE 03/29/17: Urinary tract infection - repeat culture growing Klebsiella and E. Coli PER UROLOGY CONSULTATION(1) Suprapubic catheter dysfunction -CT images reviewed. SPT in place appears calcified and not draining properly. This catheter has been exchanged -Rojas urethral catheter appears to be inflated in prostate and not draining Query created by: Autumn Joshi on 03/30/2017 3:28 PM RESPONSE TEXT: The patient's urinary tract infection is associated with his long-term indwelling urinary catheter wh ich was present on admission. Electronically signed by: Esau Velez MD 04/01/2017 2:16 AM
[2017-04-01] MEDS: CHLORHEXIDINE GLUCONATE 2 % 1 PACK (2 CLOTHS) TOP SCH (04:00)
[2017-04-01 04:07] LABS: HEMATOCRIT 26.9 % (39.0-51.0); MEAN CELL VOLUME 88.9 FL (80.0-100.0); MEAN CORPUSCULAR HGB CONC 32.6 % (32.0-36.0); PLATELET COUNT 175 TH/MM3 (150-450); RED BLOOD COUNT 3.02 MIL/MM3 (4.50-5.90); RED CELL DISTRIBUTION WIDTH 17.3 % (11.6-17.2); REVIEW FLAG FINAL; WHITE BLOOD COUNT 7.9 TH/MM3 (4.0-11.0)
[2017-04-01 04:30] LABS: BICARBONATE 18.5 MEQ/L (21.0-32.0); POTASSIUM 3.1 MEQ/L (3.5-5.1)
[2017-04-01] MEDS: LEVOTHYROXINE SODIUM 112 MCG TAB PO SCH (06:00)
[2017-04-01] MEDS: INSULIN NovoLIN REGULAR SUPPLEMENTAL SCALE SQ SCH ×4 (06:00→18:00)
[2017-04-01] MEDS: METOCLOPRAMIDE HCL 10 MG/2 ML VIAL IV PUSH SCH ×3 (06:01→21:29)
[2017-04-01] MEDS: PANTOPRAZOLE SODIUM 40 MG VIAL IV PUSH SCH ×2 (06:02→18:18)
[2017-04-01] MEDS: SODIUM CHLOR 0.9% 1000 ML INJ 1,000 ML IV SCH (06:03)
[2017-04-01] MEDS: DEXMEDETOMIDINE INJ 200 MCG in SODIUM CHLORIDE 0.9% INJ 50 ML IV PRN (06:04)
[2017-04-01] MEDS: POTASSIUM CHLOR 20 MEQ PREMIX 100 ML IV PRN ×4 (06:05→18:14)
--- NOTE | 2017-04-01 09:22 | HHI.HCSW ---
[facility] Visit Advance Directive Palliative care informed patient may have 2 adult daughters, Neema Toscano possibly around 60 and Maricruz Toscano possibly around 65. Last names may be changed if ? Patient is originally from [place]. Accurints requested and no information obtained. Google search and social media search was unable to produce possible match. Mr. Toscano is supported by friend, Chantel. No family readily available, per [place] Statutes medical proxy decision making would fall to a close friend or relative. Unless patient becomes able to make his own medical decisions or designate HCS himself. Palliative care to meet with Chantel today after 2pm. Sandra Najera, DISINTEGRATOR OPERATOR Apr 01, 2017 09:22
[2017-04-01] MEDS: CHOLECALCIFEROL (VIT D3) 1000 UNIT TAB PO SCH (09:47)
[2017-04-01] MEDS: POLYETHYLENE GLYCOL 17 GM PKG NG SCH (09:47)
[2017-04-01] MEDS: PRAVASTATIN SOD 20 MG TAB PO SCH (09:47)
[2017-04-01] MEDS: cefTRIAXone INJ 1,000 MG in SODIUM CHLORIDE 0.9% INJ 100 ML IV SCH (09:49)
[2017-04-01] MEDS: SODIUM CHLORIDE 0.9% FLUSH 10 ML FLUSH IV FLUSH SCH ×2 (09:50→21:28)
[2017-04-01] MEDS: VANCOMYCIN 500 MG VIAL (FOR ORAL USE ONLY) PO SCH ×4 (09:50→21:28)
[2017-04-01] MEDS: LACTIC ACID (AMMONIUM LACTATE) 12% LOTION 225 GM BTL TOPICAL SCH ×2 (09:52→21:29)
--- NOTE | 2017-04-01 11:04 | HHI.CCPN ---
Subjective Remarks/Hospital Course 03/26: This is a 89 year old male with a history of C Difficile colitis, duodenal bulb ulcer, and dilated common bile duct/pancreatic duct, who was sent from his assisted living facility for evaluation of altered mental status. He is currently extremely somnolent and unable to provide any history and therefore the history has been obtained from the EMR and nursing staff. According to the ER note, he is being treated for C Difficile colitis with oral vancomycin and an UTI with macrobid. He was recently seen in the ER for urinary retention despite a suprapubic catheter and a regular montoya catheter was placed and he was referred to urology as outpatient. His H/H was noted to be 11.4/24.4 on 03/22/17. Yesterday this was 8.1/24.4. He was given 2 units of PRBC and today this is 11.5/35.0. GI has been consulted for anemia and hemoccult positive stool. His abdomen is nondistended, but he does have moderate lower abdominal tenderness on exam. The nurse reports that he has not had a bowel movement on her shift, but was told that he had a small amount of stool overnight. He was admitted to the intensive care unit for altered mental status, SIRS, DM, HTN, GERD, hyperlipidemia, anemia. He was evaluated by our service back in 2010 for abdominal pain with nausea and vomiting and underwent EGD (08/26/10)---> Large duodenal bulb ulcer, duodenitis, very edematous mucosa, bx, gastritis in the antrum, bx, esophagitis, schatzki's ring. Pathology with small bowel mucosa with no significant histopathologic abnormalities, antral mucosa with very focal mild active chronic gastritis, esophageal bx with squamous mucosa with mild reflux esophagitis. He was also evaluated with MRCP at that time which revealed dilatation of the common bile duct and pancreatic duct with area of beak-like narrowing at the pancreatic head. Of note, he has had gallstones and underwent ERCP with sphincterotomy. 03/27: Remains encephalopathic, laying in bed in no acute distress. 03/28: worsening encephalopathy. unable to protect airway. CT abd/pelvis with evidence of distended bladder with hydronephrosis despite both suprapubic and montoya through penis. attempted to reach family: patient has [id number] sister- in-law, brother , reportedly have not spoken in years. patient has a friend who takes him to breakfast occasionally. She said she would be willing to make healthcare decisions for him, but has never signed paperwork saying that she was the decision maker. when asked about his end-of-life wishes, she does not think he would want to be on a ventilator long-term, but she does not know specifically what his wishes were. He was reportedly a FULL CODE based on SNF documentation. 03/29: intubated yesterday. urine growing e. coli and klebsiella. c. diff PCR still not resulted. borderline hypotensive on propofol. 03/30: Remains encephalopathic orally intubated on mechanical ventilation. 03/31: Awake, encephalopathic, not following commands. Orally intubated on mechanical ventilation. 04/01: Awake, alert, disoriented/encephalopathic, not following commands. Extubated on 03/31, on nasal cannula. Precedex being titrated off. Objective Vital Signs Date Time Temp Pulse Resp B/P (MAP) Pulse Ox O2 Delivery O2 Flow Rate FiO2 04/01/17 07:34 97 Nasal Cannula 3.00 04/01/17 06:00 79 04/01/17 04:00 97.4 14 104/56 (72) 03/31/17 14:00 35 Intake and Output 04/01/17 04/01/17 04/02/17 08:00 16:00 00:00 Intake Total 1692.6 ml Output Total 445 ml Balance 1247.6 ml Result Diagram: 04/01/17 0337 04/01/17 0337 Imaging Last 24 hours Impressions Chest X-Ray 03/26/17 1813 Signed Impressions: Service Date/Time: March 18:53 - CONCLUSION: No acute disease. Rahul Rivera MD Objective Remarks GENERAL: frail elderly male, lying in bed SKIN: Warm and dry. HEAD: Normocephalic. EYES: No scleral icterus. No injection or drainage. NECK: trachea midline. No JVD CARDIOVASCULAR: Regular rate and rhythm. sinus by tele. RESPIRATORY:Breath sounds equal bilaterally. On nasal cannula. Scattered rhonchi bilaterally GASTROINTESTINAL: Abdomen soft, mildly tender over suprapubic region. suprapubic catheter exists with some dark urine MUSCULOSKELETAL: No cyanosis, or edema. NEURO: Awake and alert, disoriented,, not following commands, poor cough. withdraws x 4. A/P Assessment and Plan Assessment: 89yM with Severe sepsis from urinary tract infection and possible C. Diff colitis, and acute hypoxic and hypercarbic respiratory failure s/p intubation 03/28. Will f/u c. diff PCR, as he has a history of c. diff in the past, but no positive test here. narrowed spectrum of abx to Rocephin for UTI. Palliative care consulted to help find decision makers and clarify goals of care. Metabolic Encephalopathy - Metabolic toxic - Sepsis - Broad-spectrum antibiotics started in the ED - Follow-up cultures. Urine growing Klebsiella, Escherichia coli - Titrate off precedex 04/01 - avoid long-acting sedating meds. C. difficile Colitis History of duodenal ulcer - By mouth vancomycin - DC if PCR negative, will f/u PCR. No diarrhea -GI consult noted Bladder Outlet obstruction with hydronephrosis BPH Chronic suprapubic catheter -Urology evaluation noted -Suprapubic catheter replaced by urology. Montoya catheter discontinued Urinary tract infection - repeat culture growing Klebsiella and E. Coli - off Aztreonam - start Rocephin 1gm iv q24h x 6 days (full 7 day course of abx). - h/o prior PSAE - Consulted ID to follow for UTI/ C diff. Diabetes mellitus - Insulin sliding scale Hypertension - Hold antihypertensive meds due to SIRS and possible GI bleeding GERD - Protonix IV twice a day Hyperlipidemia -Pravachol Neuropathy - Gabapentin Anemia - Positive Hemoccult - Protonix IV twice a day - GI consult noted Acute protein calorie malnutrition- severe - jevity 1.5 TF per OG tube when OK with GI - nutrition consult for recs DVT GI prophylaxis - Teds SCDs - Hold pharmacological DVT prophylaxis due to positive Hemoccult - Protonix IV twice a day Dispo: We'll transfer out of ICU to [facility] close to nursing station if neuro status okay off Precedex. palliative care following. We'll consult and transfer to hospitalist service for further medical management. Gibson Hall MD Apr 01, 2017 11:04
--- NOTE | 2017-04-01 12:01 | HHI.HCPN ---
Reason for visit a. To assist with evaluation and management of symptoms including: Dyspnea b. To assist medical decision maker(s) with: better understanding of current medical conditions; weighing benefits/burdens of medical treatment options; making medical treatment decisions. Subjective/Interval History Pt is 89 year that came in with altered mental status. 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 Pt found to have UTI, C. diff, hypercarbic respiratory failure intubated 03/28 and medically extubated. Pt medically extubated yesterday, was confused, could not designated HCS. On my visit pt remains confused, when I ask him a questions, he answered something else completely different. Could follow some commands, Precedex is stopped. He is hypothermic, and on a bear hugger. No residual with tube feedings today. . Family/friend interactions Met with pt's proxy Inessa Madera, and her Heriberto Madera. Answered questions, updated them on pt's current situation. Readdress medical concern of his fraility and deconditioning, and the challenges he faces. They saw him and agree that pt is still very confused and has no capacity to make medical decisions. Goals of care are as follows: ==DNR/DNI, as they stated pt likely would not want that again. "He is a free bird." ==Palliative Care will continue to follow and see if capacity improves to the point where he can make medical decisions himself. If capacity comes back, goc/ code status will be pose to patient. == Ms. Madera will give him a few days; if mentation does not improve, conversation regarding hospice could be reinitiated. Ms. Madera is a volunteer with hospice before. == In the mean time goals of care is aggressive short of resuscitation/ intubation. Advance Directives Living Will: Never completed Health Care Surrogate: Never completed Objective Vital Signs Date Time Temp Pulse Resp B/P (MAP) Pulse Ox O2 Delivery O2 Flow Rate FiO2 04/01/17 07:34 97 Nasal Cannula 3.00 04/01/17 06:00 79 04/01/17 04:00 97.4 72 14 104/56 (72) 99 04/01/17 04:00 72 04/01/17 02:00 79 04/01/17 00:00 75 04/01/17 00:00 97.4 75 13 106/58 (74) 100 03/31/17 22:00 71 03/31/17 20:00 97.6 70 12 93/50 (64) 96 03/31/17 20:00 70 03/31/17 19:34 98 Nasal Cannula 5.00 03/31/17 18:00 106 03/31/17 16:00 84 03/31/17 16:00 98.0 84 15 113/57 (75) 100 03/31/17 14:27 100 Nasal Cannula 3 03/31/17 14:27 100 Nasal Cannula 3.00 03/31/17 14:00 81 03/31/17 14:00 35 03/31/17 12:00 97.4 64 7 91/54 (66) 97 03/31/17 12:00 35 03/31/17 12:00 64 03/31/17 11:49 99 35 Intake & Output 04/01/17 04/01/17 07:00 19:00 Intake Total 1892.6 ml Output Total 445 ml Balance 1447.6 ml Intake IV Total 1362.6 ml Tube Feeding 470 ml Tube Irrigant 60 ml Output Urine Total 370 ml Stool Total 75 ml Physical Exam CONSTITUTIONAL/GENERAL: This is a chronically ill-appearing patient,appears comfortable extubated, on restraints. TUBES/LINES/DRAINS: Peripheral IV upper extremities, suprapubic catheter, rectal bag, ET tube, OG tube SKIN: No jaundice, rashes, or lesions. Several areas of ecchymosis upper extremities, hands. Skin warm. CARDIOVASCULAR: Regular rate and rhythm without murmurs. No JVD. Peripheral pulses symmetric. 1+ edema bilateral hands, no pedal edema. RESPIRATORY/CHEST: Symmetric, unlabored respirations on mechanical vent, CPAP. Clear to auscultation. Breath sounds equal bilaterally. GASTROINTESTINAL: Abdomen soft, no apparent tenderness, nondistended. No palpable masses. Bowel sounds present. OG-tube clamped. GENITOURINARY: Without palpable bladder distension. Suprapubic catheter in place some erythema/irritation around insertion site. Draining dark yellow urine MUSCULOSKELETAL: Extremities without clubbing, cyanosis, or edema. No joint effusion noted. . No mottling or clubbing. NEUROLOGICAL: Awake -eyes open spontaneously. Gazes around room, does not track examiner. follows simple commands to move hands, does not answer questions appropriately. PSYCHIATRIC: appears comfortable, limited assessment . Diagnostic Tests Laboratory Laboratory Tests Test 03/30/17 05:48 03/31/17 03:26 04/01/17 03:37 White Blood Count 8.3 TH/MM3 (4.0-11.0) 10.3 TH/MM3 (4.0-11.0) 7.9 TH/MM3 (4.0-11.0) Red Blood Count 3.64 MIL/MM3 (4.50-5.90) 3.48 MIL/MM3 (4.50-5.90) 3.02 MIL/MM3 (4.50-5.90) Hemoglobin 10.5 GM/DL (13.0-17.0) 10.2 GM/DL (13.0-17.0) 8.8 GM/DL (13.0-17.0) Hematocrit 33.0 % (39.0-51.0) 31.4 % (39.0-51.0) 26.9 % (39.0-51.0) Mean Corpuscular Volume 90.5 FL (80.0-100.0) 90.1 FL (80.0-100.0) 88.9 FL (80.0-100.0) Mean Corpuscular Hemoglobin 28.9 PG (27.0-34.0) 29.2 PG (27.0-34.0) 29.0 PG (27.0-34.0) Mean Corpuscular Hemoglobin Concent 31.9 % (32.0-36.0) 32.4 % (32.0-36.0) 32.6 % (32.0-36.0) Red Cell Distribution Width 17.4 % (11.6-17.2) 17.4 % (11.6-17.2) 17.3 % (11.6-17.2) Platelet Count 185 TH/MM3 (150-450) 211 TH/MM3 (150-450) 175 TH/MM3 (150-450) Mean Platelet Volume 8.2 FL (7.0-11.0) 7.8 FL (7.0-11.0) 7.2 FL (7.0-11.0) Neutrophils (%) (Auto) 69.2 % (16.0-70.0) Lymphocytes (%) (Auto) 19.5 % (9.0-44.0) Monocytes (%) (Auto) 6.8 % (0.0-8.0) Eosinophils (%) (Auto) 3.6 % (0.0-4.0) Basophils (%) (Auto) 0.9 % (0.0-2.0) Neutrophils # (Auto) 5.7 TH/MM3 (1.8-7.7) Lymphocytes # (Auto) 1.6 TH/MM3 (1.0-4.8) Monocytes # (Auto) 0.6 TH/MM3 (0-0.9) Eosinophils # (Auto) 0.3 TH/MM3 (0-0.4) Basophils # (Auto) 0.1 TH/MM3 (0-0.2) CBC Comment DIFF FINAL Differential Comment Blood Urea Nitrogen 15 MG/DL (7-18) 12 MG/DL (7-18) 11 MG/DL (7-18) Creatinine 0.75 MG/DL (0.60-1.30) 0.84 MG/DL (0.60-1.30) 0.75 MG/DL (0.60-1.30) Random Glucose 103 MG/DL (74-106) 71 MG/DL (74-106) 102 MG/DL (74-106) Calcium Level 7.7 MG/DL (8.5-10.1) 8.0 MG/DL (8.5-10.1) 7.7 MG/DL (8.5-10.1) Sodium Level 149 MEQ/L (136-145) 153 MEQ/L (136-145) 151 MEQ/L (136-145) Potassium Level 3.3 MEQ/L (3.5-5.1) 3.6 MEQ/L (3.5-5.1) 3.1 MEQ/L (3.5-5.1) Chloride Level 121 MEQ/L (98-107) 122 MEQ/L (98-107) 122 MEQ/L (98-107) Carbon Dioxide Level 15.9 MEQ/L (21.0-32.0) 18.5 MEQ/L (21.0-32.0) 18.5 MEQ/L (21.0-32.0) Anion Gap 12 MEQ/L (5-15) 13 MEQ/L (5-15) 11 MEQ/L (5-15) Estimat Glomerular Filtration Rate 98 ML/MIN (>89) 86 ML/MIN (>89) 98 ML/MIN (>89) Result Diagram: 04/01/1733604/01/17336 Imaging Last Impressions Abdomen X-Ray 03/30/17 0000 Signed Impressions: Service Date/Time: Thursday, March 30, 2017 19:05 - CONCLUSION: 1. No evidence of obstruction. Reymundo Kinney MD Chest X-Ray 03/28/17 0000 Signed Impressions: Service Date/Time: Tuesday, March 28, 2017 14:41 - CONCLUSION: ET tube in satisfactory position. NG tube coils in the pharynx and does not quite reach the stomach. Worsening aeration. Rahul Beaver MD Abdomen/Pelvis CT 03/27/17 0000 Signed Impressions: Service Date/Time: Monday, March 27, 2017 22:38 - CONCLUSION: 1. There is a distended urinary bladder despite a Crooks catheter and suprapubic catheter. There is resulting hydronephrosis and hydroureter. 2. Colonic diverticulosis. 3. Pneumobilia without biliary dilatation. This would suggest sphincterotomy. Melquiades Najera Jr., MD Procedures 03/28 intubated . Assessment and Plan Disease Oriented Problem List: (1) GERD (gastroesophageal reflux disease) (2) Hyperlipidemia (3) Hypertension (4) C. 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 Prior to that lived in an [place] setting for about 7 years. Has known local friend and contact Inessa for about 10 years, they met when they were neighbors before he lived in [facility]. Patient originally from [place] has lived in [place] for many years. many years ago. 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 Has a brother who is , and [id number] whom he has not been in close communication with recently. He does have 2 adult daughters whom he has been estranged from since they were young children; friend Inessa is trying to find out their names and possible location from sister in law.[unable to locate per accurint 03/31/17] Spiritual: [employer] Legal:Patient is currently unable to participate in decision-making due to medical condition. Does not appear to have advanced directive or HCS designation. Apparently his brother is , sister in law lives out of state. . Has 2 adult daughters whose name are not known at this time however they would be appropriate proxy decision maker per [place] statutes if they can be located. Local friend Inessa is working to find out their names and possible location. If these 2 daughters cannot be located or do not wish to serve as decision makers then decision-making proxy would move onto other close friends and/or relatives. Ethical issues impacting care: Important Contacts Friend Inessa Madera [phone] Friend Haley [phone] Found in old admission record 2010 brother Brenton Toscano [phone] ; cesilia lives in [place] Prognosis This patient has had a few recent hospital visits, with UTI 03/22, and admission for sepsis 02/03 through 02/09. He has multiple medical comorbidities. He is quite deconditioned. Possible he can survive current acute hospitalization however he remains at risk for ongoing complications and setbacks and recurrent hospitalizations. . Code Status: Full Code Plan * Capacity: follow some commands, still confused and frail. Could not weigh the risk and benefits of medical decisions. * Legal decision maker:Palliative care informed patient may have 2 adult daughters, Neema Toscano possibly around 60 and Maricruz Toscano possibly around 65. Last names may be changed if ? Patient is originally from [place]. Accurints requested and no information obtained. Google search and social media search was unable to produce possible match. Mr. Toscano is supported by friend , Chantel. No family readily available, per [place] Statutes medical proxy decision making would fall to a close friend or relative. Unless patient becomes able to make his own medical decisions or designate HCS himself. Health Care Proxy is Inessa Madera. * Goals of care 1)DNR/DNI, as they stated pt likely would not want that again. "He is a free bird." 2)Palliative Care will continue to follow and see if capacity improves to the point where he can make medical decisions himself. If capacity comes back, goc/ code status will be pose to patient. 3) Ms. Madera will give him a few days; if mentation does not improve , conversation regarding hospice could be reinitiated. Ms. Madera is a volunteer with hospice before. 4) In the mean time goals of care is aggressive short of resuscitation/intubation. * CODE STATUS: DNR/DNI * SYMPTOMS: --Anxiety/depression-friend indicates he has been somewhat depressed recently secondary to his loss of independence in general health decline. Potentially could benefit long-term from SSRI, postextubation/when medical condition stabilized --Malnutrition-early intubated and unable to take oral nutrition; albumin 2.3. Pending swallow/speech eval. Friend state appetite has been poor. * Palliative care will continue to follow during hospital course as condition evolves, to assist patient/decision-maker with understanding of medical conditions, weighing benefits/burdens of treatment options, for clarification of goals of treatment. Additionally will assist with any symptoms of palliative concern . Time Spent Total Floor Time (mins): 45 Face to Face Time (mins): 25 Attestation To help prompt me to consider important information that might be impacting today's encounter and assessment, information from prior notes written by myself or my colleagues may have been "brought forward" into today's note. My signature on this note, however, is an attestation that I personally performed the exam, history, and/or decision-making noted today, and, unless otherwise indicated, the interactions with patient, family, and staff as well as the review of records all occurred today. I also attest that the listed assessment and stated plan reflect my best clinical judgment today based on the combination of historical information, prior notes, and today's exam/ interactions. When time spent is documented, it refers only to time spent today by the signer, or if indicated, combined time spent today by collaborating physician/nurse practitioner. Chester Kamara MD Apr 01, 2017 12:01
--- NOTE | 2017-04-01 12:43 | HHI.GIFU ---
Subjective Remarks Resting in bed. Was extubated yesterday. NGT with TF. Had enemas yesterday and large amount of liquid stool. Has rectal bag now with liquid green stool. CDIff not sent yet. (Aline Whiteside) Objective Vitals I&O Vital Signs Date Time Temp Pulse Resp B/P (MAP) Pulse Ox O2 Delivery O2 Flow Rate FiO2 04/01/17 07:34 97 Nasal Cannula 3.00 04/01/17 06:00 79 04/01/17 04:00 97.4 72 14 104/56 (72) 99 04/01/17 04:00 72 04/01/17 02:00 79 04/01/17 00:00 75 04/01/17 00:00 97.4 75 13 106/58 (74) 100 03/31/17 22:00 71 03/31/17 20:00 97.6 70 12 93/50 (64) 96 03/31/17 20:00 70 03/31/17 19:34 98 Nasal Cannula 5.00 03/31/17 18:00 106 03/31/17 16:00 84 03/31/17 16:00 98.0 84 15 113/57 (75) 100 03/31/17 14:27 100 Nasal Cannula 3 03/31/17 14:27 100 Nasal Cannula 3.00 03/31/17 14:00 81 03/31/17 14:00 35 I/O 03/31/17 03/31/17 03/31/17 04/01/17 04/01/17 04/01/17 07:00 15:00 23:00 07:00 15:00 23:00 Intake Total 1078 ml 200 ml 1692.6 ml Output Total 900 ml 375 ml 445 ml Balance 178 ml -175 ml 1247.6 ml Intake IV Total 1078 ml 200 ml 1162.6 ml Tube Feeding 470 ml Tube Irrigant 60 ml Output Urine Total 325 ml 375 ml 370 ml Stool Total 75 ml Gastric Drainage Total 575 ml Laboratory Laboratory Tests Test 04/01/17 03:37 White Blood Count 7.9 Red Blood Count 3.02 Hemoglobin 8.8 Hematocrit 26.9 Mean Corpuscular Volume 88.9 Mean Corpuscular Hemoglobin 29.0 Mean Corpuscular Hemoglobin Concent 32.6 Red Cell Distribution Width 17.3 Platelet Count 175 Mean Platelet Volume 7.2 Blood Urea Nitrogen 11 Creatinine 0.75 Random Glucose 102 Calcium Level 7.7 Sodium Level 151 Potassium Level 3.1 Chloride Level 122 Carbon Dioxide Level 18.5 Anion Gap 11 Estimat Glomerular Filtration Rate 98 Date/Time Source Procedure Growth Status 03/26/17 18:55 Blood Peripheral Aerobic Blood Culture - Final NO GROWTH IN 5 DAYS Complete 03/26/17 18:55 Blood Peripheral Anaerobic Blood Culture - Final NO GROWTH IN 5 DAYS Complete 03/26/17 18:35 Urine Catheterized Urine Urine Culture - Final Escherichia Coli Klebsiella Pneumoniae Complete Imaging Last Impressions Abdomen X-Ray 03/30/17 0000 Signed Impressions: Service Date/Time: Thursday, March 30, 2017 19:05 - CONCLUSION: 1. No evidence of obstruction. Reymundo Kinney MD Chest X-Ray 03/28/17 0000 Signed Impressions: Service Date/Time: Tuesday, March 28, 2017 14:41 - CONCLUSION: ET tube in satisfactory position. NG tube coils in the pharynx and does not quite reach the stomach. Worsening aeration. Rahul Beaver MD Abdomen/Pelvis CT 03/27/17 0000 Signed Impressions: Service Date/Time: Monday, March 27, 2017 22:38 - CONCLUSION: 1. There is a distended urinary bladder despite a Crooks catheter and suprapubic catheter. There is resulting hydronephrosis and hydroureter. 2. Colonic diverticulosis. 3. Pneumobilia without biliary dilatation. This would suggest sphincterotomy. Melquiades Najera Jr., MD Physical Exam HEENT: Normocephalic; atraumatic. CHEST: OETT to vent. Course breath sounds throughout CARDIAC: RRR ABDOMEN: Soft, nondistended, no hepatosplenomegaly; hypoactive bowel sounds. Rectal bag with liquid stool EXTREMITIES: Generalized edema. SKIN: Generalized pallor FINISH CARPENTER: Lethargic, follows commands. (Aline Whiteside) Assessment and Plan Plan ASSESSMENT: - Anemia, Hemoccult (+) Stool. His H/H was noted to be 11.4/24.4 on 03/22/17. On admission, this was 8.1/24.4. Hemoccult (+). EGD (08/26/10)---> Large duodenal bulb ulcer, duodenitis, very edematous mucosa , bx, gastritis in the antrum, bx, esophagitis, schatzki's ring. Pathology with small bowel mucosa with no significant histopathologic abnormalities, antral mucosa with very focal mild active chronic gastritis, esophageal bx with squamous mucosa with mild reflux esophagitis. S/P 1 units of PRBC HH dropped from 10.2/31.4---> 8.8/26.9 today. No signs of active bleeding. Will get repeat HH this afternoon. Protonix with BID dosing. - Duodenal bulb ulcer. Protonix with BID dosing. - Abdominal distention, high residual. On tx for CDiff, although stool has not been sent during this admission. KUB (03/30/17)---> No evidence of obstruction, contrast present from CT scan. S/P SSE x 2, had BM. Now with liquid stool in rectal bag. Less distended. TF at 20cc/hr. No abdominal pain. Will get swallow evaluation. Miralax, but will hold if diarrhea. - Abdominal pain. CT of abd/pelvis on (03/27/17) showed distended urinary bladder despite a Crooks catheter and suprapubic catheter, there hydronephrosis and hydroureter, colonic diverticulosis, pneumobilia with out biliary dilatation, would suggest sphincterotomy - C Difficile Diarrhea. He was on tx at snf. CT as above Send stool for CDiff as ordered. Oral vanco/flagyl. - Leukocytosis. WBC 7.9. Blood cultures no growth in 5 days. UTI with E. Coli , Klebsiella pneumoniae, recently with PSAE. Stool needs to be sent for cdiff as ordered. D/W nurse- liquid stool in bag. - AMS, likely secondary to infection. Per CCM - Resp. Failure. S/P extubation. - DM, HTN, Hyperlipidemia per CCM - Hx dilated common bile, pancreatic duct on MRCP in 2010. Has hx of cholelithiasis and has required ERCP with sphincterotomy in past. LFTs okay. PLAN: - Increase Jevity 1.5 to 60cc/hr as tolerated - ST for swallow evaluation - Miralax 17 gram per tube daily- hold for diarrhea - Cont. Reglan - Cont. PPI - Cont. Oral Vanco/Flagyl - Abx per CCM - Awaiting CDiff, d/w nurse - Check H/H at 1600 - Transfuse as needed - CBC in am - Supportive care - Further recommendations to follow based on results of above - Pt seen and examined by Dr. Gómez and myself and this note is written on his behalf (Aline Whiteside) Physician Comments Seen and examined with ORAL, good response to enemas. Stool studies-p. TF as tolerated. (Latonya Gómez MD) Aline Whiteside Apr 01, 2017 12:43 Latonya Gómez MD Apr 01, 2017 16:10
--- NOTE | 2017-04-01 17:10 | PD.ID.CON ---
History of Present Illness Service ID Consult Requested By Dr Jayna Hall Reason for Consult UTI, C.diff Primary Care Physician Otis Centeno MD Diagnoses: History of Present Illness 89 yo male with multiple med problems presented on 03/26 from his assisted living facility for evaluation of altered mental status. He reportedly was on oral vancomycin for C.diff Ct showed distended urinary bladder despite a Crooks catheter and suprapubic catheter. There is resulting hydronephrosis and hydroureter. Urologist changed SP cath and now has nl urine flow UA with marked pyuria, urine cultures + Kleb and E.coli Pt was intubated for airway protection on 2nd day of admission and was extubated today He is afebrile His BP is borderline, but not on pressors Very confused RN reports hypothermia with temps in 94 range, requires bear cesar Review of Systems ROS Limitations: Clinical Condition, Altered Mental Status Past Family Social History Allergies: Coded Allergies: penicillin G (Unverified Allergy, Unknown, 03/26/17) Past Medical History BPH Cholelithiasis Cataract Chronic anemia CKD DM GERD Hyperlipidemia Hypothyroidism Hx pulmonary nodule Hepatomegaly Malignant neoplasm of ear Meningioma Vitamin D insufficiency Duodenal ulcer Esophagitis Cholelithiasis CDifficile Urinary retention Recurrent UTI Past Surgical History EGD ERCP with sphincterotomy Bilateral inguinal hernia repair Tonsillectomy Suprapubic catheter placements Active Ordered Medications Medications where reviewed in EMR Antibiotics Include: CFTX po vancomycin Family History Family history reviewed from chart and nursing, noncontributory to present illness. No immediate family available per nursing staff Pt is too confused to relay any history Social History Per chart, no history of tobacco or ETOH in chart from residential Physical Exam Vital Signs Vital Signs Date Time Temp Pulse Resp B/P (MAP) Pulse Ox O2 Delivery O2 Flow Rate FiO2 04/01/17 16:37 99 Nasal Cannula 3.00 04/01/17 07:34 97 Nasal Cannula 3.00 04/01/17 06:00 79 04/01/17 04:00 97.4 72 14 104/56 (72) 99 04/01/17 04:00 72 04/01/17 02:00 79 04/01/17 00:00 75 04/01/17 00:00 97.4 75 13 106/58 (74) 100 03/31/17 22:00 71 03/31/17 20:00 97.6 70 12 93/50 (64) 96 03/31/17 20:00 70 03/31/17 19:34 98 Nasal Cannula 5.00 03/31/17 18:00 106 Physical Exam CONSTITUTIONAL/GENERAL: This is an adequately nourished patient, in no apparent distress. TUBES/LINES/DRAINS: SKIN: No jaundice, rashes, or lesions. Skin temperature appropriate. Not diaphoretic. HEAD: Atraumatic. Normocephalic. EYES: Pupils equal and round and reactive. Extraocular motions intact. No scleral icterus. No injection or drainage. Fundi not examined. ENT: Hearing grossly normal. Nose without bleeding or purulent drainage. Oral mucosae without visible erythema, exudates, masses, or lesions. Poor dentition NECK: Trachea midline. Supple, nontender. No palpable thyroid enlargement or nodularity. CARDIOVASCULAR: Regular rate and rhythm without murmurs, gallops, or rubs. No JVD. Peripheral pulses symmetric. RESPIRATORY/CHEST: Symmetric, unlabored respirations. Clear to auscultation. Breath sounds equal bilaterally. No wheezes, rales, or rhonchi. GASTROINTESTINAL: Abdomen soft, non-tender, nondistended. No hepato-splenomegaly , or palpable masses. No guarding. Bowel sounds present. GENITOURINARY: Without palpable bladder distension. SP catheter in place with clear yellow urine Penis is hidden MUSCULOSKELETAL: Extremities without clubbing, cyanosis, 1+ edema. No calf tenderness. No mottling or clubbing. LYMPHATICS: No palpable cervical or supraclavicular adenopathy. NEUROLOGICAL: Awake and alert. Very confused Follows commands. Speech grossly incoherent Moves all extremities. PSYCHIATRIC: appears calm Laboratory Laboratory Tests Test 04/01/17 03:37 White Blood Count 7.9 Red Blood Count 3.02 Hemoglobin 8.8 Hematocrit 26.9 Mean Corpuscular Volume 88.9 Mean Corpuscular Hemoglobin 29.0 Mean Corpuscular Hemoglobin Concent 32.6 Red Cell Distribution Width 17.3 Platelet Count 175 Mean Platelet Volume 7.2 Blood Urea Nitrogen 11 Creatinine 0.75 Random Glucose 102 Calcium Level 7.7 Sodium Level 151 Potassium Level 3.1 Chloride Level 122 Carbon Dioxide Level 18.5 Anion Gap 11 Estimat Glomerular Filtration Rate 98 Date/Time Source Procedure Growth Status 03/26/17 18:55 Blood Peripheral Aerobic Blood Culture - Final NO GROWTH IN 5 DAYS Complete 03/26/17 18:55 Blood Peripheral Anaerobic Blood Culture - Final NO GROWTH IN 5 DAYS Complete 03/26/17 18:35 Urine Catheterized Urine Urine Culture - Final Escherichia Coli Klebsiella Pneumoniae Complete Result Diagram: 04/01/1733604/01/17336 Imaging Last Impressions Abdomen X-Ray 03/30/17 0000 Signed Impressions: Service Date/Time: Thursday, March 30, 2017 19:05 - CONCLUSION: 1. No evidence of obstruction. Reymundo Kinney MD Chest X-Ray 03/28/17 0000 Signed Impressions: Service Date/Time: Tuesday, March 28, 2017 14:41 - CONCLUSION: ET tube in satisfactory position. NG tube coils in the pharynx and does not quite reach the stomach. Worsening aeration. Rahul Beaver MD Abdomen/Pelvis CT 03/27/17 0000 Signed Impressions: Service Date/Time: Monday, March 27, 2017 22:38 - CONCLUSION: 1. There is a distended urinary bladder despite a Coroks catheter and suprapubic catheter. There is resulting hydronephrosis and hydroureter. 2. Colonic diverticulosis. 3. Pneumobilia without biliary dilatation. This would suggest sphincterotomy. Melquiades Najera Jr., MD Assessment and Plan Assessment and Plan UTI, Kleb, E.coli in acute urinary retention settings (clogged SP cath) Underlying BPH C.diff, on oral vanco Metabolic encephalopathy Resolved acute VDRF cont CFTX cont vanco PO Yumiko Johnson MD Apr 01, 2017 17:10
[2017-04-01 17:21] LABS: HEMATOCRIT 29.5 % (39.0-51.0); REVIEW FLAG FINAL
[2017-04-01 22:20] LABS: C. DIFF EPI 027 PRESUMPTIVE POSITIVE (NEGATIVE)
[2017-04-02] VITALS (14 sets, daily range): BP systolic 122–156; BP diastolic 63–76; PULSE 92–111; RESP 17–25; TEMP 97.5–98.4; O2SAT 96–98
[2017-04-02] MEDS: ARTIFICIAL TEARS OPTH SOLN 15 ML BTL EACH EYE SCH ×7 (00:06→23:18)
[2017-04-02] MEDS: CIPROFLOXACIN 0.3% OPTH SOLN 2.5 ML BTL EACH EYE SCH ×7 (00:06→23:17)
[2017-04-02] MEDS: SODIUM CHLOR 0.9% 1000 ML INJ 1,000 ML IV SCH (00:06)
[2017-04-02] MEDS: metroNIDAZOLE 500 MG INJ 100 ML IV SCH ×3 (01:23→17:40)
[2017-04-02] MEDS: POTASSIUM CHLOR 20 MEQ PREMIX 100 ML IV PRN ×2 (02:42→04:39)
[2017-04-02] MEDS: CHLORHEXIDINE GLUCONATE 2 % 1 PACK (2 CLOTHS) TOP SCH (04:00)
[2017-04-02] MEDS: PANTOPRAZOLE SODIUM 40 MG VIAL IV PUSH SCH ×2 (04:38→17:39)
[2017-04-02] MEDS: LEVOTHYROXINE SODIUM 112 MCG TAB PO SCH (04:39)
[2017-04-02] MEDS: METOCLOPRAMIDE HCL 10 MG/2 ML VIAL IV PUSH SCH ×3 (04:39→21:14)
[2017-04-02] MEDS: INSULIN NovoLIN REGULAR SUPPLEMENTAL SCALE SQ SCH ×5 (05:51→23:27)
[2017-04-02 08:45] LABS: HEMATOCRIT 29.5 % (39.0-51.0); MEAN CORPUSCULAR HEMOGLOBIN 29.7 PG (27.0-34.0); MEAN CORPUSCULAR HGB CONC 33.7 % (32.0-36.0); PLATELET COUNT 228 TH/MM3 (150-450); RED BLOOD COUNT 3.36 MIL/MM3 (4.50-5.90); RED CELL DISTRIBUTION WIDTH 16.9 % (11.6-17.2); REVIEW FLAG FINAL
[2017-04-02 09:11] LABS: BICARBONATE 20.4 MEQ/L (21.0-32.0); POTASSIUM 3.6 MEQ/L (3.5-5.1)
[2017-04-02] MEDS: VANCOMYCIN 500 MG VIAL (FOR ORAL USE ONLY) PO SCH ×4 (09:59→21:14)
[2017-04-02] MEDS: PRAVASTATIN SOD 20 MG TAB PO SCH (09:59)
[2017-04-02] MEDS: POLYETHYLENE GLYCOL 17 GM PKG NG SCH (09:59)
[2017-04-02] MEDS: cefTRIAXone INJ 1,000 MG in SODIUM CHLORIDE 0.9% INJ 100 ML IV SCH (09:59)
[2017-04-02] MEDS: CHOLECALCIFEROL (VIT D3) 1000 UNIT TAB PO SCH (09:59)
[2017-04-02] MEDS: LACTIC ACID (AMMONIUM LACTATE) 12% LOTION 225 GM BTL TOPICAL SCH ×2 (10:00→21:14)
[2017-04-02] MEDS: SODIUM CHLORIDE 0.9% FLUSH 10 ML FLUSH IV FLUSH SCH ×2 (10:09→21:14)
--- NOTE | 2017-04-02 11:35 | HHI.HCPN ---
Reason for visit a. To assist with evaluation and management of symptoms including: Dyspnea b. To assist medical decision maker(s) with: better understanding of current medical conditions; weighing benefits/burdens of medical treatment options; making medical treatment decisions. Subjective/Interval History Pt is 89 year old admitted w/ altered mental status. 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 Pt found to have UTI, C. diff , hypercarbic respiratory failure intubated 03/28 and now medically extubated ( extub 03/31) . Cont to tolerate NC. S/p ID consult for cdiff-- on Vanco, ceftriaxone. Repeat blood culture from 04/[address] following, pt cleared for puree food w honey thick liquids. Still receiving TF via NGT. Pt seen in room no visitors present. He is alert, oriented to self, , age, though not able to name location, president or answer other situational questions. Does not appear in pain or distress. Very talkative-- speech is garbled at times and difficult to understand. he does follow simple commands, does not follow more complex commands. Not able to make decisions at this time. . Family/friend interactions * following exam call to friend/proxy-- VM left . Advance Directives Living Will: Never completed Health Care Surrogate: Never completed Objective Vital Signs Date Time Temp Pulse Resp B/P (MAP) Pulse Ox O2 Delivery O2 Flow Rate FiO2 04/02/17 07:15 96 Nasal Cannula 3.00 04/02/17 06:00 92 04/02/17 04:00 105 04/02/17 04:00 97.9 105 25 140/76 (97) 97 04/02/17 02:00 107 04/02/17 00:00 97.7 106 20 127/70 (89) 96 04/02/17 00:00 106 04/01/17 22:00 121 04/01/17 20:10 97 Nasal Cannula 3.00 04/01/17 20:00 97.4 109 28 150/74 (99) 99 04/01/17 20:00 109 04/01/17 18:00 101 04/01/17 16:37 99 Nasal Cannula 3.00 04/01/17 16:00 96.1 96 21 137/85 (102) 100 04/01/17 16:00 96 04/01/17 14:00 89 04/01/17 12:00 96.0 85 21 128/72 (90) 100 04/01/17 12:00 85 Intake & Output 04/02/17 04/02/17 07:00 19:00 Intake Total 2187 ml Output Total 1000 ml Balance 1187 ml Intake IV Total 1810 ml Tube Feeding 377 ml Output Urine Total 1000 ml Physical Exam CONSTITUTIONAL/GENERAL: This is a chronically ill-appearing patient,appears comfortable TUBES/LINES/DRAINS: Peripheral IV upper extremities, suprapubic catheter, rectal bag, NGT, NC SKIN: No jaundice, rashes, or lesions. Several areas of ecchymosis upper extremities, hands, + redness to hands. Skin warm. CARDIOVASCULAR: Regular rate and rhythm without murmurs. No JVD. Peripheral pulses symmetric. 1+ edema bilateral hands, no pedal edema. RESPIRATORY/CHEST: Symmetric, unlabored respirations NC, lungs clear. Breath sounds equal bilaterally. GASTROINTESTINAL: Abdomen soft, no apparent tenderness, nondistended. No palpable masses. Bowel sounds present. NGT w TF infusing. GENITOURINARY: Without palpable bladder distension. Suprapubic catheter in place some erythema/irritation around insertion site. Draining dark yellow urine MUSCULOSKELETAL: Extremities without clubbing, cyanosis, or edema. No joint effusion noted. . No mottling or clubbing. NEUROLOGICAL: Awake oriented to self, , age, confused otherwise. Follows simple commands, does not follow complex commands. No insight to hospitalization. moves all 4 extremities. PSYCHIATRIC: appears comfortable, limited assessment . Diagnostic Tests Laboratory Laboratory Tests Test 03/31/17 03:26 04/01/17 03:37 04/01/17 16:51 04/01/17 18:00 White Blood Count 10.3 TH/MM3 (4.0-11.0) 7.9 TH/MM3 (4.0-11.0) Red Blood Count 3.48 MIL/MM3 (4.50-5.90) 3.02 MIL/MM3 (4.50-5.90) Hemoglobin 10.2 GM/DL (13.0-17.0) 8.8 GM/DL (13.0-17.0) 9.6 GM/DL (13.0-17.0) Hematocrit 31.4 % (39.0-51.0) 26.9 % (39.0-51.0) 29.5 % (39.0-51.0) Mean Corpuscular Volume 90.1 FL (80.0-100.0) 88.9 FL (80.0-100.0) Mean Corpuscular Hemoglobin 29.2 PG (27.0-34.0) 29.0 PG (27.0-34.0) Mean Corpuscular Hemoglobin Concent 32.4 % (32.0-36.0) 32.6 % (32.0-36.0) Red Cell Distribution Width 17.4 % (11.6-17.2) 17.3 % (11.6-17.2) Platelet Count 211 TH/MM3 (150-450) 175 TH/MM3 (150-450) Mean Platelet Volume 7.8 FL (7.0-11.0) 7.2 FL (7.0-11.0) Blood Urea Nitrogen 12 MG/DL (7-18) 11 MG/DL (7-18) Creatinine 0.84 MG/DL (0.60-1.30) 0.75 MG/DL (0.60-1.30) Random Glucose 71 MG/DL (74-106) 102 MG/DL (74-106) Calcium Level 8.0 MG/DL (8.5-10.1) 7.7 MG/DL (8.5-10.1) Sodium Level 153 MEQ/L (136-145) 151 MEQ/L (136-145) Potassium Level 3.6 MEQ/L (3.5-5.1) 3.1 MEQ/L (3.5-5.1) Chloride Level 122 MEQ/L (98-107) 122 MEQ/L (98-107) Carbon Dioxide Level 18.5 MEQ/L (21.0-32.0) 18.5 MEQ/L (21.0-32.0) Anion Gap 13 MEQ/L (5-15) 11 MEQ/L (5-15) Estimat Glomerular Filtration Rate 86 ML/MIN (>89) 98 ML/MIN (>89) Stool C. difficile Toxin (PCR) POSITIVE (NEGATIVE) Stl C. difficile Toxin Epiderm 027 PRESUMPTIVE POSITIVE Test 04/02/17 01:15 04/02/17 08:15 Potassium Level 3.5 MEQ/L (3.5-5.1) 3.6 MEQ/L (3.5-5.1) White Blood Count 8.0 TH/MM3 (4.0-11.0) Red Blood Count 3.36 MIL/MM3 (4.50-5.90) Hemoglobin 10.0 GM/DL (13.0-17.0) Hematocrit 29.5 % (39.0-51.0) Mean Corpuscular Volume 88.0 FL (80.0-100.0) Mean Corpuscular Hemoglobin 29.7 PG (27.0-34.0) Mean Corpuscular Hemoglobin Concent 33.7 % (32.0-36.0) Red Cell Distribution Width 16.9 % (11.6-17.2) Platelet Count 228 TH/MM3 (150-450) Mean Platelet Volume 7.8 FL (7.0-11.0) Blood Urea Nitrogen 8 MG/DL (7-18) Creatinine 0.70 MG/DL (0.60-1.30) Random Glucose 152 MG/DL (74-106) Calcium Level 8.2 MG/DL (8.5-10.1) Sodium Level 149 MEQ/L (136-145) Chloride Level 119 MEQ/L (98-107) Carbon Dioxide Level 20.4 MEQ/L (21.0-32.0) Anion Gap 10 MEQ/L (5-15) Estimat Glomerular Filtration Rate 106 ML/MIN (>89) Result Diagram: 04/02/17 0815 04/02/17 0815 Microbiology Microbiology Date/Time Source Procedure Growth Status 04/01/17 20:10 Blood Peripheral Aerobic Blood Culture - Preliminary NO GROWTH IN 1 DAY Resulted 04/01/17 20:10 Blood Peripheral Anaerobic Blood Culture - Preliminary NO GROWTH IN 1 DAY Resulted 04/01/17 20:05 Blood Peripheral Aerobic Blood Culture - Preliminary NO GROWTH IN 1 DAY Resulted 04/01/17 20:05 Blood Peripheral Anaerobic Blood Culture - Preliminary NO GROWTH IN 1 DAY Resulted Imaging Last Impressions Abdomen X-Ray 03/30/17 0000 Signed Impressions: Service Date/Time: Thursday, March 30, 2017 19:05 - CONCLUSION: 1. No evidence of obstruction. Reymundo Kinney MD Chest X-Ray 03/28/17 0000 Signed Impressions: Service Date/Time: Tuesday, March 28, 2017 14:41 - CONCLUSION: ET tube in satisfactory position. NG tube coils in the pharynx and does not quite reach the stomach. Worsening aeration. Rahul Beaver MD Abdomen/Pelvis CT 03/27/17 0000 Signed Impressions: Service Date/Time: Monday, March 27, 2017 22:38 - CONCLUSION: 1. There is a distended urinary bladder despite a Crooks catheter and suprapubic catheter. There is resulting hydronephrosis and hydroureter. 2. Colonic diverticulosis. 3. Pneumobilia without biliary dilatation. This would suggest sphincterotomy. Melquiades Najera Jr., MD Procedures 03/31 extubated 03/28 intubated . Assessment and Plan Disease Oriented Problem List: (1) GERD (gastroesophageal reflux disease) (2) Hyperlipidemia (3) Hypertension (4) C. difficile colitis (5) Bladder outlet obstruction (6) BPH (benign prostatic hyperplasia) (7) Chronic indwelling Crooks catheter (8) Metabolic encephalopathy (9) Anemia (10) UTI (urinary tract infection) (11) Diabetes (12) Suprapubic catheter dysfunction Symptom Scale: (1) Depression (2) Dyspnea (3) Malnutrition Pertinent Non-Medical Issues Psychosocial: most recently lives at [facility] for rehab following acute hospitalization. Prior to that lived in an [facility] setting for about 7 years. Has known local friend and contact Inessa for about 10 years, they met when they were neighbors before he lived in [facility]. Patient originally from [place] has lived in [place] for many years. many years ago. 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 Has a brother who is , and [id number] whom he has not been in close communication with recently. He does have 2 adult daughters whom he has been estranged from since they were young children; friend Inessa is trying to find out their names and possible location from sister in law.[unable to locate per accurint 03/31/17] Spiritual: Sabianist Legal:Patient is currently unable to participate in decision-making due to medical condition. Does not appear to have advanced directive or HCS designation. Apparently his brother is , sister in law lives out of state. . Has 2 adult daughters whose name are not known at this time however they would be appropriate proxy decision maker per [place] statutes if they can be located. Local friend Inessa is working to find out their names and possible location. If these 2 daughters cannot be located or do not wish to serve as decision makers then decision-making proxy would move onto other close friends and/or relatives. Ethical issues impacting care: Important Contacts Friend Inessa Madera [phone] PROXY as of 03/31/17 Friend Haley [phone] Found in old admission record 2010 brother Brenton Toscano [phone] ; cesliia lives in [place] Prognosis This patient has had a few recent hospital visits, with UTI 03/22, and admission for sepsis 02/03 through 02/09. He has multiple medical comorbidities. He is quite deconditioned. Possible he can survive current acute hospitalization however he remains at risk for ongoing complications and setbacks and recurrent hospitalizations. . Code Status: Full Code Plan * Capacity: following some commands, still confused overall, not able to make decisions can not weigh the risk and benefits of medical decisions. * Legal decision maker: Palliative care informed patient may have 2 adult daughters, Neema Toscano possibly around 60 and Maricruz Toscano possibly around 65. Last names may be changed if ? Patient is originally from [place]. Accurints requested and no information obtained. Google search and social media search was unable to produce possible match. Mr. Toscano is supported by friend Chantel of 10 yrs. No family readily available, per [place] Statutes medical proxy decision making would fall to a close friend or relative. Unless patient becomes able to make his own medical decisions or designate HCS himself. Health Care Proxy is Inessa Madera. * Goals of care 1)DNR/DNI established by proxy 04/02 they stated pt likely would not want that again. "He is a free bird." 2)Palliative Care will continue to follow and see if capacity improves to the point where he can make medical decisions himself. If capacity comes back,GOC/ code status will be addressed w pt 3) PROXY Ms. Madera will give him a few days; if mentation does not improve, conversation regarding hospice could be reinitiated. Ms. Madera is a volunteer with hospice before. 4) In the mean time goals of care aggressive short of resuscitation /intubation. VM left for proxy for update 04/02/17 * CODE STATUS: DNR/DNI * SYMPTOMS: --Anxiety/depression-friend indicates he has been somewhat depressed recently secondary to his loss of independence in general health decline. Potentially could benefit long-term from SSRI, postextubation/when medical condition stabilized --Malnutrition-early intubated and unable to take oral nutrition; albumin 2.3. s/p ST eval-- tolerating puree w honey thick liq. not taking in much, still requiring TF via NGT. Friend stated appetite has been poor. * Palliative care will continue to follow during hospital course as condition evolves, to assist patient/decision-maker with understanding of medical conditions, weighing benefits/burdens of treatment options, for clarification of goals of treatment. Additionally will assist with any symptoms of palliative concern . Time Spent Total Floor Time (mins): 25 (d/w RN, critical care) Attestation To help prompt me to consider important information that might be impacting today's encounter and assessment, information from prior notes written by myself or my colleagues may have been "brought forward" into today's note. My signature on this note, however, is an attestation that I personally performed the exam, history, and/or decision-making noted today, and, unless otherwise indicated, the interactions with patient, family, and staff as well as the review of records all occurred today. I also attest that the listed assessment and stated plan reflect my best clinical judgment today based on the combination of historical information, prior notes, and today's exam/ interactions. When time spent is documented, it refers only to time spent today by the signer, or if indicated, combined time spent today by collaborating physician/nurse practitioner. Lidia Morocho Apr 02, 2017 11:35
--- NOTE | 2017-04-02 13:43 | HHI.PR ---
Subjective Remarks Electrical Design Technician Notes: 03/26: This is a 89 year old male with a history of C Difficile colitis, duodenal bulb ulcer, and dilated common bile duct/pancreatic duct, who was sent from his assisted living facility for evaluation of altered mental status. He is currently extremely somnolent and unable to provide any history and therefore the history has been obtained from the EMR and nursing staff. According to the ER note, he is being treated for C Difficile colitis with oral vancomycin and an UTI with Macrobid. He was recently seen in the ER for urinary retention despite a suprapubic catheter and a regular Montoya catheter was placed and he was referred to urology as outpatient. His H/H was noted to be 11.4/24.4 on 03/22/17. Yesterday this was 8.1/24.4. He was given 2 units of PRBC and today this is 11.5/35.0. GI has been consulted for anemia and hemo- occult positive stool. His abdomen is nondistended, but he does have moderate lower abdominal tenderness on exam. The nurse reports that he has not had a bowel movement on her shift, but was told that he had a small amount of stool overnight. He was admitted to the intensive care unit for altered mental status , SIRS, DM, HTN, GERD, hyperlipidemia, anemia. He was evaluated by our service back in 2010 for abdominal pain with nausea and vomiting and underwent EGD ()---> Large duodenal bulb ulcer, duodenitis, very edematous mucosa, bx, gastritis in the antrum, bx, esophagitis, schatzki's ring. Pathology with small bowel mucosa with no significant histopathologic abnormalities, antral mucosa with very focal mild active chronic gastritis, esophageal bx with squamous mucosa with mild reflux esophagitis. He was also evaluated with MRCP at that time which revealed dilatation of the common bile duct and pancreatic duct with area of beak-like narrowing at the pancreatic head. Of note, he has had gallstones and underwent ERCP with sphincterotomy. 03/27: Remains encephalopathic, laying in bed in no acute distress. 03/28: worsening encephalopathy. unable to protect airway. CT abd/pelvis with evidence of distended bladder with hydronephrosis despite both suprapubic and montoya through penis. attempted to reach family: patient has [id number] sister- in-law, brother , reportedly have not spoken in years. patient has a friend who takes him to breakfast occasionally. She said she would be willing to make healthcare decisions for him, but has never signed paperwork saying that she was the decision maker. when asked about his end-of-life wishes, she does not think he would want to be on a ventilator long-term, but she does not know specifically what his wishes were. He was reportedly a FULL CODE based on SNF documentation. 03/29: intubated yesterday. urine growing e. coli and klebsiella. c. diff PCR still not resulted. borderline hypotensive on propofol. 03/30: Remains encephalopathic orally intubated on mechanical ventilation. 03/31: Awake, encephalopathic, not following commands. Orally intubated on mechanical ventilation. 04/01: Awake, alert, disoriented/encephalopathic, not following commands. Extubated on 03/31, on nasal cannula. Precedex being titrated off. Hospitalist Notes: 04/02: Patient transferred to Hospitalist team starting today, seen in his bedroom, worsening respiratory condition and confused. Objective Vital Signs Date Time Temp Pulse Resp B/P (MAP) Pulse Ox O2 Delivery O2 Flow Rate FiO2 04/02/17 07:15 96 Nasal Cannula 3.00 04/02/17 06:00 92 04/02/17 04:00 105 04/02/17 04:00 97.9 105 25 140/76 (97) 97 04/02/17 02:00 107 04/02/17 00:00 97.7 106 20 127/70 (89) 96 04/02/17 00:00 106 04/01/17 22:00 121 04/01/17 20:10 97 Nasal Cannula 3.00 04/01/17 20:00 97.4 109 28 150/74 (99) 99 04/01/17 20:00 109 04/01/17 18:00 101 04/01/17 16:37 99 Nasal Cannula 3.00 04/01/17 16:00 96.1 96 21 137/85 (102) 100 04/01/17 16:00 96 04/01/17 14:00 89 I/O 04/01/17 04/01/17 04/01/17 04/02/17 04/02/17 04/02/17 07:00 15:00 23:00 07:00 15:00 23:00 Intake Total 1692.6 ml 858 ml 1887 ml Output Total 445 ml 775 ml 1000 ml Balance 1247.6 ml 83 ml 887 ml Intake IV Total 1162.6 ml 300 ml 1510 ml Tube Feeding 470 ml 308 ml 377 ml Tube Irrigant 60 ml Other 250 ml Output Urine Total 370 ml 700 ml 1000 ml Stool Total 75 ml 75 ml Result Diagram: 04/02/17 0815 04/02/17 1238 Imaging Last Impressions Abdomen X-Ray 03/30/17 0000 Signed Impressions: Service Date/Time: Thursday, March 30, 2017 19:05 - CONCLUSION: 1. No evidence of obstruction. Reymundo Kinney MD Chest X-Ray 03/28/17 0000 Signed Impressions: Service Date/Time: Tuesday, March 28, 2017 14:41 - CONCLUSION: ET tube in satisfactory position. NG tube coils in the pharynx and does not quite reach the stomach. Worsening aeration. Rahul Beaver MD Abdomen/Pelvis CT 03/27/17 0000 Signed Impressions: Service Date/Time: Monday, March 27, 2017 22:38 - CONCLUSION: 1. There is a distended urinary bladder despite a Montoya catheter and suprapubic catheter. There is resulting hydronephrosis and hydroureter. 2. Colonic diverticulosis. 3. Pneumobilia without biliary dilatation. This would suggest sphincterotomy. Melquiades Najera Jr., MD Procedures Endotracheal Intubation and Extubation. Other Results Laboratory Tests Test 03/26/17 18:35 03/26/17 18:55 03/26/17 21:47 03/26/17 23:30 Urine Color YELLOW Urine Turbidity CLOUDY Urine pH 5.5 Urine Specific [place] 1.020 Urine Protein 30 mg/dL Urine Glucose (UA) NEG mg/dL Urine Ketones TRACE mg/dL Urine Occult Blood MOD Urine Nitrite POS Urine Bilirubin NEG Urine Urobilinogen LESS THAN 2.0 MG/DL Urine Leukocyte Esterase LARGE Urine RBC 128 /hpf Urine WBC /hpf Urine Transitional Epithelial Cells 2 /hpf Urine Amorphous Sediment RARE Urine Bacteria MANY /hpf Urine Mucus FEW /lpf Microscopic Urinalysis Comment CATH-CULTURE IND Prothrombin Time 12.7 SEC Prothromb Time International Ratio 1.1 RATIO Activated Partial Thromboplast Time 29.2 SEC Blood Urea Nitrogen 14 MG/DL Creatinine 0.93 MG/DL Random Glucose 194 MG/DL Total Protein 5.7 GM/DL Albumin 2.6 GM/DL Calcium Level 7.5 MG/DL Magnesium Level 1.4 MG/DL Alkaline Phosphatase 129 U/L Aspartate Amino Transf (AST/SGOT) 13 U/L Alanine Aminotransferase (ALT/SGPT) 11 U/L Total Bilirubin 0.6 MG/DL Sodium Level 141 MEQ/L Potassium Level 3.9 MEQ/L Chloride Level 110 MEQ/L Carbon Dioxide Level 18.9 MEQ/L Total Creatine Kinase 35 U/L Troponin I LESS THAN 0.02 NG/ML Lactic Acid Level 1.9 mmol/L Nasal Screen MRSA (PCR) MRSA NOT DETECTED Test 03/28/17 04:35 03/28/17 15:05 03/29/17 10:57 03/30/17 05:48 Blood Urea Nitrogen 22 MG/DL Creatinine 1.27 MG/DL Random Glucose 134 MG/DL Total Protein 5.4 GM/DL Albumin 2.3 GM/DL Calcium Level 7.9 MG/DL Alkaline Phosphatase 112 U/L Aspartate Amino Transf (AST/SGOT) 27 U/L Alanine Aminotransferase (ALT/SGPT) 12 U/L Total Bilirubin 0.8 MG/DL Sodium Level 142 MEQ/L Potassium Level 3.5 MEQ/L Chloride Level 113 MEQ/L Carbon Dioxide Level 20.5 MEQ/L Blood Gas Puncture Site RT RADIAL Blood Gas Patient Temperature 98.6 Blood Gas HCO3 18 mmol/L Blood Gas Base Excess -6.0 mmol/L Blood Gas Oxygen Saturation 96 % Arterial Blood pH 7.43 Arterial Blood Partial Pressure CO2 27 mmHg Arterial Blood Partial Pressure O2 101 mmHg Arterial Blood Oxygen Content 15.4 Vol % Arterial Blood Carboxyhemoglobin 1.5 % Arterial Blood Methemoglobin 1.0 % Blood Gas Hemoglobin 11.3 G/DL Oxygen Delivery Device VENTILATOR Blood Gas Ventilator Setting PRVC/AC Blood Gas Inspired Oxygen 40 % Vancomycin Level Trough 18.9 MCG/ML Neutrophils (%) (Auto) 69.2 % Lymphocytes (%) (Auto) 19.5 % Monocytes (%) (Auto) 6.8 % Eosinophils (%) (Auto) 3.6 % Basophils (%) (Auto) 0.9 % Neutrophils # (Auto) 5.7 TH/MM3 Lymphocytes # (Auto) 1.6 TH/MM3 Monocytes # (Auto) 0.6 TH/MM3 Eosinophils # (Auto) 0.3 TH/MM3 Basophils # (Auto) 0.1 TH/MM3 CBC Comment DIFF FINAL Differential Comment Test 04/01/17 18:00 04/02/17 08:15 04/02/17 12:38 Stool C. difficile Toxin (PCR) POSITIVE Stl C. difficile Toxin Epiderm 027 PRESUMPTIVE POSITIVE White Blood Count 8.0 TH/MM3 Red Blood Count 3.36 MIL/MM3 Hemoglobin 10.0 GM/DL Hematocrit 29.5 % Mean Corpuscular Volume 88.0 FL Mean Corpuscular Hemoglobin 29.7 PG Mean Corpuscular Hemoglobin Concent 33.7 % Red Cell Distribution Width 16.9 % Platelet Count 228 TH/MM3 Mean Platelet Volume 7.8 FL Blood Urea Nitrogen 8 MG/DL Creatinine 0.70 MG/DL Random Glucose 152 MG/DL Calcium Level 8.2 MG/DL Sodium Level 149 MEQ/L Potassium Level 3.6 MEQ/L 3.6 MEQ/L Chloride Level 119 MEQ/L Carbon Dioxide Level 20.4 MEQ/L Anion Gap 10 MEQ/L Estimat Glomerular Filtration Rate 106 ML/MIN Objective Remarks GENERAL: frail elderly male, lying in bed SKIN: Warm and dry. HEAD: Normocephalic. EYES: No scleral icterus. No injection or drainage. NECK: trachea midline. No JVD CARDIOVASCULAR: Regular rate and rhythm. sinus by tele. RESPIRATORY:Breath sounds equal bilaterally. On nasal cannula. Scattered rhonchi bilaterally GASTROINTESTINAL: Abdomen soft, mildly tender over suprapubic region. suprapubic catheter exists with some dark urine MUSCULOSKELETAL: No cyanosis, or edema. NEURO: Awake and alert, disoriented,, not following commands, poor cough. withdraws x 4. Medications and IVs Current Medications Medications (Trade) Dose Ordered Sig/Ajay Route Start Time Stop Time Status Last Admin (Narcan Inj) 0.4 mg UNSCH PRN IV PUSH 03/26/17 20:15 (Ciloxan 0.3% Opth Soln) 1 drop Q4HR EACH EYE 03/26/17 20:45 04/02/17 13:11 (Lac-Hydrin 12% Lotion) 1 applic BID TOPICAL 03/26/17 21:00 04/02/17 10:00 (Synthroid) 112 mcg DAILY@0600 PO 03/27/17 06:00 04/02/17 04:39 (Tears Naturale Opth Soln) 1 drop Q4HR EACH EYE 03/26/17 20:45 04/02/17 13:11 (Vitamin D3) 1,000 units DAILY PO 03/27/17 09:00 04/02/17 09:59 (Pravachol) 20 mg DAILY PO 03/27/17 09:00 04/02/17 09:59 (Pill Splitter) 1 ea UNSCH PRN OTHER 03/26/17 21:00 Sodium Chloride 1,000 ml @ 30 mls/hr Q24H IV 03/26/17 23:00 04/02/17 00:06 (NS Flush) 2 ml UNSCH PRN IV FLUSH 03/26/17 23:00 (NS Flush) 2 ml BID IV FLUSH 03/27/17 09:00 04/02/17 10:09 (Duoneb Neb) 1 ampule Q2HR NEB PRN NEB 03/26/17 23:15 Miscellaneous Information 1 Q361D XX 03/26/17 23:00 (Chlorhexidine 2% Cloth) Taper DAILY@04 TOP 03/27/17 04:00 03/23/18 03:59 04/02/17 04:00 (Chlorhexidine 2% Cloth) 3 pack UNSCH PRN TOP 03/26/17 23:00 Metronidazole 100 ml @ 100 mls/hr Q8H IV 03/27/17 02:00 04/02/17 09:59 (VANCOMYCIN for oral use only) 250 mg QID PO 03/27/17 09:00 04/02/17 13:10 (Protonix Inj) 40 mg Q12H IV PUSH 03/27/17 04:00 04/02/17 04:38 Propofol 100 ml @ 2.505 mls/ hr TITRATE PRN IV 03/28/17 18:45 03/29/17 04:28 Ceftriaxone Sodium 1000 mg/ Sodium Chloride 100 ml @ 200 mls/hr Q24H IV 03/29/17 08:00 04/04/17 07:59 04/02/17 09:59 (D50w (Vial) Inj) 25 ml UNSCH PRN IV PUSH 03/29/17 08:00 03/31/17 06:01 (NovoLIN R SUPPLEMENTAL SCALE) 1 Q6HR SQ 03/29/17 12:00 04/02/17 12:00 (Reglan Inj) 5 mg Q8HR IV PUSH 03/30/17 22:00 04/02/17 13:10 Potassium Chloride 100 ml @ 50 mls/hr Q2H PRN IV 03/30/17 20:15 Potassium Chloride 100 ml @ 50 mls/hr Q2H PRN IV 03/30/17 20:15 04/01/17 18:14 Potassium Chloride 100 ml @ 25 mls/hr UNSCH PRN IV 03/30/17 20:15 Potassium Chloride 100 ml @ 50 mls/hr Q2H PRN IV 03/30/17 20:15 04/02/17 04:39 Magnesium Sulfate 4 gm/Sodium Chloride 100 ml @ 50 mls/hr UNSCH PRN IV 03/30/17 20:15 (Mag-Ox) 800 mg UNSCH PRN PO 03/30/17 20:15 Magnesium Sulfate 2 gm/Sodium Chloride 100 ml @ 50 mls/hr UNSCH PRN IV 03/30/17 20:15 03/30/17 21:29 (K-Phos) 2,000 mg Q4H PRN PO 03/30/17 20:15 Sodium Phosphate 30 mmol/Sodium Chloride 250 ml @ 42 mls/hr UNSCH PRN IV 03/30/17 20:15 (K-Phos) 2,000 mg UNSCH PRN PO/TUBE 03/30/17 20:15 Potassium Phosphate 30 mmol/ Sodium Chloride 260 ml @ 42 mls/hr UNSCH PRN IV 03/30/17 20:15 (Miralax) 17 gm DAILY NG 03/31/17 15:00 04/02/17 09:59 A/P Assessment and Plan 1. Severe Sepsis secondary to Urinary tract infection, C Diff Colitis, and acute hypoxic and hypercarbic respiratory failure s/p intubation 03/28. 2. Metabolic Encephalopathy, Toxic and Sepsis on Broad spectrum antibiotics 3. C Diff Colitis, History of Duodenal Ulcer, on Vancomycin by mouth, 4. Bladder Outlet Obstruction with Hydronephrosis, BPH, Chronic Suprapubic Catheter, Suprapubic Cath replaced by Urology specialist 5. UTI, repeat culture growing Klebsiella and E Coli, on Rocephin complete 7 day course, History of Previous PSAE 6. DM II 7. Hypertension ON hold antihypertensives. 8. Hyperlipidemia on Statins. 9. 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 Gastric protection with Protonix - Hold pharmacological DVT prophylaxis due to positive Hemoccult - Protonix IV twice a day Alexis Jacob MD Apr 02, 2017 13:43
--- NOTE | 2017-04-02 15:53 | HHI.GIFU ---
Subjective Remarks Resting in bed. TF via NGT. Speech therapist was in yesterday, recommended puree diet with honey thickened liquids. Liquid green stool in rectal bag (Aline Whiteside) Objective Vitals I&O Vital Signs Date Time Temp Pulse Resp B/P (MAP) Pulse Ox O2 Delivery O2 Flow Rate FiO2 04/02/17 12:00 98.4 104 18 156/72 (100) 97 04/02/17 08:00 97.5 96 20 122/63 (82) 04/02/17 07:15 96 Nasal Cannula 3.00 04/02/17 06:00 92 04/02/17 04:00 105 04/02/17 04:00 97.9 105 25 140/76 (97) 97 04/02/17 02:00 107 04/02/17 00:00 97.7 106 20 127/70 (89) 96 04/02/17 00:00 106 04/01/17 22:00 121 04/01/17 20:10 97 Nasal Cannula 3.00 04/01/17 20:00 97.4 109 28 150/74 (99) 99 04/01/17 20:00 109 04/01/17 18:00 101 04/01/17 16:37 99 Nasal Cannula 3.00 04/01/17 16:00 96.1 96 21 137/85 (102) 100 04/01/17 16:00 96 I/O 04/01/17 04/01/17 04/01/17 04/02/17 04/02/17 04/02/17 07:00 15:00 23:00 07:00 15:00 23:00 Intake Total 1692.6 ml 858 ml 1887 ml Output Total 445 ml 775 ml 1000 ml Balance 1247.6 ml 83 ml 887 ml Intake IV Total 1162.6 ml 300 ml 1510 ml Tube Feeding 470 ml 308 ml 377 ml Tube Irrigant 60 ml Other 250 ml Output Urine Total 370 ml 700 ml 1000 ml Stool Total 75 ml 75 ml Laboratory Laboratory Tests Test 04/01/17 16:51 04/01/17 18:00 04/02/17 01:15 04/02/17 08:15 Hemoglobin 9.6 10.0 Hematocrit 29.5 29.5 Stool C. difficile Toxin (PCR) POSITIVE Stl C. difficile Toxin Epiderm 027 PRESUMPTIVE POSITIVE Potassium Level 3.5 3.6 White Blood Count 8.0 Red Blood Count 3.36 Mean Corpuscular Volume 88.0 Mean Corpuscular Hemoglobin 29.7 Mean Corpuscular Hemoglobin Concent 33.7 Red Cell Distribution Width 16.9 Platelet Count 228 Mean Platelet Volume 7.8 Blood Urea Nitrogen 8 Creatinine 0.70 Random Glucose 152 Calcium Level 8.2 Sodium Level 149 Chloride Level 119 Carbon Dioxide Level 20.4 Anion Gap 10 Estimat Glomerular Filtration Rate 106 Test 04/02/17 12:38 Potassium Level 3.6 Date/Time Source Procedure Growth Status 04/01/17 20:10 Blood Peripheral Aerobic Blood Culture - Preliminary NO GROWTH IN 1 DAY Resulted 04/01/17 20:10 Blood Peripheral Anaerobic Blood Culture - Preliminary NO GROWTH IN 1 DAY Resulted 03/26/17 18:35 Urine Catheterized Urine Urine Culture - Final Escherichia Coli Klebsiella Pneumoniae Complete Imaging Last Impressions Abdomen X-Ray 03/30/17 0000 Signed Impressions: Service Date/Time: Thursday, March 30, 2017 19:05 - CONCLUSION: 1. No evidence of obstruction. Reymundo Kinney MD Chest X-Ray 03/28/17 0000 Signed Impressions: Service Date/Time: Tuesday, March 28, 2017 14:41 - CONCLUSION: ET tube in satisfactory position. NG tube coils in the pharynx and does not quite reach the stomach. Worsening aeration. Rahul Beaver MD Abdomen/Pelvis CT 03/27/17 0000 Signed Impressions: Service Date/Time: Monday, March 27, 2017 22:38 - CONCLUSION: 1. There is a distended urinary bladder despite a Crooks catheter and suprapubic catheter. There is resulting hydronephrosis and hydroureter. 2. Colonic diverticulosis. 3. Pneumobilia without biliary dilatation. This would suggest sphincterotomy. Melquiades Najera Jr., MD Physical Exam HEENT: Normocephalic; atraumatic. CHEST: Resp even/unlabored n/c. Course breath sounds throughout CARDIAC: RRR ABDOMEN: Soft, mildly distended, no hepatosplenomegaly; hypoactive bowel sounds. Rectal bag with small amount of liquid stool EXTREMITIES: Generalized edema. SKIN: Generalized pallor OFFAL ICER POULTRY: Lethargic, confused, follows commands. (Aline Whiteside) Assessment and Plan Plan ASSESSMENT: - Anemia, Hemoccult (+) Stool. His H/H was noted to be 11.4/24.4 on 03/22/17. On admission, this was 8.1/24.4. Hemoccult (+). EGD (08/26/10)---> Large duodenal bulb ulcer, duodenitis, very edematous mucosa , bx, gastritis in the antrum, bx, esophagitis, schatzki's ring. Pathology with small bowel mucosa with no significant histopathologic abnormalities, antral mucosa with very focal mild active chronic gastritis, esophageal bx with squamous mucosa with mild reflux esophagitis. S/P 1 units of PRBC HH dropped from 10.2/31.4---> 8.8/26.9 on 04/01, but repeat was stable. Today this is 10.0/29.5. No signs of active bleeding. Protonix with BID dosing. - Abdominal distention/Constipation. Improved. On tx for CDiff. KUB (03/30/17)- --> No evidence of obstruction, contrast present from CT scan. S/P SSE x 2, + BM. Now with small amount of liquid stool in rectal bag. Less distended. Miralax, but will hold if diarrhea. TF at 60cc/hr. No abdominal pain. - Dysphagia. Jevity 1.5 with goal rate of 60 ml/hr. ST following, recommended puree diet with honey thickened liquids- will order diet with TF. If takes in enough po, okay to d/c NGT. - Abdominal pain. CT of abd/pelvis on (03/27/17) showed distended urinary bladder despite a Crooks catheter and suprapubic catheter, there hydronephrosis and hydroureter, colonic diverticulosis, pneumobilia with out biliary dilatation, would suggest sphincterotomy - C Difficile Diarrhea. He was on tx at [facility]. CT as above Oral vanco/ flagyl. - Leukocytosis. WBC 7.9. Blood cultures no growth in 5 days. UTI with E. Coli , Klebsiella pneumoniae, recently with PSAE. Stool (+) for CDiff. - AMS, likely secondary to infection. Per CCM - Resp. Failure. S/P extubation. - DM, HTN, Hyperlipidemia per CCM - Hx dilated common bile, pancreatic duct on MRCP in 2010. Has hx of cholelithiasis and has required ERCP with sphincterotomy in past. LFTs okay. PLAN: - Jevity 1.5 to 60cc/hr as tolerated - Puree diet with honey thickened diet - If tolerates diet, okay to d/c NGT - Miralax 17 gram per tube daily- hold for diarrhea - Cont. Reglan - Cont. PPI - Cont. Oral Vanco/Flagyl - Abx per [facility] - Monitor HH - Transfuse as necessary - Supportive care - Further recommendations to follow based on results of above - Pt seen and examined by Dr. Gómez and myself and this note is written on his behalf (Aline Whiteside) Physician Comments Seen and examined with ORAL, doing better. Tolerating feedings. On antibiotics for C. Diff. (Latonya Gómez MD) Aline Whiteside Apr 02, 2017 15:53 Latonya Gómez MD Apr 02, 2017 17:05
[2017-04-03] VITALS (19 sets, daily range): BP systolic 104–147; BP diastolic 58–74; PULSE 93–120; RESP 19–30; TEMP 97.7–98.3; O2SAT 50–100
[2017-04-03 03:45] LABS: BLOOD GAS BASE EXCESS -4.5 mmol/L (-2-2); BLOOD GAS CARBOXYHEMOGLOBIN 1.6 % (0-4); BLOOD GAS HCO3 21 mmol/L (22-26); BLOOD GAS METHEMOGLOBIN 1.1 % (0-2); BLOOD GAS O2 HGB SATURATION 96 % (90-100); BLOOD GAS OXYGEN CONTENT 15.4 Vol % (12.0-20.0); BLOOD GAS PCO2 44 mmHg (38-42); BLOOD GAS PO2 133 mmHg (61-120); BLOOD GAS TOTAL HGB 11.2 G/DL (12.0-16.0); TEMP CORR TO 98.6
[2017-04-03 03:46] LABS: CRITICAL VALUE NO; DRAW SITE RT RADIAL; FIO2 100 %; LITER FLOW 15 L/M; NUMBER OF ARTERIAL PUNCTURES 1; STAT YES; ULNAR PULSE PRESENT
[2017-04-03] MEDS: PANTOPRAZOLE SODIUM 40 MG VIAL IV PUSH SCH ×2 (03:51→16:12)
[2017-04-03] MEDS: CHLORHEXIDINE GLUCONATE 2 % 1 PACK (2 CLOTHS) TOP SCH (03:51)
[2017-04-03] MEDS: metroNIDAZOLE 500 MG INJ 100 ML IV SCH ×3 (03:51→17:25)
[2017-04-03] MEDS: CIPROFLOXACIN 0.3% OPTH SOLN 2.5 ML BTL EACH EYE SCH ×5 (03:51→20:00)
[2017-04-03] MEDS: ARTIFICIAL TEARS OPTH SOLN 15 ML BTL EACH EYE SCH ×5 (03:51→20:00)
[2017-04-03] MEDS ORDERED: MORPHINE SULFATE 2 MG/ML INJ IV PUSH ONE (04:45)
--- NOTE | 2017-04-03 04:59 | RADRPT ---
EXAM DATE/TIME: 04/03/2017 03:42 [facility] COMPARISON: CHEST SINGLE AP, March 28, 2017, 14:41. INDICATIONS : Evaluate for respiratory disease. MEDICAL HISTORY : Hypercholesterolemia. Hypertension SURGICAL HISTORY : None. ENCOUNTER: Subsequent ACUITY: 1 week PAIN SCORE: Non-responsive. LOCATION: chest FINDINGS: A single view of the chest demonstrates basilar airspace disease are clear the left. Small effusions. Nasogastric tube in stomach. No pneumothorax. CONCLUSION: 1. Bilateral airspace disease, right greater than left increased from March 28. Froilan Boo MD on April 03, 2017 at 4:56 Board Certified Radiologist. This report was verified electronically.
[2017-04-03] MEDS: LEVOTHYROXINE SODIUM 112 MCG TAB PO SCH (05:39)
[2017-04-03] MEDS: INSULIN NovoLIN REGULAR SUPPLEMENTAL SCALE SQ SCH ×3 (05:39→18:32)
[2017-04-03] MEDS: METOCLOPRAMIDE HCL 10 MG/2 ML VIAL IV PUSH SCH ×3 (05:39→21:52)
[2017-04-03 07:11] LABS: MEAN CELL VOLUME 87.1 FL (80.0-100.0); MEAN CORPUSCULAR HEMOGLOBIN 28.5 PG (27.0-34.0); MEAN CORPUSCULAR HGB CONC 32.7 % (32.0-36.0); PLATELET COUNT 282 TH/MM3 (150-450); RED BLOOD COUNT 3.91 MIL/MM3 (4.50-5.90); RED CELL DISTRIBUTION WIDTH 17.4 % (11.6-17.2); REVIEW FLAG FINAL; WHITE BLOOD COUNT 8.4 TH/MM3 (4.0-11.0)
[2017-04-03] MEDS: PRAVASTATIN SOD 20 MG TAB PO SCH (08:27)
[2017-04-03] MEDS: CHOLECALCIFEROL (VIT D3) 1000 UNIT TAB PO SCH (08:27)
[2017-04-03] MEDS: cefTRIAXone INJ 1,000 MG in SODIUM CHLORIDE 0.9% INJ 100 ML IV SCH (08:27)
[2017-04-03] MEDS: SODIUM CHLORIDE 0.9% FLUSH 10 ML FLUSH IV FLUSH SCH ×2 (08:28→21:52)
[2017-04-03] MEDS: VANCOMYCIN 500 MG VIAL (FOR ORAL USE ONLY) PO SCH ×4 (08:28→21:51)
[2017-04-03] MEDS: POLYETHYLENE GLYCOL 17 GM PKG NG SCH (08:28)
[2017-04-03] MEDS: LACTIC ACID (AMMONIUM LACTATE) 12% LOTION 225 GM BTL TOPICAL SCH ×2 (08:29→09:00)
[2017-04-03 08:33] LABS: BICARBONATE 20.9 MEQ/L (21.0-32.0); MAGNESIUM 1.7 MG/DL (1.5-2.5); POTASSIUM 3.4 MEQ/L (3.5-5.1)
--- NOTE | 2017-04-03 11:11 | HHI.GIFU ---
Subjective Remarks Resting in bed, pt is now on bipap. Tolerating TF via NGT. + BM. (Aline Whiteside) Objective Vitals I&O Vital Signs Date Time Temp Pulse Resp B/P (MAP) Pulse Ox O2 Delivery O2 Flow Rate FiO2 04/03/17 07:37 100 60 04/03/17 06:00 101 04/03/17 04:49 97 Bi-Pap 70 04/03/17 04:40 94 50 04/03/17 04:00 97.7 120 30 104/74 (84) 94 04/03/17 04:00 120 04/03/17 03:10 96 Non-Rebreather 15.00 04/03/17 02:00 113 04/03/17 00:00 98.3 102 29 147/73 (97) 97 04/03/17 00:00 102 04/02/17 22:00 109 04/02/17 20:00 97.2 105 24 140/65 (90) 97 04/02/17 20:00 105 04/02/17 19:04 98 Nasal Cannula 3.00 04/02/17 18:00 104 04/02/17 16:00 98.4 108 17 137/67 (90) 98 04/02/17 16:00 108 04/02/17 14:00 104 04/02/17 12:00 98.4 104 18 156/72 (100) 97 04/02/17 12:00 104 I/O 04/02/17 04/02/17 04/02/17 04/03/17 04/03/17 04/03/17 07:00 15:00 23:00 07:00 15:00 23:00 Intake Total 1887 ml 653 ml 1586 ml Output Total 1000 ml 1175 ml 1125 ml Balance 887 ml -522 ml 461 ml Intake IV Total 1510 ml 970 ml Tube Feeding 377 ml 453 ml 616 ml Other 200 ml Output Urine Total 1000 ml 1125 ml 825 ml Stool Total 50 ml 300 ml Laboratory Laboratory Tests Test 04/02/17 12:38 04/03/17 03:26 04/03/17 05:22 Potassium Level 3.6 3.4 Blood Gas Puncture Site RT RADIAL Blood Gas Patient Temperature 98.6 Blood Gas HCO3 21 Blood Gas Base Excess -4.5 Blood Gas Oxygen Saturation 96 Arterial Blood pH 7.30 Arterial Blood Partial Pressure CO2 44 Arterial Blood Partial Pressure O2 133 Arterial Blood Oxygen Content 15.4 Arterial Blood Carboxyhemoglobin 1.6 Arterial Blood Methemoglobin 1.1 Blood Gas Hemoglobin 11.2 Oxygen Delivery Device Non-Rebreathing Mask Blood Gas Liter Flow 15 Blood Gas Inspired Oxygen 100 White Blood Count 8.4 Red Blood Count 3.91 Hemoglobin 11.1 Hematocrit 34.0 Mean Corpuscular Volume 87.1 Mean Corpuscular Hemoglobin 28.5 Mean Corpuscular Hemoglobin Concent 32.7 Red Cell Distribution Width 17.4 Platelet Count 282 Mean Platelet Volume 7.6 Blood Urea Nitrogen 6 Creatinine 0.85 Random Glucose 252 Calcium Level 8.0 Magnesium Level 1.7 Sodium Level 147 Chloride Level 116 Carbon Dioxide Level 20.9 Anion Gap 10 Estimat Glomerular Filtration Rate 85 Date/Time Source Procedure Growth Status 04/01/17 20:10 Blood Peripheral Aerobic Blood Culture - Preliminary NO GROWTH IN 1 DAY Resulted 04/01/17 20:10 Blood Peripheral Anaerobic Blood Culture - Preliminary NO GROWTH IN 1 DAY Resulted 03/26/17 18:35 Urine Catheterized Urine Urine Culture - Final Escherichia Coli Klebsiella Pneumoniae Complete Imaging Last Impressions Abdomen X-Ray 03/30/17 0000 Signed Impressions: Service Date/Time: Thursday, March 30, 2017 19:05 - CONCLUSION: 1. No evidence of obstruction. Reymundo Kinney MD Chest X-Ray 03/28/17 0000 Signed Impressions: Service Date/Time: Tuesday, March 28, 2017 14:41 - CONCLUSION: ET tube in satisfactory position. NG tube coils in the pharynx and does not quite reach the stomach. Worsening aeration. Rahul Beaver MD Abdomen/Pelvis CT 03/27/17 0000 Signed Impressions: Service Date/Time: Monday, March 27, 2017 22:38 - CONCLUSION: 1. There is a distended urinary bladder despite a Crooks catheter and suprapubic catheter. There is resulting hydronephrosis and hydroureter. 2. Colonic diverticulosis. 3. Pneumobilia without biliary dilatation. This would suggest sphincterotomy. Melquiades Najera Jr., MD Physical Exam HEENT: Normocephalic; atraumatic. CHEST: Resp shallow, mildly labored on BIPAP, Course breath sounds throughout CARDIAC: RRR ABDOMEN: Soft, mildly distended, no hepatosplenomegaly; hypoactive bowel sounds. Rectal bag with small amount of liquid stool EXTREMITIES: Generalized edema. SKIN: Generalized pallor [employer]: Somnolent (Aline Whiteside) Assessment and Plan Plan ASSESSMENT: - Anemia, Hemoccult (+) Stool. His H/H was noted to be 11.4/24.4 on 03/22/17. On admission, this was 8.1/24.4. Hemoccult (+). EGD (08/26/10)---> Large duodenal bulb ulcer, duodenitis, very edematous mucosa , bx, gastritis in the antrum, bx, esophagitis, schatzki's ring. Pathology with small bowel mucosa with no significant histopathologic abnormalities, antral mucosa with very focal mild active chronic gastritis, esophageal bx with squamous mucosa with mild reflux esophagitis. S/P 1 units of PRBC HH dropped from 10.2/31.4---> 8.8/26.9 on 04/01, but repeat was stable. Today this is 11.0/24.0. No signs of active bleeding. Protonix with BID dosing. Currently on BIPAP, not stable for any endoscopic procedures. - Abdominal distention/Constipation. IMPROVED. On tx for CDiff. KUB (03/30/17)- --> No evidence of obstruction, contrast present from CT scan. S/P SSE x 2, + BM. Now with small amount of liquid stool in rectal bag. Less distended. Miralax, but will hold if diarrhea. TF at 60cc/hr. No abdominal pain. - Dysphagia. Jevity 1.5 with goal rate of 60 ml/hr. ST following, recommended puree diet with honey thickened liquids, but now on BIPAP. - Abdominal pain. CT of abd/pelvis on (03/27/17) showed distended urinary bladder despite a Crooks catheter and suprapubic catheter, there hydronephrosis and hydroureter, colonic diverticulosis, pneumobilia with out biliary dilatation, would suggest sphincterotomy - C Difficile Diarrhea. He was on tx at [facility]. CT as above Oral vanco/ flagyl. - Leukocytosis. WBC 8.4. Blood cultures no growth in 5 days. UTI with E. Coli , Klebsiella pneumoniae, recently with PSAE. Stool (+) for CDiff. - AMS, likely secondary to infection. Per CCM - Resp. Failure. S/P extubation. - DM, HTN, Hyperlipidemia per CCM - Hx dilated common bile, pancreatic duct on MRCP in 2010. Has hx of cholelithiasis and has required ERCP with sphincterotomy in past. LFTs okay. PLAN: - Jevity 1.5 to 60cc/hr as tolerated - Miralax 17 gram per tube daily- hold for diarrhea - Cont. Reglan - Cont. PPI - Cont. Oral Vanco/Flagyl - Abx per [facility] - Monitor HH - Transfuse as necessary - Consider EGD as outpatient once CDifficile resolves unless there is obvious active bleeding - GI will sign off, please reconsult as needed - Pt seen and examined by Dr. Gómez and myself and this note is written on his behalf (Aline Whiteside) Physician Comments Seen and examined with ORAL, on BI PAP currently. No active bleeing. On treatment for c. diff. GI flores once stable from pulmonary standpoint. GI will sign off. Thank you (Latonya Gómez MD) Aline Whiteside Apr 03, 2017 11:11 Latonya Gómez MD Apr 03, 2017 12:55
[2017-04-03] MEDS: SODIUM CHLOR 0.9% 1000 ML INJ 1,000 ML IV SCH (12:00)
--- NOTE | 2017-04-03 14:16 | HHI.HCPN ---
Reason for visit a. To assist with evaluation and management of symptoms including: Dyspnea b. To assist medical decision maker(s) with: better understanding of current medical conditions; weighing benefits/burdens of medical treatment options; making medical treatment decisions. Subjective/Interval History Pt is 89 year old admitted w/ altered mental status. 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 Pt found to have UTI, C. diff , hypercarbic respiratory failure intubated 03/28 and now medically extubated ( extub 03/31) . No improvement in mental status. Requiring Bipap today. BC 04/01 NG x1 day. CXR = bilateral airspace disease right greater than left. On Vanco, ceftriaxone. H&H have remained stable. Patient tolerating tube feeding. GI signed off, consider EGD as outpatient once CDifficile resolves unless there is obvious active bleeding. Patient seen in room no visitors present. He is asleep but arouses to my exam. He is on BiPAP. Tube feeding is infusing. He does seem to track examiner and attempts to verbalize but is very garbled and additionally secondary to BiPAP I cannot understand him. He does not consistently follow simple commands. He does move all 4 extremities spontaneously. He does not appear to be oriented or appropriate. . Family/friend interactions Call to friend/proxy Inessa after exam, voicemail left. . Advance Directives Living Will: Never completed Health Care Surrogate: Never completed Objective Vital Signs Date Time Temp Pulse Resp B/P (MAP) Pulse Ox O2 Delivery O2 Flow Rate FiO2 04/03/17 12:10 50 04/03/17 08:00 98 04/03/17 07:37 100 60 04/03/17 06:00 101 04/03/17 04:49 97 Bi-Pap 70 04/03/17 04:40 94 50 04/03/17 04:00 97.7 120 30 104/74 (84) 94 04/03/17 04:00 120 04/03/17 03:10 96 Non-Rebreather 15.00 04/03/17 02:00 113 04/03/17 00:00 98.3 102 29 147/73 (97) 97 04/03/17 00:00 102 04/02/17 22:00 109 04/02/17 20:00 97.2 105 24 140/65 (90) 97 04/02/17 20:00 105 04/02/17 19:04 98 Nasal Cannula 3.00 04/02/17 18:00 104 04/02/17 16:00 98.4 108 17 137/67 (90) 98 04/02/17 16:00 108 Intake & Output 04/03/17 04/03/17 06:59 18:59 Intake Total 1586 ml Output Total 1125 ml Balance 461 ml Intake IV Total 970 ml Tube Feeding 616 ml Output Urine Total 825 ml Stool Total 300 ml Physical Exam CONSTITUTIONAL/GENERAL: This is a chronically ill-appearing patient,appears comfortable on BiPAP TUBES/LINES/DRAINS: Peripheral IV upper extremities, suprapubic catheter, rectal bag, NGT, BiPAP mask SKIN: No jaundice, rashes, or lesions. Several areas of ecchymosis upper extremities, hands, + redness to hands. Skin warm. CARDIOVASCULAR: Regular rate and rhythm without murmurs. Tachycardic 110 No JVD. Peripheral pulses symmetric. 1-2+ edema bilateral hands, no pedal edema. RESPIRATORY/CHEST: Symmetric, unlabored respirations via BiPAP, coarse air movement throughout.. Breath sounds equal bilaterally. GASTROINTESTINAL: Abdomen soft, no apparent tenderness, nondistended. No palpable masses. Bowel sounds present. NGT w TF infusing. Rectal drain present small amount of greenish stool visible GENITOURINARY: Without palpable bladder distension. Suprapubic catheter in place some erythema/irritation around insertion site. Draining dark yellow urine MUSCULOSKELETAL: Extremities without clubbing, cyanosis, or edema. No joint effusion noted. No mottling or clubbing. NEUROLOGICAL: Lethargic arouses to exam. Tracks examiner. Verbalizes some but very garbled does not appear oriented or appropriate. Moving extremities spontaneously however does not follow simple commands. PSYCHIATRIC: appears comfortable, limited assessment no restlessness or agitation. . Diagnostic Tests Laboratory Laboratory Tests Test 04/01/17 03:37 04/01/17 16:51 04/01/17 18:00 04/02/17 01:15 White Blood Count 7.9 TH/MM3 (4.0-11.0) Red Blood Count 3.02 MIL/MM3 (4.50-5.90) Hemoglobin 8.8 GM/DL (13.0-17.0) 9.6 GM/DL (13.0-17.0) Hematocrit 26.9 % (39.0-51.0) 29.5 % (39.0-51.0) Mean Corpuscular Volume 88.9 FL (80.0-100.0) Mean Corpuscular Hemoglobin 29.0 PG (27.0-34.0) Mean Corpuscular Hemoglobin Concent 32.6 % (32.0-36.0) Red Cell Distribution Width 17.3 % (11.6-17.2) Platelet Count 175 TH/MM3 (150-450) Mean Platelet Volume 7.2 FL (7.0-11.0) Blood Urea Nitrogen 11 MG/DL (7-18) Creatinine 0.75 MG/DL (0.60-1.30) Random Glucose 102 MG/DL (74-106) Calcium Level 7.7 MG/DL (8.5-10.1) Sodium Level 151 MEQ/L (136-145) Potassium Level 3.1 MEQ/L (3.5-5.1) 3.5 MEQ/L (3.5-5.1) Chloride Level 122 MEQ/L (98-107) Carbon Dioxide Level 18.5 MEQ/L (21.0-32.0) Anion Gap 11 MEQ/L (5-15) Estimat Glomerular Filtration Rate 98 ML/MIN (>89) Stool C. difficile Toxin (PCR) POSITIVE (NEGATIVE) Stl C. difficile Toxin Epiderm 027 PRESUMPTIVE POSITIVE Test 04/02/17 08:15 04/02/17 12:38 04/03/17 03:26 04/03/17 05:22 White Blood Count 8.0 TH/MM3 (4.0-11.0) 8.4 TH/MM3 (4.0-11.0) Red Blood Count 3.36 MIL/MM3 (4.50-5.90) 3.91 MIL/MM3 (4.50-5.90) Hemoglobin 10.0 GM/DL (13.0-17.0) 11.1 GM/DL (13.0-17.0) Hematocrit 29.5 % (39.0-51.0) 34.0 % (39.0-51.0) Mean Corpuscular Volume 88.0 FL (80.0-100.0) 87.1 FL (80.0-100.0) Mean Corpuscular Hemoglobin 29.7 PG (27.0-34.0) 28.5 PG (27.0-34.0) Mean Corpuscular Hemoglobin Concent 33.7 % (32.0-36.0) 32.7 % (32.0-36.0) Red Cell Distribution Width 16.9 % (11.6-17.2) 17.4 % (11.6-17.2) Platelet Count 228 TH/MM3 (150-450) 282 TH/MM3 (150-450) Mean Platelet Volume 7.8 FL (7.0-11.0) 7.6 FL (7.0-11.0) Blood Urea Nitrogen 8 MG/DL (7-18) 6 MG/DL (7-18) Creatinine 0.70 MG/DL (0.60-1.30) 0.85 MG/DL (0.60-1.30) Random Glucose 152 MG/DL (74-106) 252 MG/DL (74-106) Calcium Level 8.2 MG/DL (8.5-10.1) 8.0 MG/DL (8.5-10.1) Sodium Level 149 MEQ/L (136-145) 147 MEQ/L (136-145) Potassium Level 3.6 MEQ/L (3.5-5.1) 3.6 MEQ/L (3.5-5.1) 3.4 MEQ/L (3.5-5.1) Chloride Level 119 MEQ/L (98-107) 116 MEQ/L (98-107) Carbon Dioxide Level 20.4 MEQ/L (21.0-32.0) 20.9 MEQ/L (21.0-32.0) Anion Gap 10 MEQ/L (5-15) 10 MEQ/L (5-15) Estimat Glomerular Filtration Rate 106 ML/MIN (>89) 85 ML/MIN (>89) Blood Gas Puncture Site RT RADIAL Blood Gas Patient Temperature 98.6 Blood Gas HCO3 21 mmol/L (22-26) Blood Gas Base Excess -4.5 mmol/L (-2-2) Blood Gas Oxygen Saturation 96 % (90-100) Arterial Blood pH 7.30 (7.380-7.420) Arterial Blood Partial Pressure CO2 44 mmHg (38-42) Arterial Blood Partial Pressure O2 133 mmHg (61-120) Arterial Blood Oxygen Content 15.4 Vol % (12.0-20.0) Arterial Blood Carboxyhemoglobin 1.6 % (0-4) Arterial Blood Methemoglobin 1.1 % (0-2) Blood Gas Hemoglobin 11.2 G/DL (12.0-16.0) Oxygen Delivery Device Non-Rebreathing Mask Blood Gas Liter Flow 15 L/M Blood Gas Inspired Oxygen 100 % Magnesium Level 1.7 MG/DL (1.5-2.5) Result Diagram: 04/03/1752104/03/17521 Microbiology Microbiology Date/Time Source Procedure Growth Status 04/01/17 20:10 Blood Peripheral Aerobic Blood Culture - Preliminary NO GROWTH IN 2 DAYS Resulted 04/01/17 20:10 Blood Peripheral Anaerobic Blood Culture - Preliminary NO GROWTH IN 2 DAYS Resulted 04/01/17 20:05 Blood Peripheral Aerobic Blood Culture - Preliminary NO GROWTH IN 2 DAYS Resulted 04/01/17 20:05 Blood Peripheral Anaerobic Blood Culture - Preliminary NO GROWTH IN 2 DAYS Resulted Imaging Last Impressions Chest X-Ray 04/03/17 0000 Signed Impressions: Service Date/Time: Monday, April 03, 2017 03:42 - CONCLUSION: 1. Bilateral airspace disease, right greater than left increased from March 28. Froilan Boo MD Abdomen X-Ray 03/30/17 0000 Signed Impressions: Service Date/Time: Thursday, March 30, 2017 19:05 - CONCLUSION: 1. No evidence of obstruction. Reymundo Kinney MD Abdomen/Pelvis CT 03/27/17 0000 Signed Impressions: Service Date/Time: Monday, March 27, 2017 22:38 - CONCLUSION: 1. There is a distended urinary bladder despite a Crooks catheter and suprapubic catheter. There is resulting hydronephrosis and hydroureter. 2. Colonic diverticulosis. 3. Pneumobilia without biliary dilatation. This would suggest sphincterotomy. Melquiades Najera Jr., MD Procedures 03/31 extubated 03/28 intubated . Assessment and Plan Disease Oriented Problem List: (1) GERD (gastroesophageal reflux disease) (2) Hyperlipidemia (3) Hypertension (4) C. 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 Prior to that lived in an [facility] setting for about 7 years. Has known local friend and contact Inessa for about 10 years, they met when they were neighbors before he lived in [facility]. Patient originally from [place] has lived in [place] for many years. many years ago. 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 Has a brother who is , and [id number] whom he has not been in close communication with recently. He does have 2 adult daughters whom he has been estranged from since they were young children; friend Inessa is trying to find out their names and possible location from sister in law.[unable to locate per accurint 03/31/17] Spiritual: Spiritism Legal:Patient is currently unable to participate in decision-making due to medical condition. Does not appear to have advanced directive or HCS designation. Apparently his brother is , sister in law lives out of state. . Has 2 adult daughters whose name are not known at this time however they would be appropriate proxy decision maker per [place] statutes if they can be located. Local friend Inessa is working to find out their names and possible location. If these 2 daughters cannot be located or do not wish to serve as decision makers then decision-making proxy would move onto other close friends and/or relatives. Ethical issues impacting care: Important Contacts Friend Inessa Madera [phone] PROXY as of 03/31/17 Friend Haley [phone] Found in old admission record 2010 brother Brenton Toscano [phone] ; cesilia lives in [place] Prognosis This patient has had a few recent hospital visits, with UTI 03/22, and admission for sepsis 02/03 through 02/09. He has multiple medical comorbidities. He is quite deconditioned. Possible he can survive current acute hospitalization however he remains at risk for ongoing complications and setbacks and recurrent hospitalizations. . Code Status: Full Code Plan * Capacity: following some commands, still confused overall, not able to make decisions can not weigh the risk and benefits of medical decisions. * Legal decision maker: Palliative care informed patient may have 2 adult daughters, Neema Toscano possibly around 60 and Maricruz Toscano possibly around 65. Last names may be changed if ? Patient is originally from [place]. Accurints requested and no information obtained. Google search and social media search was unable to produce possible match. Mr. Toscano is supported by friend , Chantel of 10 yrs. No family readily available, per [place] Statutes medical proxy decision making would fall to a close friend or relative. Unless patient becomes able to make his own medical decisions or designate HCS himself. Health Care Proxy is Inessa Madera. * Goals of care 1)DNR/DNI established by proxy 04/02 they stated pt likely would not want that again. "He is a free bird." 2)Palliative Care will continue to follow and see if capacity improves to the point where he can make medical decisions himself. If capacity comes back,GOC/ code status will be addressed w pt 3) PROXY Ms. Madera will give him a few days; if mentation does not improve, conversation regarding hospice could be reinitiated. Ms. Madera is a volunteer with hospice before. 4) In the mean time goals of care aggressive short of resuscitation /intubation. VM left for proxy for update 04/02/17, 04/03/17 * CODE STATUS: DNR/DNI * SYMPTOMS: --Anxiety/depression-friend indicates he has been somewhat depressed recently secondary to his loss of independence in general health decline. Potentially could benefit long-term from SSRI, postextubation/when medical condition stabilized --Malnutrition-early intubated and unable to take oral nutrition; albumin 2.3. s/p ST eval-- tolerating puree w honey thick liq. not taking in much, still requiring TF via NGT. Friend stated appetite has been poor. --Dyspnea now requiring BiPAP for shortness of breath , hypoxia. On BiPAP having some improved oxygenation. CXR with bilateral airspace disease right greater than left. * Palliative care will continue to follow during hospital course as condition evolves, to assist patient/decision-maker with understanding of medical conditions, weighing benefits/burdens of treatment options, for clarification of goals of treatment. Additionally will assist with any symptoms of palliative concern . Time Spent Total Floor Time (mins): 20 (d/w medical attending, RN) Attestation To help prompt me to consider important information that might be impacting today's encounter and assessment, information from prior notes written by myself or my colleagues may have been "brought forward" into today's note. My signature on this note, however, is an attestation that I personally performed the exam, history, and/or decision-making noted today, and, unless otherwise indicated, the interactions with patient, family, and staff as well as the review of records all occurred today. I also attest that the listed assessment and stated plan reflect my best clinical judgment today based on the combination of historical information, prior notes, and today's exam/ interactions. When time spent is documented, it refers only to time spent today by the signer, or if indicated, combined time spent today by collaborating physician/nurse practitioner. Lidia Morocho Apr 03, 2017 14:16
--- NOTE | 2017-04-03 16:54 | HHI.IDPN ---
Subjective Subjective Remarks doing worse since last night developped hypoxia and hypothermia Initially on NRB, now up to BIPAP + bear hugger + liquid stool, 350 cc Antibiotics CFT flagyl vanco PO Allergies: Coded Allergies: penicillin G (Unverified Allergy, Unknown, 03/26/17) Objective . Vital Signs Date Time Temp Pulse Resp B/P (MAP) Pulse Ox O2 Delivery O2 Flow Rate FiO2 04/03/17 15:54 98 50 04/03/17 12:10 50 04/03/17 08:00 98 04/03/17 07:37 100 60 04/03/17 06:00 101 04/03/17 04:49 97 Bi-Pap 70 04/03/17 04:40 94 50 04/03/17 04:00 97.7 120 30 104/74 (84) 94 04/03/17 04:00 120 04/03/17 03:10 96 Non-Rebreather 15.00 04/03/17 02:00 113 04/03/17 00:00 98.3 102 29 147/73 (97) 97 04/03/17 00:00 102 04/02/17 22:00 109 04/02/17 20:00 97.2 105 24 140/65 (90) 97 04/02/17 20:00 105 04/02/17 19:04 98 Nasal Cannula 3.00 04/02/17 18:00 104 . Laboratory Tests Test 04/01/17 16:51 04/02/17 08:15 04/03/17 05:22 Hemoglobin 9.6 GM/DL 10.0 GM/DL 11.1 GM/DL Hematocrit 29.5 % 29.5 % 34.0 % White Blood Count 8.0 TH/MM3 8.4 TH/MM3 Red Blood Count 3.36 MIL/MM3 3.91 MIL/MM3 Mean Corpuscular Volume 88.0 FL 87.1 FL Mean Corpuscular Hemoglobin 29.7 PG 28.5 PG Mean Corpuscular Hemoglobin Concent 33.7 % 32.7 % Red Cell Distribution Width 16.9 % 17.4 % Platelet Count 228 TH/MM3 282 TH/MM3 Mean Platelet Volume 7.8 FL 7.6 FL Laboratory Tests Test 04/02/17 01:15 04/02/17 08:15 04/02/17 12:38 04/03/17 05:22 Potassium Level 3.5 MEQ/L 3.6 MEQ/L 3.6 MEQ/L 3.4 MEQ/L Blood Urea Nitrogen 8 MG/DL 6 MG/DL Creatinine 0.70 MG/DL 0.85 MG/DL Random Glucose 152 MG/DL 252 MG/DL Calcium Level 8.2 MG/DL 8.0 MG/DL Sodium Level 149 MEQ/L 147 MEQ/L Chloride Level 119 MEQ/L 116 MEQ/L Carbon Dioxide Level 20.4 MEQ/L 20.9 MEQ/L Anion Gap 10 MEQ/L 10 MEQ/L Estimat Glomerular Filtration Rate 106 ML/MIN 85 ML/MIN Magnesium Level 1.7 MG/DL Microbiology Date/Time Source Procedure Growth Status 04/01/17 20:10 Blood Peripheral Aerobic Blood Culture - Preliminary NO GROWTH IN 2 DAYS Resulted 04/01/17 20:10 Blood Peripheral Anaerobic Blood Culture - Preliminary NO GROWTH IN 2 DAYS Resulted 04/01/17 20:05 Blood Peripheral Aerobic Blood Culture - Preliminary NO GROWTH IN 2 DAYS Resulted 04/01/17 20:05 Blood Peripheral Anaerobic Blood Culture - Preliminary NO GROWTH IN 2 DAYS Resulted Imaging Last Impressions Chest X-Ray 04/03/17 0000 Signed Impressions: Service Date/Time: Monday, April 03, 2017 03:42 - CONCLUSION: 1. Bilateral airspace disease, right greater than left increased from March 28. Froilan Boo MD Abdomen X-Ray 03/30/17 0000 Signed Impressions: Service Date/Time: Thursday, March 30, 2017 19:05 - CONCLUSION: 1. No evidence of obstruction. Reymundo Kinney MD Abdomen/Pelvis CT 03/27/17 0000 Signed Impressions: Service Date/Time: Monday, March 27, 2017 22:38 - CONCLUSION: 1. There is a distended urinary bladder despite a Crooks catheter and suprapubic catheter. There is resulting hydronephrosis and hydroureter. 2. Colonic diverticulosis. 3. Pneumobilia without biliary dilatation. This would suggest sphincterotomy. Melquiades Najera Jr., MD Physical Exam CONSTITUTIONAL/GENERAL: This is an adequately nourished patient, in no apparent distress. TUBES/LINES/DRAINS: SKIN: No jaundice, rashes, or lesions. Skin temperature appropriate. Not diaphoretic. EYES: Pupils equal and round and reactive. . No scleral icterus. No injection or drainage. Fundi not examined. ENT: Hearing grossly normal. Nose without bleeding or purulent drainage. Oral mucosae without visible erythema, exudates, masses, or lesions. Poor dentition CARDIOVASCULAR: Regular rate and rhythm without murmurs, gallops, or rubs. No JVD. Peripheral pulses symmetric. RESPIRATORY/CHEST: Symmetric, unlabored respirations. Clear to auscultation. Breath sounds equal bilaterally. No wheezes, rales, or rhonchi. On BIPAP GASTROINTESTINAL: Abdomen soft, non-tender, quite distended. No hepato- splenomegaly, or palpable masses. No guarding. Bowel sounds present. Dignishild in place , no stool in the bag GENITOURINARY: Without palpable bladder distension. SP catheter in place with clear yellow urine MUSCULOSKELETAL: Extremities without clubbing, cyanosis, 1+ edema. No calf tenderness. No mottling or clubbing. 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
[2017-04-03] MEDS ORDERED: Vancomycin Consult Pharmacy 1 EA OTHER SCH (17:00)
--- NOTE | 2017-04-03 17:20 | HHI.PR ---
Subjective Remarks Cutting And Splicing Supervisor Notes: 03/26: This is a 89 year old male with a history of C Difficile colitis, duodenal bulb ulcer, and dilated common bile duct/pancreatic duct, who was sent from his assisted living facility for evaluation of altered mental status. He is currently extremely somnolent and unable to provide any history and therefore the history has been obtained from the EMR and nursing staff. According to the ER note, he is being treated for C Difficile colitis with oral vancomycin and an UTI with Macrobid. He was recently seen in the ER for urinary retention despite a suprapubic catheter and a regular Montoya catheter was placed and he was referred to urology as outpatient. His H/H was noted to be 11.4/24.4 on 03/22/17. Yesterday this was 8.1/24.4. He was given 2 units of PRBC and today this is 11.5/35.0. GI has been consulted for anemia and hemo- occult positive stool. His abdomen is nondistended, but he does have moderate lower abdominal tenderness on exam. The nurse reports that he has not had a bowel movement on her shift, but was told that he had a small amount of stool overnight. He was admitted to the intensive care unit for altered mental status , SIRS, DM, HTN, GERD, hyperlipidemia, anemia. He was evaluated by our service back in 2010 for abdominal pain with nausea and vomiting and underwent EGD ()---> Large duodenal bulb ulcer, duodenitis, very edematous mucosa, bx, gastritis in the antrum, bx, esophagitis, schatzki's ring. Pathology with small bowel mucosa with no significant histopathologic abnormalities, antral mucosa with very focal mild active chronic gastritis, esophageal bx with squamous mucosa with mild reflux esophagitis. He was also evaluated with MRCP at that time which revealed dilatation of the common bile duct and pancreatic duct with area of beak-like narrowing at the pancreatic head. Of note, he has had gallstones and underwent ERCP with sphincterotomy. 03/27: Remains encephalopathic, laying in bed in no acute distress. 03/28: worsening encephalopathy. unable to protect airway. CT abd/pelvis with evidence of distended bladder with hydronephrosis despite both suprapubic and montoya through penis. attempted to reach family: patient has [id number] sister- in-law, brother , reportedly have not spoken in years. patient has a friend who takes him to breakfast occasionally. She said she would be willing to make healthcare decisions for him, but has never signed paperwork saying that she was the decision maker. when asked about his end-of-life wishes, she does not think he would want to be on a ventilator long-term, but she does not know specifically what his wishes were. He was reportedly a FULL CODE based on SNF documentation. 03/29: intubated yesterday. urine growing e. coli and klebsiella. c. diff PCR still not resulted. borderline hypotensive on propofol. 03/30: Remains encephalopathic orally intubated on mechanical ventilation. 03/31: Awake, encephalopathic, not following commands. Orally intubated on mechanical ventilation. 04/01: Awake, alert, disoriented/encephalopathic, not following commands. Extubated on 03/31, on nasal cannula. Precedex being titrated off. Hospitalist Notes: 04/02: Patient transferred to Hospitalist team starting today, seen in his bedroom, worsening respiratory condition and confused. 04/03: Seen in his bedroom and discussed with nurse Miss Nichols, the patient now on BiPAP, worsening respiratory temple, now Lethargic, discussed with corporate real estate specialist Miss Murillo she states his Surrogate wants him DNR and DNI but did not took any decision about Comfort care but is willing to go that route. Objective Vital Signs Date Time Temp Pulse Resp B/P (MAP) Pulse Ox O2 Delivery O2 Flow Rate FiO2 04/03/17 15:54 98 50 04/03/17 12:10 50 04/03/17 08:00 98 04/03/17 07:37 100 60 04/03/17 06:00 101 04/03/17 04:49 97 Bi-Pap 70 04/03/17 04:40 94 50 04/03/17 04:00 97.7 120 30 104/74 (84) 94 04/03/17 04:00 120 04/03/17 03:10 96 Non-Rebreather 15.00 04/03/17 02:00 113 04/03/17 00:00 98.3 102 29 147/73 (97) 97 04/03/17 00:00 102 04/02/17 22:00 109 04/02/17 20:00 97.2 105 24 140/65 (90) 97 04/02/17 20:00 105 04/02/17 19:04 98 Nasal Cannula 3.00 04/02/17 18:00 104 I/O 04/02/17 04/02/17 04/02/17 04/03/17 04/03/17 04/03/17 07:00 15:00 23:00 07:00 15:00 23:00 Intake Total 1887 ml 653 ml 1586 ml Output Total 1000 ml 1175 ml 1125 ml Balance 887 ml -522 ml 461 ml Intake IV Total 1510 ml 970 ml Tube Feeding 377 ml 453 ml 616 ml Other 200 ml Output Urine Total 1000 ml 1125 ml 825 ml Stool Total 50 ml 300 ml Result Diagram: 04/03/1752104/03/17521 Imaging Last Impressions Chest X-Ray 04/03/17 0000 Signed Impressions: Service Date/Time: Monday, April 03, 2017 03:42 - CONCLUSION: 1. Bilateral airspace disease, right greater than left increased from March 28. Froilan Boo MD Abdomen X-Ray 03/30/17 0000 Signed Impressions: Service Date/Time: Thursday, March 30, 2017 19:05 - CONCLUSION: 1. No evidence of obstruction. Reymundo Kinney MD Abdomen/Pelvis CT 03/27/17 0000 Signed Impressions: Service Date/Time: Monday, March 27, 2017 22:38 - CONCLUSION: 1. There is a distended urinary bladder despite a Montoya catheter and suprapubic catheter. There is resulting hydronephrosis and hydroureter. 2. Colonic diverticulosis. 3. Pneumobilia without biliary dilatation. This would suggest sphincterotomy. Melquiades Najera Jr., MD Procedures Endotracheal Intubation and Extubation. Other Results Laboratory Tests Test 03/26/17 18:35 03/26/17 18:55 03/26/17 21:47 03/26/17 23:30 Urine Color YELLOW Urine Turbidity CLOUDY Urine pH 5.5 Urine Specific [place] 1.020 Urine Protein 30 mg/dL Urine Glucose (UA) NEG mg/dL Urine Ketones TRACE mg/dL Urine Occult Blood MOD Urine Nitrite POS Urine Bilirubin NEG Urine Urobilinogen LESS THAN 2.0 MG/DL Urine Leukocyte Esterase LARGE Urine RBC 128 /hpf Urine WBC /hpf Urine Transitional Epithelial Cells 2 /hpf Urine Amorphous Sediment RARE Urine Bacteria MANY /hpf Urine Mucus FEW /lpf Microscopic Urinalysis Comment CATH-CULTURE IND Prothrombin Time 12.7 SEC Prothromb Time International Ratio 1.1 RATIO Activated Partial Thromboplast Time 29.2 SEC Total Creatine Kinase 35 U/L Troponin I LESS THAN 0.02 NG/ML Lactic Acid Level 1.9 mmol/L Nasal Screen MRSA (PCR) MRSA NOT DETECTED Test 03/28/17 04:35 03/28/17 15:05 03/29/17 10:57 03/30/17 05:48 Blood Urea Nitrogen 22 MG/DL Creatinine 1.27 MG/DL Random Glucose 134 MG/DL Total Protein 5.4 GM/DL Albumin 2.3 GM/DL Calcium Level 7.9 MG/DL Alkaline Phosphatase 112 U/L Aspartate Amino Transf (AST/SGOT) 27 U/L Alanine Aminotransferase (ALT/SGPT) 12 U/L Total Bilirubin 0.8 MG/DL Sodium Level 142 MEQ/L Potassium Level 3.5 MEQ/L Chloride Level 113 MEQ/L Carbon Dioxide Level 20.5 MEQ/L Blood Gas Ventilator Setting PRVC/AC Vancomycin Level Trough 18.9 MCG/ML Neutrophils (%) (Auto) 69.2 % Lymphocytes (%) (Auto) 19.5 % Monocytes (%) (Auto) 6.8 % Eosinophils (%) (Auto) 3.6 % Basophils (%) (Auto) 0.9 % Neutrophils # (Auto) 5.7 TH/MM3 Lymphocytes # (Auto) 1.6 TH/MM3 Monocytes # (Auto) 0.6 TH/MM3 Eosinophils # (Auto) 0.3 TH/MM3 Basophils # (Auto) 0.1 TH/MM3 CBC Comment DIFF FINAL Differential Comment Test 04/01/17 18:00 04/03/17 03:26 04/03/17 05:22 Stool C. difficile Toxin (PCR) POSITIVE Stl C. difficile Toxin Epiderm 027 PRESUMPTIVE POSITIVE Blood Gas Puncture Site RT RADIAL Blood Gas Patient Temperature 98.6 Blood Gas HCO3 21 mmol/L Blood Gas Base Excess -4.5 mmol/L Blood Gas Oxygen Saturation 96 % Arterial Blood pH 7.30 Arterial Blood Partial Pressure CO2 44 mmHg Arterial Blood Partial Pressure O2 133 mmHg Arterial Blood Oxygen Content 15.4 Vol % Arterial Blood Carboxyhemoglobin 1.6 % Arterial Blood Methemoglobin 1.1 % Blood Gas Hemoglobin 11.2 G/DL Oxygen Delivery Device Non-Rebreathing Mask Blood Gas Liter Flow 15 L/M Blood Gas Inspired Oxygen 100 % White Blood Count 8.4 TH/MM3 Red Blood Count 3.91 MIL/MM3 Hemoglobin 11.1 GM/DL Hematocrit 34.0 % Mean Corpuscular Volume 87.1 FL Mean Corpuscular Hemoglobin 28.5 PG Mean Corpuscular Hemoglobin Concent 32.7 % Red Cell Distribution Width 17.4 % Platelet Count 282 TH/MM3 Mean Platelet Volume 7.6 FL Blood Urea Nitrogen 6 MG/DL Creatinine 0.85 MG/DL Random Glucose 252 MG/DL Calcium Level 8.0 MG/DL Magnesium Level 1.7 MG/DL Sodium Level 147 MEQ/L Potassium Level 3.4 MEQ/L Chloride Level 116 MEQ/L Carbon Dioxide Level 20.9 MEQ/L Anion Gap 10 MEQ/L Estimat Glomerular Filtration Rate 85 ML/MIN Objective Remarks GENERAL: on BiPAP, Lethargic, do not follow commands for me. SKIN: Warm and dry. HEAD: Normocephalic. EYES: No scleral icterus. No injection or drainage. NECK: trachea midline. No JVD CARDIOVASCULAR: Regular rate and rhythm. RESPIRATORY: decreased breath sounds bilateral, no wheezing, some rales bilateral. GASTROINTESTINAL: Abdomen soft, mildly tender over suprapubic region. suprapubic catheter exists with some dark urine MUSCULOSKELETAL: No cyanosis, or edema. NEURO: Lethargic, not following commands, poor cough. withdraws x 4. Medications and IVs Current Medications Medications (Trade) Dose Ordered Sig/Ajay Route Start Time Stop Time Status Last Admin (Narcan Inj) 0.4 mg UNSCH PRN IV PUSH 03/26/17 20:15 (Ciloxan 0.3% Opth Soln) 1 drop Q4HR EACH EYE 03/26/17 20:45 04/03/17 16:12 (Lac-Hydrin 12% Lotion) 1 applic BID TOPICAL 03/26/17 21:00 04/03/17 08:29 (Synthroid) 112 mcg DAILY@0600 PO 03/27/17 06:00 04/03/17 05:39 (Tears Naturale Opth Soln) 1 drop Q4HR EACH EYE 03/26/17 20:45 04/03/17 16:12 (Vitamin D3) 1,000 units DAILY PO 03/27/17 09:00 04/03/17 08:27 (Pravachol) 20 mg DAILY PO 03/27/17 09:00 04/03/17 08:27 (Pill Splitter) 1 ea UNSCH PRN OTHER 03/26/17 21:00 Sodium Chloride 1,000 ml @ 30 mls/hr Q24H IV 03/26/17 23:00 04/03/17 12:00 (NS Flush) 2 ml UNSCH PRN IV FLUSH 03/26/17 23:00 (NS Flush) 2 ml BID IV FLUSH 03/27/17 09:00 04/03/17 08:28 (Duoneb Neb) 1 ampule Q2HR NEB PRN NEB 03/26/17 23:15 Miscellaneous Information 1 Q361D XX 03/26/17 23:00 (Chlorhexidine 2% Cloth) Taper DAILY@04 TOP 03/27/17 04:00 03/23/18 03:59 04/03/17 03:51 (Chlorhexidine 2% Cloth) 3 pack UNSCH PRN TOP 03/26/17 23:00 Metronidazole 100 ml @ 100 mls/hr Q8H IV 03/27/17 02:00 04/03/17 08:29 (VANCOMYCIN for oral use only) 250 mg QID PO 03/27/17 09:00 04/03/17 12:01 (Protonix Inj) 40 mg Q12H IV PUSH 03/27/17 04:00 04/03/17 16:12 Propofol 100 ml @ 2.505 mls/ hr TITRATE PRN IV 03/28/17 18:45 03/29/17 04:28 (D50w (Vial) Inj) 25 ml UNSCH PRN IV PUSH 03/29/17 08:00 03/31/17 06:01 (NovoLIN R SUPPLEMENTAL SCALE) 1 Q6HR SQ 03/29/17 12:00 04/03/17 12:10 (Reglan Inj) 5 mg Q8HR IV PUSH 03/30/17 22:00 04/03/17 16:12 Potassium Chloride 100 ml @ 50 mls/hr Q2H PRN IV 03/30/17 20:15 Potassium Chloride 100 ml @ 50 mls/hr Q2H PRN IV 03/30/17 20:15 04/01/17 18:14 Potassium Chloride 100 ml @ 25 mls/hr UNSCH PRN IV 03/30/17 20:15 Potassium Chloride 100 ml @ 50 mls/hr Q2H PRN IV 03/30/17 20:15 04/02/17 04:39 Magnesium Sulfate 4 gm/Sodium Chloride 100 ml @ 50 mls/hr UNSCH PRN IV 03/30/17 20:15 (Mag-Ox) 800 mg UNSCH PRN PO 03/30/17 20:15 Magnesium Sulfate 2 gm/Sodium Chloride 100 ml @ 50 mls/hr UNSCH PRN IV 03/30/17 20:15 03/30/17 21:29 (K-Phos) 2,000 mg Q4H PRN PO 03/30/17 20:15 Sodium Phosphate 30 mmol/Sodium Chloride 250 ml @ 42 mls/hr UNSCH PRN IV 03/30/17 20:15 (K-Phos) 2,000 mg UNSCH PRN PO/TUBE 03/30/17 20:15 Potassium Phosphate 30 mmol/ Sodium Chloride 260 ml @ 42 mls/hr UNSCH PRN IV 03/30/17 20:15 (Miralax) 17 gm DAILY NG 03/31/17 15:00 04/03/17 08:28 Cefepime HCl 2000 mg/Sodium Chloride 100 ml @ 200 mls/hr Q8H IV 04/03/17 17:00 UNV Pharmacy Profile Note 0 ml @ 0 mls/hr UNSCH IV 04/03/17 17:00 UNV Fluconazole/ Sodium Chloride 200 ml @ 100 mls/hr Q24H IV 04/03/17 17:00 UNV A/P Assessment and Plan 1. Severe Sepsis secondary to Urinary tract infection, C Diff Colitis, and acute hypoxic and hypercarbic respiratory failure s/p intubation 03/28. 2. Metabolic Encephalopathy, Toxic and Sepsis on Broad spectrum antibiotics 3. C Diff Colitis, History of Duodenal Ulcer, on Vancomycin by mouth, 4. Bladder Outlet Obstruction with Hydronephrosis, BPH, Chronic Suprapubic Catheter, Suprapubic Cath replaced by Urology specialist 5. UTI, repeat culture growing Klebsiella and E Coli, on Rocephin complete 7 day course, History of Previous PSAE 6. DM II uncontrolled continue sliding scale. 7. Hypertension ON hold antihypertensives. 8. Hyperlipidemia on Statins. 9. 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 Discussed with data review specialist Miss Murillo and she discussed with Patient's Surrogate and he took the decision to make the patient DNR and DNI and is willing to start Comfort care depend of patient clinical course. Poor Short term prognosis. Gastric protection with Protonix - Hold pharmacological DVT prophylaxis due to positive Hemoccult - Protonix IV twice a day Alexis Jacob MD Apr 03, 2017 17:19
[2017-04-03] MEDS: CEFEPIME INJ 2,000 MG in SODIUM CHLORIDE 0.9% INJ 100 ML IV SCH (18:30)
[2017-04-03] MEDS ORDERED: VANCOMYCIN INJ 2,000 MG in SODIUM CHLORID 0.9% 500 ML INJ 500 ML IV ONE (21:00)
[2017-04-03] MEDS: FLUCONAZOLE 400 MG PREMIX BAG 200 ML IV SCH (22:28)
[2017-04-04] VITALS (15 sets, daily range): BP systolic 105–131; BP diastolic 52–62; PULSE 76–107; RESP 14–26; TEMP 97.1–98; O2SAT 92–100
[2017-04-04] MEDS: CIPROFLOXACIN 0.3% OPTH SOLN 2.5 ML BTL EACH EYE SCH ×6 (02:56→20:00)
[2017-04-04] MEDS: ARTIFICIAL TEARS OPTH SOLN 15 ML BTL EACH EYE SCH ×6 (02:56→20:00)
[2017-04-04] MEDS: CEFEPIME INJ 2,000 MG in SODIUM CHLORIDE 0.9% INJ 100 ML IV SCH ×3 (03:03→16:52)
[2017-04-04] MEDS: metroNIDAZOLE 500 MG INJ 100 ML IV SCH ×3 (03:03→16:54)
[2017-04-04] MEDS: PANTOPRAZOLE SODIUM 40 MG VIAL IV PUSH SCH ×2 (03:15→16:54)
[2017-04-04] MEDS: CHLORHEXIDINE GLUCONATE 2 % 1 PACK (2 CLOTHS) TOP SCH (03:16)
[2017-04-04 05:31] LABS: POTASSIUM 3.3 MEQ/L (3.5-5.1)
[2017-04-04 05:37] LABS: HEMATOCRIT 29.2 % (39.0-51.0); MEAN CELL VOLUME 88.1 FL (80.0-100.0); MEAN CORPUSCULAR HEMOGLOBIN 28.4 PG (27.0-34.0); MEAN CORPUSCULAR HGB CONC 32.2 % (32.0-36.0); PLATELET COUNT 226 TH/MM3 (150-450); RED BLOOD COUNT 3.32 MIL/MM3 (4.50-5.90); RED CELL DISTRIBUTION WIDTH 18.1 % (11.6-17.2); REVIEW FLAG FINAL; WHITE BLOOD COUNT 9.9 TH/MM3 (4.0-11.0)
[2017-04-04 05:43] LABS: CALCIUM-PROTEIN CORRECTED 8.3 MG/DL (8.5-10.1)
[2017-04-04] MEDS: METOCLOPRAMIDE HCL 10 MG/2 ML VIAL IV PUSH SCH ×3 (06:00→22:14)
[2017-04-04] MEDS: INSULIN NovoLIN REGULAR SUPPLEMENTAL SCALE SQ SCH ×4 (06:00→17:11)
[2017-04-04] MEDS: LEVOTHYROXINE SODIUM 112 MCG TAB PO SCH (06:00)
[2017-04-04] MEDS: VANCOMYCIN 500 MG VIAL (FOR ORAL USE ONLY) PO SCH ×4 (09:10→21:00)
[2017-04-04] MEDS: CHOLECALCIFEROL (VIT D3) 1000 UNIT TAB PO SCH (09:10)
[2017-04-04] MEDS: PRAVASTATIN SOD 20 MG TAB PO SCH (09:10)
[2017-04-04] MEDS: POLYETHYLENE GLYCOL 17 GM PKG NG SCH (09:11)
[2017-04-04] MEDS: SODIUM CHLORIDE 0.9% FLUSH 10 ML FLUSH IV FLUSH SCH ×2 (09:11→22:14)
[2017-04-04] MEDS: LACTIC ACID (AMMONIUM LACTATE) 12% LOTION 225 GM BTL TOPICAL SCH ×2 (09:33→21:00)
--- NOTE | 2017-04-04 11:16 | HHI.PR ---
Subjective Remarks [employer] Instructor Notes: 03/26: This is a 89 year old male with a history of C Difficile colitis, duodenal bulb ulcer, and dilated common bile duct/pancreatic duct, who was sent from his assisted living facility for evaluation of altered mental status. He is currently extremely somnolent and unable to provide any history and therefore the history has been obtained from the EMR and nursing staff. According to the ER note, he is being treated for C Difficile colitis with oral vancomycin and an UTI with Macrobid. He was recently seen in the ER for urinary retention despite a suprapubic catheter and a regular Montoya catheter was placed and he was referred to urology as outpatient. His H/H was noted to be 11.4/24.4 on 03/22/17. Yesterday this was 8.1/24.4. He was given 2 units of PRBC and today this is 11.5/35.0. GI has been consulted for anemia and hemo- occult positive stool. His abdomen is nondistended, but he does have moderate lower abdominal tenderness on exam. The nurse reports that he has not had a bowel movement on her shift, but was told that he had a small amount of stool overnight. He was admitted to the intensive care unit for altered mental status , SIRS, DM, HTN, GERD, hyperlipidemia, anemia. He was evaluated by our service back in 2010 for abdominal pain with nausea and vomiting and underwent EGD ()---> Large duodenal bulb ulcer, duodenitis, very edematous mucosa, bx, gastritis in the antrum, bx, esophagitis, schatzki's ring. Pathology with small bowel mucosa with no significant histopathologic abnormalities, antral mucosa with very focal mild active chronic gastritis, esophageal bx with squamous mucosa with mild reflux esophagitis. He was also evaluated with MRCP at that time which revealed dilatation of the common bile duct and pancreatic duct with area of beak-like narrowing at the pancreatic head. Of note, he has had gallstones and underwent ERCP with sphincterotomy. 03/27: Remains encephalopathic, laying in bed in no acute distress. 03/28: worsening encephalopathy. unable to protect airway. CT abd/pelvis with evidence of distended bladder with hydronephrosis despite both suprapubic and montoya through penis. attempted to reach family: patient has [id number] sister- in-law, brother , reportedly have not spoken in years. patient has a friend who takes him to breakfast occasionally. She said she would be willing to make healthcare decisions for him, but has never signed paperwork saying that she was the decision maker. when asked about his end-of-life wishes, she does not think he would want to be on a ventilator long-term, but she does not know specifically what his wishes were. He was reportedly a FULL CODE based on SNF documentation. 03/29: intubated yesterday. urine growing e. coli and klebsiella. c. diff PCR still not resulted. borderline hypotensive on propofol. 03/30: Remains encephalopathic orally intubated on mechanical ventilation. 03/31: Awake, encephalopathic, not following commands. Orally intubated on mechanical ventilation. 04/01: Awake, alert, disoriented/encephalopathic, not following commands. Extubated on 03/31, on nasal cannula. Precedex being titrated off. Hospitalist Notes: 04/02: Patient transferred to Hospitalist team starting today, seen in his bedroom, worsening respiratory condition and confused. 04/03: Seen in his bedroom and discussed with nurse Miss Nichols, the patient now on BiPAP, worsening respiratory temple, now Lethargic, discussed with medical administrative specialist Miss Murillo she states his Surrogate wants him DNR and DNI but did not took any decision about Comfort care but is willing to go that route. 04/04: Stable in his bedroom discussed with nurse Miss Bocanegra and the patient removed his NG tube, asked me to give him Potassium chloride replacement by NG tube due to difficult Peripheral lines, no nausea, vomit or diarrhea. continue somnolent and confused. Objective Vital Signs Date Time Temp Pulse Resp B/P (MAP) Pulse Ox O2 Delivery O2 Flow Rate FiO2 04/04/17 08:20 98 Nasal Cannula 2.00 04/04/17 08:00 79 04/04/17 08:00 97.9 79 25 131/62 (85) 100 04/04/17 07:00 100 Nasal Cannula 2.00 04/04/17 06:00 80 04/04/17 04:00 82 04/04/17 04:00 97.1 82 18 111/58 (75) 95 04/04/17 03:10 96 Room Air 04/04/17 02:00 96 04/04/17 00:40 98 Venturi Mask 6.00 50 04/04/17 00:00 99 Venturi Mask 04/04/17 00:00 107 04/04/17 00:00 93.2 107 26 105/56 (72) 96 04/03/17 22:07 96 40 04/03/17 22:00 97 04/03/17 20:00 104 04/03/17 20:00 97.7 104 19 121/62 (81) 100 04/03/17 19:10 100 BiPAP 50 04/03/17 19:10 98 40 04/03/17 19:00 100 Bi-Pap 50 04/03/17 18:00 93 04/03/17 16:00 100.6 110 25 113/59 (77) 98 04/03/17 16:00 110 04/03/17 15:54 98 50 04/03/17 14:00 100 04/03/17 12:10 50 04/03/17 12:00 109 04/03/17 12:00 100.2 109 26 142/62 (88) 99 I/O 04/03/17 04/03/17 04/03/17 04/04/17 04/04/17 04/04/17 07:00 15:00 23:00 07:00 15:00 23:00 Intake Total 1586 ml 1539 ml 635 ml 520 ml Output Total 1125 ml 325 ml 1150 ml Balance 461 ml 1214 ml -515 ml 520 ml Intake IV Total 970 ml 610 ml 520 ml Tube Feeding 616 ml 629 ml 635 ml Other 300 ml Output Urine Total 825 ml 325 ml 1150 ml Stool Total 300 ml Tube Feeding Residual Discard 0 ml # Bowel Movements 1 1 Result Diagram: 04/04/17 0430 04/04/17 0430 Imaging Last Impressions Chest X-Ray 04/03/17 0000 Signed Impressions: Service Date/Time: Monday, April 03, 2017 03:42 - CONCLUSION: 1. Bilateral airspace disease, right greater than left increased from March 28. Froilan Boo MD Abdomen X-Ray 03/30/17 0000 Signed Impressions: Service Date/Time: Thursday, March 30, 2017 19:05 - CONCLUSION: 1. No evidence of obstruction. Reymundo Kinney MD Abdomen/Pelvis CT 03/27/17 0000 Signed Impressions: Service Date/Time: Monday, March 27, 2017 22:38 - CONCLUSION: 1. There is a distended urinary bladder despite a Montoya catheter and suprapubic catheter. There is resulting hydronephrosis and hydroureter. 2. Colonic diverticulosis. 3. Pneumobilia without biliary dilatation. This would suggest sphincterotomy. Melquiades Najera Jr., MD Procedures Endotracheal Intubation and Extubation. Other Results Laboratory Tests Test 03/26/17 18:35 03/26/17 18:55 03/26/17 21:47 03/26/17 23:30 Urine Color YELLOW Urine Turbidity CLOUDY Urine pH 5.5 Urine Specific [place] 1.020 Urine Protein 30 mg/dL Urine Glucose (UA) NEG mg/dL Urine Ketones TRACE mg/dL Urine Occult Blood MOD Urine Nitrite POS Urine Bilirubin NEG Urine Urobilinogen LESS THAN 2.0 MG/DL Urine Leukocyte Esterase LARGE Urine RBC 128 /hpf Urine WBC /hpf Urine Transitional Epithelial Cells 2 /hpf Urine Amorphous Sediment RARE Urine Bacteria MANY /hpf Urine Mucus FEW /lpf Microscopic Urinalysis Comment CATH-CULTURE IND Prothrombin Time 12.7 SEC Prothromb Time International Ratio 1.1 RATIO Activated Partial Thromboplast Time 29.2 SEC Total Creatine Kinase 35 U/L Troponin I LESS THAN 0.02 NG/ML Lactic Acid Level 1.9 mmol/L Nasal Screen MRSA (PCR) MRSA NOT DETECTED Test 03/28/17 04:35 03/28/17 15:05 03/29/17 10:57 03/30/17 05:48 Blood Urea Nitrogen 22 MG/DL Creatinine 1.27 MG/DL Random Glucose 134 MG/DL Total Protein 5.4 GM/DL Albumin 2.3 GM/DL Calcium Level 7.9 MG/DL Alkaline Phosphatase 112 U/L Aspartate Amino Transf (AST/SGOT) 27 U/L Alanine Aminotransferase (ALT/SGPT) 12 U/L Total Bilirubin 0.8 MG/DL Sodium Level 142 MEQ/L Potassium Level 3.5 MEQ/L Chloride Level 113 MEQ/L Carbon Dioxide Level 20.5 MEQ/L Blood Gas Ventilator Setting PRVC/AC Vancomycin Level Trough 18.9 MCG/ML Neutrophils (%) (Auto) 69.2 % Lymphocytes (%) (Auto) 19.5 % Monocytes (%) (Auto) 6.8 % Eosinophils (%) (Auto) 3.6 % Basophils (%) (Auto) 0.9 % Neutrophils # (Auto) 5.7 TH/MM3 Lymphocytes # (Auto) 1.6 TH/MM3 Monocytes # (Auto) 0.6 TH/MM3 Eosinophils # (Auto) 0.3 TH/MM3 Basophils # (Auto) 0.1 TH/MM3 CBC Comment DIFF FINAL Differential Comment Test 04/01/17 18:00 04/03/17 03:26 04/03/17 05:22 04/04/17 04:30 Stool C. difficile Toxin (PCR) POSITIVE Stl C. difficile Toxin Epiderm 027 PRESUMPTIVE POSITIVE Blood Gas Puncture Site RT RADIAL Blood Gas Patient Temperature 98.6 Blood Gas HCO3 21 mmol/L Blood Gas Base Excess -4.5 mmol/L Blood Gas Oxygen Saturation 96 % Arterial Blood pH 7.30 Arterial Blood Partial Pressure CO2 44 mmHg Arterial Blood Partial Pressure O2 133 mmHg Arterial Blood Oxygen Content 15.4 Vol % Arterial Blood Carboxyhemoglobin 1.6 % Arterial Blood Methemoglobin 1.1 % Blood Gas Hemoglobin 11.2 G/DL Oxygen Delivery Device Non-Rebreathing Mask Blood Gas Liter Flow 15 L/M Blood Gas Inspired Oxygen 100 % Blood Urea Nitrogen 6 MG/DL 9 MG/DL Creatinine 0.85 MG/DL 0.78 MG/DL Random Glucose 252 MG/DL 179 MG/DL Calcium Level 8.0 MG/DL 7.2 MG/DL Magnesium Level 1.7 MG/DL Sodium Level 147 MEQ/L 149 MEQ/L Potassium Level 3.4 MEQ/L 3.3 MEQ/L Chloride Level 116 MEQ/L 119 MEQ/L Carbon Dioxide Level 20.9 MEQ/L 23.0 MEQ/L White Blood Count 9.9 TH/MM3 Red Blood Count 3.32 MIL/MM3 Hemoglobin 9.4 GM/DL Hematocrit 29.2 % Mean Corpuscular Volume 88.1 FL Mean Corpuscular Hemoglobin 28.4 PG Mean Corpuscular Hemoglobin Concent 32.2 % Red Cell Distribution Width 18.1 % Platelet Count 226 TH/MM3 Mean Platelet Volume 8.1 FL Total Protein 5.0 GM/DL Anion Gap 7 MEQ/L Estimat Glomerular Filtration Rate 94 ML/MIN Protein Corrected Calcium 8.3 MG/DL Objective Remarks GENERAL: Lethargic, do not follow commands for me. SKIN: Warm and dry. HEAD: Normocephalic. EYES: No scleral icterus. No injection or drainage. NECK: trachea midline. No JVD CARDIOVASCULAR: Regular rate and rhythm. RESPIRATORY: decreased breath sounds bilateral, no wheezing, some rales bilateral. GASTROINTESTINAL: Abdomen soft, mildly tender over suprapubic region. suprapubic catheter exists with some dark urine MUSCULOSKELETAL: No cyanosis, or edema. NEURO: Lethargic, not following commands, poor cough. withdraws x 4. Medications and IVs Current Medications Medications (Trade) Dose Ordered Sig/Ajay Route Start Time Stop Time Status Last Admin (Narcan Inj) 0.4 mg UNSCH PRN IV PUSH 03/26/17 20:15 (Ciloxan 0.3% Opth Soln) 1 drop Q4HR EACH EYE 03/26/17 20:45 04/04/17 09:09 (Lac-Hydrin 12% Lotion) 1 applic BID TOPICAL 03/26/17 21:00 04/04/17 09:33 (Synthroid) 112 mcg DAILY@0600 PO 03/27/17 06:00 04/03/17 05:39 (Tears Naturale Opth Soln) 1 drop Q4HR EACH EYE 03/26/17 20:45 04/04/17 09:09 (Vitamin D3) 1,000 units DAILY PO 03/27/17 09:00 04/04/17 09:10 (Pravachol) 20 mg DAILY PO 03/27/17 09:00 04/04/17 09:10 (Pill Splitter) 1 ea UNSCH PRN OTHER 03/26/17 21:00 Sodium Chloride 1,000 ml @ 30 mls/hr Q24H IV 03/26/17 23:00 04/03/17 12:00 (NS Flush) 2 ml UNSCH PRN IV FLUSH 03/26/17 23:00 (NS Flush) 2 ml BID IV FLUSH 03/27/17 09:00 04/04/17 09:11 (Duoneb Neb) 1 ampule Q2HR NEB PRN NEB 03/26/17 23:15 Miscellaneous Information 1 Q361D XX 03/26/17 23:00 (Chlorhexidine 2% Cloth) Taper DAILY@04 TOP 03/27/17 04:00 03/23/18 03:59 04/03/17 03:51 (Chlorhexidine 2% Cloth) 3 pack UNSCH PRN TOP 03/26/17 23:00 Metronidazole 100 ml @ 100 mls/hr Q8H IV 03/27/17 02:00 04/04/17 09:10 (VANCOMYCIN for oral use only) 250 mg QID PO 03/27/17 09:00 04/04/17 09:10 (Protonix Inj) 40 mg Q12H IV PUSH 03/27/17 04:00 04/04/17 03:15 Propofol 100 ml @ 2.505 mls/ hr TITRATE PRN IV 03/28/17 18:45 03/29/17 04:28 (D50w (Vial) Inj) 25 ml UNSCH PRN IV PUSH 03/29/17 08:00 03/31/17 06:01 (NovoLIN R SUPPLEMENTAL SCALE) 1 Q6HR SQ 03/29/17 12:00 04/04/17 06:00 (Reglan Inj) 5 mg Q8HR IV PUSH 03/30/17 22:00 04/04/17 06:00 Potassium Chloride 100 ml @ 50 mls/hr Q2H PRN IV 03/30/17 20:15 Potassium Chloride 100 ml @ 50 mls/hr Q2H PRN IV 03/30/17 20:15 04/01/17 18:14 Potassium Chloride 100 ml @ 25 mls/hr UNSCH PRN IV 03/30/17 20:15 Potassium Chloride 100 ml @ 50 mls/hr Q2H PRN IV 03/30/17 20:15 04/02/17 04:39 Magnesium Sulfate 4 gm/Sodium Chloride 100 ml @ 50 mls/hr UNSCH PRN IV 03/30/17 20:15 (Mag-Ox) 800 mg UNSCH PRN PO 03/30/17 20:15 Magnesium Sulfate 2 gm/Sodium Chloride 100 ml @ 50 mls/hr UNSCH PRN IV 03/30/17 20:15 03/30/17 21:29 (K-Phos) 2,000 mg Q4H PRN PO 03/30/17 20:15 Sodium Phosphate 30 mmol/Sodium Chloride 250 ml @ 42 mls/hr UNSCH PRN IV 03/30/17 20:15 (K-Phos) 2,000 mg UNSCH PRN PO/TUBE 03/30/17 20:15 Potassium Phosphate 30 mmol/ Sodium Chloride 260 ml @ 42 mls/hr UNSCH PRN IV 03/30/17 20:15 (Miralax) 17 gm DAILY NG 03/31/17 15:00 04/04/17 09:11 Cefepime HCl 2000 mg/Sodium Chloride 100 ml @ 200 mls/hr Q8H IV 04/03/17 18:00 04/04/17 09:10 Pharmacy Profile Note 0 ml @ 0 mls/hr UNSCH OTHER 04/03/17 17:00 Fluconazole/ Sodium Chloride 200 ml @ 100 mls/hr Q24H IV 04/03/17 20:00 04/03/17 22:28 A/P Assessment and Plan 1. Severe Sepsis secondary to Urinary tract infection, C Diff Colitis, and acute hypoxic and hypercarbic respiratory failure s/p intubation 03/28. extubated. today on Nasal Cannula. 2. Metabolic Encephalopathy, Toxic and Sepsis on Broad spectrum antibiotics 3. C Diff Colitis, History of Duodenal Ulcer, on Vancomycin by mouth, 4. Bladder Outlet Obstruction with Hydronephrosis, BPH, Chronic Suprapubic Catheter, Suprapubic Cath replaced by Urology specialist 5. UTI, repeat culture growing Klebsiella and E Coli, on Rocephin complete 7 day course, History of Previous PSAE 6. DM II uncontrolled continue sliding scale. 7. Hypertension controlled on no antihypertensives. 8. Hyperlipidemia on Statins. 9. 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 Code Status DNR and DNI Probable Comfort care depend of patient clinical course. for next week, Palliative care following. Poor Short term prognosis. Gastric protection with Protonix - Hold pharmacological DVT prophylaxis due to positive Hemoccult - Protonix IV twice a day Discharge Planning Not yet cleared for discharge. Alexis Jacob MD Apr 04, 2017 11:16
--- NOTE | 2017-04-04 13:58 | RADRPT ---
EXAM DATE/TIME: 04/04/2017 12:55 [facility] COMPARISON: CHEST SINGLE AP, April 03, 2017, 3:42. INDICATIONS : NG tube placement. MEDICAL HISTORY : Hypercholesterolemia. Hypertension SURGICAL HISTORY : None. ENCOUNTER: Initial ACUITY: 1 day PAIN SCORE: Non-responsive. LOCATION: Bilateral chest FINDINGS: The cardiac silhouette is enlarged in transverse diameter. There are findings of congestive heart kely lure with interstitial and alveolar opacity bilaterally. Moderate size bilateral pleural effusions ar e identified. Nasogastric tube is coiled in the hypopharynx. CONCLUSION: 1. Cardiomegaly and findings of congestive heart failure. There has been no significant change when c ompared to the prior exam. 2. Nasogastric tube coiled in the hypopharynx Reymundo Kinney MD on April 04, 2017 at 13:56 Board Certified Radiologist. This report was verified electronically.
[2017-04-04] MEDS ORDERED: POTASSIUM CHLORIDE 25 MEQ EFFERVESCENT TAB NG ONE (14:00)
[2017-04-04] MEDS: POTASSIUM CHLOR 20 MEQ PREMIX 100 ML IV PRN ×2 (14:42→18:36)
--- NOTE | 2017-04-04 19:18 | RADRPT ---
EXAM DATE/TIME: 04/04/2017 18:58 [facility] COMPARISON: No previous studies available for comparison. INDICATIONS : Dobhoff placement. MEDICAL HISTORY : Hypercholesterolemia. Hypertension. SURGICAL HISTORY : None. ENCOUNTER: Subsequent ACUITY: 1 day PAIN SCORE: Non-responsive. LOCATION: Bilateral chest FINDINGS: Tip of the Dobbhoff catheter appears to be within the cardia of the stomach. Air-filled loops of small bowel are identified. As the bilateral airspace disease and bilateral pleural effusions are noted. CONCLUSION: Tip of Dobbhoff catheter is in the cardia of the stomach. Rahul Funes MD on April 04, 2017 at 19:16 Board Certified Radiologist. This report was verified electronically.
[2017-04-04] MEDS ORDERED: VANCOMYCIN 1,000 MG/NS 250 ML IV ONE ×2 (21:00)
[2017-04-04] MEDS: FLUCONAZOLE 400 MG PREMIX BAG 200 ML IV SCH (22:18)
[2017-04-05] VITALS (13 sets, daily range): BP systolic 115–135; BP diastolic 57–72; PULSE 72–98; RESP 15–22; TEMP 97–97.9; O2SAT 87–98
[2017-04-05] MEDS: CIPROFLOXACIN 0.3% OPTH SOLN 2.5 ML BTL EACH EYE SCH ×5 (04:00→16:19)
[2017-04-05] MEDS: ARTIFICIAL TEARS OPTH SOLN 15 ML BTL EACH EYE SCH ×5 (04:00→16:18)
[2017-04-05] MEDS: CHLORHEXIDINE GLUCONATE 2 % 1 PACK (2 CLOTHS) TOP SCH (04:00)
[2017-04-05 04:31] LABS: HEMATOCRIT 29.9 % (39.0-51.0); MEAN CELL VOLUME 87.9 FL (80.0-100.0); MEAN CORPUSCULAR HEMOGLOBIN 29.1 PG (27.0-34.0); MEAN CORPUSCULAR HGB CONC 33.1 % (32.0-36.0); PLATELET COUNT 202 TH/MM3 (150-450); RED CELL DISTRIBUTION WIDTH 18.2 % (11.6-17.2); REVIEW FLAG FINAL; WHITE BLOOD COUNT 7.4 TH/MM3 (4.0-11.0)
[2017-04-05] MEDS: PANTOPRAZOLE SODIUM 40 MG VIAL IV PUSH SCH ×2 (04:51→16:18)
[2017-04-05] MEDS: METOCLOPRAMIDE HCL 10 MG/2 ML VIAL IV PUSH SCH ×2 (04:51→13:20)
[2017-04-05] MEDS: CEFEPIME INJ 2,000 MG in SODIUM CHLORIDE 0.9% INJ 100 ML IV SCH ×3 (04:54→16:17)
[2017-04-05] MEDS: metroNIDAZOLE 500 MG INJ 100 ML IV SCH ×3 (04:54→16:18)
[2017-04-05 04:58] LABS: BICARBONATE 25.7 MEQ/L (21.0-32.0)
[2017-04-05] MEDS: INSULIN NovoLIN REGULAR SUPPLEMENTAL SCALE SQ SCH ×4 (06:00→17:04)
--- NOTE | 2017-04-05 06:09 | RADRPT ---
EXAM DATE/TIME: 04/05/2017 05:46 [facility] COMPARISON: ABDOMEN KUB ONLY, March 30, 2017, 19:05. INDICATIONS : Dobhoff tube placement. MEDICAL HISTORY : Hypercholesterolemia. Hypertension SURGICAL HISTORY : None. ENCOUNTER: Subsequent ACUITY: 2 days PAIN SCORE: Non-responsive. LOCATION: Bilateral Abdomen FINDINGS: Supine view of the abdomen was performed. The abdominal bowel gas pattern is normal. No abnormal ma sses, calcifications, or organomegaly is seen. Degenerative change is seen in the lumbar spine. The feeding tube is coiled in the hypopharynx and upper esophagus. It does not extend beyond the thor acic inlet. CONCLUSION: Feeding tube coiled over lower neck region in the hypopharynx and upper esophagus. Rahul Rivera MD on April 05, 2017 at 6:07 Board Certified Radiologist. This report was verified electronically.
[2017-04-05] MEDS: CHOLECALCIFEROL (VIT D3) 1000 UNIT TAB PO SCH (08:45)
[2017-04-05] MEDS: PRAVASTATIN SOD 20 MG TAB PO SCH (08:45)
[2017-04-05] MEDS: POLYETHYLENE GLYCOL 17 GM PKG NG SCH (08:45)
[2017-04-05] MEDS: LACTIC ACID (AMMONIUM LACTATE) 12% LOTION 225 GM BTL TOPICAL SCH (08:46)
[2017-04-05] MEDS: LEVOTHYROXINE SODIUM 112 MCG TAB PO SCH (08:47)
[2017-04-05] MEDS: SODIUM CHLORIDE 0.9% FLUSH 10 ML FLUSH IV FLUSH SCH (09:00)
[2017-04-05] MEDS: VANCOMYCIN 500 MG VIAL (FOR ORAL USE ONLY) PO SCH ×4 (09:00→21:00)
--- NOTE | 2017-04-05 09:40 | HHI.PR ---
Subjective Remarks 03/26: This is a 89 year old male with a history of C Difficile colitis, duodenal bulb ulcer, and dilated common bile duct/pancreatic duct, who was sent from his assisted living facility for evaluation of altered mental status. He is currently extremely somnolent and unable to provide any history and therefore the history has been obtained from the EMR and nursing staff. According to the ER note, he is being treated for C Difficile colitis with oral vancomycin and an UTI with Macrobid. He was recently seen in the ER for urinary retention despite a suprapubic catheter and a regular Montoya catheter was placed and he was referred to urology as outpatient. His H/H was noted to be 11.4/24.4 on 03/22/17. Yesterday this was 8.1/24.4. He was given 2 units of PRBC and today this is 11.5/35.0. GI has been consulted for anemia and hemo- occult positive stool. His abdomen is nondistended, but he does have moderate lower abdominal tenderness on exam. The nurse reports that he has not had a bowel movement on her shift, but was told that he had a small amount of stool overnight. He was admitted to the intensive care unit for altered mental status , SIRS, DM, HTN, GERD, hyperlipidemia, anemia. He was evaluated by our service back in 2010 for abdominal pain with nausea and vomiting and underwent EGD ()---> Large duodenal bulb ulcer, duodenitis, very edematous mucosa, bx, gastritis in the antrum, bx, esophagitis, schatzki's ring. Pathology with small bowel mucosa with no significant histopathologic abnormalities, antral mucosa with very focal mild active chronic gastritis, esophageal bx with squamous mucosa with mild reflux esophagitis. He was also evaluated with MRCP at that time which revealed dilatation of the common bile duct and pancreatic duct with area of beak-like narrowing at the pancreatic head. Of note, he has had gallstones and underwent ERCP with sphincterotomy. 03/27: Remains encephalopathic, laying in bed in no acute distress. 03/28: worsening encephalopathy. unable to protect airway. CT abd/pelvis with evidence of distended bladder with hydronephrosis despite both suprapubic and montoya through penis. attempted to reach family: patient has [id number] sister- in-law, brother , reportedly have not spoken in years. patient has a friend who takes him to breakfast occasionally. She said she would be willing to make healthcare decisions for him, but has never signed paperwork saying that she was the decision maker. when asked about his end-of-life wishes, she does not think he would want to be on a ventilator long-term, but she does not know specifically what his wishes were. He was reportedly a FULL CODE based on SNF documentation. 03/29: intubated yesterday. urine growing e. coli and klebsiella. c. diff PCR still not resulted. borderline hypotensive on propofol. 03/30: Remains encephalopathic orally intubated on mechanical ventilation. 03/31: Awake, encephalopathic, not following commands. Orally intubated on mechanical ventilation. 04/01: Awake, alert, disoriented/encephalopathic, not following commands. Extubated on 03/31, on nasal cannula. Precedex being titrated off. Hospitalist Notes: 04/02: Patient transferred to Hospitalist team starting today, seen in his bedroom, worsening respiratory condition and confused. 04/03: Seen in his bedroom and discussed with nurse Miss Nichols, the patient now on BiPAP, worsening respiratory temple, now Lethargic, discussed with hearing instrument specialist Miss Murillo she states his Surrogate wants him DNR and DNI but did not took any decision about Comfort care but is willing to go that route. 04/04: Stable in his bedroom discussed with nurse Miss Bocanegra and the patient removed his NG tube, asked me to give him Potassium chloride replacement by NG tube due to difficult Peripheral lines, no nausea, vomit or diarrhea. continue somnolent and confused. 04-05 TO HAVE DOBBHOFF TUBE PLACED LATER TODAY POOR ORAL INTAKE NOT ABLE TO TAKE MUCH IN ORALLY PALLIATIVE CARE IS FOLLOWING DNR Objective Vitals Vital Signs Date Time Temp Pulse Resp B/P (MAP) Pulse Ox O2 Delivery O2 Flow Rate FiO2 04/05/17 09:21 98 Nasal Cannula 2.00 04/05/17 06:00 78 04/05/17 04:00 97.2 80 16 123/59 (80) 97 04/05/17 02:00 72 04/05/17 00:00 97.5 76 17 134/59 (84) 87 04/05/17 00:00 76 04/04/17 22:00 85 04/04/17 20:22 98 Nasal Cannula 2.00 04/04/17 20:00 97.4 79 16 106/52 (70) 99 04/04/17 20:00 79 04/04/17 19:00 98 Nasal Cannula 2.00 04/04/17 18:00 80 04/04/17 16:00 76 04/04/17 16:00 97.2 76 16 113/60 (77) 99 04/04/17 14:00 78 04/04/17 12:00 78 04/04/17 12:00 98.0 78 14 112/53 (72) 92 04/04/17 10:00 80 I/O 04/04/17 04/04/17 04/04/17 04/05/17 04/05/17 04/05/17 07:00 15:00 23:00 07:00 15:00 23:00 Intake Total 635 ml 720 ml 500 ml 650 ml Output Total 1150 ml 1100 ml 950 ml Balance -515 ml 720 ml -600 ml -300 ml Intake Oral 100 ml IV Total 720 ml 400 ml 650 ml Tube Feeding 635 ml Output Urine Total 1150 ml 1000 ml 950 ml Stool Total 100 ml Tube Feeding Residual Discard 0 ml # Bowel Movements 1 3 Result Diagram: 04/05/17 0405 04/05/17 0405 Other Results Laboratory Tests Test 04/02/17 12:38 04/03/17 03:26 04/03/17 05:22 04/04/17 04:30 Potassium Level 3.6 MEQ/L 3.4 MEQ/L 3.3 MEQ/L Blood Gas Puncture Site RT RADIAL Blood Gas Patient Temperature 98.6 Blood Gas HCO3 21 mmol/L Blood Gas Base Excess -4.5 mmol/L Blood Gas Oxygen Saturation 96 % Arterial Blood pH 7.30 Arterial Blood Partial Pressure CO2 44 mmHg Arterial Blood Partial Pressure O2 133 mmHg Arterial Blood Oxygen Content 15.4 Vol % Arterial Blood Carboxyhemoglobin 1.6 % Arterial Blood Methemoglobin 1.1 % Blood Gas Hemoglobin 11.2 G/DL Oxygen Delivery Device Non-Rebreathing Mask Blood Gas Liter Flow 15 L/M Blood Gas Inspired Oxygen 100 % White Blood Count 8.4 TH/MM3 9.9 TH/MM3 Red Blood Count 3.91 MIL/MM3 3.32 MIL/MM3 Hemoglobin 11.1 GM/DL 9.4 GM/DL Hematocrit 34.0 % 29.2 % Mean Corpuscular Volume 87.1 FL 88.1 FL Mean Corpuscular Hemoglobin 28.5 PG 28.4 PG Mean Corpuscular Hemoglobin Concent 32.7 % 32.2 % Red Cell Distribution Width 17.4 % 18.1 % Platelet Count 282 TH/MM3 226 TH/MM3 Mean Platelet Volume 7.6 FL 8.1 FL Blood Urea Nitrogen 6 MG/DL 9 MG/DL Creatinine 0.85 MG/DL 0.78 MG/DL Random Glucose 252 MG/DL 179 MG/DL Calcium Level 8.0 MG/DL 7.2 MG/DL Magnesium Level 1.7 MG/DL Sodium Level 147 MEQ/L 149 MEQ/L Chloride Level 116 MEQ/L 119 MEQ/L Carbon Dioxide Level 20.9 MEQ/L 23.0 MEQ/L Anion Gap 10 MEQ/L 7 MEQ/L Estimat Glomerular Filtration Rate 85 ML/MIN 94 ML/MIN Total Protein 5.0 GM/DL Protein Corrected Calcium 8.3 MG/DL Test 04/05/17 04:05 White Blood Count 7.4 TH/MM3 Red Blood Count 3.40 MIL/MM3 Hemoglobin 9.9 GM/DL Hematocrit 29.9 % Mean Corpuscular Volume 87.9 FL Mean Corpuscular Hemoglobin 29.1 PG Mean Corpuscular Hemoglobin Concent 33.1 % Red Cell Distribution Width 18.2 % Platelet Count 202 TH/MM3 Mean Platelet Volume 7.9 FL Blood Urea Nitrogen 10 MG/DL Creatinine 0.66 MG/DL Random Glucose 129 MG/DL Calcium Level 7.7 MG/DL Sodium Level 148 MEQ/L Potassium Level 4.0 MEQ/L Chloride Level 114 MEQ/L Carbon Dioxide Level 25.7 MEQ/L Anion Gap 8 MEQ/L Estimat Glomerular Filtration Rate 114 ML/MIN Random Vancomycin Level 4.2 COMMENT Imaging Last Impressions Chest X-Ray 04/04/17 0000 Signed Impressions: Service Date/Time: Tuesday, April 04, 2017 12:55 - CONCLUSION: 1. Cardiomegaly and findings of congestive heart failure. There has been no significant change when compared to the prior exam. 2. Nasogastric tube coiled in the hypopharynx Reymundo Kinney MD Abdomen X-Ray 04/04/17 0000 Signed Impressions: Service Date/Time: Tuesday, April 04, 2017 18:58 - CONCLUSION: Tip of Dobbhoff catheter is in the cardia of the stomach. Rahul Funes MD Abdomen/Pelvis CT 03/27/17 0000 Signed Impressions: Service Date/Time: Monday, March 27, 2017 22:38 - CONCLUSION: 1. There is a distended urinary bladder despite a Montoya catheter and suprapubic catheter. There is resulting hydronephrosis and hydroureter. 2. Colonic diverticulosis. 3. Pneumobilia without biliary dilatation. This would suggest sphincterotomy. Melquiades Najera Jr., MD Objective Remarks GENERAL: Awake and alert but some confusion SKIN: Warm and dry. Bilateral ecchymosis and swollen arms HEAD: Atraumatic. Normocephalic. EYES: Pupils equal and round. No scleral icterus. No injection or drainage. ENT: No nasal bleeding or discharge. Mucous membranes pink and moist. Tongue midline supple NECK: Trachea midline. No JVD. CARDIOVASCULAR: Regular rate and rhythm. S1-S2 no S3 or S4 RESPIRATORY: No accessory muscle use. Coarse breath sounds bilaterally Breath sounds equal bilaterally. GASTROINTESTINAL: Abdomen soft, non-tender, nondistended. Hepatic and splenic margins not palpable. Suprapubic catheter in place MUSCULOSKELETAL: Extremities without clubbing, cyanosis, No obvious deformities. +1 lower extremity edema NEUROLOGICAL: Awake and alert. No obvious cranial nerve deficits. Motor grossly within normal limits. 4 out of 5 muscle strength in the arms and legs. Normal speech. PSYCHIATRIC: INAppropriate mood and affect; insight and judgment ABnormal. Procedures Endotracheal Intubation and Extubation. Medications and IVs Current Medications Vancomycin HCl 1000 mg/Sodium Chloride 250 ml @ 250 mls/hr ONCE STAT IV Last administered on 03/26/17 20:10; Start 03/26/17 at 18:13; Stop 03/26/17 at 19:12 ; Status DC Aztreonam 2000 mg/ Sodium Chloride 100 ml @ 200 mls/hr ONCE STAT IV Last administered on 03/26/17 21:36; Start 03/26/17 at 18:13; Stop 03/26/17 at 18:42 ; Status DC Metronidazole 100 ml @ 100 mls/hr ONCE STAT IV Last administered on 18:38; Start 03/26/17 at 18:13; Stop 03/26/17 at 19:12; Status DC Sodium Chloride 500 ml @ 500 mls/hr BOLUS ONCE IV Last administered on 18:38; Start 03/26/17 at 18:15; Stop 03/26/17 at 19:14; Status DC Acetaminophen (Tylenol Supp) 650 mg ONCE ONCE RECTAL Last administered on 03/26 18:38; Start 03/26/17 at 18:30; Stop 03/26/17 at 18:33; Status DC Morphine Sulfate (Morphine Inj) 2 mg ONCE ONCE IV PUSH ; Start 03/26/17 at 18: 45; Stop 03/26/17 at 18:45; Status DC Sodium Chloride 500 ml @ 500 mls/hr BOLUS ONCE IV Last administered on 20:37; Start 03/26/17 at 20:00; Stop 03/26/17 at 20:59; Status DC Sodium Chloride (NS Flush) 2 ml UNSCH PRN IVF FLUSH AFTER USING IV ACCESS; Start 03/26/17 at 20:00; Stop 03/26/17 at 20:22; Status DC Pantoprazole Sodium 80 mg/ Sodium Chloride 35 ml @ 420 mls/hr Q5M ONCE IV Last administered on 03/26/17 20:36; Start 03/26/17 at 19:56; Stop 03/26/17 at 20:00; Status DC Pantoprazole Sodium 80 mg/ Sodium Chloride 100 ml @ 10 mls/hr Q10H IV Last administered on 03/27/17 02:50; Start 03/26/17 at 19:56; Stop 03/27/17 at 03:55 ; Status DC Sodium Chloride (NS Flush) 2 ml UNSCH PRN IV FLUSH FLUSH AFTER USING IV ACCESS ; Start 03/26/17 at 20:15; Stop 03/27/17 at 03:56; Status DC Sodium Chloride (NS Flush) 2 ml BID IV FLUSH Last administered on 03/26/17 21: 26; Start 03/26/17 at 21:00; Stop 03/27/17 at 03:56; Status DC Naloxone HCl (Narcan Inj) 0.4 mg UNSCH PRN IV PUSH SEE LABEL COMMENTS; Start 03/26/17 at 20:15 Magnesium Sulfate/ Dextrose 100 ml @ 100 mls/hr Q1H IV Last administered on 22:30; Start 03/26/17 at 20:30; Stop 03/26/17 at 22:29; Status DC Aspirin (Aspirin Chew) 81 mg DAILY CHEW ; Start 03/27/17 at 09:00; Stop at 09:00; Status DC Ciprofloxacin HCl (Ciloxan 0.3% Opth Soln) 1 drop Q4HR EACH EYE Last administered on 04/05/17 08:45; Start 03/26/17 at 20:45 Gabapentin (Neurontin) 300 mg HS PO Last administered on 03/28/17 21:34; Start 03/26/17 at 21:00; Stop 03/29/17 at 07:56; Status DC Lactic Acid (Lac-Hydrin 12% Lotion) 1 applic BID TOPICAL Last administered on 04/05/17 08:46; Start 03/26/17 at 21:00 Levothyroxine Sodium (Synthroid) 112 mcg DAILY@0600 PO Last administered on 08:47; Start 03/27/17 at 06:00 Artificial Tears (Tears Naturale Opth Soln) 1 drop Q4HR EACH EYE Last administered on 04/05/17 08:45; Start 03/26/17 at 20:45 Zolpidem Tartrate (Ambien) 2.5 mg HS PRN PO INSOMNIA Last administered on 23:54; Start 03/26/17 at 21:00; Stop 03/28/17 at 09:30; Status DC Cholecalciferol (Vitamin D3) 1,000 units DAILY PO Last administered on 08:45; Start 03/27/17 at 09:00 Pantoprazole Sodium (Protonix) 20 mg DAILY PO ; Start 03/27/17 at 09:00; Stop 03/27/17 at 09:00; Status DC Pravastatin Sodium (Pravachol) 20 mg DAILY PO Last administered on 04/05/17 08:45; Start 03/27/17 at 09:00 Miscellaneous (Pill Splitter) 1 ea UNSCH PRN OTHER SEE LABEL COMMENTS; Start 03/26/17 at 21:00 Sodium Chloride 1,000 ml @ 30 mls/hr Q24H IV Last administered on 04/03/17 12:00; Start 03/26/17 at 23:00 Sodium Chloride (NS Flush) 2 ml UNSCH PRN IV FLUSH FLUSH AFTER USING IV ACCESS ; Start 03/26/17 at 23:00 Sodium Chloride (NS Flush) 2 ml BID IV FLUSH Last administered on 04/04/17 22 :14; Start 03/27/17 at 09:00 Famotidine (Pepcid Inj) 10 mg Q12HR IV PUSH ; Start 03/27/17 at 09:00; Stop 03/27/17 at 09:00; Status DC Albuterol/ Ipratropium (Duoneb Neb) 1 ampule Q2HR NEB PRN NEB WHEEZING; Start 03/26/17 at 23:15 Heparin Sodium (Porcine) (Heparin Inj) 5,000 units Q12H SQ ; Start 03/26/17 at 23:00; Stop 03/27/17 at 03:50; Status DC Sodium Chloride 1,000 ml @ 1,000 mls/hr Q1H ONCE IV Last administered on 23:42; Start 03/26/17 at 22:59; Stop 03/26/17 at 23:58; Status DC Sodium Chloride 1,000 ml @ 1,000 mls/hr Q1H ONCE IV ; Start 03/26/17 at 23:00; Stop 03/26/17 at 23:59; Status DC Sodium Chloride 100 ml @ 1,000 mls/hr Q6M ONCE IV ; Start 03/26/17 at 23:00; Stop 03/26/17 at 23:17; Status DC Miscellaneous Information 1 Q361D XX ; Start 03/26/17 at 23:00 Chlorhexidine Gluconate (Chlorhexidine 2% Cloth) Taper DAILY@04 TOP Last administered on 04/05/17 04:00; Start 03/27/17 at 04:00; Stop 03/23/18 at 03: 59 Chlorhexidine Gluconate (Chlorhexidine 2% Cloth) 3 pack UNSCH PRN TOP HYGIENIC CARE; Start 03/26/17 at 23:00 Vancomycin HCl 1000 mg/Sodium Chloride 250 ml @ 250 mls/hr Q12H IV ; Start 03/27/17 at 00:30; Stop 03/27/17 at 00:31; Status DC Pharmacy Profile Note 0 ml @ 0 mls/hr UNSCH OTHER ; Start 03/27/17 at 00:30; Stop 03/29/17 at 11:59; Status DC Aztreonam 2000 mg/ Sodium Chloride 100 ml @ 200 mls/hr Q8H IV Last administered on 03/29/17 06:12; Start 03/27/17 at 06:00; Stop 03/29/17 at 07:56 ; Status DC Metronidazole 100 ml @ 100 mls/hr Q8H IV Last administered on 04/05/17 08:47 ; Start 03/27/17 at 02:00 Vancomycin HCl 1000 mg/Sodium Chloride 250 ml @ 250 mls/hr STAT STAT IV Last administered on 03/27/17 00:38; Start 03/27/17 at 00:30; Stop 03/27/17 at 01:29 ; Status DC Vancomycin HCl (VANCOMYCIN for oral use only) 250 mg QID PO Last administered on 04/04/17 16:55; Start 03/27/17 at 09:00 Pantoprazole Sodium (Protonix Inj) 40 mg Q12H IV PUSH Last administered on 04:51; Start 03/27/17 at 04:00 Vancomycin HCl 1250 mg/Sodium Chloride 262.5 ml @ 250 mls/hr Q18H IV Last administered on 03/28/17 14:00; Start 03/27/17 at 20:00; Stop 03/29/17 at 07:56 ; Status DC Miscellaneous Information SPECIFIC LAB TO BE SUSANNE... ONCE ONCE .XX ; Start 03/29 at 07:45; Stop 03/29/17 at 07:46; Status DC Diatrizoate Meglum/ Diatrizoate Sod ( Gastroview Liq) 18 ml ONCE ONCE PO Last administered on 03/27/17 19:58; Start 03/27/17 at 16:15; Stop 03/27/17 at 16:16; Status DC Iohexol (Omnipaque 350 Inj) 100 ml STK-MED ONCE IVCONTRAST Last administered on 03/27/17 22:41; Start 03/27/17 at 22:41; Stop 03/27/17 at 22:42; Status DC Rocuronium [place] (Zemuron Inj) 50 mg STK-MED ONCE .ROUTE Last administered on 03/28/17 13:17; Start 03/28/17 at 13:17; Stop 03/28/17 at 13:18; Status DC Midazolam HCl (Versed Inj) 5 mg STK-MED ONCE .ROUTE Last administered on 15:33; Start 03/28/17 at 13:18; Stop 03/28/17 at 13:19; Status DC Midazolam HCl (Versed Inj) 5 mg STK-MED ONCE .ROUTE Last administered on 13:18; Start 03/28/17 at 13:18; Stop 03/28/17 at 13:19; Status DC Propofol 0 ml @ As Directed STK-MED ONCE .ROUTE ; Start 03/28/17 at 13:41; Stop 03/28/17 at 13:42; Status DC Albumin Human (Albumin 5% Inj) 25 gm STAT ONCE IV Last administered on 17:56; Start 03/28/17 at 14:30; Stop 03/28/17 at 14:31; Status DC Phenylephrine HCl 40 mg/Dextrose 500 ml @ 30 mls/hr TITRATE PRN IV Blood pressure management Last administered on 03/28/17 15:26; Start 03/28/17 at 14: 30; Stop 04/01/17 at 10:43; Status DC Terbutaline Sulfate (Brethine Inj) 1 mg UNSCH PRN SQ For Extravasation; Start 03/28/17 at 14:30; Stop 04/01/17 at 10:43; Status DC Propofol 100 ml @ 2.505 mls/ hr TITRATE PRN IV SEDATION Last administered on 03/29/17 04:28; Start 03/28/17 at 18:45 Propofol 100 ml @ As Directed STK-MED ONCE .ROUTE Last administered on 18:42; Start 03/28/17 at 18:42; Stop 03/28/17 at 18:43; Status DC Sodium Chloride 1,000 ml @ 1,000 mls/hr Q1H ONCE IV Last administered on 06:11; Start 03/29/17 at 06:00; Stop 03/29/17 at 06:59; Status DC Ceftriaxone Sodium 1000 mg/ Sodium Chloride 100 ml @ 200 mls/hr Q24H IV Last administered on 04/03/17 08:27; Start 03/29/17 at 08:00; Stop 04/03/17 at 16: 57; Status DC Fentanyl Citrate 250 ml @ 5 mls/hr TITRATE PRN IV SEDATION Last administered on 03/30/17 23:37; Start 03/29/17 at 08:00; Stop 04/01/17 at 10:43; Status DC Dextrose (D50w (Vial) Inj) 25 ml UNSCH PRN IV PUSH HYPOGLYCEMIA-SEE COMMENTS Last administered on 03/31/17 06:01; Start 03/29/17 at 08:00 Insulin Human Regular (NovoLIN R SUPPLEMENTAL SCALE) 1 Q6HR SQ Last administered on 04/04/17 06:00; Start 03/29/17 at 12:00 Dextrose (D50w (Syr) Inj) 50 ml STK-MED ONCE .ROUTE ; Start 03/30/17 at 01:08; Stop 03/30/17 at 01:09; Status DC Potassium Chloride 100 ml @ As Directed STK-MED ONCE .ROUTE Last administered on 03/30/17 10:03; Start 03/30/17 at 09:56; Stop 03/30/17 at 09:57; Status DC Potassium Chloride 100 ml @ 50 mls/hr Q2H IV ; Start 03/30/17 at 10:30; Stop 03/30/17 at 14:29; Status DC Metoclopramide HCl (Reglan Inj) 5 mg Q8HR IV PUSH Last administered on 04:51; Start 03/30/17 at 22:00 Potassium Chloride 100 ml @ 50 mls/hr Q2H PRN IV For Potassium 2.8 - 3.2 mEq/L ; Start 03/30/17 at 20:15 Potassium Chloride 100 ml @ 50 mls/hr Q2H PRN IV For Potassium 2.8 - 3.2 mEq/ L Last administered on 04/01/17 18:14; Start 03/30/17 at 20:15 Potassium Chloride 100 ml @ 25 mls/hr UNSCH PRN IV For Potassium 3.3 - 3.5 mEq /L; Start 03/30/17 at 20:15 Potassium Chloride 100 ml @ 50 mls/hr Q2H PRN IV For Potassium 3.3 - 3.5 mEq/ L Last administered on 04/04/17 18:36; Start 03/30/17 at 20:15 Magnesium Sulfate 4 gm/Sodium Chloride 100 ml @ 50 mls/hr UNSCH PRN IV For Magnesium 0.9 - 1.1 mg/dL; Start 03/30/17 at 20:15 Magnesium Oxide (Mag-Ox) 800 mg UNSCH PRN PO For Magnesium 1.2 - 1.6 mg/dL; Start 03/30/17 at 20:15 Magnesium Sulfate 2 gm/Sodium Chloride 100 ml @ 50 mls/hr UNSCH PRN IV For Magnesium 1.2 - 1.6 mg/dL Last administered on 03/30/17 21:29; Start 03/30/17 at 20:15 Potassium Phosphate (K-Phos) 2,000 mg Q4H PRN PO For Phosphorus < 2.5 mg/dL; Start 03/30/17 at 20:15 Sodium Phosphate 30 mmol/Sodium Chloride 250 ml @ 42 mls/hr UNSCH PRN IV For Phosphorus < 2.5 mg/dL; Start 03/30/17 at 20:15 Potassium Phosphate (K-Phos) 2,000 mg UNSCH PRN PO/TUBE SEE LABEL COMMENTS; Start 03/30/17 at 20:15 Potassium Phosphate 30 mmol/ Sodium Chloride 260 ml @ 42 mls/hr UNSCH PRN IV SEE LABEL COMMENTS; Start 03/30/17 at 20:15 Dexmedetomidine HCl 200 mcg/ Sodium Chloride 52 ml @ 4.49 mls/hr TITRATE PRN IV SEDATION Last administered on 04/01/17 06:04; Start 03/30/17 at 22:45; Stop 04/01/17 at 12:00; Status DC Polyethylene Glycol (Miralax) 17 gm DAILY NG Last administered on 04/05/17 08 :45; Start 03/31/17 at 15:00 Morphine Sulfate (Morphine Inj) 2 mg ONCE ONCE IV PUSH Last administered on 04:44; Start 04/03/17 at 04:45; Stop 04/03/17 at 04:46; Status DC Cefepime HCl 2000 mg/Sodium Chloride 100 ml @ 200 mls/hr Q8H IV Last administered on 04/05/17 08:47; Start 04/03/17 at 18:00 Pharmacy Profile Note 0 ml @ 0 mls/hr UNSCH OTHER ; Start 04/03/17 at 17:00 Fluconazole/ Sodium Chloride 200 ml @ 100 mls/hr Q24H IV Last administered on 04/04/17 22:18; Start 04/03/17 at 20:00 Vancomycin HCl 2000 mg/Sodium Chloride 520 ml @ 250 mls/hr ONCE ONCE IV Last administered on 04/03/17 22:23; Start 04/03/17 at 21:00; Stop 04/03/17 at 23 :04; Status DC Vancomycin HCl 1000 mg/Sodium Chloride 250 ml @ 250 mls/hr ONCE ONCE IV Last administered on 04/04/17 22:14; Start 04/04/17 at 21:00; Stop 04/04/17 at 21 :59; Status DC Potassium Bicarb/ Potassium Chloride (K-Lyte Cl Eff) 50 meq ONCE ONCE NG ; Start 04/04/17 at 14:00; Stop 04/04/17 at 14:02; Status DC A/P Assessment and Plan 1. Severe Sepsis secondary to Urinary tract infection, C Diff Colitis, and acute hypoxic and hypercarbic respiratory failure s/p intubation 03/28. extubated. today on Nasal Cannula. Has pulled his NG tube and the Dobbhoff tube has not been placed correctly 2. Metabolic Encephalopathy, Toxic and Sepsis on Broad spectrum antibiotics 3. C Diff Colitis, History of Duodenal Ulcer, on Vancomycin by mouth, needs a Dobbhoff tube so he can take his oral vancomycin 4. Bladder Outlet Obstruction with Hydronephrosis, BPH, Chronic Suprapubic Catheter, Suprapubic Cath replaced by Urology specialist 5. UTI, repeat culture growing Klebsiella and E Coli, on Rocephin complete 7 day course, History of Previous PSAE 6. DM II uncontrolled continue sliding scale. 7. Hypertension controlled on no antihypertensives. 8. Hyperlipidemia on Statins. 9. 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 Code Status DNR and DNI Probable Comfort care depend of patient clinical course. for next week, Palliative care following. Poor Short term prognosis. Gastric protection with Protonix - Hold pharmacological DVT prophylaxis due to positive Hemoccult - Protonix IV twice a day Needs a Dobbhoff tube inserted today for oral vancomycin as soon as possible so can continue to treat the C. difficile toxin colitis also needs some Lactinex if he can take that also Ativan as needed to place Dobbhoff tube Very poor prognosis will need palliative care consult has already been made a DO NOT RESUSCITATE A.m. labs Discharge Planning Not able to tolerate a diet yet will need to be maintained in the ICU Jason Covarrubias DO Apr 05, 2017 09:40
[2017-04-05] MEDS ORDERED: LORazepam 2 MG/ML VIAL IV PUSH ONE (09:45)
[2017-04-05] MEDS ORDERED: VANCOMYCIN INJ 1,250 MG in SODIUM CHLOR 0.9% 250 ML INJ 250 ML IV SCH (12:00)
--- NOTE | 2017-04-05 12:33 | RADRPT ---
EXAM DATE/TIME: 04/05/2017 11:47 [facility] COMPARISON: ABDOMEN [place], April 04, 2017, 18:58. INDICATIONS : Confirm dohoff tube placement. MEDICAL HISTORY : Hypercholesterolemia. Hypertension. SURGICAL HISTORY : None. ENCOUNTER: Subsequent ACUITY: 2 days PAIN SCORE: Non-responsive. LOCATION: abdomen. FINDINGS: There is a Dobbhoff feeding tube in the distal stomach. Bowel gas pattern is within normal limits. CONCLUSION: Dobbhoff tube in the distal stomach. Wally Valadez MD on April 05, 2017 at 12:31 Board Certified Radiologist. This report was verified electronically.
--- NOTE | 2017-04-05 14:07 | HHI.IDPN ---
Subjective Subjective Remarks chocking on attempted PO per RN now with Dobhoff no fever very confused comt to have liquid diarrhea Antibiotics cefeime IV vanco flagyl vanco PO Allergies: Coded Allergies: penicillin G (Unverified Allergy, Unknown, 03/26/17) Objective . Vital Signs Date Time Temp Pulse Resp B/P (MAP) Pulse Ox O2 Delivery O2 Flow Rate FiO2 04/05/17 12:00 79 04/05/17 12:00 97.9 79 16 123/70 (87) 92 04/05/17 10:00 72 04/05/17 09:21 98 Nasal Cannula 2.00 04/05/17 08:00 97.0 75 17 128/72 (90) 97 04/05/17 08:00 75 04/05/17 07:00 97 Nasal Cannula 2.00 04/05/17 06:00 78 04/05/17 04:00 97.2 80 16 123/59 (80) 97 04/05/17 02:00 72 04/05/17 00:00 97.5 76 17 134/59 (84) 87 04/05/17 00:00 76 04/04/17 22:00 85 04/04/17 20:22 98 Nasal Cannula 2.00 04/04/17 20:00 97.4 79 16 106/52 (70) 99 04/04/17 20:00 79 04/04/17 19:00 98 Nasal Cannula 2.00 04/04/17 18:00 80 04/04/17 16:00 76 04/04/17 16:00 97.2 76 16 113/60 (77) 99 04/04/17 14:00 78 . Laboratory Tests Test 04/04/17 04:30 04/05/17 04:05 White Blood Count 9.9 TH/MM3 7.4 TH/MM3 Red Blood Count 3.32 MIL/MM3 3.40 MIL/MM3 Hemoglobin 9.4 GM/DL 9.9 GM/DL Hematocrit 29.2 % 29.9 % Mean Corpuscular Volume 88.1 FL 87.9 FL Mean Corpuscular Hemoglobin 28.4 PG 29.1 PG Mean Corpuscular Hemoglobin Concent 32.2 % 33.1 % Red Cell Distribution Width 18.1 % 18.2 % Platelet Count 226 TH/MM3 202 TH/MM3 Mean Platelet Volume 8.1 FL 7.9 FL Laboratory Tests Test 04/04/17 04:30 04/05/17 04:05 Blood Urea Nitrogen 9 MG/DL 10 MG/DL Creatinine 0.78 MG/DL 0.66 MG/DL Random Glucose 179 MG/DL 129 MG/DL Total Protein 5.0 GM/DL Calcium Level 7.2 MG/DL 7.7 MG/DL Sodium Level 149 MEQ/L 148 MEQ/L Potassium Level 3.3 MEQ/L 4.0 MEQ/L Chloride Level 119 MEQ/L 114 MEQ/L Carbon Dioxide Level 23.0 MEQ/L 25.7 MEQ/L Anion Gap 7 MEQ/L 8 MEQ/L Estimat Glomerular Filtration Rate 94 ML/MIN 114 ML/MIN Protein Corrected Calcium 8.3 MG/DL Microbiology Date/Time Source Procedure Growth Status 04/03/17 19:05 Blood Peripheral Aerobic Blood Culture - Preliminary NO GROWTH IN 2 DAYS Resulted 04/03/17 19:05 Blood Peripheral Anaerobic Blood Culture - Preliminary NO GROWTH IN 2 DAYS Resulted 04/03/17 18:58 Blood Peripheral Aerobic Blood Culture - Preliminary NO GROWTH IN 2 DAYS Resulted 04/03/17 18:58 Blood Peripheral Anaerobic Blood Culture - Preliminary NO GROWTH IN 2 DAYS Resulted Imaging Last Impressions Chest X-Ray 04/04/17 0000 Signed Impressions: Service Date/Time: Tuesday, April 04, 2017 12:55 - CONCLUSION: 1. Cardiomegaly and findings of congestive heart failure. There has been no significant change when compared to the prior exam. 2. Nasogastric tube coiled in the hypopharynx Reymundo Kinney MD Abdomen X-Ray 04/04/17 0000 Signed Impressions: Service Date/Time: Tuesday, April 04, 2017 18:58 - CONCLUSION: Tip of Dobbhoff catheter is in the cardia of the stomach. Rahul Funes MD Abdomen/Pelvis CT 03/27/17 0000 Signed Impressions: Service Date/Time: Monday, March 27, 2017 22:38 - CONCLUSION: 1. There is a distended urinary bladder despite a Crooks catheter and suprapubic catheter. There is resulting hydronephrosis and hydroureter. 2. Colonic diverticulosis. 3. Pneumobilia without biliary dilatation. This would suggest sphincterotomy. Melquiades Najera Jr., MD Physical Exam CONSTITUTIONAL/GENERAL: This is an adequately nourished patient, in no apparent distress. TUBES/LINES/DRAINS: SKIN: No jaundice, rashes, or lesions. Skin temperature appropriate. Not diaphoretic. EYES: Pupils equal and round and reactive. No scleral icterus. No injection or drainage. Fundi not examined. ENT: Oral mucosae without visible erythema, exudates, masses, or lesions. Poor dentition CARDIOVASCULAR: Regular rate and rhythm without murmurs, gallops, or rubs. No JVD. Peripheral pulses symmetric. RESPIRATORY/CHEST: Symmetric, unlabored respirations.Diffuse b/l rhonchi to auscultation. GASTROINTESTINAL: Abdomen soft, non-tender, quite distended. No hepato- splenomegaly, or palpable masses. No guarding. Bowel sounds present. Dignishild in place , no stool in the bag Dobhoff in place GENITOURINARY: Without palpable bladder distension. SP catheter in place with clear yellow urine MUSCULOSKELETAL: Extremities without clubbing, cyanosis, 1+ edema. 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
[2017-04-05 16:40] LABS: BACTERIA, URINE RARE /hpf; BLOOD, URINE TRACE (NEG); COMMENT (UR) CATH-CULTURE IND; CULTURE IF INDICATED CATH CULTURE IND; GLUCOSE,URINE NEG (NEG); KETONE, URINE 40 mg/dL (NEG); NITRITE,URINE NEG (NEG); URINE COLOR YELLOW (YELLW/STRAW)
[2017-04-05] MEDS: SODIUM CHLOR 0.9% 1000 ML INJ 1,000 ML IV SCH (17:02)
[2017-04-06] VITALS (20 sets, daily range): BP systolic 116–154; BP diastolic 58–95; PULSE 85–98; RESP 13–25; TEMP 97.4–98; O2SAT 82–100
[2017-04-06] MEDS: metroNIDAZOLE 500 MG INJ 100 ML IV SCH ×3 (00:41→17:56)
[2017-04-06] MEDS: SODIUM CHLORIDE 0.9% FLUSH 10 ML FLUSH IV FLUSH SCH ×3 (00:41→23:19)
[2017-04-06] MEDS: CEFEPIME INJ 2,000 MG in SODIUM CHLORIDE 0.9% INJ 100 ML IV SCH ×3 (00:41→17:56)
[2017-04-06] MEDS: METOCLOPRAMIDE HCL 10 MG/2 ML VIAL IV PUSH SCH ×4 (00:43→23:19)
[2017-04-06] MEDS: LACTIC ACID (AMMONIUM LACTATE) 12% LOTION 225 GM BTL TOPICAL SCH ×3 (00:47→23:14)
[2017-04-06] MEDS: CIPROFLOXACIN 0.3% OPTH SOLN 2.5 ML BTL EACH EYE SCH ×7 (00:56→23:15)
[2017-04-06] MEDS: ARTIFICIAL TEARS OPTH SOLN 15 ML BTL EACH EYE SCH ×7 (00:56→23:15)
[2017-04-06] MEDS: FLUCONAZOLE 400 MG PREMIX BAG 200 ML IV SCH ×2 (00:58→23:15)
[2017-04-06] MEDS: CHLORHEXIDINE GLUCONATE 2 % 1 PACK (2 CLOTHS) TOP SCH (04:00)
[2017-04-06 04:07] LABS: AUTOMATED NEUTROPHIL # 7.3 TH/MM3 (1.8-7.7); BASOPHIL # 0.1 TH/MM3 (0-0.2); BASOPHIL % 0.9 % (0.0-2.0); EOSINOPHIL # 0.6 TH/MM3 (0-0.4); EOSINOPHIL % 5.4 % (0.0-4.0); HEMATOCRIT 28.6 % (39.0-51.0); HEMO FLAGS DIFF FINAL; LYMPH % 16.5 % (9.0-44.0); LYMPHOCYTE # 1.7 TH/MM3 (1.0-4.8); MEAN CELL VOLUME 88.9 FL (80.0-100.0); MEAN CORPUSCULAR HEMOGLOBIN 29.3 PG (27.0-34.0); MONO % 5.9 % (0.0-8.0); NEUT % 71.3 % (16.0-70.0); PLATELET COUNT 179 TH/MM3 (150-450); RED BLOOD COUNT 3.22 MIL/MM3 (4.50-5.90); WHITE BLOOD COUNT 10.2 TH/MM3 (4.0-11.0)
[2017-04-06 04:24] LABS: ANION GAP 12 MEQ/L (5-15); AST (GOT) 20 U/L (15-37); BICARBONATE 21.9 MEQ/L (21.0-32.0); BLOOD UREA NITROGEN 11 MG/DL (7-18); CHLORIDE 114 MEQ/L (98-107); GLOMERULAR FILTRATION RATE 104 ML/MIN (>89); MAGNESIUM 1.7 MG/DL (1.5-2.5); POTASSIUM 3.5 MEQ/L (3.5-5.1); SODIUM (NA) 148 MEQ/L (136-145)
[2017-04-06 04:33] LABS: ALKALINE PHOSPHATASE 92 U/L (45-117); ALT (GPT) 14 U/L (12-78); FREE T4 1.12 NG/DL (0.76-1.46); TOTAL BILIRUBIN ADULT 0.4 MG/DL (0.2-1.0)
[2017-04-06] MEDS: PANTOPRAZOLE SODIUM 40 MG VIAL IV PUSH SCH ×2 (05:40→16:31)
[2017-04-06] MEDS: LEVOTHYROXINE SODIUM 112 MCG TAB PO SCH (05:42)
[2017-04-06] MEDS: INSULIN NovoLIN REGULAR SUPPLEMENTAL SCALE SQ SCH ×5 (05:51→23:15)
[2017-04-06] MEDS: CHOLECALCIFEROL (VIT D3) 1000 UNIT TAB PO SCH (09:00)
[2017-04-06] MEDS: VANCOMYCIN 500 MG VIAL (FOR ORAL USE ONLY) PO SCH ×4 (09:00→21:00)
--- NOTE | 2017-04-06 09:32 | HHI.PR ---
Subjective Remarks 03/26: This is a 89 year old male with a history of C Difficile colitis, duodenal bulb ulcer, and dilated common bile duct/pancreatic duct, who was sent from his assisted living facility for evaluation of altered mental status. He is currently extremely somnolent and unable to provide any history and therefore the history has been obtained from the EMR and nursing staff. According to the ER note, he is being treated for C Difficile colitis with oral vancomycin and an UTI with Macrobid. He was recently seen in the ER for urinary retention despite a suprapubic catheter and a regular Montoya catheter was placed and he was referred to urology as outpatient. His H/H was noted to be 11.4/24.4 on 03/22/17. Yesterday this was 8.1/24.4. He was given 2 units of PRBC and today this is 11.5/35.0. GI has been consulted for anemia and hemo- occult positive stool. His abdomen is nondistended, but he does have moderate lower abdominal tenderness on exam. The nurse reports that he has not had a bowel movement on her shift, but was told that he had a small amount of stool overnight. He was admitted to the intensive care unit for altered mental status , SIRS, DM, HTN, GERD, hyperlipidemia, anemia. He was evaluated by our service back in 2010 for abdominal pain with nausea and vomiting and underwent EGD ()---> Large duodenal bulb ulcer, duodenitis, very edematous mucosa, bx, gastritis in the antrum, bx, esophagitis, schatzki's ring. Pathology with small bowel mucosa with no significant histopathologic abnormalities, antral mucosa with very focal mild active chronic gastritis, esophageal bx with squamous mucosa with mild reflux esophagitis. He was also evaluated with MRCP at that time which revealed dilatation of the common bile duct and pancreatic duct with area of beak-like narrowing at the pancreatic head. Of note, he has had gallstones and underwent ERCP with sphincterotomy. 03/27: Remains encephalopathic, laying in bed in no acute distress. 03/28: worsening encephalopathy. unable to protect airway. CT abd/pelvis with evidence of distended bladder with hydronephrosis despite both suprapubic and montoya through penis. attempted to reach family: patient has [id number] sister- in-law, brother , reportedly have not spoken in years. patient has a friend who takes him to breakfast occasionally. She said she would be willing to make healthcare decisions for him, but has never signed paperwork saying that she was the decision maker. when asked about his end-of-life wishes, she does not think he would want to be on a ventilator long-term, but she does not know specifically what his wishes were. He was reportedly a FULL CODE based on SNF documentation. 03/29: intubated yesterday. urine growing e. coli and klebsiella. c. diff PCR still not resulted. borderline hypotensive on propofol. 03/30: Remains encephalopathic orally intubated on mechanical ventilation. 03/31: Awake, encephalopathic, not following commands. Orally intubated on mechanical ventilation. 04/01: Awake, alert, disoriented/encephalopathic, not following commands. Extubated on 03/31, on nasal cannula. Precedex being titrated off. Hospitalist Notes: 04/02: Patient transferred to Hospitalist team starting today, seen in his bedroom, worsening respiratory condition and confused. 04/03: Seen in his bedroom and discussed with nurse Miss Nichols, the patient now on BiPAP, worsening respiratory temple, now Lethargic, discussed with catalog specialist Miss Murillo she states his Surrogate wants him DNR and DNI but did not took any decision about Comfort care but is willing to go that route. 04/04: Stable in his bedroom discussed with nurse Miss Bocanegra and the patient removed his NG tube, asked me to give him Potassium chloride replacement by NG tube due to difficult Peripheral lines, no nausea, vomit or diarrhea. continue somnolent and confused. 04-05 TO HAVE DOBBHOFF TUBE PLACED LATER TODAY POOR ORAL INTAKE NOT ABLE TO TAKE MUCH IN ORALLY PALLIATIVE CARE IS FOLLOWING DNR - ON PO VANCO AND FLUCONAZOLE HAD DOBBHOFF TUBE PLACED IN SOFT RESTRAINTS FOR HIS PROTECTION Objective Vitals Vital Signs Date Time Temp Pulse Resp B/P (MAP) Pulse Ox O2 Delivery O2 Flow Rate FiO2 04/06/17 06:00 91 04/06/17 04:00 97.7 95 19 116/72 (87) 96 04/06/17 04:00 95 04/06/17 02:00 89 04/06/17 00:00 94 04/06/17 00:00 97.4 94 21 117/64 (81) 82 04/05/17 22:00 98 04/05/17 20:00 74 04/05/17 20:00 97.1 74 15 115/57 (76) 96 04/05/17 19:00 96 Nasal Cannula 2.00 04/05/17 18:00 76 04/05/17 16:00 74 04/05/17 16:00 97.9 74 22 135/60 (85) 95 04/05/17 14:00 77 04/05/17 12:00 79 04/05/17 12:00 97.9 79 16 123/70 (87) 92 04/05/17 10:00 72 I/O 04/05/17 04/05/17 04/05/17 04/06/17 04/06/17 04/06/17 07:00 15:00 23:00 07:00 15:00 23:00 Intake Total 650 ml 200 ml 512.5 ml 851 ml Output Total 950 ml 675 ml 1300 ml Balance -300 ml 200 ml -162.5 ml -449 ml Intake Oral 50 ml IV Total 650 ml 200 ml 462.5 ml 642 ml Tube Feeding 149 ml Other 60 ml Output Urine Total 950 ml 675 ml 1000 ml Stool Total 300 ml # Bowel Movements 3 Result Diagram: 04/06/17 0329 04/06/17 0329 Other Results Laboratory Tests Test 04/04/17 04:30 04/05/17 04:05 04/05/17 14:55 04/06/17 03:29 White Blood Count 9.9 TH/MM3 7.4 TH/MM3 10.2 TH/MM3 Red Blood Count 3.32 MIL/MM3 3.40 MIL/MM3 3.22 MIL/MM3 Hemoglobin 9.4 GM/DL 9.9 GM/DL 9.4 GM/DL Hematocrit 29.2 % 29.9 % 28.6 % Mean Corpuscular Volume 88.1 FL 87.9 FL 88.9 FL Mean Corpuscular Hemoglobin 28.4 PG 29.1 PG 29.3 PG Mean Corpuscular Hemoglobin Concent 32.2 % 33.1 % 33.0 % Red Cell Distribution Width 18.1 % 18.2 % 19.0 % Platelet Count 226 TH/MM3 202 TH/MM3 179 TH/MM3 Mean Platelet Volume 8.1 FL 7.9 FL 8.7 FL Blood Urea Nitrogen 9 MG/DL 10 MG/DL 11 MG/DL Creatinine 0.78 MG/DL 0.66 MG/DL 0.71 MG/DL Random Glucose 179 MG/DL 129 MG/DL 144 MG/DL Total Protein 5.0 GM/DL 5.4 GM/DL Calcium Level 7.2 MG/DL 7.7 MG/DL 7.5 MG/DL Sodium Level 149 MEQ/L 148 MEQ/L 148 MEQ/L Potassium Level 3.3 MEQ/L 4.0 MEQ/L 3.5 MEQ/L Chloride Level 119 MEQ/L 114 MEQ/L 114 MEQ/L Carbon Dioxide Level 23.0 MEQ/L 25.7 MEQ/L 21.9 MEQ/L Anion Gap 7 MEQ/L 8 MEQ/L 12 MEQ/L Estimat Glomerular Filtration Rate 94 ML/MIN 114 ML/MIN 104 ML/MIN Protein Corrected Calcium 8.3 MG/DL Random Vancomycin Level 4.2 COMMENT Urine Color YELLOW Urine Turbidity HAZY Urine pH 5.0 Urine Specific [place] 1.017 Urine Protein 30 mg/dL Urine Glucose (UA) NEG mg/dL Urine Ketones 40 mg/dL Urine Occult Blood TRACE Urine Nitrite NEG Urine Bilirubin NEG Urine Urobilinogen LESS THAN 2.0 MG/DL Urine Leukocyte Esterase LARGE Urine RBC 3 /hpf Urine WBC 81 /hpf Urine WBC Clumps RARE Urine Bacteria RARE /hpf Microscopic Urinalysis Comment CATH-CULTURE IND Neutrophils (%) (Auto) 71.3 % Lymphocytes (%) (Auto) 16.5 % Monocytes (%) (Auto) 5.9 % Eosinophils (%) (Auto) 5.4 % Basophils (%) (Auto) 0.9 % Neutrophils # (Auto) 7.3 TH/MM3 Lymphocytes # (Auto) 1.7 TH/MM3 Monocytes # (Auto) 0.6 TH/MM3 Eosinophils # (Auto) 0.6 TH/MM3 Basophils # (Auto) 0.1 TH/MM3 CBC Comment DIFF FINAL Differential Comment Albumin 2.1 GM/DL Phosphorus Level 1.8 MG/DL Magnesium Level 1.7 MG/DL Alkaline Phosphatase 92 U/L Aspartate Amino Transf (AST/SGOT) 20 U/L Alanine Aminotransferase (ALT/SGPT) 14 U/L Total Bilirubin 0.4 MG/DL Free Thyroxine 1.12 NG/DL Thyroid Stimulating Hormone 3rd Gen 11.900 uIU/ML Imaging Last Impressions Abdomen X-Ray 04/05/17 0000 Signed Impressions: Service Date/Time: Wednesday, April 05, 2017 11:47 - CONCLUSION: Dobbhoff tube in the distal stomach. Wally Valadez MD Chest X-Ray 04/04/17 0000 Signed Impressions: Service Date/Time: Tuesday, April 04, 2017 12:55 - CONCLUSION: 1. Cardiomegaly and findings of congestive heart failure. There has been no significant change when compared to the prior exam. 2. Nasogastric tube coiled in the hypopharynx Reymundo Kinney MD Abdomen/Pelvis CT 03/27/17 0000 Signed Impressions: Service Date/Time: Monday, March 27, 2017 22:38 - CONCLUSION: 1. There is a distended urinary bladder despite a Montoya catheter and suprapubic catheter. There is resulting hydronephrosis and hydroureter. 2. Colonic diverticulosis. 3. Pneumobilia without biliary dilatation. This would suggest sphincterotomy. Melquiades Najera Jr., MD Objective Remarks GENERAL: Awake and alert but some confusion SKIN: Warm and dry. Bilateral ecchymosis and swollen arms HEAD: Atraumatic. Normocephalic. EYES: Pupils equal and round. No scleral icterus. No injection or drainage. ENT: No nasal bleeding or discharge. Mucous membranes pink and moist. Tongue midline supple NECK: Trachea midline. No JVD. CARDIOVASCULAR: Regular rate and rhythm. S1-S2 no S3 or S4 RESPIRATORY: No accessory muscle use. Coarse breath sounds bilaterally Breath sounds equal bilaterally. GASTROINTESTINAL: Abdomen soft, non-tender, nondistended. Hepatic and splenic margins not palpable. Suprapubic catheter in place MUSCULOSKELETAL: Extremities without clubbing, cyanosis, No obvious deformities. +1 lower extremity edema NEUROLOGICAL: Awake and alert. No obvious cranial nerve deficits. Motor grossly within normal limits. 4 out of 5 muscle strength in the arms and legs. Normal speech. PSYCHIATRIC: INAppropriate mood and affect; insight and judgment ABnormal. IN SOFT RESTRAINTS IN UE BL FOR LINE PROTECTION AND DOBBHOFF PROTECTION Procedures Endotracheal Intubation and Extubation. Medications and IVs Current Medications Vancomycin HCl 1000 mg/Sodium Chloride 250 ml @ 250 mls/hr ONCE STAT IV Last administered on 03/26/17t 20:10; Start 03/26/17 at 18:13; Stop 03/26/17 at 19:12 ; Status DC Aztreonam 2000 mg/ Sodium Chloride 100 ml @ 200 mls/hr ONCE STAT IV Last administered on 03/26/17 21:36; Start 03/26/17 at 18:13; Stop 03/26/17 at 18:42 ; Status DC Metronidazole 100 ml @ 100 mls/hr ONCE STAT IV Last administered on 18:38; Start 03/26/17 at 18:13; Stop 03/26/17 at 19:12; Status DC Sodium Chloride 500 ml @ 500 mls/hr BOLUS ONCE IV Last administered on 18:38; Start 03/26/17 at 18:15; Stop 03/26/17 at 19:14; Status DC Acetaminophen (Tylenol Supp) 650 mg ONCE ONCE RECTAL Last administered on 03/26 18:38; Start 03/26/17 at 18:30; Stop 03/26/17 at 18:33; Status DC Morphine Sulfate (Morphine Inj) 2 mg ONCE ONCE IV PUSH ; Start 03/26/17 at 18: 45; Stop 03/26/17 at 18:45; Status DC Sodium Chloride 500 ml @ 500 mls/hr BOLUS ONCE IV Last administered on 20:37; Start 03/26/17 at 20:00; Stop 03/26/17 at 20:59; Status DC Sodium Chloride (NS Flush) 2 ml UNSCH PRN IVF FLUSH AFTER USING IV ACCESS; Start 03/26/17 at 20:00; Stop 03/26/17 at 20:22; Status DC Pantoprazole Sodium 80 mg/ Sodium Chloride 35 ml @ 420 mls/hr Q5M ONCE IV Last administered on 03/26/17 20:36; Start 03/26/17 at 19:56; Stop 03/26/17 at 20:00; Status DC Pantoprazole Sodium 80 mg/ Sodium Chloride 100 ml @ 10 mls/hr Q10H IV Last administered on 03/27/17 02:50; Start 03/26/17 at 19:56; Stop 03/27/17 at 03:55 ; Status DC Sodium Chloride (NS Flush) 2 ml UNSCH PRN IV FLUSH FLUSH AFTER USING IV ACCESS ; Start 03/26/17 at 20:15; Stop 03/27/17 at 03:56; Status DC Sodium Chloride (NS Flush) 2 ml BID IV FLUSH Last administered on 03/26/17 21: 26; Start 03/26/17 at 21:00; Stop 03/27/17 at 03:56; Status DC Naloxone HCl (Narcan Inj) 0.4 mg UNSCH PRN IV PUSH SEE LABEL COMMENTS; Start 03/26/17 at 20:15 Magnesium Sulfate/ Dextrose 100 ml @ 100 mls/hr Q1H IV Last administered on 22:30; Start 03/26/17 at 20:30; Stop 03/26/17 at 22:29; Status DC Aspirin (Aspirin Chew) 81 mg DAILY CHEW ; Start 03/27/17 at 09:00; Stop at 09:00; Status DC Ciprofloxacin HCl (Ciloxan 0.3% Opth Soln) 1 drop Q4HR EACH EYE Last administered on 04/06/17 05:39; Start 03/26/17 at 20:45 Gabapentin (Neurontin) 300 mg HS PO Last administered on 03/28/17 21:34; Start 03/26/17 at 21:00; Stop 03/29/17 at 07:56; Status DC Lactic Acid (Lac-Hydrin 12% Lotion) 1 applic BID TOPICAL Last administered on 04/06/17 00:47; Start 03/26/17 at 21:00 Levothyroxine Sodium (Synthroid) 112 mcg DAILY@0600 PO Last administered on 05:42; Start 03/27/17 at 06:00; Stop 04/06/17 at 08:26; Status DC Artificial Tears (Tears Naturale Opth Soln) 1 drop Q4HR EACH EYE Last administered on 04/06/17 05:39; Start 03/26/17 at 20:45 Zolpidem Tartrate (Ambien) 2.5 mg HS PRN PO INSOMNIA Last administered on 23:54; Start 03/26/17 at 21:00; Stop 03/28/17 at 09:30; Status DC Cholecalciferol (Vitamin D3) 1,000 units DAILY PO Last administered on 08:45; Start 03/27/17 at 09:00 Pantoprazole Sodium (Protonix) 20 mg DAILY PO ; Start 03/27/17 at 09:00; Stop 03/27/17 at 09:00; Status DC Pravastatin Sodium (Pravachol) 20 mg DAILY PO Last administered on 04/05/17 08:45; Start 03/27/17 at 09:00 Miscellaneous (Pill Splitter) 1 ea UNSCH PRN OTHER SEE LABEL COMMENTS; Start 03/26/17 at 21:00 Sodium Chloride 1,000 ml @ 30 mls/hr Q24H IV Last administered on 04/05/17 17:02; Start 03/26/17 at 23:00 Sodium Chloride (NS Flush) 2 ml UNSCH PRN IV FLUSH FLUSH AFTER USING IV ACCESS ; Start 03/26/17 at 23:00 Sodium Chloride (NS Flush) 2 ml BID IV FLUSH Last administered on 04/06/17 00 :41; Start 03/27/17 at 09:00 Famotidine (Pepcid Inj) 10 mg Q12HR IV PUSH ; Start 03/27/17 at 09:00; Stop 03/27/17 at 09:00; Status DC Albuterol/ Ipratropium (Duoneb Neb) 1 ampule Q2HR NEB PRN NEB WHEEZING; Start 03/26/17 at 23:15 Heparin Sodium (Porcine) (Heparin Inj) 5,000 units Q12H SQ ; Start 03/26/17 at 23:00; Stop 03/27/17 at 03:50; Status DC Sodium Chloride 1,000 ml @ 1,000 mls/hr Q1H ONCE IV Last administered on 23:42; Start 03/26/17 at 22:59; Stop 03/26/17 at 23:58; Status DC Sodium Chloride 1,000 ml @ 1,000 mls/hr Q1H ONCE IV ; Start 03/26/17 at 23:00; Stop 03/26/17 at 23:59; Status DC Sodium Chloride 100 ml @ 1,000 mls/hr Q6M ONCE IV ; Start 03/26/17 at 23:00; Stop 03/26/17 at 23:17; Status DC Miscellaneous Information 1 Q361D XX ; Start 03/26/17 at 23:00 Chlorhexidine Gluconate (Chlorhexidine 2% Cloth) Taper DAILY@04 TOP Last administered on 04/05/17 04:00; Start 03/27/17 at 04:00; Stop 03/23/18 at 03: 59 Chlorhexidine Gluconate (Chlorhexidine 2% Cloth) 3 pack UNSCH PRN TOP HYGIENIC CARE; Start 03/26/17 at 23:00 Vancomycin HCl 1000 mg/Sodium Chloride 250 ml @ 250 mls/hr Q12H IV ; Start 03/27/17 at 00:30; Stop 03/27/17 at 00:31; Status DC Pharmacy Profile Note 0 ml @ 0 mls/hr UNSCH OTHER ; Start 03/27/17 at 00:30; Stop 03/29/17 at 11:59; Status DC Aztreonam 2000 mg/ Sodium Chloride 100 ml @ 200 mls/hr Q8H IV Last administered on 03/29/17 06:12; Start 03/27/17 at 06:00; Stop 03/29/17 at 07:56 ; Status DC Metronidazole 100 ml @ 100 mls/hr Q8H IV Last administered on 04/06/17 00:41 ; Start 03/27/17 at 02:00 Vancomycin HCl 1000 mg/Sodium Chloride 250 ml @ 250 mls/hr STAT STAT IV Last administered on 03/27/17 00:38; Start 03/27/17 at 00:30; Stop 03/27/17 at 01:29 ; Status DC Vancomycin HCl (VANCOMYCIN for oral use only) 250 mg QID PO Last administered on 04/04/17 16:55; Start 03/27/17 at 09:00 Pantoprazole Sodium (Protonix Inj) 40 mg Q12H IV PUSH Last administered on 05:40; Start 03/27/17 at 04:00 Vancomycin HCl 1250 mg/Sodium Chloride 262.5 ml @ 250 mls/hr Q18H IV Last administered on 03/28/17 14:00; Start 03/27/17 at 20:00; Stop 03/29/17 at 07:56 ; Status DC Miscellaneous Information SPECIFIC LAB TO BE SUSANNE... ONCE ONCE .XX ; Start 03/29 at 07:45; Stop 03/29/17 at 07:46; Status DC Diatrizoate Meglum/ Diatrizoate Sod ( Gastroview Liq) 18 ml ONCE ONCE PO Last administered on 03/27/17 19:58; Start 03/27/17 at 16:15; Stop 03/27/17 at 16:16; Status DC Iohexol (Omnipaque 350 Inj) 100 ml STK-MED ONCE IVCONTRAST Last administered on 03/27/17 22:41; Start 03/27/17 at 22:41; Stop 03/27/17 at 22:42; Status DC Rocuronium [place] (Zemuron Inj) 50 mg STK-MED ONCE .ROUTE Last administered on 03/28/17 13:17; Start 03/28/17 at 13:17; Stop 03/28/17 at 13:18; Status DC Midazolam HCl (Versed Inj) 5 mg STK-MED ONCE .ROUTE Last administered on 15:33; Start 03/28/17 at 13:18; Stop 03/28/17 at 13:19; Status DC Midazolam HCl (Versed Inj) 5 mg STK-MED ONCE .ROUTE Last administered on 13:18; Start 03/28/17 at 13:18; Stop 03/28/17 at 13:19; Status DC Propofol 0 ml @ As Directed STK-MED ONCE .ROUTE ; Start 03/28/17 at 13:41; Stop 03/28/17 at 13:42; Status DC Albumin Human (Albumin 5% Inj) 25 gm STAT ONCE IV Last administered on 17:56; Start 03/28/17 at 14:30; Stop 03/28/17 at 14:31; Status DC Phenylephrine HCl 40 mg/Dextrose 500 ml @ 30 mls/hr TITRATE PRN IV Blood pressure management Last administered on 03/28/17 15:26; Start 03/28/17 at 14: 30; Stop 04/01/17 at 10:43; Status DC Terbutaline Sulfate (Brethine Inj) 1 mg UNSCH PRN SQ For Extravasation; Start 03/28/17 at 14:30; Stop 04/01/17 at 10:43; Status DC Propofol 100 ml @ 2.505 mls/ hr TITRATE PRN IV SEDATION Last administered on 03/29/17 04:28; Start 03/28/17 at 18:45 Propofol 100 ml @ As Directed STK-MED ONCE .ROUTE Last administered on 18:42; Start 03/28/17 at 18:42; Stop 03/28/17 at 18:43; Status DC Sodium Chloride 1,000 ml @ 1,000 mls/hr Q1H ONCE IV Last administered on 06:11; Start 03/29/17 at 06:00; Stop 03/29/17 at 06:59; Status DC Ceftriaxone Sodium 1000 mg/ Sodium Chloride 100 ml @ 200 mls/hr Q24H IV Last administered on 04/03/17 08:27; Start 03/29/17 at 08:00; Stop 04/03/17 at 16: 57; Status DC Fentanyl Citrate 250 ml @ 5 mls/hr TITRATE PRN IV SEDATION Last administered on 03/30/17 23:37; Start 03/29/17 at 08:00; Stop 04/01/17 at 10:43; Status DC Dextrose (D50w (Vial) Inj) 25 ml UNSCH PRN IV PUSH HYPOGLYCEMIA-SEE COMMENTS Last administered on 03/31/17 06:01; Start 03/29/17 at 08:00 Insulin Human Regular (NovoLIN R SUPPLEMENTAL SCALE) 1 Q6HR SQ Last administered on 04/04/17 06:00; Start 03/29/17 at 12:00 Dextrose (D50w (Syr) Inj) 50 ml STK-MED ONCE .ROUTE ; Start 03/30/17 at 01:08; Stop 03/30/17 at 01:09; Status DC Potassium Chloride 100 ml @ As Directed STK-MED ONCE .ROUTE Last administered on 03/30/17 10:03; Start 03/30/17 at 09:56; Stop 03/30/17 at 09:57; Status DC Potassium Chloride 100 ml @ 50 mls/hr Q2H IV ; Start 03/30/17 at 10:30; Stop 03/30/17 at 14:29; Status DC Metoclopramide HCl (Reglan Inj) 5 mg Q8HR IV PUSH Last administered on 05:41; Start 03/30/17 at 22:00 Potassium Chloride 100 ml @ 50 mls/hr Q2H PRN IV For Potassium 2.8 - 3.2 mEq/L ; Start 03/30/17 at 20:15 Potassium Chloride 100 ml @ 50 mls/hr Q2H PRN IV For Potassium 2.8 - 3.2 mEq/ L Last administered on 04/01/17 18:14; Start 03/30/17 at 20:15 Potassium Chloride 100 ml @ 25 mls/hr UNSCH PRN IV For Potassium 3.3 - 3.5 mEq /L; Start 03/30/17 at 20:15 Potassium Chloride 100 ml @ 50 mls/hr Q2H PRN IV For Potassium 3.3 - 3.5 mEq/ L Last administered on 04/04/17 18:36; Start 03/30/17 at 20:15 Magnesium Sulfate 4 gm/Sodium Chloride 100 ml @ 50 mls/hr UNSCH PRN IV For Magnesium 0.9 - 1.1 mg/dL; Start 03/30/17 at 20:15 Magnesium Oxide (Mag-Ox) 800 mg UNSCH PRN PO For Magnesium 1.2 - 1.6 mg/dL; Start 03/30/17 at 20:15 Magnesium Sulfate 2 gm/Sodium Chloride 100 ml @ 50 mls/hr UNSCH PRN IV For Magnesium 1.2 - 1.6 mg/dL Last administered on 03/30/17 21:29; Start 03/30/17 at 20:15 Potassium Phosphate (K-Phos) 2,000 mg Q4H PRN PO For Phosphorus < 2.5 mg/dL; Start 03/30/17 at 20:15 Sodium Phosphate 30 mmol/Sodium Chloride 250 ml @ 42 mls/hr UNSCH PRN IV For Phosphorus < 2.5 mg/dL; Start 03/30/17 at 20:15 Potassium Phosphate (K-Phos) 2,000 mg UNSCH PRN PO/TUBE SEE LABEL COMMENTS; Start 03/30/17 at 20:15 Potassium Phosphate 30 mmol/ Sodium Chloride 260 ml @ 42 mls/hr UNSCH PRN IV SEE LABEL COMMENTS; Start 03/30/17 at 20:15 Dexmedetomidine HCl 200 mcg/ Sodium Chloride 52 ml @ 4.49 mls/hr TITRATE PRN IV SEDATION Last administered on 04/01/17 06:04; Start 03/30/17 at 22:45; Stop 04/01/17 at 12:00; Status DC Polyethylene Glycol (Miralax) 17 gm DAILY NG Last administered on 04/05/17 08 :45; Start 03/31/17 at 15:00 Morphine Sulfate (Morphine Inj) 2 mg ONCE ONCE IV PUSH Last administered on 04:44; Start 04/03/17 at 04:45; Stop 04/03/17 at 04:46; Status DC Cefepime HCl 2000 mg/Sodium Chloride 100 ml @ 200 mls/hr Q8H IV Last administered on 04/06/17 00:41; Start 04/03/17 at 18:00 Pharmacy Profile Note 0 ml @ 0 mls/hr UNSCH OTHER ; Start 04/03/17 at 17:00; Stop 04/05/17 at 14:08; Status DC Fluconazole/ Sodium Chloride 200 ml @ 100 mls/hr Q24H IV Last administered on 04/06/17 00:58; Start 04/03/17 at 20:00 Vancomycin HCl 2000 mg/Sodium Chloride 520 ml @ 250 mls/hr ONCE ONCE IV Last administered on 04/03/17 22:23; Start 04/03/17 at 21:00; Stop 04/03/17 at 23 :04; Status DC Vancomycin HCl 1000 mg/Sodium Chloride 250 ml @ 250 mls/hr ONCE ONCE IV Last administered on 04/04/17 22:14; Start 04/04/17 at 21:00; Stop 04/04/17 at 21 :59; Status DC Potassium Bicarb/ Potassium Chloride (K-Lyte Cl Eff) 50 meq ONCE ONCE NG ; Start 04/04/17 at 14:00; Stop 04/04/17 at 14:02; Status DC Lorazepam (Ativan Inj) 1 mg ONCE ONCE IV PUSH Last administered on 04/05/17 10:50; Start 04/05/17 at 09:45; Stop 04/05/17 at 09:46; Status DC Vancomycin HCl 1250 mg/Sodium Chloride 262.5 ml @ 250 mls/hr Q12H IV Last administered on 04/05/17 13:19; Start 04/05/17 at 12:00; Stop 04/05/17 at 14 :08; Status DC Miscellaneous Information SPECIFIC LAB TO BE DRAWN:VANCO DATE TO... ONCE ONCE .XX ; Start 04/06/17 at 11:45; Stop 04/06/17 at 11:46 Levothyroxine Sodium (Synthroid) 125 mcg DAILY@0600 PO ; Start 04/07/17 at 06: 00 Urinary Catheter: Yes Assessment to: Continue Montoya insert reason: Obstruction/Retention A/P Assessment and Plan 1. Severe Sepsis secondary to Urinary tract infection, C Diff Colitis, and acute hypoxic and hypercarbic respiratory failure s/p intubation 03/28. extubated. today on Nasal Cannula. HAS NEW DOBBHOFF TUBE ON TUBE FEEDS AND ORAL VANCO FOR CDT 2. Metabolic Encephalopathy, Toxic and Sepsis on Broad spectrum antibiotics 3. C Diff Colitis, History of Duodenal Ulcer, on Vancomycin by mouth, needs a Dobbhoff tube so he can take his oral vancomycin ON ORAL VANCO FOR HIS CDT COLITIS 4. Bladder Outlet Obstruction with Hydronephrosis, BPH, Chronic Suprapubic Catheter, Suprapubic Cath replaced by Urology specialist 5. UTI, repeat culture growing Klebsiella and E Coli, on Rocephin complete 7 day course, History of Previous PSAE- FINISHED 6. DM II uncontrolled continue sliding scale. 7. Hypertension controlled on no antihypertensives. 8. Hyperlipidemia on Statins. 9. 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 Code Status DNR and DNI Probable Comfort care depend of patient clinical course. for next week, Palliative care following. Poor Short term prognosis. Gastric protection with Protonix - Hold pharmacological DVT prophylaxis due to positive Hemoccult - Protonix IV twice a day DOBBHOFF PLACED - so can continue to treat the C. difficile toxin colitis also needs some Lactinex if he can take that also Ativan as needed to place Dobbhoff tube SOFT RESTRAINTS Very poor prognosis will need palliative care consult has already been made a DO NOT RESUSCITATE A.m. labs Discharge Planning DOBBHOFF IN PLACE ON TUBE FEEDS OK FOR OUT OF ICU Jason Covarrubias DO Apr 06, 2017 09:32
[2017-04-06] MEDS: SODIUM CHLOR 0.9% 1000 ML INJ 1,000 ML IV SCH ×2 (10:08→10:35)
[2017-04-06] MEDS: PRAVASTATIN SOD 20 MG TAB PO SCH (10:33)
[2017-04-06] MEDS: POLYETHYLENE GLYCOL 17 GM PKG NG SCH (10:33)
[2017-04-06] MEDS ORDERED: PHARMACY ORDERED LAB ONE (11:45)
--- NOTE | 2017-04-06 17:53 | HHI.HCPN ---
Reason for visit a. To assist with evaluation and management of symptoms including: Dyspnea b. To assist medical decision maker(s) with: better understanding of current medical conditions; weighing benefits/burdens of medical treatment options; making medical treatment decisions. Subjective/Interval History Pt is 89 year old admitted w/ altered mental status. 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 Pt found to have UTI, C. diff , hypercarbic respiratory failure intubated 03/28 and now medically extubated ( extub 03/31) . Patient remains in ICU though remains off of mechanical vent, transferred to medical floor pending. CXR with no significant changes, continues to have bilateral pleural effusions. Dobbhoff has been placed for nutritional supplementation. Receiving tube feed, tolerating. Continues to have stool via rectal bag. ST continues to follow patient with significant signs of aspiration /only tolerating pure with honey thickened. Repeat blood culture from 04/03 no growth to date. Urine from 04/05 with no growth. Patient with little improvement in neurological status per nursing report, continues to be mostly confused. Patient seen in room no visitors present. He is awake, nasal cannula. He is restless at times he does follow simple commands when repeated however does not follow more complex commands. He is oriented to self, able to name his date of and that he is 89 years old. Unable to name the president, unable to answer any situational questions appropriately. Speech is quite garbled and at times very difficult to understand. Temperature to explore his friendship with proxy Inessa however his verbalize responses are of no relation to what I am asking. Following exam call to proxy Inessa to provide update. I did receive a voice message from her earlier today stating that she was out of town for a family emergency but would continue to remain available via phone. Voicemail left. . Family/friend interactions See above . Advance Directives Living Will: Never completed Health Care Surrogate: Never completed Objective Vital Signs Date Time Temp Pulse Resp B/P (MAP) Pulse Ox O2 Delivery O2 Flow Rate FiO2 04/06/17 17:00 92 19 129/69 (89) 97 04/06/17 16:00 92 04/06/17 16:00 97.9 92 19 125/80 (95) 96 04/06/17 15:01 95 18 136/70 (92) 95 04/06/17 14:00 93 04/06/17 14:00 93 18 138/62 (87) 95 04/06/17 13:01 87 13 140/65 (90) 98 04/06/17 12:00 98.0 91 15 137/95 (109) 99 04/06/17 12:00 91 04/06/17 11:01 98 19 136/94 (108) 99 04/06/17 10:00 91 04/06/17 10:00 91 24 154/65 (94) 100 04/06/17 09:00 86 21 138/63 (88) 99 04/06/17 08:10 99 Nasal Cannula 2.00 04/06/17 08:00 97.8 89 25 124/58 (80) 99 04/06/17 08:00 89 04/06/17 07:00 85 13 126/58 (80) 95 04/06/17 07:00 96 Nasal Cannula 2.00 04/06/17 06:00 91 04/06/17 04:00 97.7 95 19 116/72 (87) 96 04/06/17 04:00 95 04/06/17 02:00 89 04/06/17 00:00 94 04/06/17 00:00 97.4 94 21 117/64 (81) 82 04/05/17 22:00 98 04/05/17 20:00 74 04/05/17 20:00 97.1 74 15 115/57 (76) 96 04/05/17 19:00 96 Nasal Cannula 2.00 04/05/17 18:00 76 Intake & Output 04/06/17 04/06/17 07:00 19:00 Intake Total 851 ml Output Total 1300 ml Balance -449 ml Intake Oral 0 ml IV Total 642 ml Tube Feeding 149 ml Other 60 ml Output Urine Total 1000 ml Stool Total 300 ml Physical Exam CONSTITUTIONAL/GENERAL: This is a chronically ill-appearing patient,appears comfortable on BiPAP TUBES/LINES/DRAINS: Peripheral IV upper extremities, suprapubic catheter, rectal bag, nasal cannula, Dobbhoff tube nare SKIN: No jaundice, rashes, or lesions. Several areas of ecchymosis upper extremities, hands, + redness to hands. Skin warm. CARDIOVASCULAR: Regular rate and rhythm without murmurs. Tachycardic .Peripheral pulses symmetric. 1-2+ edema bilateral hands, no pedal edema. RESPIRATORY/CHEST: Symmetric, unlabored respirations via nasal cannula. Coarse air movement throughout.. Breath sounds equal bilaterally. GASTROINTESTINAL: Abdomen soft, no apparent tenderness, nondistended. No palpable masses. Bowel sounds present. NGT w TF infusing. Rectal drain present small amount of greenish stool visible GENITOURINARY: Without palpable bladder distension. Suprapubic catheter in place some erythema/irritation around insertion site. Draining dark yellow urine MUSCULOSKELETAL: Extremities without clubbing, cyanosis, or edema. No joint effusion noted. No mottling or clubbing. NEUROLOGICAL: Awake, talkative. Speech is garbled. Tracks examiner. Follows very simple commands does not follow more complex commands. Moves all 4 extremities generalized weakness. Oriented to self and date of , otherwise confused. PSYCHIATRIC: appears comfortable, limited assessment , mildly restless at times. . Diagnostic Tests Laboratory Laboratory Tests Test 04/04/17 04:30 04/05/17 04:05 04/05/17 14:55 04/06/17 03:29 White Blood Count 9.9 TH/MM3 (4.0-11.0) 7.4 TH/MM3 (4.0-11.0) 10.2 TH/MM3 (4.0-11.0) Red Blood Count 3.32 MIL/MM3 (4.50-5.90) 3.40 MIL/MM3 (4.50-5.90) 3.22 MIL/MM3 (4.50-5.90) Hemoglobin 9.4 GM/DL (13.0-17.0) 9.9 GM/DL (13.0-17.0) 9.4 GM/DL (13.0-17.0) Hematocrit 29.2 % (39.0-51.0) 29.9 % (39.0-51.0) 28.6 % (39.0-51.0) Mean Corpuscular Volume 88.1 FL (80.0-100.0) 87.9 FL (80.0-100.0) 88.9 FL (80.0-100.0) Mean Corpuscular Hemoglobin 28.4 PG (27.0-34.0) 29.1 PG (27.0-34.0) 29.3 PG (27.0-34.0) Mean Corpuscular Hemoglobin Concent 32.2 % (32.0-36.0) 33.1 % (32.0-36.0) 33.0 % (32.0-36.0) Red Cell Distribution Width 18.1 % (11.6-17.2) 18.2 % (11.6-17.2) 19.0 % (11.6-17.2) Platelet Count 226 TH/MM3 (150-450) 202 TH/MM3 (150-450) 179 TH/MM3 (150-450) Mean Platelet Volume 8.1 FL (7.0-11.0) 7.9 FL (7.0-11.0) 8.7 FL (7.0-11.0) Blood Urea Nitrogen 9 MG/DL (7-18) 10 MG/DL (7-18) 11 MG/DL (7-18) Creatinine 0.78 MG/DL (0.60-1.30) 0.66 MG/DL (0.60-1.30) 0.71 MG/DL (0.60-1.30) Random Glucose 179 MG/DL (74-106) 129 MG/DL (74-106) 144 MG/DL (74-106) Total Protein 5.0 GM/DL (6.4-8.2) 5.4 GM/DL (6.4-8.2) Calcium Level 7.2 MG/DL (8.5-10.1) 7.7 MG/DL (8.5-10.1) 7.5 MG/DL (8.5-10.1) Sodium Level 149 MEQ/L (136-145) 148 MEQ/L (136-145) 148 MEQ/L (136-145) Potassium Level 3.3 MEQ/L (3.5-5.1) 4.0 MEQ/L (3.5-5.1) 3.5 MEQ/L (3.5-5.1) Chloride Level 119 MEQ/L (98-107) 114 MEQ/L (98-107) 114 MEQ/L (98-107) Carbon Dioxide Level 23.0 MEQ/L (21.0-32.0) 25.7 MEQ/L (21.0-32.0) 21.9 MEQ/L (21.0-32.0) Anion Gap 7 MEQ/L (5-15) 8 MEQ/L (5-15) 12 MEQ/L (5-15) Estimat Glomerular Filtration Rate 94 ML/MIN (>89) 114 ML/MIN (>89) 104 ML/MIN (>89) Protein Corrected Calcium 8.3 MG/DL (8.5-10.1) Random Vancomycin Level 4.2 COMMENT Urine Color YELLOW (YELLW/STRAW) Urine Turbidity HAZY (CLEAR) Urine pH 5.0 (5.0-8.5) Urine Specific [place] 1.017 (1.002-1.035) Urine Protein 30 mg/dL (NEG-TRACE) Urine Glucose (UA) NEG mg/dL (NEG) Urine Ketones 40 mg/dL (NEG) Urine Occult Blood TRACE (NEG) Urine Nitrite NEG (NEG) Urine Bilirubin NEG (NEG) Urine Urobilinogen LESS THAN 2.0 MG/DL (LESS Urine Leukocyte Esterase LARGE (NEG) Urine RBC 3 /hpf (0-3) Urine WBC 81 /hpf (0-5) Urine WBC Clumps RARE (NONE) Urine Bacteria RARE /hpf (NONE) Microscopic Urinalysis Comment CATH-CULTURE IND Neutrophils (%) (Auto) 71.3 % (16.0-70.0) Lymphocytes (%) (Auto) 16.5 % (9.0-44.0) Monocytes (%) (Auto) 5.9 % (0.0-8.0) Eosinophils (%) (Auto) 5.4 % (0.0-4.0) Basophils (%) (Auto) 0.9 % (0.0-2.0) Neutrophils # (Auto) 7.3 TH/MM3 (1.8-7.7) Lymphocytes # (Auto) 1.7 TH/MM3 (1.0-4.8) Monocytes # (Auto) 0.6 TH/MM3 (0-0.9) Eosinophils # (Auto) 0.6 TH/MM3 (0-0.4) Basophils # (Auto) 0.1 TH/MM3 (0-0.2) CBC Comment DIFF FINAL Differential Comment Albumin 2.1 GM/DL (3.4-5.0) Phosphorus Level 1.8 MG/DL (2.5-4.9) Magnesium Level 1.7 MG/DL (1.5-2.5) Alkaline Phosphatase 92 U/L (45-117) Aspartate Amino Transf (AST/SGOT) 20 U/L (15-37) Alanine Aminotransferase (ALT/SGPT) 14 U/L (12-78) Total Bilirubin 0.4 MG/DL (0.2-1.0) Free Thyroxine 1.12 NG/DL (0.76-1.46) Thyroid Stimulating Hormone 3rd Gen 11.900 uIU/ML (0.358-3.740) Test 04/06/17 13:35 Vancomycin Level Trough 17.7 MCG/ML (5.0-10.0) Result Diagram: 04/06/17 0329 04/06/17 0329 Microbiology Microbiology Date/Time Source Procedure Growth Status 04/03/17 19:05 Blood Peripheral Aerobic Blood Culture - Preliminary NO GROWTH IN 3 DAYS Resulted 04/03/17 19:05 Blood Peripheral Anaerobic Blood Culture - Preliminary NO GROWTH IN 3 DAYS Resulted 04/03/17 18:58 Blood Peripheral Aerobic Blood Culture - Preliminary NO GROWTH IN 3 DAYS Resulted 04/03/17 18:58 Blood Peripheral Anaerobic Blood Culture - Preliminary NO GROWTH IN 3 DAYS Resulted 04/05/17 14:55 Urine Clean Catch Urine Culture - Preliminary No growth. Resulted Imaging Last Impressions Abdomen X-Ray 04/05/17 0000 Signed Impressions: Service Date/Time: Wednesday, April 05, 2017 11:47 - CONCLUSION: Dobbhoff tube in the distal stomach. Wally Valadez MD Chest X-Ray 04/04/17 0000 Signed Impressions: Service Date/Time: Tuesday, April 04, 2017 12:55 - CONCLUSION: 1. Cardiomegaly and findings of congestive heart failure. There has been no significant change when compared to the prior exam. 2. Nasogastric tube coiled in the hypopharynx Reymundo Kinney MD Abdomen/Pelvis CT 03/27/17 0000 Signed Impressions: Service Date/Time: Monday, March 27, 2017 22:38 - CONCLUSION: 1. There is a distended urinary bladder despite a Crooks catheter and suprapubic catheter. There is resulting hydronephrosis and hydroureter. 2. Colonic diverticulosis. 3. Pneumobilia without biliary dilatation. This would suggest sphincterotomy. Melquiades Najera Jr., MD Procedures 03/31 extubated 03/28 intubated . Assessment and Plan Disease Oriented Problem List: (1) GERD (gastroesophageal reflux disease) (2) Hyperlipidemia (3) Hypertension (4) C. 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 Prior to that lived in an [facility] setting for about 7 years. Has known local friend and contact Inessa for about 10 years, they met when they were neighbors before he lived in [facility]. Patient originally from [place] has lived in [place] for many years. many years ago. 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 Has a brother who is , and [id number] whom he has not been in close communication with recently. He does have 2 adult daughters whom he has been estranged from since they were young children; friend Inessa is trying to find out their names and possible location from sister in law.[unable to locate per accurint 03/31/17] Spiritual: [employer] Legal:Patient is currently unable to participate in decision-making due to medical condition. Does not appear to have advanced directive or HCS designation. Apparently his brother is , sister in law lives out of state. . Has 2 adult daughters whose name are not known at this time however they would be appropriate proxy decision maker per [place] statutes if they can be located. Local friend Inessa is working to find out their names and possible location. If these 2 daughters cannot be located or do not wish to serve as decision makers then decision-making proxy would move onto other close friends and/or relatives. Ethical issues impacting care: Important Contacts Friend Inessa Santy [phone] PROXY as of 03/31/17 Friend Haley [phone] Found in old admission record 2010 brother Brenton Tsocano [phone] ; cesilia lives in [place] Prognosis This patient has had a few recent hospital visits, with UTI 03/22, and admission for sepsis 02/03 through 02/09. He has multiple medical comorbidities. He is quite deconditioned. Possible he can survive current acute hospitalization however he remains at risk for ongoing complications and setbacks and recurrent hospitalizations. . Code Status: Full Code Plan * Capacity: following some commands, still confused overall, not able to make decisions can not weigh the risk and benefits of medical decisions. * Legal decision maker: Palliative care informed patient may have 2 adult daughters, Neema Toscano possibly around 60 and Maricruz Toscano possibly around 65. Last names may be changed if ? Patient is originally from [place]. Accurints requested and no information obtained. Google search and social media search was unable to produce possible match. Mr. Toscano is supported by friend , Chantel of 10 yrs. No family readily available, per [place] Statutes medical proxy decision making would fall to a close friend or relative. Unless patient becomes able to make his own medical decisions or designate HCS himself. Health Care Proxy is Inessa Santy. * Goals of care 1)DNR/DNI established by proxy 04/02 they stated pt likely would not want that again. "He is a free bird." 2)Palliative Care will continue to follow and see if capacity improves to the point where he can make medical decisions himself. If capacity comes back,GOC/ code status will be addressed w pt 3) PROXY Ms. Madera will give him a few days; if mentation does not improve, conversation regarding hospice could be reinitiated. Ms. Madera is a volunteer with hospice before. 4) In the mean time goals of care aggressive short of resuscitation /intubation. VM left for proxy for update 04/02/17, 04/03/17, voicemail again left to provide update on 04/06/17 * CODE STATUS: DNR/DNI * SYMPTOMS: --Anxiety/depression-friend indicates he has been somewhat depressed recently secondary to his loss of independence in general health decline. Potentially could benefit long-term from SSRI, postextubation/when medical condition stabilized --Malnutrition-early intubated and unable to take oral nutrition; albumin 2.3. s/p ST eval-- tolerating puree w honey thick liq. not taking in much, still requiring TF via NGT. Friend stated appetite has been poor. --Dyspnea now requiring BiPAP for shortness of breath , hypoxia. On BiPAP having some improved oxygenation. CXR with bilateral airspace disease right greater than left. * Palliative care will continue to follow during hospital course as condition evolves, to assist patient/decision-maker with understanding of medical conditions, weighing benefits/burdens of treatment options, for clarification of goals of treatment. Additionally will assist with any symptoms of palliative concern . Time Spent Total Floor Time (mins): 20 (PE, review of EMR, discussion with nurses, attempt to reach proxy) Attestation To help prompt me to consider important information that might be impacting today's encounter and assessment, information from prior notes written by myself or my colleagues may have been "brought forward" into today's note. My signature on this note, however, is an attestation that I personally performed the exam, history, and/or decision-making noted today, and, unless otherwise indicated, the interactions with patient, family, and staff as well as the review of records all occurred today. I also attest that the listed assessment and stated plan reflect my best clinical judgment today based on the combination of historical information, prior notes, and today's exam/ interactions. When time spent is documented, it refers only to time spent today by the signer, or if indicated, combined time spent today by collaborating physician/nurse practitioner. Lidia Morocho Apr 06, 2017 17:53
[2017-04-07] VITALS (22 sets, daily range): BP systolic 116–156; BP diastolic 59–76; PULSE 83–102; RESP 16–32; TEMP 97–97.9; O2SAT 85–98
[2017-04-07] MEDS: metroNIDAZOLE 500 MG INJ 100 ML IV SCH ×3 (03:57→21:49)
[2017-04-07] MEDS: CEFEPIME INJ 2,000 MG in SODIUM CHLORIDE 0.9% INJ 100 ML IV SCH ×3 (03:57→17:52)
[2017-04-07] MEDS: CHLORHEXIDINE GLUCONATE 2 % 1 PACK (2 CLOTHS) TOP SCH (03:57)
[2017-04-07] MEDS: PANTOPRAZOLE SODIUM 40 MG VIAL IV PUSH SCH ×2 (03:57→16:09)
[2017-04-07] MEDS: ARTIFICIAL TEARS OPTH SOLN 15 ML BTL EACH EYE SCH ×7 (03:58→23:46)
[2017-04-07] MEDS: CIPROFLOXACIN 0.3% OPTH SOLN 2.5 ML BTL EACH EYE SCH ×7 (03:58→23:46)
[2017-04-07] MEDS: METOCLOPRAMIDE HCL 10 MG/2 ML VIAL IV PUSH SCH ×3 (04:02→21:50)
[2017-04-07] MEDS: LEVOTHYROXINE SODIUM 125 MCG TAB PO SCH (04:02)
[2017-04-07 05:54] LABS: AUTOMATED NEUTROPHIL # 4.3 TH/MM3 (1.8-7.7); BASOPHIL # 0.1 TH/MM3 (0-0.2); BASOPHIL % 0.9 % (0.0-2.0); EOSINOPHIL # 0.4 TH/MM3 (0-0.4); EOSINOPHIL % 5.7 % (0.0-4.0); HEMATOCRIT 29.2 % (39.0-51.0); HEMO FLAGS DIFF FINAL; LYMPH % 22.6 % (9.0-44.0); LYMPHOCYTE # 1.6 TH/MM3 (1.0-4.8); MEAN CELL VOLUME 87.3 FL (80.0-100.0); MEAN CORPUSCULAR HEMOGLOBIN 29.2 PG (27.0-34.0); MEAN CORPUSCULAR HGB CONC 33.4 % (32.0-36.0); MONO % 8.7 % (0.0-8.0); NEUT % 62.1 % (16.0-70.0); PLATELET COUNT 226 TH/MM3 (150-450); RED BLOOD COUNT 3.34 MIL/MM3 (4.50-5.90); RED CELL DISTRIBUTION WIDTH 17.9 % (11.6-17.2)
[2017-04-07] MEDS: INSULIN NovoLIN REGULAR SUPPLEMENTAL SCALE SQ SCH ×4 (06:00→23:46)
[2017-04-07 06:24] LABS: ALKALINE PHOSPHATASE 109 U/L (45-117); ALT (GPT) 12 U/L (12-78); ANION GAP 9 MEQ/L (5-15); AST (GOT) 18 U/L (15-37); BLOOD UREA NITROGEN 9 MG/DL (7-18); CHLORIDE 110 MEQ/L (98-107); GLOMERULAR FILTRATION RATE 98 ML/MIN (>89); MAGNESIUM 1.6 MG/DL (1.5-2.5); SODIUM (NA) 145 MEQ/L (136-145); TOTAL BILIRUBIN ADULT 0.3 MG/DL (0.2-1.0)
[2017-04-07] MEDS: VANCOMYCIN 500 MG VIAL (FOR ORAL USE ONLY) PO SCH ×4 (09:00→21:00)
[2017-04-07] MEDS: SODIUM CHLORIDE 0.9% FLUSH 10 ML FLUSH IV FLUSH SCH ×2 (09:00→21:00)
[2017-04-07] MEDS: POLYETHYLENE GLYCOL 17 GM PKG NG SCH (09:00)
[2017-04-07] MEDS: CHOLECALCIFEROL (VIT D3) 1000 UNIT TAB PO SCH (09:01)
[2017-04-07] MEDS: PRAVASTATIN SOD 20 MG TAB PO SCH (09:01)
[2017-04-07] MEDS: LACTIC ACID (AMMONIUM LACTATE) 12% LOTION 225 GM BTL TOPICAL SCH ×2 (09:01→21:00)
--- NOTE | 2017-04-07 09:54 | HHI.PR ---
Subjective Remarks 03/26: This is a 89 year old male with a history of C Difficile colitis, duodenal bulb ulcer, and dilated common bile duct/pancreatic duct, who was sent from his assisted living facility for evaluation of altered mental status. He is currently extremely somnolent and unable to provide any history and therefore the history has been obtained from the EMR and nursing staff. According to the ER note, he is being treated for C Difficile colitis with oral vancomycin and an UTI with Macrobid. He was recently seen in the ER for urinary retention despite a suprapubic catheter and a regular Montoya catheter was placed and he was referred to urology as outpatient. His H/H was noted to be 11.4/24.4 on 03/22/17. Yesterday this was 8.1/24.4. He was given 2 units of PRBC and today this is 11.5/35.0. GI has been consulted for anemia and hemo- occult positive stool. His abdomen is nondistended, but he does have moderate lower abdominal tenderness on exam. The nurse reports that he has not had a bowel movement on her shift, but was told that he had a small amount of stool overnight. He was admitted to the intensive care unit for altered mental status , SIRS, DM, HTN, GERD, hyperlipidemia, anemia. He was evaluated by our service back in 2010 for abdominal pain with nausea and vomiting and underwent EGD ()---> Large duodenal bulb ulcer, duodenitis, very edematous mucosa, bx, gastritis in the antrum, bx, esophagitis, schatzki's ring. Pathology with small bowel mucosa with no significant histopathologic abnormalities, antral mucosa with very focal mild active chronic gastritis, esophageal bx with squamous mucosa with mild reflux esophagitis. He was also evaluated with MRCP at that time which revealed dilatation of the common bile duct and pancreatic duct with area of beak-like narrowing at the pancreatic head. Of note, he has had gallstones and underwent ERCP with sphincterotomy. 03/27: Remains encephalopathic, laying in bed in no acute distress. 03/28: worsening encephalopathy. unable to protect airway. CT abd/pelvis with evidence of distended bladder with hydronephrosis despite both suprapubic and montoya through penis. attempted to reach family: patient has dss-pi-acjci sister- in-law, brother , reportedly have not spoken in years. patient has a friend who takes him to breakfast occasionally. She said she would be willing to make healthcare decisions for him, but has never signed paperwork saying that she was the decision maker. when asked about his end-of-life wishes, she does not think he would want to be on a ventilator long-term, but she does not know specifically what his wishes were. He was reportedly a FULL CODE based on SNF documentation. 03/29: intubated yesterday. urine growing e. coli and klebsiella. c. diff PCR still not resulted. borderline hypotensive on propofol. 03/30: Remains encephalopathic orally intubated on mechanical ventilation. 03/31: Awake, encephalopathic, not following commands. Orally intubated on mechanical ventilation. 04/01: Awake, alert, disoriented/encephalopathic, not following commands. Extubated on 03/31, on nasal cannula. Precedex being titrated off. Hospitalist Notes: 04/02: Patient transferred to Hospitalist team starting today, seen in his bedroom, worsening respiratory condition and confused. 04/03: Seen in his bedroom and discussed with nurse Miss Nichols, the patient now on BiPAP, worsening respiratory temple, now Lethargic, discussed with public health clinical nurse specialist Miss Murillo she states his Surrogate wants him DNR and DNI but did not took any decision about Comfort care but is willing to go that route. 04/04: Stable in his bedroom discussed with nurse Miss Bocanegra and the patient removed his NG tube, asked me to give him Potassium chloride replacement by NG tube due to difficult Peripheral lines, no nausea, vomit or diarrhea. continue somnolent and confused. 10-15 TO HAVE DOBBHOFF TUBE PLACED LATER TODAY POOR ORAL INTAKE NOT ABLE TO TAKE MUCH IN ORALLY PALLIATIVE CARE IS FOLLOWING DNR 10-16 ON PO VANCO AND FLUCONAZOLE HAD DOBBHOFF TUBE PLACED IN SOFT RESTRAINTS FOR HIS PROTECTION - TOLERATING TUBE FEEDS DW RN PATIENT STILL REMAINS CONFUSED MEDS VIA IV OR PEG ONLY SWITCH TO GLUCERNA FOR TUBE FEEDS Objective Vitals Vital Signs Date Time Temp Pulse Resp B/P (MAP) Pulse Ox O2 Delivery O2 Flow Rate FiO2 04/07/17 09:01 86 18 149/68 (95) 97 04/07/17 09:00 86 19 98 04/07/17 08:10 95 21 04/07/17 08:00 97.0 88 17 132/65 (87) 95 04/07/17 07:00 95 17 156/64 (94) 92 04/07/17 06:01 94 21 148/65 (92) 95 04/07/17 06:00 83 04/07/17 06:00 93 19 97 04/07/17 05:01 91 24 127/63 (84) 93 04/07/17 05:00 92 19 89 04/07/17 04:00 92 04/07/17 04:00 97.9 92 22 149/76 (100) 90 04/07/17 02:00 102 04/07/17 00:00 98 04/07/17 00:00 97.5 98 21 145/69 (94) 95 04/06/17 22:00 98 04/06/17 20:00 87 04/06/17 20:00 97.7 87 17 99 04/06/17 19:05 98 21 04/06/17 19:00 Room Air 04/06/17 18:12 86 04/06/17 17:00 92 19 129/69 (89) 97 04/06/17 16:00 92 04/06/17 16:00 97.9 92 19 125/80 (95) 96 04/06/17 15:01 95 18 136/70 (92) 95 04/06/17 14:00 93 04/06/17 14:00 93 18 138/62 (87) 95 04/06/17 13:01 87 13 140/65 (90) 98 04/06/17 12:00 98.0 91 15 137/95 (109) 99 04/06/17 12:00 91 04/06/17 11:01 98 19 136/94 (108) 99 04/06/17 10:00 91 04/06/17 10:00 91 24 154/65 (94) 100 I/O 04/06/17 04/06/17 04/06/17 04/07/17 04/07/17 04/07/17 06:59 14:59 22:59 06:59 14:59 22:59 Intake Total 851 ml 400 ml 1191 ml 1672 ml 63 ml Output Total 1300 ml 1200 ml 1200 ml Balance -449 ml 400 ml -9 ml 472 ml 63 ml Intake Oral 0 ml IV Total 642 ml 400 ml 444 ml 869 ml 63 ml Tube Feeding 149 ml 687 ml 683 ml Other 60 ml 60 ml 120 ml Output Urine Total 1000 ml 950 ml 1150 ml Stool Total 300 ml 250 ml 50 ml Result Diagram: 04/07/17 0434 04/07/17 0434 Other Results Laboratory Tests Test 04/05/17 04:05 04/05/17 14:55 04/06/17 03:29 04/06/17 13:35 White Blood Count 7.4 TH/MM3 10.2 TH/MM3 Red Blood Count 3.40 MIL/MM3 3.22 MIL/MM3 Hemoglobin 9.9 GM/DL 9.4 GM/DL Hematocrit 29.9 % 28.6 % Mean Corpuscular Volume 87.9 FL 88.9 FL Mean Corpuscular Hemoglobin 29.1 PG 29.3 PG Mean Corpuscular Hemoglobin Concent 33.1 % 33.0 % Red Cell Distribution Width 18.2 % 19.0 % Platelet Count 202 TH/MM3 179 TH/MM3 Mean Platelet Volume 7.9 FL 8.7 FL Blood Urea Nitrogen 10 MG/DL 11 MG/DL Creatinine 0.66 MG/DL 0.71 MG/DL Random Glucose 129 MG/DL 144 MG/DL Calcium Level 7.7 MG/DL 7.5 MG/DL Sodium Level 148 MEQ/L 148 MEQ/L Potassium Level 4.0 MEQ/L 3.5 MEQ/L Chloride Level 114 MEQ/L 114 MEQ/L Carbon Dioxide Level 25.7 MEQ/L 21.9 MEQ/L Anion Gap 8 MEQ/L 12 MEQ/L Estimat Glomerular Filtration Rate 114 ML/MIN 104 ML/MIN Random Vancomycin Level 4.2 COMMENT Urine Color YELLOW Urine Turbidity HAZY Urine pH 5.0 Urine Specific [place] 1.017 Urine Protein 30 mg/dL Urine Glucose (UA) NEG mg/dL Urine Ketones 40 mg/dL Urine Occult Blood TRACE Urine Nitrite NEG Urine Bilirubin NEG Urine Urobilinogen LESS THAN 2.0 MG/DL Urine Leukocyte Esterase LARGE Urine RBC 3 /hpf Urine WBC 81 /hpf Urine WBC Clumps RARE Urine Bacteria RARE /hpf Microscopic Urinalysis Comment CATH-CULTURE IND Neutrophils (%) (Auto) 71.3 % Lymphocytes (%) (Auto) 16.5 % Monocytes (%) (Auto) 5.9 % Eosinophils (%) (Auto) 5.4 % Basophils (%) (Auto) 0.9 % Neutrophils # (Auto) 7.3 TH/MM3 Lymphocytes # (Auto) 1.7 TH/MM3 Monocytes # (Auto) 0.6 TH/MM3 Eosinophils # (Auto) 0.6 TH/MM3 Basophils # (Auto) 0.1 TH/MM3 CBC Comment DIFF FINAL Differential Comment Total Protein 5.4 GM/DL Albumin 2.1 GM/DL Phosphorus Level 1.8 MG/DL Magnesium Level 1.7 MG/DL Alkaline Phosphatase 92 U/L Aspartate Amino Transf (AST/SGOT) 20 U/L Alanine Aminotransferase (ALT/SGPT) 14 U/L Total Bilirubin 0.4 MG/DL Free Thyroxine 1.12 NG/DL Thyroid Stimulating Hormone 3rd Gen 11.900 uIU/ML Vancomycin Level Trough 17.7 MCG/ML Test 04/07/17 04:34 White Blood Count 7.0 TH/MM3 Red Blood Count 3.34 MIL/MM3 Hemoglobin 9.8 GM/DL Hematocrit 29.2 % Mean Corpuscular Volume 87.3 FL Mean Corpuscular Hemoglobin 29.2 PG Mean Corpuscular Hemoglobin Concent 33.4 % Red Cell Distribution Width 17.9 % Platelet Count 226 TH/MM3 Mean Platelet Volume 7.8 FL Neutrophils (%) (Auto) 62.1 % Lymphocytes (%) (Auto) 22.6 % Monocytes (%) (Auto) 8.7 % Eosinophils (%) (Auto) 5.7 % Basophils (%) (Auto) 0.9 % Neutrophils # (Auto) 4.3 TH/MM3 Lymphocytes # (Auto) 1.6 TH/MM3 Monocytes # (Auto) 0.6 TH/MM3 Eosinophils # (Auto) 0.4 TH/MM3 Basophils # (Auto) 0.1 TH/MM3 CBC Comment DIFF FINAL Differential Comment Blood Urea Nitrogen 9 MG/DL Creatinine 0.75 MG/DL Random Glucose 254 MG/DL Total Protein 5.2 GM/DL Albumin 2.0 GM/DL Calcium Level 7.8 MG/DL Phosphorus Level 1.5 MG/DL Magnesium Level 1.6 MG/DL Alkaline Phosphatase 109 U/L Aspartate Amino Transf (AST/SGOT) 18 U/L Alanine Aminotransferase (ALT/SGPT) 12 U/L Total Bilirubin 0.3 MG/DL Sodium Level 145 MEQ/L Potassium Level 3.0 MEQ/L Chloride Level 110 MEQ/L Carbon Dioxide Level 26.0 MEQ/L Anion Gap 9 MEQ/L Estimat Glomerular Filtration Rate 98 ML/MIN Imaging Last Impressions Abdomen X-Ray 04/05/17 0000 Signed Impressions: Service Date/Time: Wednesday, April 05, 2017 11:47 - CONCLUSION: Dobbhoff tube in the distal stomach. Wally Valadez MD Chest X-Ray 04/04/17 0000 Signed Impressions: Service Date/Time: Tuesday, April 04, 2017 12:55 - CONCLUSION: 1. Cardiomegaly and findings of congestive heart failure. There has been no significant change when compared to the prior exam. 2. Nasogastric tube coiled in the hypopharynx Reymundo Kinney MD Abdomen/Pelvis CT 03/27/17 0000 Signed Impressions: Service Date/Time: Monday, March 27, 2017 22:38 - CONCLUSION: 1. There is a distended urinary bladder despite a Montoya catheter and suprapubic catheter. There is resulting hydronephrosis and hydroureter. 2. Colonic diverticulosis. 3. Pneumobilia without biliary dilatation. This would suggest sphincterotomy. Melquiades Najera Jr., MD Objective Remarks GENERAL: Awake and alert but some confusion SKIN: Warm and dry. Bilateral ecchymosis and swollen arms HEAD: Atraumatic. Normocephalic. EYES: Pupils equal and round. No scleral icterus. No injection or drainage. ENT: No nasal bleeding or discharge. Mucous membranes pink and moist. Tongue midline supple NECK: Trachea midline. No JVD. CARDIOVASCULAR: Regular rate and rhythm. S1-S2 no S3 or S4 RESPIRATORY: No accessory muscle use. Coarse breath sounds bilaterally Breath sounds equal bilaterally. GASTROINTESTINAL: Abdomen soft, non-tender, nondistended. Hepatic and splenic margins not palpable. Suprapubic catheter in place MUSCULOSKELETAL: Extremities without clubbing, cyanosis, No obvious deformities. +1 lower extremity edema NEUROLOGICAL: Awake and alert. No obvious cranial nerve deficits. Motor grossly within normal limits. 4 out of 5 muscle strength in the arms and legs. Normal speech. PSYCHIATRIC: INAppropriate mood and affect; insight and judgment ABnormal. IN SOFT RESTRAINTS IN UE BL FOR LINE PROTECTION AND DOBBHOFF PROTECTION Procedures Endotracheal Intubation and Extubation. Medications and IVs Current Medications Vancomycin HCl 1000 mg/Sodium Chloride 250 ml @ 250 mls/hr ONCE STAT IV Last administered on 03/26/17 20:10; Start 03/26/17 at 18:13; Stop 03/26/17 at 19:12 ; Status DC Aztreonam 2000 mg/ Sodium Chloride 100 ml @ 200 mls/hr ONCE STAT IV Last administered on 03/26/17 21:36; Start 03/26/17 at 18:13; Stop 03/26/17 at 18:42 ; Status DC Metronidazole 100 ml @ 100 mls/hr ONCE STAT IV Last administered on 18:38; Start 03/26/17 at 18:13; Stop 03/26/17 at 19:12; Status DC Sodium Chloride 500 ml @ 500 mls/hr BOLUS ONCE IV Last administered on 18:38; Start 03/26/17 at 18:15; Stop 03/26/17 at 19:14; Status DC Acetaminophen (Tylenol Supp) 650 mg ONCE ONCE RECTAL Last administered on 03/26 18:38; Start 03/26/17 at 18:30; Stop 03/26/17 at 18:33; Status DC Morphine Sulfate (Morphine Inj) 2 mg ONCE ONCE IV PUSH ; Start 03/26/17 at 18: 45; Stop 03/26/17 at 18:45; Status DC Sodium Chloride 500 ml @ 500 mls/hr BOLUS ONCE IV Last administered on 20:37; Start 03/26/17 at 20:00; Stop 03/26/17 at 20:59; Status DC Sodium Chloride (NS Flush) 2 ml UNSCH PRN IVF FLUSH AFTER USING IV ACCESS; Start 03/26/17 at 20:00; Stop 03/26/17 at 20:22; Status DC Pantoprazole Sodium 80 mg/ Sodium Chloride 35 ml @ 420 mls/hr Q5M ONCE IV Last administered on 03/26/17 20:36; Start 03/26/17 at 19:56; Stop 03/26/17 at 20:00; Status DC Pantoprazole Sodium 80 mg/ Sodium Chloride 100 ml @ 10 mls/hr Q10H IV Last administered on 03/27/17 02:50; Start 03/26/17 at 19:56; Stop 03/27/17 at 03:55 ; Status DC Sodium Chloride (NS Flush) 2 ml UNSCH PRN IV FLUSH FLUSH AFTER USING IV ACCESS ; Start 03/26/17 at 20:15; Stop 03/27/17 at 03:56; Status DC Sodium Chloride (NS Flush) 2 ml BID IV FLUSH Last administered on 03/26/17 21: 26; Start 03/26/17 at 21:00; Stop 03/27/17 at 03:56; Status DC Naloxone HCl (Narcan Inj) 0.4 mg UNSCH PRN IV PUSH SEE LABEL COMMENTS; Start 03/26/17 at 20:15 Magnesium Sulfate/ Dextrose 100 ml @ 100 mls/hr Q1H IV Last administered on 22:30; Start 03/26/17 at 20:30; Stop 03/26/17 at 22:29; Status DC Aspirin (Aspirin Chew) 81 mg DAILY CHEW ; Start 03/27/17 at 09:00; Stop at 09:00; Status DC Ciprofloxacin HCl (Ciloxan 0.3% Opth Soln) 1 drop Q4HR EACH EYE Last administered on 04/07/17 09:01; Start 03/26/17 at 20:45 Gabapentin (Neurontin) 300 mg HS PO Last administered on 03/28/17 21:34; Start 03/26/17 at 21:00; Stop 03/29/17 at 07:56; Status DC Lactic Acid (Lac-Hydrin 12% Lotion) 1 applic BID TOPICAL Last administered on 04/07/17 09:01; Start 03/26/17 at 21:00 Levothyroxine Sodium (Synthroid) 112 mcg DAILY@0600 PO Last administered on 05:42; Start 03/27/17 at 06:00; Stop 04/06/17 at 08:26; Status DC Artificial Tears (Tears Naturale Opth Soln) 1 drop Q4HR EACH EYE Last administered on 04/07/17 09:01; Start 03/26/17 at 20:45 Zolpidem Tartrate (Ambien) 2.5 mg HS PRN PO INSOMNIA Last administered on 23:54; Start 03/26/17 at 21:00; Stop 03/28/17 at 09:30; Status DC Cholecalciferol (Vitamin D3) 1,000 units DAILY PO Last administered on 09:01; Start 03/27/17 at 09:00 Pantoprazole Sodium (Protonix) 20 mg DAILY PO ; Start 03/27/17 at 09:00; Stop 03/27/17 at 09:00; Status DC Pravastatin Sodium (Pravachol) 20 mg DAILY PO Last administered on 04/07/17 09:01; Start 03/27/17 at 09:00 Miscellaneous (Pill Splitter) 1 ea UNSCH PRN OTHER SEE LABEL COMMENTS; Start 03/26/17 at 21:00 Sodium Chloride 1,000 ml @ 30 mls/hr Q24H IV Last administered on 04/06/17 10:08; Start 03/26/17 at 23:00 Sodium Chloride (NS Flush) 2 ml UNSCH PRN IV FLUSH FLUSH AFTER USING IV ACCESS ; Start 03/26/17 at 23:00 Sodium Chloride (NS Flush) 2 ml BID IV FLUSH Last administered on 04/07/17 09 :00; Start 03/27/17 at 09:00 Famotidine (Pepcid Inj) 10 mg Q12HR IV PUSH ; Start 03/27/17 at 09:00; Stop 03/27/17 at 09:00; Status DC Albuterol/ Ipratropium (Duoneb Neb) 1 ampule Q2HR NEB PRN NEB WHEEZING; Start 03/26/17 at 23:15 Heparin Sodium (Porcine) (Heparin Inj) 5,000 units Q12H SQ ; Start 03/26/17 at 23:00; Stop 03/27/17 at 03:50; Status DC Sodium Chloride 1,000 ml @ 1,000 mls/hr Q1H ONCE IV Last administered on 23:42; Start 03/26/17 at 22:59; Stop 03/26/17 at 23:58; Status DC Sodium Chloride 1,000 ml @ 1,000 mls/hr Q1H ONCE IV ; Start 03/26/17 at 23:00; Stop 03/26/17 at 23:59; Status DC Sodium Chloride 100 ml @ 1,000 mls/hr Q6M ONCE IV ; Start 03/26/17 at 23:00; Stop 03/26/17 at 23:17; Status DC Miscellaneous Information 1 Q361D XX ; Start 03/26/17 at 23:00 Chlorhexidine Gluconate (Chlorhexidine 2% Cloth) Taper DAILY@04 TOP Last administered on 04/07/17 03:57; Start 03/27/17 at 04:00; Stop 03/23/18 at 03: 59 Chlorhexidine Gluconate (Chlorhexidine 2% Cloth) 3 pack UNSCH PRN TOP HYGIENIC CARE; Start 03/26/17 at 23:00 Vancomycin HCl 1000 mg/Sodium Chloride 250 ml @ 250 mls/hr Q12H IV ; Start 03/27/17 at 00:30; Stop 03/27/17 at 00:31; Status DC Pharmacy Profile Note 0 ml @ 0 mls/hr UNSCH OTHER ; Start 03/27/17 at 00:30; Stop 03/29/17 at 11:59; Status DC Aztreonam 2000 mg/ Sodium Chloride 100 ml @ 200 mls/hr Q8H IV Last administered on 03/29/17 06:12; Start 03/27/17 at 06:00; Stop 03/29/17 at 07:56 ; Status DC Metronidazole 100 ml @ 100 mls/hr Q8H IV Last administered on 04/07/17 03:57 ; Start 03/27/17 at 02:00 Vancomycin HCl 1000 mg/Sodium Chloride 250 ml @ 250 mls/hr STAT STAT IV Last administered on 03/27/17 00:38; Start 03/27/17 at 00:30; Stop 03/27/17 at 01:29 ; Status DC Vancomycin HCl (VANCOMYCIN for oral use only) 250 mg QID PO Last administered on 04/06/17 17:56; Start 03/27/17 at 09:00 Pantoprazole Sodium (Protonix Inj) 40 mg Q12H IV PUSH Last administered on 03:57; Start 03/27/17 at 04:00 Vancomycin HCl 1250 mg/Sodium Chloride 262.5 ml @ 250 mls/hr Q18H IV Last administered on 03/28/17 14:00; Start 03/27/17 at 20:00; Stop 03/29/17 at 07:56 ; Status DC Miscellaneous Information SPECIFIC LAB TO BE SUSANNE... ONCE ONCE .XX ; Start 03/29 at 07:45; Stop 03/29/17 at 07:46; Status DC Diatrizoate Meglum/ Diatrizoate Sod ( Gastroedwin Woodruff) 18 ml ONCE ONCE PO Last administered on 03/27/17 19:58; Start 03/27/17 at 16:15; Stop 03/27/17 at 16:16; Status DC Iohexol (Omnipaque 350 Inj) 100 ml STK-MED ONCE IVCONTRAST Last administered on 03/27/17 22:41; Start 03/27/17 at 22:41; Stop 03/27/17 at 22:42; Status DC Rocuronium [place] (Zemuron Inj) 50 mg STK-MED ONCE .ROUTE Last administered on 03/28/17 13:17; Start 03/28/17 at 13:17; Stop 03/28/17 at 13:18; Status DC Midazolam HCl (Versed Inj) 5 mg STK-MED ONCE .ROUTE Last administered on 15:33; Start 03/28/17 at 13:18; Stop 03/28/17 at 13:19; Status DC Midazolam HCl (Versed Inj) 5 mg STK-MED ONCE .ROUTE Last administered on 13:18; Start 03/28/17 at 13:18; Stop 03/28/17 at 13:19; Status DC Propofol 0 ml @ As Directed STK-MED ONCE .ROUTE ; Start 03/28/17 at 13:41; Stop 03/28/17 at 13:42; Status DC Albumin Human (Albumin 5% Inj) 25 gm STAT ONCE IV Last administered on 17:56; Start 03/28/17 at 14:30; Stop 03/28/17 at 14:31; Status DC Phenylephrine HCl 40 mg/Dextrose 500 ml @ 30 mls/hr TITRATE PRN IV Blood pressure management Last administered on 03/28/17 15:26; Start 03/28/17 at 14: 30; Stop 04/01/17 at 10:43; Status DC Terbutaline Sulfate (Brethine Inj) 1 mg UNSCH PRN SQ For Extravasation; Start 03/28/17 at 14:30; Stop 04/01/17 at 10:43; Status DC Propofol 100 ml @ 2.505 mls/ hr TITRATE PRN IV SEDATION Last administered on 03/29/17 04:28; Start 03/28/17 at 18:45 Propofol 100 ml @ As Directed STK-MED ONCE .ROUTE Last administered on 18:42; Start 03/28/17 at 18:42; Stop 03/28/17 at 18:43; Status DC Sodium Chloride 1,000 ml @ 1,000 mls/hr Q1H ONCE IV Last administered on 06:11; Start 03/29/17 at 06:00; Stop 03/29/17 at 06:59; Status DC Ceftriaxone Sodium 1000 mg/ Sodium Chloride 100 ml @ 200 mls/hr Q24H IV Last administered on 04/03/17 08:27; Start 03/29/17 at 08:00; Stop 04/03/17 at 16: 57; Status DC Fentanyl Citrate 250 ml @ 5 mls/hr TITRATE PRN IV SEDATION Last administered on 03/30/17 23:37; Start 03/29/17 at 08:00; Stop 04/01/17 at 10:43; Status DC Dextrose (D50w (Vial) Inj) 25 ml UNSCH PRN IV PUSH HYPOGLYCEMIA-SEE COMMENTS Last administered on 03/31/17 06:01; Start 03/29/17 at 08:00 Insulin Human Regular (NovoLIN R SUPPLEMENTAL SCALE) 1 Q6HR SQ Last administered on 04/07/17 06:00; Start 03/29/17 at 12:00 Dextrose (D50w (Syr) Inj) 50 ml STK-MED ONCE .ROUTE ; Start 03/30/17 at 01:08; Stop 03/30/17 at 01:09; Status DC Potassium Chloride 100 ml @ As Directed STK-MED ONCE .ROUTE Last administered on 03/30/17 10:03; Start 03/30/17 at 09:56; Stop 03/30/17 at 09:57; Status DC Potassium Chloride 100 ml @ 50 mls/hr Q2H IV ; Start 03/30/17 at 10:30; Stop 03/30/17 at 14:29; Status DC Metoclopramide HCl (Reglan Inj) 5 mg Q8HR IV PUSH Last administered on 04:02; Start 03/30/17 at 22:00 Potassium Chloride 100 ml @ 50 mls/hr Q2H PRN IV For Potassium 2.8 - 3.2 mEq/L ; Start 03/30/17 at 20:15 Potassium Chloride 100 ml @ 50 mls/hr Q2H PRN IV For Potassium 2.8 - 3.2 mEq/ L Last administered on 04/01/17 18:14; Start 03/30/17 at 20:15 Potassium Chloride 100 ml @ 25 mls/hr UNSCH PRN IV For Potassium 3.3 - 3.5 mEq /L; Start 03/30/17 at 20:15 Potassium Chloride 100 ml @ 50 mls/hr Q2H PRN IV For Potassium 3.3 - 3.5 mEq/ L Last administered on 04/04/17 18:36; Start 03/30/17 at 20:15 Magnesium Sulfate 4 gm/Sodium Chloride 100 ml @ 50 mls/hr UNSCH PRN IV For Magnesium 0.9 - 1.1 mg/dL; Start 03/30/17 at 20:15 Magnesium Oxide (Mag-Ox) 800 mg UNSCH PRN PO For Magnesium 1.2 - 1.6 mg/dL; Start 03/30/17 at 20:15 Magnesium Sulfate 2 gm/Sodium Chloride 100 ml @ 50 mls/hr UNSCH PRN IV For Magnesium 1.2 - 1.6 mg/dL Last administered on 03/30/17 21:29; Start 03/30/17 at 20:15 Potassium Phosphate (K-Phos) 2,000 mg Q4H PRN PO For Phosphorus < 2.5 mg/dL; Start 03/30/17 at 20:15 Sodium Phosphate 30 mmol/Sodium Chloride 250 ml @ 42 mls/hr UNSCH PRN IV For Phosphorus < 2.5 mg/dL; Start 03/30/17 at 20:15 Potassium Phosphate (K-Phos) 2,000 mg UNSCH PRN PO/TUBE SEE LABEL COMMENTS; Start 03/30/17 at 20:15 Potassium Phosphate 30 mmol/ Sodium Chloride 260 ml @ 42 mls/hr UNSCH PRN IV SEE LABEL COMMENTS Last administered on 04/07/17 07:13; Start 03/30/17 at 20: 15 Dexmedetomidine HCl 200 mcg/ Sodium Chloride 52 ml @ 4.49 mls/hr TITRATE PRN IV SEDATION Last administered on 04/01/17 06:04; Start 03/30/17 at 22:45; Stop 04/01/17 at 12:00; Status DC Polyethylene Glycol (Miralax) 17 gm DAILY NG Last administered on 04/07/17 09 :00; Start 03/31/17 at 15:00 Morphine Sulfate (Morphine Inj) 2 mg ONCE ONCE IV PUSH Last administered on 04:44; Start 04/03/17 at 04:45; Stop 04/03/17 at 04:46; Status DC Cefepime HCl 2000 mg/Sodium Chloride 100 ml @ 200 mls/hr Q8H IV Last administered on 04/07/17 09:02; Start 04/03/17 at 18:00 Pharmacy Profile Note 0 ml @ 0 mls/hr UNSCH OTHER ; Start 04/03/17 at 17:00; Stop 04/05/17 at 14:08; Status DC Fluconazole/ Sodium Chloride 200 ml @ 100 mls/hr Q24H IV Last administered on 04/06/17 23:15; Start 04/03/17 at 20:00 Vancomycin HCl 2000 mg/Sodium Chloride 520 ml @ 250 mls/hr ONCE ONCE IV Last administered on 04/03/17 22:23; Start 04/03/17 at 21:00; Stop 04/03/17 at 23 :04; Status DC Vancomycin HCl 1000 mg/Sodium Chloride 250 ml @ 250 mls/hr ONCE ONCE IV Last administered on 04/04/17 22:14; Start 04/04/17 at 21:00; Stop 04/04/17 at 21 :59; Status DC Potassium Bicarb/ Potassium Chloride (K-Lyte Cl Eff) 50 meq ONCE ONCE NG ; Start 04/04/17 at 14:00; Stop 04/04/17 at 14:02; Status DC Lorazepam (Ativan Inj) 1 mg ONCE ONCE IV PUSH Last administered on 04/05/17 10:50; Start 04/05/17 at 09:45; Stop 04/05/17 at 09:46; Status DC Vancomycin HCl 1250 mg/Sodium Chloride 262.5 ml @ 250 mls/hr Q12H IV Last administered on 04/05/17 13:19; Start 04/05/17 at 12:00; Stop 04/05/17 at 14 :08; Status DC Miscellaneous Information SPECIFIC LAB TO BE DRAWN:VANCO DATE TO... ONCE ONCE .XX Last administered on 10/16/17at 11:45; Start 04/06/17 at 11:45; Stop at 11:46; Status DC Levothyroxine Sodium (Synthroid) 125 mcg DAILY@0600 PO Last administered on t 04:02; Start 04/07/17 at 06:00 A/P Assessment and Plan 1. Severe Sepsis secondary to Urinary tract infection, C Diff Colitis, and acute hypoxic and hypercarbic respiratory failure s/p intubation 03/28. extubated. today on Nasal Cannula. HAS NEW DOBBHOFF TUBE ON TUBE FEEDS AND ORAL VANCO FOR CDT 2. Metabolic Encephalopathy, Toxic and Sepsis on Broad spectrum antibiotics 3. C Diff Colitis, History of Duodenal Ulcer, on Vancomycin by mouth, needs a Dobbhoff tube so he can take his oral vancomycin ON ORAL VANCO FOR HIS CDT COLITIS 4. Bladder Outlet Obstruction with Hydronephrosis, BPH, Chronic Suprapubic Catheter, Suprapubic Cath replaced by Urology specialist 5. UTI, repeat culture growing Klebsiella and E Coli, on Rocephin complete 7 day course, History of Previous PSAE- FINISHED 6. DM II uncontrolled continue sliding scale. 7. Hypertension controlled on no antihypertensives. 8. Hyperlipidemia on Statins. 9. 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 Code Status DNR and DNI Probable Comfort care depend of patient clinical course. for next week, Palliative care following. Poor Short term prognosis. Gastric protection with Protonix - Hold pharmacological DVT prophylaxis due to positive Hemoccult - Protonix IV twice a day DOBBHOFF PLACED 10-15 so can continue to treat the C. difficile toxin colitis also needs some Lactinex if he can take that also Ativan as needed to place Dobbhoff tube SOFT RESTRAINTS Very poor prognosis will need palliative care consult has already been made a DO NOT RESUSCITATE A.m. labs Discharge Planning DOBBHOFF IN PLACE ON TUBE FEEDS OK FOR OUT OF ICU Jason Covarrubias DO Apr 07, 2017 09:54
[2017-04-07] MEDS: SODIUM CHLOR 0.9% 1000 ML INJ 1,000 ML IV SCH (11:25)
[2017-04-07 16:52] LABS: HEMOGLOBIN A1a 1.3 %; HEMOGLOBIN A1b 2.1 %; HEMOGLOBIN LA1C 1.9 %
--- NOTE | 2017-04-07 17:37 | HHI.HCPN ---
Reason for visit a. To assist with evaluation and management of symptoms including: Dyspnea b. To assist medical decision maker(s) with: better understanding of current medical conditions; weighing benefits/burdens of medical treatment options; making medical treatment decisions. Subjective/Interval History Pt is 89 year old admitted w/ altered mental status. 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 Pt found to have UTI, C. diff , hypercarbic respiratory failure intubated 03/28 and now medically extubated ( extub 03/31) . Patient transferred out of ICU to medical floor. TF cont via dobhoff. no new imaging. ST cont to reassess swallowing ability, pt today lethargic, w cough with any ST oral fluids/ recommends NPO w bypass feedings. blood culture from 04/03 no growth to date. Urine from 04/05 with yeast, ID to follow. Patient with no improvement in neurological status - lethargic, not appropriate, not able to make needs known. CBC unremarkable. Some hypokalemia, 3.0. Patient seen in room no visitors present. He is lethargic, to my commands though does not follow commands. He does attempt to verbalize =speech is garbled and I am unable to understand any of his speech. Following exam call to proxy Inessa to provide update. During prior palliative care interaction she had expressed desire to give the patient a few more days to monitor clinical status and for improvements, however she had also indicated that the patient was independent and would probably not want ongoing artificial measures if he did not improve and would instead wants comfort focus treatment. Would need to continue this conversation with her as he is not had any significant improvement in the past week. Proxy has informed that she is out of town for family emergency but remains available via cell phone, I have attempted to reach her several times, I again called today, Voicemail left. . Advance Directives Living Will: Never completed Health Care Surrogate: Never completed Objective Vital Signs Date Time Temp Pulse Resp B/P (MAP) Pulse Ox O2 Delivery O2 Flow Rate FiO2 04/07/17 16:00 Room Air 04/07/17 14:01 93 19 131/59 (83) 93 04/07/17 14:00 93 18 94 04/07/17 13:00 90 17 98 10/17/17 12:00 97.0 100 32 152/75 (100) 04/07/17 12:00 100 04/07/17 11:00 93 19 93 04/07/17 10:18 91 16 133/65 (87) 96 04/07/17 10:00 95 21 85 04/07/17 09:01 86 18 149/68 (95) 97 04/07/17 09:00 86 19 98 04/07/17 08:10 95 21 04/07/17 08:00 97.0 88 17 132/65 (87) 95 04/07/17 08:00 92 04/07/17 07:00 95 17 156/64 (94) 92 04/07/17 07:00 Room Air 04/07/17 06:01 94 21 148/65 (92) 95 04/07/17 06:00 83 04/07/17 06:00 93 19 97 04/07/17 05:01 91 24 127/63 (84) 93 04/07/17 05:00 92 19 89 04/07/17 04:00 92 04/07/17 04:00 97.9 92 22 149/76 (100) 90 04/07/17 02:00 102 04/07/17 00:00 98 04/07/17 00:00 97.5 98 21 145/69 (94) 95 04/06/17 22:00 98 04/06/17 20:00 87 04/06/17 20:00 97.7 87 17 99 04/06/17 19:05 98 21 04/06/17 19:00 Room Air 04/06/17 18:12 86 Intake & Output 04/07/17 04/07/17 07:00 19:00 Intake Total 1672 ml 826 ml Output Total 1200 ml 1100 ml Balance 472 ml -274 ml IV Total 869 ml 523 ml Tube Feeding 683 ml 303 ml Other 120 ml Output Urine Total 1150 ml 800 ml Stool Total 50 ml 300 ml Physical Exam CONSTITUTIONAL/GENERAL: This is a chronically ill-appearing patient,appears comfortable on nasal cannula. TUBES/LINES/DRAINS: Peripheral IV upper extremities, suprapubic catheter, rectal bag, nasal cannula, Dobbhoff tube nare SKIN: No jaundice, rashes, or lesions. Several areas of ecchymosis upper extremities, hands, + redness to hands. Skin warm. CARDIOVASCULAR: Regular rate and rhythm without murmurs. Tachycardic .Peripheral pulses symmetric. 1-2+ edema bilateral hands, no pedal edema. RESPIRATORY/CHEST: Symmetric, unlabored respirations via nasal cannula. Coarse scattered rhonchi. Breath sounds equal bilaterally. GASTROINTESTINAL: Abdomen soft, no apparent tenderness, nondistended. No palpable masses. Bowel sounds present. Dobbhoff NG tube w TF infusing. GENITOURINARY: Without palpable bladder distension. Suprapubic catheter in place some erythema/irritation around insertion site. Draining dark yellow urine MUSCULOSKELETAL: Extremities without clubbing, cyanosis, or edema. No joint effusion noted. No mottling or clubbing. NEUROLOGICAL: Lethargic, arouses minimally to exam. Does not follow any commands. Attempts to verbalize some speech is garbled I am unable to understand. Moves all 4 extremities spontaneously, weakly. PSYCHIATRIC: appears comfortable, limited assessment lethargic . Diagnostic Tests Laboratory Laboratory Tests Test 04/05/17 04:05 04/05/17 14:55 04/06/17 03:29 04/06/17 13:35 White Blood Count 7.4 TH/MM3 (4.0-11.0) 10.2 TH/MM3 (4.0-11.0) Red Blood Count 3.40 MIL/MM3 (4.50-5.90) 3.22 MIL/MM3 (4.50-5.90) Hemoglobin 9.9 GM/DL (13.0-17.0) 9.4 GM/DL (13.0-17.0) Hematocrit 29.9 % (39.0-51.0) 28.6 % (39.0-51.0) Mean Corpuscular Volume 87.9 FL (80.0-100.0) 88.9 FL (80.0-100.0) Mean Corpuscular Hemoglobin 29.1 PG (27.0-34.0) 29.3 PG (27.0-34.0) Mean Corpuscular Hemoglobin Concent 33.1 % (32.0-36.0) 33.0 % (32.0-36.0) Red Cell Distribution Width 18.2 % (11.6-17.2) 19.0 % (11.6-17.2) Platelet Count 202 TH/MM3 (150-450) 179 TH/MM3 (150-450) Mean Platelet Volume 7.9 FL (7.0-11.0) 8.7 FL (7.0-11.0) Blood Urea Nitrogen 10 MG/DL (7-18) 11 MG/DL (7-18) Creatinine 0.66 MG/DL (0.60-1.30) 0.71 MG/DL (0.60-1.30) Random Glucose 129 MG/DL (74-106) 144 MG/DL (74-106) Calcium Level 7.7 MG/DL (8.5-10.1) 7.5 MG/DL (8.5-10.1) Sodium Level 148 MEQ/L (136-145) 148 MEQ/L (136-145) Potassium Level 4.0 MEQ/L (3.5-5.1) 3.5 MEQ/L (3.5-5.1) Chloride Level 114 MEQ/L (98-107) 114 MEQ/L (98-107) Carbon Dioxide Level 25.7 MEQ/L (21.0-32.0) 21.9 MEQ/L (21.0-32.0) Anion Gap 8 MEQ/L (5-15) 12 MEQ/L (5-15) Estimat Glomerular Filtration Rate 114 ML/MIN (>89) 104 ML/MIN (>89) Random Vancomycin Level 4.2 COMMENT Urine Color YELLOW (YELLW/STRAW) Urine Turbidity HAZY (CLEAR) Urine pH 5.0 (5.0-8.5) Urine Specific [place] 1.017 (1.002-1.035) Urine Protein 30 mg/dL (NEG-TRACE) Urine Glucose (UA) NEG mg/dL (NEG) Urine Ketones 40 mg/dL (NEG) Urine Occult Blood TRACE (NEG) Urine Nitrite NEG (NEG) Urine Bilirubin NEG (NEG) Urine Urobilinogen LESS THAN 2.0 MG/DL (LESS Urine Leukocyte Esterase LARGE (NEG) Urine RBC 3 /hpf (0-3) Urine WBC 81 /hpf (0-5) Urine WBC Clumps RARE (NONE) Urine Bacteria RARE /hpf (NONE) Microscopic Urinalysis Comment CATH-CULTURE IND Neutrophils (%) (Auto) 71.3 % (16.0-70.0) Lymphocytes (%) (Auto) 16.5 % (9.0-44.0) Monocytes (%) (Auto) 5.9 % (0.0-8.0) Eosinophils (%) (Auto) 5.4 % (0.0-4.0) Basophils (%) (Auto) 0.9 % (0.0-2.0) Neutrophils # (Auto) 7.3 TH/MM3 (1.8-7.7) Lymphocytes # (Auto) 1.7 TH/MM3 (1.0-4.8) Monocytes # (Auto) 0.6 TH/MM3 (0-0.9) Eosinophils # (Auto) 0.6 TH/MM3 (0-0.4) Basophils # (Auto) 0.1 TH/MM3 (0-0.2) CBC Comment DIFF FINAL Differential Comment Total Protein 5.4 GM/DL (6.4-8.2) Albumin 2.1 GM/DL (3.4-5.0) Phosphorus Level 1.8 MG/DL (2.5-4.9) Magnesium Level 1.7 MG/DL (1.5-2.5) Alkaline Phosphatase 92 U/L (45-117) Aspartate Amino Transf (AST/SGOT) 20 U/L (15-37) Alanine Aminotransferase (ALT/SGPT) 14 U/L (12-78) Total Bilirubin 0.4 MG/DL (0.2-1.0) Hemoglobin A1c 6.5 % (4.3-6.0) Free Thyroxine 1.12 NG/DL (0.76-1.46) Thyroid Stimulating Hormone 3rd Gen 11.900 uIU/ML (0.358-3.740) Vancomycin Level Trough 17.7 MCG/ML (5.0-10.0) Test 04/07/17 04:34 White Blood Count 7.0 TH/MM3 (4.0-11.0) Red Blood Count 3.34 MIL/MM3 (4.50-5.90) Hemoglobin 9.8 GM/DL (13.0-17.0) Hematocrit 29.2 % (39.0-51.0) Mean Corpuscular Volume 87.3 FL (80.0-100.0) Mean Corpuscular Hemoglobin 29.2 PG (27.0-34.0) Mean Corpuscular Hemoglobin Concent 33.4 % (32.0-36.0) Red Cell Distribution Width 17.9 % (11.6-17.2) Platelet Count 226 TH/MM3 (150-450) Mean Platelet Volume 7.8 FL (7.0-11.0) Neutrophils (%) (Auto) 62.1 % (16.0-70.0) Lymphocytes (%) (Auto) 22.6 % (9.0-44.0) Monocytes (%) (Auto) 8.7 % (0.0-8.0) Eosinophils (%) (Auto) 5.7 % (0.0-4.0) Basophils (%) (Auto) 0.9 % (0.0-2.0) Neutrophils # (Auto) 4.3 TH/MM3 (1.8-7.7) Lymphocytes # (Auto) 1.6 TH/MM3 (1.0-4.8) Monocytes # (Auto) 0.6 TH/MM3 (0-0.9) Eosinophils # (Auto) 0.4 TH/MM3 (0-0.4) Basophils # (Auto) 0.1 TH/MM3 (0-0.2) CBC Comment DIFF FINAL Differential Comment Blood Urea Nitrogen 9 MG/DL (7-18) Creatinine 0.75 MG/DL (0.60-1.30) Random Glucose 254 MG/DL (74-106) Total Protein 5.2 GM/DL (6.4-8.2) Albumin 2.0 GM/DL (3.4-5.0) Calcium Level 7.8 MG/DL (8.5-10.1) Phosphorus Level 1.5 MG/DL (2.5-4.9) Magnesium Level 1.6 MG/DL (1.5-2.5) Alkaline Phosphatase 109 U/L (45-117) Aspartate Amino Transf (AST/SGOT) 18 U/L (15-37) Alanine Aminotransferase (ALT/SGPT) 12 U/L (12-78) Total Bilirubin 0.3 MG/DL (0.2-1.0) Sodium Level 145 MEQ/L (136-145) Potassium Level 3.0 MEQ/L (3.5-5.1) Chloride Level 110 MEQ/L (98-107) Carbon Dioxide Level 26.0 MEQ/L (21.0-32.0) Anion Gap 9 MEQ/L (5-15) Estimat Glomerular Filtration Rate 98 ML/MIN (>89) Result Diagram: 04/07/17 0434 04/07/17 0434 Microbiology Microbiology Date/Time Source Procedure Growth Status 04/05/17 14:55 Urine Clean Catch Urine Culture - Preliminary Yeast-Id To Follow Resulted Imaging Last Impressions Abdomen X-Ray 04/05/17 0000 Signed Impressions: Service Date/Time: Wednesday, April 05, 2017 11:47 - CONCLUSION: Dobbhoff tube in the distal stomach. Wally Valadez MD Chest X-Ray 04/04/17 0000 Signed Impressions: Service Date/Time: Tuesday, April 04, 2017 12:55 - CONCLUSION: 1. Cardiomegaly and findings of congestive heart failure. There has been no significant change when compared to the prior exam. 2. Nasogastric tube coiled in the hypopharynx Reymundo Kinney MD Abdomen/Pelvis CT 03/27/17 0000 Signed Impressions: Service Date/Time: Monday, March 27, 2017 22:38 - CONCLUSION: 1. There is a distended urinary bladder despite a Crooks catheter and suprapubic catheter. There is resulting hydronephrosis and hydroureter. 2. Colonic diverticulosis. 3. Pneumobilia without biliary dilatation. This would suggest sphincterotomy. Melquiades Najera Jr., MD Procedures 03/31 extubated 03/28 intubated . Assessment and Plan Disease Oriented Problem List: (1) GERD (gastroesophageal reflux disease) (2) Hyperlipidemia (3) Hypertension (4) C. 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 Prior to that lived in an [facility] setting for about 7 years. Has known local friend and contact Inessa for about 10 years, they met when they were neighbors before he lived in [facility]. Patient originally from [place] has lived in [place] for many years. many years ago. 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 Has a brother who is , and [id number] whom he has not been in close communication with recently. He does have 2 adult daughters whom he has been estranged from since they were young children; friend Inessa is trying to find out their names and possible location from sister in law.[unable to locate per accurint 03/31/17] Spiritual: Jain Legal:Patient is currently unable to participate in decision-making due to medical condition. Does not appear to have advanced directive or HCS designation. Apparently his brother is , sister in law lives out of state. . Has 2 adult daughters whose name are not known at this time however they would be appropriate proxy decision maker per [place] statutes if they can be located. Local friend Inessa is working to find out their names and possible location. If these 2 daughters cannot be located or do not wish to serve as decision makers then decision-making proxy would move onto other close friends and/or relatives. Ethical issues impacting care: Important Contacts Friend Inessa Madera [phone] PROXY as of 03/31/17, ashley [phone] Friend Haley [phone] Found in old admission record 2010 brother Brenton Toscano [phone] ; cesilia lives in [place] Prognosis This patient has had a few recent hospital visits, with UTI 03/22, and admission for sepsis 02/03 through 02/09. He has multiple medical comorbidities. He is quite deconditioned. Possible he can survive current acute hospitalization however he remains at risk for ongoing complications and setbacks and recurrent hospitalizations. . Code Status: Full Code Plan * Capacity: Patient has not regained capacity at this point, not able to make decisions can not weigh the risk and benefits of medical decisions. * Legal decision maker: Palliative care , case management previously exhaustive searches for potential family. No family readily available, per [place] Statutes medical proxy decision making would fall to a close friend or relative. Friend Inessa Madera has agreed to serve as healthcare proxy. * Goals of care 1)DNR/DNI established by proxy 04/02 2) per prior interactions PROXY Ms. Madera wished to give him a few days; if mentation does not improve, opened the conversations regarding hospice/ comfort (Ms. Madera is a volunteer with hospice in the past) 4) In the mean time goals of care aggressive short of resuscitation /intubation. VM left for proxy for update 04/02/17, 04/03/17, voicemail again left to provide update on 04/06/17,, 04/07/17. * CODE STATUS: DNR/DNI * SYMPTOMS: --Anxiety/depression-friend indicates he has been somewhat depressed recently secondary to his loss of independence in general health decline. Potentially could benefit long-term from SSRI, postextubation/when medical condition stabilized --Malnutrition/dysphagia-previously intubated and unable to take oral nutrition; albumin 2.3. s/p ST eval-- tolerating puree w honey thick liq. Initially, not taking in much, still requiring TF via NGT. subsequent evaluations--ST continues to follow patient not tolerating oral diet recommend bypass feedings. --Dyspnea --intermittently requiring BiPAP for shortness of breath , hypoxia. Has been stable on nasal cannula several days postextubation now.. CXR with bilateral airspace disease right greater than left. * Palliative care will continue to follow during hospital course as condition evolves, to assist patient/decision-maker with understanding of medical conditions, weighing benefits/burdens of treatment options, for clarification of goals of treatment. Additionally will assist with any symptoms of palliative concern . Time Spent Total Floor Time (mins): 20 (exam, review of records, call to proxy) Attestation To help prompt me to consider important information that might be impacting today's encounter and assessment, information from prior notes written by myself or my colleagues may have been "brought forward" into today's note. My signature on this note, however, is an attestation that I personally performed the exam, history, and/or decision-making noted today, and, unless otherwise indicated, the interactions with patient, family, and staff as well as the review of records all occurred today. I also attest that the listed assessment and stated plan reflect my best clinical judgment today based on the combination of historical information, prior notes, and today's exam/ interactions. When time spent is documented, it refers only to time spent today by the signer, or if indicated, combined time spent today by collaborating physician/nurse practitioner. Lidia Morocho Apr 07, 2017 17:37
[2017-04-07] MEDS: FLUCONAZOLE 400 MG PREMIX BAG 200 ML IV SCH (21:49)
[2017-04-08] VITALS (8 sets, daily range): BP systolic 106–164; BP diastolic 61–77; PULSE 66–98; RESP 18–24; TEMP 97.3–98.1; O2SAT 95–97
[2017-04-08] MEDS: CEFEPIME INJ 2,000 MG in SODIUM CHLORIDE 0.9% INJ 100 ML IV SCH ×2 (01:21→10:22)
[2017-04-08] MEDS: CHLORHEXIDINE GLUCONATE 2 % 1 PACK (2 CLOTHS) TOP SCH (04:00)
[2017-04-08] MEDS: ARTIFICIAL TEARS OPTH SOLN 15 ML BTL EACH EYE SCH ×5 (04:25→22:14)
[2017-04-08] MEDS: PANTOPRAZOLE SODIUM 40 MG VIAL IV PUSH SCH ×2 (04:25→14:52)
[2017-04-08] MEDS: CIPROFLOXACIN 0.3% OPTH SOLN 2.5 ML BTL EACH EYE SCH ×5 (04:25→22:14)
[2017-04-08] MEDS: metroNIDAZOLE 500 MG INJ 100 ML IV SCH ×2 (04:25→12:00)
[2017-04-08] MEDS: LEVOTHYROXINE SODIUM 125 MCG TAB PO SCH (05:01)
[2017-04-08] MEDS: METOCLOPRAMIDE HCL 10 MG/2 ML VIAL IV PUSH SCH ×3 (05:01→22:15)
[2017-04-08] MEDS: INSULIN NovoLIN REGULAR SUPPLEMENTAL SCALE SQ SCH ×4 (06:00→22:16)
[2017-04-08 06:51] LABS: AUTOMATED NEUTROPHIL # 4.4 TH/MM3 (1.8-7.7); BASOPHIL # 0.1 TH/MM3 (0-0.2); BASOPHIL % 0.9 % (0.0-2.0); EOSINOPHIL # 0.4 TH/MM3 (0-0.4); EOSINOPHIL % 4.8 % (0.0-4.0); HEMATOCRIT 29.7 % (39.0-51.0); HEMO FLAGS DIFF FINAL; LYMPH % 24.4 % (9.0-44.0); LYMPHOCYTE # 1.8 TH/MM3 (1.0-4.8); MEAN CELL VOLUME 87.3 FL (80.0-100.0); MEAN CORPUSCULAR HEMOGLOBIN 29.4 PG (27.0-34.0); MEAN CORPUSCULAR HGB CONC 33.7 % (32.0-36.0); MONO % 9.9 % (0.0-8.0); PLATELET COUNT 228 TH/MM3 (150-450); RED BLOOD COUNT 3.41 MIL/MM3 (4.50-5.90); RED CELL DISTRIBUTION WIDTH 18.8 % (11.6-17.2); WHITE BLOOD COUNT 7.3 TH/MM3 (4.0-11.0)
[2017-04-08 07:10] LABS: ALT (GPT) 12 U/L (12-78); ANION GAP 8 MEQ/L (5-15); AST (GOT) 21 U/L (15-37); BICARBONATE 28.2 MEQ/L (21.0-32.0); BLOOD UREA NITROGEN 13 MG/DL (7-18); CHLORIDE 109 MEQ/L (98-107); GLOMERULAR FILTRATION RATE 87 ML/MIN (>89); MAGNESIUM 1.6 MG/DL (1.5-2.5); POTASSIUM 3.5 MEQ/L (3.5-5.1); SODIUM (NA) 145 MEQ/L (136-145)
[2017-04-08 07:12] LABS: ALKALINE PHOSPHATASE 136 U/L (45-117); TOTAL BILIRUBIN ADULT 0.3 MG/DL (0.2-1.0)
[2017-04-08] MEDS: POLYETHYLENE GLYCOL 17 GM PKG NG SCH (09:00)
[2017-04-08] MEDS: PRAVASTATIN SOD 20 MG TAB PO SCH (10:03)
[2017-04-08] MEDS: CHOLECALCIFEROL (VIT D3) 1000 UNIT TAB PO SCH (10:03)
[2017-04-08] MEDS: LACTIC ACID (AMMONIUM LACTATE) 12% LOTION 225 GM BTL TOPICAL SCH ×2 (10:04→22:16)
[2017-04-08] MEDS: SODIUM CHLORIDE 0.9% FLUSH 10 ML FLUSH IV FLUSH SCH ×2 (10:04→22:15)
[2017-04-08] MEDS: VANCOMYCIN 500 MG VIAL (FOR ORAL USE ONLY) PO SCH ×4 (10:04→22:15)
[2017-04-08] MEDS: SODIUM CHLOR 0.9% 1000 ML INJ 1,000 ML IV SCH (10:08)
--- NOTE | 2017-04-08 14:41 | HHI.IDPN ---
Subjective Subjective Remarks no fever very confused and lethargic cont to have liquid diarrhea Antibiotics cefeime IV vanco flagyl vanco PO Allergies: Coded Allergies: penicillin G (Unverified Allergy, Unknown, 03/26/17) Objective . Vital Signs Date Time Temp Pulse Resp B/P (MAP) Pulse Ox O2 Delivery O2 Flow Rate FiO2 04/08/17 10:56 96 04/08/17 08:00 97.6 89 18 141/65 (90) 96 04/08/17 04:00 97.3 96 22 106/61 (76) 97 04/08/17 00:00 97.3 96 20 116/63 (80) 95 04/07/17 20:01 87 04/07/17 20:00 97.2 95 20 126/60 (82) 96 04/07/17 20:00 Room Air 04/07/17 16:00 97.7 92 20 116/60 (78) 97 04/07/17 16:00 Room Air . Laboratory Tests Test 04/07/17 04:34 04/08/17 06:22 White Blood Count 7.0 TH/MM3 7.3 TH/MM3 Red Blood Count 3.34 MIL/MM3 3.41 MIL/MM3 Hemoglobin 9.8 GM/DL 10.0 GM/DL Hematocrit 29.2 % 29.7 % Mean Corpuscular Volume 87.3 FL 87.3 FL Mean Corpuscular Hemoglobin 29.2 PG 29.4 PG Mean Corpuscular Hemoglobin Concent 33.4 % 33.7 % Red Cell Distribution Width 17.9 % 18.8 % Platelet Count 226 TH/MM3 228 TH/MM3 Mean Platelet Volume 7.8 FL 7.8 FL Neutrophils (%) (Auto) 62.1 % 60.0 % Lymphocytes (%) (Auto) 22.6 % 24.4 % Monocytes (%) (Auto) 8.7 % 9.9 % Eosinophils (%) (Auto) 5.7 % 4.8 % Basophils (%) (Auto) 0.9 % 0.9 % Neutrophils # (Auto) 4.3 TH/MM3 4.4 TH/MM3 Lymphocytes # (Auto) 1.6 TH/MM3 1.8 TH/MM3 Monocytes # (Auto) 0.6 TH/MM3 0.7 TH/MM3 Eosinophils # (Auto) 0.4 TH/MM3 0.4 TH/MM3 Basophils # (Auto) 0.1 TH/MM3 0.1 TH/MM3 CBC Comment DIFF FINAL DIFF FINAL Differential Comment Laboratory Tests Test 04/07/17 04:34 04/08/17 06:27 Blood Urea Nitrogen 9 MG/DL 13 MG/DL Creatinine 0.75 MG/DL 0.83 MG/DL Random Glucose 254 MG/DL 231 MG/DL Total Protein 5.2 GM/DL 5.4 GM/DL Albumin 2.0 GM/DL 1.9 GM/DL Calcium Level 7.8 MG/DL 7.5 MG/DL Phosphorus Level 1.5 MG/DL 2.5 MG/DL Magnesium Level 1.6 MG/DL 1.6 MG/DL Alkaline Phosphatase 109 U/L 136 U/L Aspartate Amino Transf (AST/SGOT) 18 U/L 21 U/L Alanine Aminotransferase (ALT/SGPT) 12 U/L 12 U/L Total Bilirubin 0.3 MG/DL 0.3 MG/DL Sodium Level 145 MEQ/L 145 MEQ/L Potassium Level 3.0 MEQ/L 3.5 MEQ/L Chloride Level 110 MEQ/L 109 MEQ/L Carbon Dioxide Level 26.0 MEQ/L 28.2 MEQ/L Anion Gap 9 MEQ/L 8 MEQ/L Estimat Glomerular Filtration Rate 98 ML/MIN 87 ML/MIN Microbiology Date/Time Source Procedure Growth Status 04/05/17 14:55 Urine Clean Catch Urine Culture - Preliminary Yeast-Id To Follow Resulted Imaging Last Impressions Abdomen X-Ray 04/05/17 0000 Signed Impressions: Service Date/Time: Wednesday, April 05, 2017 11:47 - CONCLUSION: Dobbhoff tube in the distal stomach. Wally Valadez MD Chest X-Ray 04/04/17 0000 Signed Impressions: Service Date/Time: Tuesday, April 04, 2017 12:55 - CONCLUSION: 1. Cardiomegaly and findings of congestive heart failure. There has been no significant change when compared to the prior exam. 2. Nasogastric tube coiled in the hypopharynx Reymundo Kinney MD Abdomen/Pelvis CT 03/27/17 0000 Signed Impressions: Service Date/Time: Monday, March 27, 2017 22:38 - CONCLUSION: 1. There is a distended urinary bladder despite a Crooks catheter and suprapubic catheter. There is resulting hydronephrosis and hydroureter. 2. Colonic diverticulosis. 3. Pneumobilia without biliary dilatation. This would suggest sphincterotomy. Melquiades Najera Jr., MD Physical Exam CONSTITUTIONAL/GENERAL: This is an adequately nourished patient, in no apparent distress. TUBES/LINES/DRAINS: SKIN: No jaundice, rashes, or lesions. Skin temperature appropriate. Not diaphoretic. EYES: Pupils equal and round and reactive. No scleral icterus. No injection or drainage. Fundi not examined. ENT: Oral mucosae without visible erythema, exudates, masses, or lesions. Poor dentition CARDIOVASCULAR: Regular rate and rhythm without murmurs, gallops, or rubs. No JVD. Peripheral pulses symmetric. RESPIRATORY/CHEST: Symmetric, unlabored respirations.Diffuse b/l rhonchi to auscultation. GASTROINTESTINAL: Abdomen soft, non-tender, quite distended. No hepato- splenomegaly, or palpable masses. No guarding. Bowel sounds present. Dignishild in place , + very liquid stool in the bag Dobhoff in place GENITOURINARY: Without palpable bladder distension. SP catheter in place with clear yellow urine MUSCULOSKELETAL: Extremities without clubbing, cyanosis, 1+ edema. NEUROLOGICAL:lethargic nearly obtunded; not responding PSYCH: unable to assess Assessment & Plan Remarks UTI, Kleb, E.coli in acute urinary retention settings (clogged SP cath) completed 14 days of abx Underlying BPH C.diff, on oral vanco Metabolic encephalopathy Recurrent acute VDRF - resolved Hypothermia- resolved blood clx negative Improved clinically Palliative care involved dc cont cefepime, dc cont flagyl dc IV vanco cont fluconazole , change to 200 orally cont vanco PO dw Dr Daniela Johnson,Yumiko Dubose MD Apr 08, 2017 14:41
--- NOTE | 2017-04-08 14:56 | HHI.PR ---
Subjective Remarks 03/26: This is a 89 year old male with a history of C Difficile colitis, duodenal bulb ulcer, and dilated common bile duct/pancreatic duct, who was sent from his assisted living facility for evaluation of altered mental status. He is currently extremely somnolent and unable to provide any history and therefore the history has been obtained from the EMR and nursing staff. According to the ER note, he is being treated for C Difficile colitis with oral vancomycin and an UTI with Macrobid. He was recently seen in the ER for urinary retention despite a suprapubic catheter and a regular Montoya catheter was placed and he was referred to urology as outpatient. His H/H was noted to be 11.4/24.4 on 03/22/17. Yesterday this was 8.1/24.4. He was given 2 units of PRBC and today this is 11.5/35.0. GI has been consulted for anemia and hemo- occult positive stool. His abdomen is nondistended, but he does have moderate lower abdominal tenderness on exam. The nurse reports that he has not had a bowel movement on her shift, but was told that he had a small amount of stool overnight. He was admitted to the intensive care unit for altered mental status , SIRS, DM, HTN, GERD, hyperlipidemia, anemia. He was evaluated by our service back in 2010 for abdominal pain with nausea and vomiting and underwent EGD ()---> Large duodenal bulb ulcer, duodenitis, very edematous mucosa, bx, gastritis in the antrum, bx, esophagitis, schatzki's ring. Pathology with small bowel mucosa with no significant histopathologic abnormalities, antral mucosa with very focal mild active chronic gastritis, esophageal bx with squamous mucosa with mild reflux esophagitis. He was also evaluated with MRCP at that time which revealed dilatation of the common bile duct and pancreatic duct with area of beak-like narrowing at the pancreatic head. Of note, he has had gallstones and underwent ERCP with sphincterotomy. 03/27: Remains encephalopathic, laying in bed in no acute distress. 03/28: worsening encephalopathy. unable to protect airway. CT abd/pelvis with evidence of distended bladder with hydronephrosis despite both suprapubic and montoya through penis. attempted to reach family: patient has [id number] sister- in-law, brother , reportedly have not spoken in years. patient has a friend who takes him to breakfast occasionally. She said she would be willing to make healthcare decisions for him, but has never signed paperwork saying that she was the decision maker. when asked about his end-of-life wishes, she does not think he would want to be on a ventilator long-term, but she does not know specifically what his wishes were. He was reportedly a FULL CODE based on SNF documentation. 03/29: intubated yesterday. urine growing e. coli and klebsiella. c. diff PCR still not resulted. borderline hypotensive on propofol. 03/30: Remains encephalopathic orally intubated on mechanical ventilation. 03/31: Awake, encephalopathic, not following commands. Orally intubated on mechanical ventilation. 04/01: Awake, alert, disoriented/encephalopathic, not following commands. Extubated on 03/31, on nasal cannula. Precedex being titrated off. Hospitalist Notes: 04/02: Patient transferred to Hospitalist team starting today, seen in his bedroom, worsening respiratory condition and confused. 04/03: Seen in his bedroom and discussed with nurse Miss Nichols, the patient now on BiPAP, worsening respiratory temple, now Lethargic, discussed with currency exchange specialist Miss Murillo she states his Surrogate wants him DNR and DNI but did not took any decision about Comfort care but is willing to go that route. 04/04: Stable in his bedroom discussed with nurse Miss Bocanegra and the patient removed his NG tube, asked me to give him Potassium chloride replacement by NG tube due to difficult Peripheral lines, no nausea, vomit or diarrhea. continue somnolent and confused. 10-15 TO HAVE DOBBHOFF TUBE PLACED LATER TODAY POOR ORAL INTAKE NOT ABLE TO TAKE MUCH IN ORALLY PALLIATIVE CARE IS FOLLOWING DNR 10-16 ON PO VANCO AND FLUCONAZOLE HAD DOBBHOFF TUBE PLACED IN SOFT RESTRAINTS FOR HIS PROTECTION 10-17 TOLERATING TUBE FEEDS DW RN PATIENT STILL REMAINS CONFUSED MEDS VIA IV OR PEG ONLY SWITCH TO GLUCERNA FOR TUBE FEEDS - switched off all IV antibiotics by infectious disease Will try to get palliative care to help find family to make a decision regarding PEG versus hospice Suspect hospice would be the better course of action Patient remains completely nonverbal remains confused and not able to answer any questions at all Objective Vitals Vital Signs Date Time Temp Pulse Resp B/P (MAP) Pulse Ox O2 Delivery O2 Flow Rate FiO2 04/08/17 10:56 96 04/08/17 08:00 97.6 89 18 141/65 (90) 96 04/08/17 04:00 97.3 96 22 106/61 (76) 97 04/08/17 00:00 97.3 96 20 116/63 (80) 95 04/07/17 20:01 87 04/07/17 20:00 97.2 95 20 126/60 (82) 96 04/07/17 20:00 Room Air 04/07/17 16:00 97.7 92 20 116/60 (78) 97 04/07/17 16:00 Room Air I/O 04/07/17 04/07/17 04/07/17 04/08/17 04/08/17 04/08/17 07:00 15:00 23:00 07:00 15:00 23:00 Intake Total 1672 ml 826 ml 324 ml 1350 ml Output Total 1200 ml 1100 ml 1300 ml Balance 472 ml 826 ml -776 ml 50 ml Intake Oral 0 ml IV Total 869 ml 523 ml 100 ml 630 ml Tube Feeding 683 ml 303 ml 224 ml 720 ml Other 120 ml Output Urine Total 1150 ml 800 ml 1000 ml Stool Total 50 ml 300 ml 300 ml Result Diagram: 04/08/17 0622 04/08/17 0627 Other Results Laboratory Tests Test 04/05/17 14:55 04/06/17 03:29 04/06/17 13:35 04/07/17 04:34 Urine Color YELLOW Urine Turbidity HAZY Urine pH 5.0 Urine Specific [place] 1.017 Urine Protein 30 mg/dL Urine Glucose (UA) NEG mg/dL Urine Ketones 40 mg/dL Urine Occult Blood TRACE Urine Nitrite NEG Urine Bilirubin NEG Urine Urobilinogen LESS THAN 2.0 MG/DL Urine Leukocyte Esterase LARGE Urine RBC 3 /hpf Urine WBC 81 /hpf Urine WBC Clumps RARE Urine Bacteria RARE /hpf Microscopic Urinalysis Comment CATH-CULTURE IND White Blood Count 10.2 TH/MM3 7.0 TH/MM3 Red Blood Count 3.22 MIL/MM3 3.34 MIL/MM3 Hemoglobin 9.4 GM/DL 9.8 GM/DL Hematocrit 28.6 % 29.2 % Mean Corpuscular Volume 88.9 FL 87.3 FL Mean Corpuscular Hemoglobin 29.3 PG 29.2 PG Mean Corpuscular Hemoglobin Concent 33.0 % 33.4 % Red Cell Distribution Width 19.0 % 17.9 % Platelet Count 179 TH/MM3 226 TH/MM3 Mean Platelet Volume 8.7 FL 7.8 FL Neutrophils (%) (Auto) 71.3 % 62.1 % Lymphocytes (%) (Auto) 16.5 % 22.6 % Monocytes (%) (Auto) 5.9 % 8.7 % Eosinophils (%) (Auto) 5.4 % 5.7 % Basophils (%) (Auto) 0.9 % 0.9 % Neutrophils # (Auto) 7.3 TH/MM3 4.3 TH/MM3 Lymphocytes # (Auto) 1.7 TH/MM3 1.6 TH/MM3 Monocytes # (Auto) 0.6 TH/MM3 0.6 TH/MM3 Eosinophils # (Auto) 0.6 TH/MM3 0.4 TH/MM3 Basophils # (Auto) 0.1 TH/MM3 0.1 TH/MM3 CBC Comment DIFF FINAL DIFF FINAL Differential Comment Blood Urea Nitrogen 11 MG/DL 9 MG/DL Creatinine 0.71 MG/DL 0.75 MG/DL Random Glucose 144 MG/DL 254 MG/DL Total Protein 5.4 GM/DL 5.2 GM/DL Albumin 2.1 GM/DL 2.0 GM/DL Calcium Level 7.5 MG/DL 7.8 MG/DL Phosphorus Level 1.8 MG/DL 1.5 MG/DL Magnesium Level 1.7 MG/DL 1.6 MG/DL Alkaline Phosphatase 92 U/L 109 U/L Aspartate Amino Transf (AST/SGOT) 20 U/L 18 U/L Alanine Aminotransferase (ALT/SGPT) 14 U/L 12 U/L Total Bilirubin 0.4 MG/DL 0.3 MG/DL Sodium Level 148 MEQ/L 145 MEQ/L Potassium Level 3.5 MEQ/L 3.0 MEQ/L Chloride Level 114 MEQ/L 110 MEQ/L Carbon Dioxide Level 21.9 MEQ/L 26.0 MEQ/L Anion Gap 12 MEQ/L 9 MEQ/L Estimat Glomerular Filtration Rate 104 ML/MIN 98 ML/MIN Hemoglobin A1c 6.5 % Free Thyroxine 1.12 NG/DL Thyroid Stimulating Hormone 3rd Gen 11.900 uIU/ML Vancomycin Level Trough 17.7 MCG/ML Test 04/08/17 06:22 04/08/17 06:27 White Blood Count 7.3 TH/MM3 Red Blood Count 3.41 MIL/MM3 Hemoglobin 10.0 GM/DL Hematocrit 29.7 % Mean Corpuscular Volume 87.3 FL Mean Corpuscular Hemoglobin 29.4 PG Mean Corpuscular Hemoglobin Concent 33.7 % Red Cell Distribution Width 18.8 % Platelet Count 228 TH/MM3 Mean Platelet Volume 7.8 FL Neutrophils (%) (Auto) 60.0 % Lymphocytes (%) (Auto) 24.4 % Monocytes (%) (Auto) 9.9 % Eosinophils (%) (Auto) 4.8 % Basophils (%) (Auto) 0.9 % Neutrophils # (Auto) 4.4 TH/MM3 Lymphocytes # (Auto) 1.8 TH/MM3 Monocytes # (Auto) 0.7 TH/MM3 Eosinophils # (Auto) 0.4 TH/MM3 Basophils # (Auto) 0.1 TH/MM3 CBC Comment DIFF FINAL Differential Comment Blood Urea Nitrogen 13 MG/DL Creatinine 0.83 MG/DL Random Glucose 231 MG/DL Total Protein 5.4 GM/DL Albumin 1.9 GM/DL Calcium Level 7.5 MG/DL Phosphorus Level 2.5 MG/DL Magnesium Level 1.6 MG/DL Alkaline Phosphatase 136 U/L Aspartate Amino Transf (AST/SGOT) 21 U/L Alanine Aminotransferase (ALT/SGPT) 12 U/L Total Bilirubin 0.3 MG/DL Sodium Level 145 MEQ/L Potassium Level 3.5 MEQ/L Chloride Level 109 MEQ/L Carbon Dioxide Level 28.2 MEQ/L Anion Gap 8 MEQ/L Estimat Glomerular Filtration Rate 87 ML/MIN Imaging Last Impressions Abdomen X-Ray 04/05/17 0000 Signed Impressions: Service Date/Time: Wednesday, April 05, 2017 11:47 - CONCLUSION: Dobbhoff tube in the distal stomach. Wally Valadez MD Chest X-Ray 04/04/17 0000 Signed Impressions: Service Date/Time: Tuesday, April 04, 2017 12:55 - CONCLUSION: 1. Cardiomegaly and findings of congestive heart failure. There has been no significant change when compared to the prior exam. 2. Nasogastric tube coiled in the hypopharynx Reymundo Kinney MD Abdomen/Pelvis CT 03/27/17 0000 Signed Impressions: Service Date/Time: Monday, March 27, 2017 22:38 - CONCLUSION: 1. There is a distended urinary bladder despite a Montoya catheter and suprapubic catheter. There is resulting hydronephrosis and hydroureter. 2. Colonic diverticulosis. 3. Pneumobilia without biliary dilatation. This would suggest sphincterotomy. Melquiades Najera Jr., MD Objective Remarks GENERAL: Very confused following no commands remains nonverbal SKIN: Warm and dry. Bilateral ecchymosis and swollen arms HEAD: Atraumatic. Normocephalic. EYES: Pupils equal and round. No scleral icterus. No injection or drainage. ENT: No nasal bleeding or discharge. Mucous membranes pink and moist. Tongue midline supple as Dobbhoff tube in place NECK: Trachea midline. No JVD. CARDIOVASCULAR: Regular rate and rhythm. S1-S2 no S3 or S4 RESPIRATORY: No accessory muscle use. Coarse breath sounds bilaterally Breath sounds equal bilaterally. GASTROINTESTINAL: Abdomen soft, non-tender, nondistended. Hepatic and splenic margins not palpable. Suprapubic catheter in place MUSCULOSKELETAL: Extremities without clubbing, cyanosis, No obvious deformities. +1 lower extremity edema NEUROLOGICAL: Awake and alert and confused. No obvious cranial nerve deficits. Motor is abnormal. 4 out of 5 muscle strength in the arms and legs. ABNormal speech. PSYCHIATRIC: INAppropriate mood and affect; insight and judgment ABnormal. IN SOFT RESTRAINTS IN UE BL FOR LINE PROTECTION AND DOBBHOFF PROTECTION Procedures Endotracheal Intubation and Extubation. Medications and IVs Current Medications Vancomycin HCl 1000 mg/Sodium Chloride 250 ml @ 250 mls/hr ONCE STAT IV Last administered on 03/26/17 20:10; Start 03/26/17 at 18:13; Stop 03/26/17 at 19:12 ; Status DC Aztreonam 2000 mg/ Sodium Chloride 100 ml @ 200 mls/hr ONCE STAT IV Last administered on 03/26/17 21:36; Start 03/26/17 at 18:13; Stop 03/26/17 at 18:42 ; Status DC Metronidazole 100 ml @ 100 mls/hr ONCE STAT IV Last administered on 18:38; Start 03/26/17 at 18:13; Stop 03/26/17 at 19:12; Status DC Sodium Chloride 500 ml @ 500 mls/hr BOLUS ONCE IV Last administered on 18:38; Start 03/26/17 at 18:15; Stop 03/26/17 at 19:14; Status DC Acetaminophen (Tylenol Supp) 650 mg ONCE ONCE RECTAL Last administered on 03/26 18:38; Start 03/26/17 at 18:30; Stop 03/26/17 at 18:33; Status DC Morphine Sulfate (Morphine Inj) 2 mg ONCE ONCE IV PUSH ; Start 03/26/17 at 18: 45; Stop 03/26/17 at 18:45; Status DC Sodium Chloride 500 ml @ 500 mls/hr BOLUS ONCE IV Last administered on 20:37; Start 03/26/17 at 20:00; Stop 03/26/17 at 20:59; Status DC Sodium Chloride (NS Flush) 2 ml UNSCH PRN IVF FLUSH AFTER USING IV ACCESS; Start 03/26/17 at 20:00; Stop 03/26/17 at 20:22; Status DC Pantoprazole Sodium 80 mg/ Sodium Chloride 35 ml @ 420 mls/hr Q5M ONCE IV Last administered on 03/26/17 20:36; Start 03/26/17 at 19:56; Stop 03/26/17 at 20:00; Status DC Pantoprazole Sodium 80 mg/ Sodium Chloride 100 ml @ 10 mls/hr Q10H IV Last administered on 03/27/17 02:50; Start 03/26/17 at 19:56; Stop 03/27/17 at 03:55 ; Status DC Sodium Chloride (NS Flush) 2 ml UNSCH PRN IV FLUSH FLUSH AFTER USING IV ACCESS ; Start 03/26/17 at 20:15; Stop 03/27/17 at 03:56; Status DC Sodium Chloride (NS Flush) 2 ml BID IV FLUSH Last administered on 03/26/17 21: 26; Start 03/26/17 at 21:00; Stop 03/27/17 at 03:56; Status DC Naloxone HCl (Narcan Inj) 0.4 mg UNSCH PRN IV PUSH SEE LABEL COMMENTS; Start 03/26/17 at 20:15 Magnesium Sulfate/ Dextrose 100 ml @ 100 mls/hr Q1H IV Last administered on 22:30; Start 03/26/17 at 20:30; Stop 03/26/17 at 22:29; Status DC Aspirin (Aspirin Chew) 81 mg DAILY CHEW ; Start 03/27/17 at 09:00; Stop at 09:00; Status DC Ciprofloxacin HCl (Ciloxan 0.3% Opth Soln) 1 drop Q4HR EACH EYE Last administered on 04/08/17 12:00; Start 03/26/17 at 20:45 Gabapentin (Neurontin) 300 mg HS PO Last administered on 03/28/17 21:34; Start 03/26/17 at 21:00; Stop 03/29/17 at 07:56; Status DC Lactic Acid (Lac-Hydrin 12% Lotion) 1 applic BID TOPICAL Last administered on 04/08/17 10:04; Start 03/26/17 at 21:00 Levothyroxine Sodium (Synthroid) 112 mcg DAILY@0600 PO Last administered on 05:42; Start 03/27/17 at 06:00; Stop 04/06/17 at 08:26; Status DC Artificial Tears (Tears Naturale Opth Soln) 1 drop Q4HR EACH EYE Last administered on 04/08/17 12:00; Start 03/26/17 at 20:45 Zolpidem Tartrate (Ambien) 2.5 mg HS PRN PO INSOMNIA Last administered on 23:54; Start 03/26/17 at 21:00; Stop 03/28/17 at 09:30; Status DC Cholecalciferol (Vitamin D3) 1,000 units DAILY PO Last administered on 10:03; Start 03/27/17 at 09:00 Pantoprazole Sodium (Protonix) 20 mg DAILY PO ; Start 03/27/17 at 09:00; Stop 03/27/17 at 09:00; Status DC Pravastatin Sodium (Pravachol) 20 mg DAILY PO Last administered on 04/08/17 10:03; Start 03/27/17 at 09:00 Miscellaneous (Pill Splitter) 1 ea UNSCH PRN OTHER SEE LABEL COMMENTS; Start 03/26/17 at 21:00 Sodium Chloride 1,000 ml @ 30 mls/hr Q24H IV Last administered on 04/07/17 11:25; Start 03/26/17 at 23:00 Sodium Chloride (NS Flush) 2 ml UNSCH PRN IV FLUSH FLUSH AFTER USING IV ACCESS ; Start 03/26/17 at 23:00 Sodium Chloride (NS Flush) 2 ml BID IV FLUSH Last administered on 04/08/17 10 :04; Start 03/27/17 at 09:00 Famotidine (Pepcid Inj) 10 mg Q12HR IV PUSH ; Start 03/27/17 at 09:00; Stop 03/27/17 at 09:00; Status DC Albuterol/ Ipratropium (Duoneb Neb) 1 ampule Q2HR NEB PRN NEB WHEEZING; Start 03/26/17 at 23:15 Heparin Sodium (Porcine) (Heparin Inj) 5,000 units Q12H SQ ; Start 03/26/17 at 23:00; Stop 03/27/17 at 03:50; Status DC Sodium Chloride 1,000 ml @ 1,000 mls/hr Q1H ONCE IV Last administered on 23:42; Start 03/26/17 at 22:59; Stop 03/26/17 at 23:58; Status DC Sodium Chloride 1,000 ml @ 1,000 mls/hr Q1H ONCE IV ; Start 03/26/17 at 23:00; Stop 03/26/17 at 23:59; Status DC Sodium Chloride 100 ml @ 1,000 mls/hr Q6M ONCE IV ; Start 03/26/17 at 23:00; Stop 03/26/17 at 23:17; Status DC Miscellaneous Information 1 Q361D XX ; Start 03/26/17 at 23:00 Chlorhexidine Gluconate (Chlorhexidine 2% Cloth) Taper DAILY@04 TOP Last administered on 04/08/17 04:00; Start 03/27/17 at 04:00; Stop 03/23/18 at 03: 59 Chlorhexidine Gluconate (Chlorhexidine 2% Cloth) 3 pack UNSCH PRN TOP HYGIENIC CARE; Start 03/26/17 at 23:00 Vancomycin HCl 1000 mg/Sodium Chloride 250 ml @ 250 mls/hr Q12H IV ; Start 03/27/17 at 00:30; Stop 03/27/17 at 00:31; Status DC Pharmacy Profile Note 0 ml @ 0 mls/hr UNSCH OTHER ; Start 03/27/17 at 00:30; Stop 03/29/17 at 11:59; Status DC Aztreonam 2000 mg/ Sodium Chloride 100 ml @ 200 mls/hr Q8H IV Last administered on 03/29/17 06:12; Start 03/27/17 at 06:00; Stop 03/29/17 at 07:56 ; Status DC Metronidazole 100 ml @ 100 mls/hr Q8H IV Last administered on 04/07/17 03:57 ; Start 03/27/17 at 02:00; Stop 04/07/17 at 09:55; Status DC Vancomycin HCl 1000 mg/Sodium Chloride 250 ml @ 250 mls/hr STAT STAT IV Last administered on 03/27/17 00:38; Start 03/27/17 at 00:30; Stop 03/27/17 at 01:29 ; Status DC Vancomycin HCl (VANCOMYCIN for oral use only) 250 mg QID PO Last administered on 04/08/17 13:00; Start 03/27/17 at 09:00 Pantoprazole Sodium (Protonix Inj) 40 mg Q12H IV PUSH Last administered on 04:25; Start 03/27/17 at 04:00 Vancomycin HCl 1250 mg/Sodium Chloride 262.5 ml @ 250 mls/hr Q18H IV Last administered on 03/28/17 14:00; Start 03/27/17 at 20:00; Stop 03/29/17 at 07:56 ; Status DC Miscellaneous Information SPECIFIC LAB TO BE SUSANNE... ONCE ONCE .XX ; Start 03/29 at 07:45; Stop 03/29/17 at 07:46; Status DC Diatrizoate Meglum/ Diatrizoate Sod ( Gastroview Liq) 18 ml ONCE ONCE PO Last administered on 03/27/17 19:58; Start 03/27/17 at 16:15; Stop 03/27/17 at 16:16; Status DC Iohexol (Omnipaque 350 Inj) 100 ml STK-MED ONCE IVCONTRAST Last administered on 03/27/17 22:41; Start 03/27/17 at 22:41; Stop 03/27/17 at 22:42; Status DC Rocuronium [place] (Zemuron Inj) 50 mg STK-MED ONCE .ROUTE Last administered on 03/28/17 13:17; Start 03/28/17 at 13:17; Stop 03/28/17 at 13:18; Status DC Midazolam HCl (Versed Inj) 5 mg STK-MED ONCE .ROUTE Last administered on 15:33; Start 03/28/17 at 13:18; Stop 03/28/17 at 13:19; Status DC Midazolam HCl (Versed Inj) 5 mg STK-MED ONCE .ROUTE Last administered on 13:18; Start 03/28/17 at 13:18; Stop 03/28/17 at 13:19; Status DC Propofol 0 ml @ As Directed STK-MED ONCE .ROUTE ; Start 03/28/17 at 13:41; Stop 03/28/17 at 13:42; Status DC Albumin Human (Albumin 5% Inj) 25 gm STAT ONCE IV Last administered on 17:56; Start 03/28/17 at 14:30; Stop 03/28/17 at 14:31; Status DC Phenylephrine HCl 40 mg/Dextrose 500 ml @ 30 mls/hr TITRATE PRN IV Blood pressure management Last administered on 03/28/17 15:26; Start 03/28/17 at 14: 30; Stop 04/01/17 at 10:43; Status DC Terbutaline Sulfate (Brethine Inj) 1 mg UNSCH PRN SQ For Extravasation; Start 03/28/17 at 14:30; Stop 04/01/17 at 10:43; Status DC Propofol 100 ml @ 2.505 mls/ hr TITRATE PRN IV SEDATION Last administered on 03/29/17 04:28; Start 03/28/17 at 18:45; Stop 04/07/17 at 14:54; Status DC Propofol 100 ml @ As Directed STK-MED ONCE .ROUTE Last administered on 18:42; Start 03/28/17 at 18:42; Stop 03/28/17 at 18:43; Status DC Sodium Chloride 1,000 ml @ 1,000 mls/hr Q1H ONCE IV Last administered on 06:11; Start 03/29/17 at 06:00; Stop 03/29/17 at 06:59; Status DC Ceftriaxone Sodium 1000 mg/ Sodium Chloride 100 ml @ 200 mls/hr Q24H IV Last administered on 04/03/17 08:27; Start 03/29/17 at 08:00; Stop 04/03/17 at 16: 57; Status DC Fentanyl Citrate 250 ml @ 5 mls/hr TITRATE PRN IV SEDATION Last administered on 03/30/17 23:37; Start 03/29/17 at 08:00; Stop 04/01/17 at 10:43; Status DC Dextrose (D50w (Vial) Inj) 25 ml UNSCH PRN IV PUSH HYPOGLYCEMIA-SEE COMMENTS Last administered on 03/31/17 06:01; Start 03/29/17 at 08:00 Insulin Human Regular (NovoLIN R SUPPLEMENTAL SCALE) 1 Q6HR SQ Last administered on 04/07/17 12:00; Start 03/29/17 at 12:00 Dextrose (D50w (Syr) Inj) 50 ml STK-MED ONCE .ROUTE ; Start 03/30/17 at 01:08; Stop 03/30/17 at 01:09; Status DC Potassium Chloride 100 ml @ As Directed STK-MED ONCE .ROUTE Last administered on 03/30/17 10:03; Start 03/30/17 at 09:56; Stop 03/30/17 at 09:57; Status DC Potassium Chloride 100 ml @ 50 mls/hr Q2H IV ; Start 03/30/17 at 10:30; Stop 03/30/17 at 14:29; Status DC Metoclopramide HCl (Reglan Inj) 5 mg Q8HR IV PUSH Last administered on 05:01; Start 03/30/17 at 22:00 Potassium Chloride 100 ml @ 50 mls/hr Q2H PRN IV For Potassium 2.8 - 3.2 mEq/L ; Start 03/30/17 at 20:15; Stop 04/07/17 at 14:54; Status DC Potassium Chloride 100 ml @ 50 mls/hr Q2H PRN IV For Potassium 2.8 - 3.2 mEq/ L Last administered on 04/01/17 18:14; Start 03/30/17 at 20:15; Stop at 14:54; Status DC Potassium Chloride 100 ml @ 25 mls/hr UNSCH PRN IV For Potassium 3.3 - 3.5 mEq /L; Start 03/30/17 at 20:15; Stop 04/07/17 at 14:55; Status DC Potassium Chloride 100 ml @ 50 mls/hr Q2H PRN IV For Potassium 3.3 - 3.5 mEq/ L Last administered on 04/04/17 18:36; Start 03/30/17 at 20:15; Stop at 14:55; Status DC Magnesium Sulfate 4 gm/Sodium Chloride 100 ml @ 50 mls/hr UNSCH PRN IV For Magnesium 0.9 - 1.1 mg/dL; Start 03/30/17 at 20:15; Stop 04/07/17 at 14:55; Status DC Magnesium Oxide (Mag-Ox) 800 mg UNSCH PRN PO For Magnesium 1.2 - 1.6 mg/dL; Start 03/30/17 at 20:15; Stop 04/07/17 at 14:55; Status DC Magnesium Sulfate 2 gm/Sodium Chloride 100 ml @ 50 mls/hr UNSCH PRN IV For Magnesium 1.2 - 1.6 mg/dL Last administered on 03/30/17 21:29; Start 03/30/17 at 20:15; Stop 04/07/17 at 14:55; Status DC Potassium Phosphate (K-Phos) 2,000 mg Q4H PRN PO For Phosphorus < 2.5 mg/dL; Start 03/30/17 at 20:15; Stop 04/07/17 at 14:56; Status DC Sodium Phosphate 30 mmol/Sodium Chloride 250 ml @ 42 mls/hr UNSCH PRN IV For Phosphorus < 2.5 mg/dL; Start 03/30/17 at 20:15; Stop 04/07/17 at 14:56; Status DC Potassium Phosphate (K-Phos) 2,000 mg UNSCH PRN PO/TUBE SEE LABEL COMMENTS; Start 03/30/17 at 20:15; Stop 04/07/17 at 14:56; Status DC Potassium Phosphate 30 mmol/ Sodium Chloride 260 ml @ 42 mls/hr UNSCH PRN IV SEE LABEL COMMENTS Last administered on 04/07/17 07:13; Start 03/30/17 at 20: 15; Stop 04/07/17 at 14:56; Status DC Dexmedetomidine HCl 200 mcg/ Sodium Chloride 52 ml @ 4.49 mls/hr TITRATE PRN IV SEDATION Last administered on 04/01/17 06:04; Start 03/30/17 at 22:45; Stop 04/01/17 at 12:00; Status DC Polyethylene Glycol (Miralax) 17 gm DAILY NG Last administered on 04/07/17 09 :00; Start 03/31/17 at 15:00 Morphine Sulfate (Morphine Inj) 2 mg ONCE ONCE IV PUSH Last administered on 04:44; Start 04/03/17 at 04:45; Stop 04/03/17 at 04:46; Status DC Cefepime HCl 2000 mg/Sodium Chloride 100 ml @ 200 mls/hr Q8H IV Last administered on 04/08/17 10:22; Start 04/03/17 at 18:00 Pharmacy Profile Note 0 ml @ 0 mls/hr UNSCH OTHER ; Start 04/03/17 at 17:00; Stop 04/05/17 at 14:08; Status DC Fluconazole/ Sodium Chloride 200 ml @ 100 mls/hr Q24H IV Last administered on 04/07/17 21:49; Start 04/03/17 at 20:00 Vancomycin HCl 2000 mg/Sodium Chloride 520 ml @ 250 mls/hr ONCE ONCE IV Last administered on 04/03/17 22:23; Start 04/03/17 at 21:00; Stop 04/03/17 at 23 :04; Status DC Vancomycin HCl 1000 mg/Sodium Chloride 250 ml @ 250 mls/hr ONCE ONCE IV Last administered on 04/04/17 22:14; Start 04/04/17 at 21:00; Stop 04/04/17 at 21 :59; Status DC Potassium Bicarb/ Potassium Chloride (K-Lyte Cl Eff) 50 meq ONCE ONCE NG ; Start 04/04/17 at 14:00; Stop 04/04/17 at 14:02; Status DC Lorazepam (Ativan Inj) 1 mg ONCE ONCE IV PUSH Last administered on 04/05/17 10:50; Start 04/05/17 at 09:45; Stop 04/05/17 at 09:46; Status DC Vancomycin HCl 1250 mg/Sodium Chloride 262.5 ml @ 250 mls/hr Q12H IV Last administered on 04/05/17 13:19; Start 04/05/17 at 12:00; Stop 04/05/17 at 14 :08; Status DC Miscellaneous Information SPECIFIC LAB TO BE DRAWN:VANCO DATE TO... ONCE ONCE .XX Last administered on 04/06/17 11:45; Start 04/06/17 at 11:45; Stop at 11:46; Status DC Levothyroxine Sodium (Synthroid) 125 mcg DAILY@0600 PO Last administered on 05:01; Start 04/07/17 at 06:00 Metronidazole 100 ml @ 100 mls/hr Q8H IV Last administered on 04/08/17 12:00 ; Start 04/07/17 at 12:00 A/P Assessment and Plan 1. Severe Sepsis secondary to Urinary tract infection, C Diff Colitis, and acute hypoxic and hypercarbic respiratory failure s/p intubation 03/28. extubated. today on Nasal Cannula. HAS NEW DOBBHOFF TUBE ON TUBE FEEDS AND ORAL VANCO FOR CDT 2. Metabolic Encephalopathy, Toxic and Sepsis on Broad spectrum antibiotics 3. C Diff Colitis, History of Duodenal Ulcer, on Vancomycin by mouth, needs a Dobbhoff tube so he can take his oral vancomycin ON ORAL VANCO FOR HIS CDT COLITIS 4. Bladder Outlet Obstruction with Hydronephrosis, BPH, Chronic Suprapubic Catheter, Suprapubic Cath replaced by Urology specialist 5. UTI, repeat culture growing Klebsiella and E Coli, on Rocephin complete 7 day course, History of Previous PSAE- FINISHED 6. DM II uncontrolled continue sliding scale. 7. Hypertension controlled on no antihypertensives. 8. Hyperlipidemia on Statins. 9. 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 Code Status DNR and DNI Probable Comfort care depend of patient clinical course. for next week, Palliative care following. Poor Short term prognosis. Gastric protection with Protonix - Hold pharmacological DVT prophylaxis due to positive Hemoccult - Protonix IV twice a day DOBBHOFF PLACED - so can continue to treat the C. difficile toxin colitis also needs some Lactinex if he can take that also Ativan as needed to place Dobbhoff tube SOFT RESTRAINTS Very poor prognosis will need palliative care consult has already been made a DO NOT RESUSCITATE A.m. labs Discharge Planning DOBBHOFF IN PLACE ON TUBE FEEDS OK FOR OUT OF ICU Will need SNF and PEG tube or hospice Jason Covarrubias DO Apr 08, 2017 14:56
[2017-04-08] MEDS ORDERED: DEXAMETHASONE SOD PHOS 4 MG/ML VIAL ONE (16:02)
[2017-04-08] MEDS: FLUCONAZOLE 200 MG TAB PO SCH (17:01)
[2017-04-09] VITALS (8 sets, daily range): BP systolic 115–156; BP diastolic 63–76; PULSE 76–97; RESP 16–24; TEMP 97.2–98.2; O2SAT 95–97
[2017-04-09] MEDS: CIPROFLOXACIN 0.3% OPTH SOLN 2.5 ML BTL EACH EYE SCH ×4 (01:30→22:05)
[2017-04-09] MEDS: ARTIFICIAL TEARS OPTH SOLN 15 ML BTL EACH EYE SCH ×3 (01:31→22:06)
[2017-04-09] MEDS: CHLORHEXIDINE GLUCONATE 2 % 1 PACK (2 CLOTHS) TOP SCH (03:53)
[2017-04-09] MEDS: PANTOPRAZOLE SODIUM 40 MG VIAL IV PUSH SCH (03:53)
[2017-04-09] MEDS: LEVOTHYROXINE SODIUM 125 MCG TAB PO SCH (04:53)
[2017-04-09] MEDS: METOCLOPRAMIDE HCL 10 MG/2 ML VIAL IV PUSH SCH ×2 (04:53→22:01)
[2017-04-09] MEDS: INSULIN NovoLIN REGULAR SUPPLEMENTAL SCALE SQ SCH (05:22)
[2017-04-09] MEDS: SODIUM CHLOR 0.9% 1000 ML INJ 1,000 ML IV SCH (05:39)
[2017-04-09] MEDS: POLYETHYLENE GLYCOL 17 GM PKG NG SCH (09:00)
[2017-04-09] MEDS: CHOLECALCIFEROL (VIT D3) 1000 UNIT TAB PO SCH (10:18)
[2017-04-09] MEDS: FLUCONAZOLE 200 MG TAB PO SCH (10:18)
[2017-04-09] MEDS: PRAVASTATIN SOD 20 MG TAB PO SCH (10:18)
[2017-04-09] MEDS: LACTIC ACID (AMMONIUM LACTATE) 12% LOTION 225 GM BTL TOPICAL SCH ×2 (10:19→22:04)
[2017-04-09] MEDS: VANCOMYCIN 500 MG VIAL (FOR ORAL USE ONLY) PO SCH ×2 (10:19→22:03)
--- NOTE | 2017-04-09 11:59 | HHI.HCPN ---
Reason for visit a. To assist with evaluation and management of symptoms including: Dyspnea, dysphagia, malnutrition b. To assist medical decision maker(s) with: better understanding of current medical conditions; weighing benefits/burdens of medical treatment options; making medical treatment decisions. Subjective/Interval History Pt is 89 year old admitted w/ altered mental status. 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 Pt found to have UTI, C. diff , hypercarbic respiratory failure intubated 03/28 and now medically extubated ( extub 03/31) . Call received before my arrival to patient unit from proxy Inessa. She has been out of town and had difficulties with cell phone service. Discussion with her regarding patient trajectory in the past days to weeks, treatment options going forward including longer term feeding tube placement, facility placement, risks and benefits of those treatments going forward. She again reviews patient history from when he lived next door to her and then had to progressively [place] setting. She recalls how until the past few months he enjoyed taking the bus to go to social events etc. and did not like the loss of independence an [facility] gave him, and had been lamenting in the weeks prior to this further loss of independence and that it couldn't a fpc for him. She does not feel he would want a feeding tube, she feels he would want to be allowed to live on his own terms and not have artificial measures done to sustain his life. She shares that previously when he was well he'd been planning and looking forward to having a 89th birthday libertarian however with his general decline over the past few months he had no longer taking interest in or been planning this celebration (he will turn June) Spoke with her regarding options going forward of continuing with aggressive measures including feeding tube, fpc placement and whatever other measures may be necessary to help the patient improve short of resuscitation versus no feeding tube, comfort measures and hospice possibly in a care center or fpc for long-term residential placement for comfort measures versus aggressive restorative measures. Patient proxy Inessa who has known patient for about 10 years indicates that she feels overall patient has had a steady decline in the past few months in his health, and subsequently decline in his ability or willingness to engage in being well. She indicates he would not want further artificial measures and instead would want hospice to ensure that he is comfortable for whatever time he does have left. Advise I will order hospice consultation, she is in agreement with this. She is still out of town for her own families medical emergency she expects to return to town next Thursday, that we could certainly proceed with hospice enrollment in the coming days. Patient remains on medical unit. ST continues to follow; patient with wet respiratory sounds and gurgling voice quality ST has not proceeded with further food introductions continues to recommend nothing by mouth and PEG tube for bypass feeding. Given this difficulty handling secretions patient high risk for aspiration even with the PEG tube. ID following -- d/cd cefepime, flagyl, IV vanco-- now on PO fluconazole, PO vanco. +loose stools. Still confused per nursing reports. Patient seen in room no visitors present. RN at bedside providing oral care. He is lethargic, wet cough. +course rhonchi throughout lungs. Does not follow commands. Makes garbled sounds. TF infusing via dobhoff. mildly tachypneic,+ cough. . Advance Directives Living Will: Never completed Health Care Surrogate: Never completed Objective Vital Signs Date Time Temp Pulse Resp B/P (MAP) Pulse Ox O2 Delivery O2 Flow Rate FiO2 04/09/17 09:33 97 04/09/17 08:00 97.2 97 18 118/63 (81) 97 04/09/17 04:35 Blow By 04/09/17 04:00 98.2 89 22 149/71 (97) 97 04/09/17 00:10 Room Air 04/09/17 00:00 98.0 85 24 129/63 (85) 95 04/08/17 20:04 92 04/08/17 20:00 Room Air 04/08/17 20:00 97.6 98 24 164/77 (106) 97 04/08/17 17:43 96 21 04/08/17 16:00 97.4 94 18 139/64 (89) 96 Intake & Output 04/09/17 04/09/17 07:00 19:00 Intake Total 1700 ml Output Total 800 ml Balance 900 ml IV Total 1000 ml Tube Feeding 700 ml Output Urine Total 800 ml # Bowel Movements 1 Physical Exam CONSTITUTIONAL/GENERAL: This is a chronically ill-appearing patient,lethargic TUBES/LINES/DRAINS: Peripheral IV upper extremity, suprapubic catheter, rectal bag, nasal cannula, Dobbhoff tube nare SKIN: No jaundice, rashes, or lesions. Several areas of ecchymosis upper extremities, hands, + redness to hands. Skin warm. CARDIOVASCULAR: Regular rate and rhythm without murmurs. Tachycardic .Peripheral pulses symmetric. 1-2+ edema bilateral hands, no pedal edema. RESPIRATORY/CHEST: Symmetric, unlabored respirations via nasal cannula. Weak, gurgling cough,req. Oral sx per nursing. Coarse scattered rhonchi. Breath sounds equal bilaterally. GASTROINTESTINAL: Abdomen soft, no apparent tenderness, nondistended. No palpable masses. Bowel sounds present. Dobbhoff NG tube w TF infusing. GENITOURINARY: Without palpable bladder distension. Suprapubic catheter in place some erythema/irritation around insertion site. Draining yellow urine MUSCULOSKELETAL: Extremities without clubbing, cyanosis, or edema. No joint effusion noted. No mottling or clubbing. NEUROLOGICAL: Lethargic, arouses minimally to exam. Does not follow any commands. Attempts to verbalize garbled answerable sounds. Moves all 4 extremities spontaneously, weakly. PSYCHIATRIC: No apparent anxiety though limited assessment due to lethargy . Diagnostic Tests Laboratory Laboratory Tests Test 04/06/17 13:35 04/07/17 04:34 04/08/17 06:22 04/08/17 06:27 Vancomycin Level Trough 17.7 MCG/ML (5.0-10.0) White Blood Count 7.0 TH/MM3 (4.0-11.0) 7.3 TH/MM3 (4.0-11.0) Red Blood Count 3.34 MIL/MM3 (4.50-5.90) 3.41 MIL/MM3 (4.50-5.90) Hemoglobin 9.8 GM/DL (13.0-17.0) 10.0 GM/DL (13.0-17.0) Hematocrit 29.2 % (39.0-51.0) 29.7 % (39.0-51.0) Mean Corpuscular Volume 87.3 FL (80.0-100.0) 87.3 FL (80.0-100.0) Mean Corpuscular Hemoglobin 29.2 PG (27.0-34.0) 29.4 PG (27.0-34.0) Mean Corpuscular Hemoglobin Concent 33.4 % (32.0-36.0) 33.7 % (32.0-36.0) Red Cell Distribution Width 17.9 % (11.6-17.2) 18.8 % (11.6-17.2) Platelet Count 226 TH/MM3 (150-450) 228 TH/MM3 (150-450) Mean Platelet Volume 7.8 FL (7.0-11.0) 7.8 FL (7.0-11.0) Neutrophils (%) (Auto) 62.1 % (16.0-70.0) 60.0 % (16.0-70.0) Lymphocytes (%) (Auto) 22.6 % (9.0-44.0) 24.4 % (9.0-44.0) Monocytes (%) (Auto) 8.7 % (0.0-8.0) 9.9 % (0.0-8.0) Eosinophils (%) (Auto) 5.7 % (0.0-4.0) 4.8 % (0.0-4.0) Basophils (%) (Auto) 0.9 % (0.0-2.0) 0.9 % (0.0-2.0) Neutrophils # (Auto) 4.3 TH/MM3 (1.8-7.7) 4.4 TH/MM3 (1.8-7.7) Lymphocytes # (Auto) 1.6 TH/MM3 (1.0-4.8) 1.8 TH/MM3 (1.0-4.8) Monocytes # (Auto) 0.6 TH/MM3 (0-0.9) 0.7 TH/MM3 (0-0.9) Eosinophils # (Auto) 0.4 TH/MM3 (0-0.4) 0.4 TH/MM3 (0-0.4) Basophils # (Auto) 0.1 TH/MM3 (0-0.2) 0.1 TH/MM3 (0-0.2) CBC Comment DIFF FINAL DIFF FINAL Differential Comment Blood Urea Nitrogen 9 MG/DL (7-18) 13 MG/DL (7-18) Creatinine 0.75 MG/DL (0.60-1.30) 0.83 MG/DL (0.60-1.30) Random Glucose 254 MG/DL (74-106) 231 MG/DL (74-106) Total Protein 5.2 GM/DL (6.4-8.2) 5.4 GM/DL (6.4-8.2) Albumin 2.0 GM/DL (3.4-5.0) 1.9 GM/DL (3.4-5.0) Calcium Level 7.8 MG/DL (8.5-10.1) 7.5 MG/DL (8.5-10.1) Phosphorus Level 1.5 MG/DL (2.5-4.9) 2.5 MG/DL (2.5-4.9) Magnesium Level 1.6 MG/DL (1.5-2.5) 1.6 MG/DL (1.5-2.5) Alkaline Phosphatase 109 U/L (45-117) 136 U/L (45-117) Aspartate Amino Transf (AST/SGOT) 18 U/L (15-37) 21 U/L (15-37) Alanine Aminotransferase (ALT/SGPT) 12 U/L (12-78) 12 U/L (12-78) Total Bilirubin 0.3 MG/DL (0.2-1.0) 0.3 MG/DL (0.2-1.0) Sodium Level 145 MEQ/L (136-145) 145 MEQ/L (136-145) Potassium Level 3.0 MEQ/L (3.5-5.1) 3.5 MEQ/L (3.5-5.1) Chloride Level 110 MEQ/L (98-107) 109 MEQ/L (98-107) Carbon Dioxide Level 26.0 MEQ/L (21.0-32.0) 28.2 MEQ/L (21.0-32.0) Anion Gap 9 MEQ/L (5-15) 8 MEQ/L (5-15) Estimat Glomerular Filtration Rate 98 ML/MIN (>89) 87 ML/MIN (>89) Result Diagram: 04/08/17 0622 04/08/17 0627 Imaging Last Impressions Abdomen X-Ray 04/05/17 0000 Signed Impressions: Service Date/Time: Wednesday, April 05, 2017 11:47 - CONCLUSION: Dobbhoff tube in the distal stomach. Wally Valadez MD Chest X-Ray 04/04/17 0000 Signed Impressions: Service Date/Time: Tuesday, April 04, 2017 12:55 - CONCLUSION: 1. Cardiomegaly and findings of congestive heart failure. There has been no significant change when compared to the prior exam. 2. Nasogastric tube coiled in the hypopharynx Reymundo Kinney MD Abdomen/Pelvis CT 03/27/17 0000 Signed Impressions: Service Date/Time: Monday, March 27, 2017 22:38 - CONCLUSION: 1. There is a distended urinary bladder despite a Crooks catheter and suprapubic catheter. There is resulting hydronephrosis and hydroureter. 2. Colonic diverticulosis. 3. Pneumobilia without biliary dilatation. This would suggest sphincterotomy. Melquiades Najera Jr., MD Procedures 03/31 extubated 03/28 intubated . Assessment and Plan Disease Oriented Problem List: (1) GERD (gastroesophageal reflux disease) (2) Hyperlipidemia (3) Hypertension (4) C. difficile colitis (5) Bladder outlet obstruction (6) BPH (benign prostatic hyperplasia) (7) Chronic indwelling Crooks catheter (8) Metabolic encephalopathy (9) Anemia (10) UTI (urinary tract infection) (11) Diabetes (12) Suprapubic catheter dysfunction Symptom Scale: (1) Depression (2) Dyspnea (3) Malnutrition Pertinent Non-Medical Issues Psychosocial: most recently lives at [facility] for rehab following acute hospitalization. Prior to that lived in an [facility] setting for about 7 years. Has known local friend and contact Inessa for about 10 years, they met when they were neighbors before he lived in [facility]. Patient originally from [place] has lived in [place] for many years. many years ago. 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 Has a brother who is , and [id number] whom he has not been in close communication with recently. He does have 2 adult daughters whom he has been estranged from since they were young children; friend Inessa is trying to find out their names and possible location from sister in law.[unable to locate per accurint 03/31/17] Spiritual: [place] Legal:Patient is currently unable to participate in decision-making due to medical condition. Does not appear to have advanced directive or HCS designation. Apparently his brother is , sister in law lives out of state. . Has 2 adult daughters whose name are not known at this time however they would be appropriate proxy decision maker per [place] statutes if they can be located. Local friend Inessa is working to find out their names and possible location. If these 2 daughters cannot be located or do not wish to serve as decision makers then decision-making proxy would move onto other close friends and/or relatives. Ethical issues impacting care: Important Contacts Friend Inessa Madera [phone] PROXY as of 03/31/17, ashley [phone] Friend Haley [phone] Found in old admission record 2010 brother Brenton Toscano [phone] ; cesilia lives in [place] Prognosis This patient has had a few recent hospital visits, with UTI 03/22, and admission for sepsis 02/03 through 02/09. He has multiple medical comorbidities. He is quite deconditioned. Possible he can survive current acute hospitalization however he remains at risk for ongoing complications and setbacks and recurrent hospitalizations. During current hospital course has had significant dysphagia , concern for aspiration. He would require a PEG tube for ongoing artificial nutrition if goals were aggressive. Appropriate for hospice if goals comfort oriented. . Code Status: Full Code Plan * Capacity: Patient has not regained capacity at this point, not able to make decisions can not weigh the risk and benefits of medical decisions. * Legal decision maker: Palliative care , case management previously exhaustive searches for potential family. No family readily available, per [place] Statutes medical proxy decision making would fall to a close friend or relative. Friend Inessa Madera has agreed to serve as healthcare proxy. * Goals of care 1)DNR/DNI established by proxy 04/02 2) per prior interactions PROXY Ms. Madera wished to give him a few days; if mentation does not improve, opened the conversations regarding hospice/ comfort (Ms. Madera is a volunteer with hospice in the past) 04/09/17 spoke at length again with friend and proxy Inessa Madera, she indicates the patient would not want to proceed with a feeding tube, would not want long-term fpc placement and dependence for ADLs, and given his recent decline and his known wishes feels at this point he would wish to seek hospice enrollment with comfort measures only. She is still out of town for her own family emergency however she is available via cell phone. Discussed with her possibility of care center placement with possible transition to long-term nursing facility placement. Currently the patient with significant secretions, coughing and inability to manage secretions so would warrant care center placement for management. * CODE STATUS: DNR/DNI * SYMPTOMS: --Anxiety/depression-friend indicates he has been somewhat depressed recently secondary to his loss of independence in general health decline. Potentially could benefit long-term from SSRI, postextubation/when medical condition stabilized/no evident anxiety during last few patient examination --Malnutrition/dysphagia-previously intubated and unable to take oral nutrition; albumin 2.3. s/p ST eval-- tolerating puree w honey thick liq. Initially, not taking in much, still requiring TF via NGT. subsequent evaluations--ST continues to follow patient not tolerating oral diet; recommend bypass feedings. Proxy today indicates patient would not want a feeding tube and does not wish to proceed. --Dyspnea/ cough--intermittently requiring BiPAP for shortness of breath , hypoxia during hospital course initially intubated. Has been stable on nasal cannula several days postextubation now (extubated 03/31). CXR with bilateral airspace disease right greater than left. Continues to have a week, gurgling cough high risk for ongoing aspiration. Mildly tachypneic with a poor cough today during exam, requiring oral pharyngeal suctioning by nursing. * Palliative care will continue to follow during hospital course as condition evolves, to assist patient/decision-maker with understanding of medical conditions, weighing benefits/burdens of treatment options, for clarification of goals of treatment. Additionally will assist with any symptoms of palliative concern . Time Spent Total Floor Time (mins): 35 (discussion with nurse, patient exam, discussion with proxy) Attestation To help prompt me to consider important information that might be impacting today's encounter and assessment, information from prior notes written by myself or my colleagues may have been "brought forward" into today's note. My signature on this note, however, is an attestation that I personally performed the exam, history, and/or decision-making noted today, and, unless otherwise indicated, the interactions with patient, family, and staff as well as the review of records all occurred today. I also attest that the listed assessment and stated plan reflect my best clinical judgment today based on the combination of historical information, prior notes, and today's exam/ interactions. When time spent is documented, it refers only to time spent today by the signer, or if indicated, combined time spent today by collaborating physician/nurse practitioner. Lidia Morocho Apr 09, 2017 11:59
--- NOTE | 2017-04-09 16:48 | HHI.PR ---
Subjective Remarks Patient resting in bed he is nonresponsive to verbal stimuli, he is to pain stimuli Nasal Feeding tube in place Objective Vitals Vital Signs Date Time Temp Pulse Resp B/P (MAP) Pulse Ox O2 Delivery O2 Flow Rate FiO2 04/09/17 16:13 97.3 92 21 115/76 (89) 96 04/09/17 12:00 97.4 96 20 149/68 (95) 95 04/09/17 09:33 97 04/09/17 08:00 97.2 97 18 118/63 (81) 97 04/09/17 04:35 Blow By 04/09/17 04:00 98.2 89 22 149/71 (97) 97 04/09/17 00:10 Room Air 04/09/17 00:00 98.0 85 24 129/63 (85) 95 04/08/17 20:04 92 04/08/17 20:00 Room Air 04/08/17 20:00 97.6 98 24 164/77 (106) 97 04/08/17 17:43 96 21 I/O 04/08/17 04/08/17 04/08/17 04/09/17 04/09/17 04/09/17 06:59 14:59 22:59 06:59 14:59 22:59 Intake Total 1350 ml 100 ml 1020 ml 1700 ml Output Total 1300 ml 950 ml 800 ml 600 ml Balance 50 ml 100 ml 70 ml 900 ml -600 ml Intake Oral 0 ml IV Total 630 ml 100 ml 1000 ml Tube Feeding 720 ml 720 ml 700 ml Other 300 ml Output Urine Total 1000 ml 950 ml 800 ml Stool Total 300 ml 600 ml # Bowel Movements 0 1 Result Diagram: 04/08/1762104/08/17626 Objective Remarks - - GENERAL: Frail elderly resting in bed he is not answering question, SKIN: No rashes, warm and dry HEAD: Atraumatic. Normocephalic. EYES: Pupils equal round and reactive. ENT: nasal feeding tube in place NECK: Trachea midline. Supple CARDIOVASCULAR: Regular rate and rhythm without murmurs, gallops, or rubs. RESPIRATORY: Fair air entry bilaterally. No wheezes, rales, or rhonchi. GASTROINTESTINAL: Abdomen soft, non-tender, nondistended. Positive bowel sounds MUSCULOSKELETAL: Trace edema in the upper lower extremity NEUROLOGICAL: Nonresponsive to verbal stimuli Procedures Endotracheal Intubation and Extubation. A/P Assessment and Plan 1. Severe Sepsis secondary to Urinary tract infection, C Diff Colitis, and acute hypoxic and hypercarbic respiratory failure s/p intubation 03/28. extubated. today on Nasal Cannula. HAS NEW DOBBHOFF TUBE ON TUBE FEEDS AND ORAL VANCO FOR CDT 2. Metabolic Encephalopathy, Toxic and Sepsis on Broad spectrum antibiotics Thursday 3. C Diff Colitis, History of Duodenal Ulcer, on Vancomycin by mouth, needs a Dobbhoff tube so he can take his oral vancomycin ON ORAL VANCO FOR HIS CDT COLITIS 4. Bladder Outlet Obstruction with Hydronephrosis, BPH, Chronic Suprapubic Catheter, Suprapubic Cath replaced by Urology specialist 5. UTI, repeat culture growing Klebsiella and E Coli, on Rocephin complete 7 day course, History of Previous PSAE- FINISHED 6. DM II uncontrolled continue sliding scale. 7. Hypertension controlled on no antihypertensives. 8. Hyperlipidemia on Statins. 9. 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 04/09: Continue antibiotic management per ID recommendation, palliative care following, Dobbhoff tube in place, DNR status, possible hospice discharge Vandana Cabrera MD Apr 09, 2017 16:48
[2017-04-09] MEDS: SODIUM CHLORIDE 0.9% FLUSH 10 ML FLUSH IV FLUSH SCH (22:03)
[2017-04-10] VITALS: BP 134/66; PULSE 84; RESP 18; TEMP 98.5; O2SAT 96
[2017-04-10] MEDS: ARTIFICIAL TEARS OPTH SOLN 15 ML BTL EACH EYE SCH ×2 (00:23→04:16)
[2017-04-10] MEDS: CIPROFLOXACIN 0.3% OPTH SOLN 2.5 ML BTL EACH EYE SCH ×2 (00:23→04:17)
[2017-04-10] MEDS: INSULIN NovoLIN REGULAR SUPPLEMENTAL SCALE SQ SCH ×2 (00:37→05:19)
[2017-04-10 04:00] VITALS: BP 172/76; PULSE 96; RESP 22; TEMP 97.6; O2SAT 96
[2017-04-10] MEDS: CHLORHEXIDINE GLUCONATE 2 % 1 PACK (2 CLOTHS) TOP SCH (04:00)
[2017-04-10] MEDS: PANTOPRAZOLE SODIUM 40 MG VIAL IV PUSH SCH (04:16)
[2017-04-10] MEDS: LEVOTHYROXINE SODIUM 125 MCG TAB PO SCH (05:16)
[2017-04-10] MEDS: METOCLOPRAMIDE HCL 10 MG/2 ML VIAL IV PUSH SCH (05:16)
[2017-04-10] MEDS: SODIUM CHLOR 0.9% 1000 ML INJ 1,000 ML IV SCH (05:59)
[2017-04-10 08:00] VITALS: BP 153/65; PULSE 93; RESP 23; TEMP 97.1; O2SAT 94
[2017-04-10 08:17] VITALS: PULSE 92
[2017-04-10 10:06] VITALS: O2SAT 94
--- NOTE | 2017-04-10 10:07 | DEATH SUM ---
Summary Demographics Date Pronounced : Apr 10, 2017 Time Of : 0958 Pronounced By: AQUILINO MURPHY Preliminary Cause of : Respiratory arrest Vandana Cabrera MD Apr 10, 2017 10:07
--- NOTE | 2017-04-10 10:13 | HHI.DS ---
Summary Note Date of : Apr 10, 2017 Time Of : 0958 Admission Date Mar 26, 2017 at 20:16 Admitting Diagnosis sepsis, UTI, recent C. difficile infection, anemia Diagnosis at Time of : (1) Malnutrition ICD Code: E46 - Unspecified protein-calorie malnutrition (2) Dyspnea ICD Code: R06.00 - Dyspnea, unspecified (3) Depression ICD Code: F32.9 - Major depressive disorder, single episode, unspecified (4) Bladder outlet obstruction ICD Code: N32.0 - Bladder-neck obstruction (5) C. difficile colitis ICD Code: A04.72 - Enterocolitis due to Clostridium difficile, not specified as recurrent (6) BPH (benign prostatic hyperplasia) ICD Code: N40.0 - Benign prostatic hyperplasia without lower urinary tract symptoms (7) Metabolic encephalopathy ICD Code: G93.41 - Metabolic encephalopathy (8) Hypertension ICD Code: I10 - Essential (primary) hypertension (9) Diabetes ICD Code: E11.9 - Type 2 diabetes mellitus without complications (10) UTI (urinary tract infection) ICD Code: N39.0 - Urinary tract infection, site not specified (11) GI bleed ICD Code: K92.2 - Gastrointestinal hemorrhage, unspecified (12) Acute kidney injury ICD Code: N17.9 - Acute kidney failure, unspecified Procedures Endotracheal Intubation and Extubation. Brief History Patient comes back to the emergency department from assisted living facility after being found altered today. Patient was seen here 4 days ago and was found to have urinary retention. Regular Crooks catheter was placed instructions were given to follow-up with urologist as an out patient and was started on Macrobid for UTI. Patient is being treated for C. difficile with by mouth vancomycin. Patient is lethargic and not ready cough productive and history is limited. CBC/BMP: 04/08/17 0622 04/08/17 0627 Significant Findings Laboratory Tests Test 04/08/17 06:22 04/08/17 06:27 Red Blood Count 3.41 MIL/MM3 (4.50-5.90) Hemoglobin 10.0 GM/DL (13.0-17.0) Hematocrit 29.7 % (39.0-51.0) Red Cell Distribution Width 18.8 % (11.6-17.2) Monocytes (%) (Auto) 9.9 % (0.0-8.0) Eosinophils (%) (Auto) 4.8 % (0.0-4.0) Random Glucose 231 MG/DL (74-106) Total Protein 5.4 GM/DL (6.4-8.2) Albumin 1.9 GM/DL (3.4-5.0) Calcium Level 7.5 MG/DL (8.5-10.1) Alkaline Phosphatase 136 U/L (45-117) Chloride Level 109 MEQ/L (98-107) Estimat Glomerular Filtration Rate 87 ML/MIN (>89) Imaging Last 24 hours Impressions Chest X-Ray 03/26/17 1813 Signed Impressions: Service Date/Time: March 18:53 - CONCLUSION: No acute disease. Rahul Rivera MD Hospital Course 89 years old male admitted with C. difficile colitis duodenal bulb ulcer GI bleed dilated common bile duct pancreatic duct altered mental status, patient admitted to the ICU placed on antibiotic, i.e. consulted, multiple comorbidities including urinary retention GI bleed him a GI consulted, neurology , esophagitis, Schatzki's rings EGD has been none with biopsy, patient continued to show altered mental status encephalopathy he was intubated and extubated, beginning in the ICU cared by the nanosystems engineer and patient transferred to hospitalist service, and to need to show no improvement, palliative care consulted effort has been done to contact his healthcare surrogate, in order to get hospice. On 04/09 patient did look respiratory arrest and he was at 9:58 AM Vandana Cabrera MD Apr 10, 2017 10:13
== END 2017-04-10 11:04 | disposition expired | DRG 698 ==
LOC: NEPE 17:38 → NEDA 20:16 → HIMW 23:25 → N04A 04-07 15:38
PROVIDERS: ADMIT Internal Medicine Critical Care Medicine; ATTEND Hospitalist
PROC: 30233N1 Transfusion of Nonautologous Red Blood Cells into Peripheral Vein, Percutaneous Approach (ICD-10-PCS; 2017-03-26)
PROC: 0BH18EZ Insertion of Endotracheal Airway into Trachea, Via Natural or Artificial Opening Endoscopic (ICD-10-PCS; principal; 2017-03-28)
PROC: 5A1945Z Respiratory Ventilation, 24-96 Consecutive Hours (ICD-10-PCS; 2017-03-28)
PROC: 0T2BX0Z Change Drainage Device in Bladder, External Approach (ICD-10-PCS; 2017-03-28)
PROC: 5A09357 Assistance with Respiratory Ventilation, Less than 24 Consecutive Hours, Continuous Positive Airway Pressure (ICD-10-PCS; 2017-04-03)
DX: T83.511A Infection and inflammatory reaction due to indwelling urethral catheter, initial encounter (principal); G92 Toxic encephalopathy; R65.20 Severe sepsis without septic shock; E43 Unspecified severe protein-calorie malnutrition; A41.9 Sepsis, unspecified organism; N17.9 Acute kidney failure, unspecified; J96.01 Acute respiratory failure with hypoxia; J96.02 Acute respiratory failure with hypercapnia; A04.72 Enterocolitis due to Clostridium difficile, not specified as recurrent; N13.30 Unspecified hydronephrosis; K92.2 Gastrointestinal hemorrhage, unspecified; B96.1 Klebsiella pneumoniae [K. pneumoniae] as the cause of diseases classified elsewhere; D64.9 Anemia, unspecified; N39.0 Urinary tract infection, site not specified; B96.20 Unspecified Escherichia coli [E. coli] as the cause of diseases classified elsewhere; E78.5 Hyperlipidemia, unspecified; K21.0 Gastro-esophageal reflux disease with esophagitis; N40.1 Benign prostatic hyperplasia with lower urinary tract symptoms; R33.8 Other retention of urine; T83.010A Breakdown (mechanical) of cystostomy catheter, initial encounter; Y84.6 Urinary catheterization as the cause of abnormal reaction of the patient, or of later complication, without mention of misadventure at the time of the procedure; E03.9 Hypothyroidism, unspecified; E87.6 Hypokalemia; G62.9 Polyneuropathy, unspecified; R68.0 Hypothermia, not associated with low environmental temperature; N32.0 Bladder-neck obstruction; E11.65 Type 2 diabetes mellitus with hyperglycemia; K57.30 Diverticulosis of large intestine without perforation or abscess without bleeding; K59.00 Constipation, unspecified; K22.2 Esophageal obstruction; Z51.5 Encounter for palliative care; Z87.11 Personal history of peptic ulcer disease; Z85.828 Personal history of other malignant neoplasm of skin; Z86.73 Personal history of transient ischemic attack (TIA), and cerebral infarction without residual deficits; Z87.440 Personal history of urinary (tract) infections; Z88.0 Allergy status to penicillin
CPT/HCPCS: 31500; 36430; 36600; 71010; 74000; 74177; 76937; 80048; 80053; 80202; 81001; 82550; 82805; 82948; 83036; 83605; 83735; 84100; 84132; 84155; 84439; 84443; 84484; 85014; 85018; 85025; 85027; 85610; 85730; 86077; 86850; 86870; 86900; 86901; 86920; 86922; 87040; 87077; 87086; 87106; 87186; 87493; 87641; 93005; 94002; 94003; 96365; 96374; C9113; J0692; J0696; J1100; J1450; J2060; J2250; J2270; J2370; J2765; J3010; J3370; J3475; J3480; J7030; J7040; J7050; J7060; P9016; P9045; Q9963; Q9967